=== PATIENT | male | born 1935 | race American Indian/Alaskan Native ===

== ENCOUNTER 2021-11-21 22:14 | Inpatient (IN) | payer OTHER ==
[2021-11-21] MEDS ORDERED: methylPREDNISolone Sod Succinate 125 MG/2 ML INJ IV ONE (23:20)
[2021-11-21] MEDS ORDERED: IPRATROPIUM/ALBUTEROL SULFATE 3 ML AMPUL.NEB IH ONE ×2 (23:27)
--- NOTE | 2021-11-21 23:35 | Emergency Department Report ---
HPI - General Chief Complaint: Dyspnea/Respdistress PUI?: Yes Time Seen by Provider: 11/21/21 23:02 - HPI HPI: 86yo morbidly obese M w/hx of DMII, CHF, chronic b/l LE lymphedema, brought in by ems for evaluation of sob. Pt reports several days of persistent intermittent dry/phlegm productive cough. He reports feeling "tightness" in his chest with coughing and sob, but denies chest pain. Of note patient is noted to have abdominal firmness and distention on physical exam. Patient states he has a history of a small bowel obstruction but denies any active abdominal pain or discomfort stating "my belly always looks like this." He denies any worsening abdominal distention over the past several days or weeks. No UTI symptoms. Last bowel movement was 1 day ago he states it was normal. No melena hematochezia or hematemesis. Pain currently 0 out of 10. ED Past Medical Hx - Past Medical History Previous Medical History?: Yes Hx Hypertension: Yes Hx Congestive Heart Failure: Yes Hx Diabetes: Yes Additional medical history: Gout. Thyroid Disease. Lymphedema - Surgical History Past Surgical History?: Yes Additional Surgical History: Abdominal. Small Bowel Obstruction - Social History Smoking Status: Never Smoker Substance Use Type: None ED Review of Systems ROS: Stated complaint: EMIL Other details as noted in HPI Comment: All other systems reviewed and negative Constitutional: no symptoms reported Eyes: as per HPI Respiratory: no symptoms reported, cough, orthopnea, shortness of breath, SOB with exertion, SOB at rest Cardiovascular: other ("chest tightness"). denies: chest pain, palpitations, dyspnea on exertion, orthopnea, edema, syncope, paroxysmal nocturnal dyspnea Gastrointestinal: other (abdominal distension ) Physical Exam - Physical Exam Vital Signs: Vital Signs 11/21/21 11/21/21 22:25 22:30 Temperature 98 F Pulse Rate 120 H 134 H Respiratory 20 39 H Rate Blood Pressure 146/102 O2 Sat by Pulse 97 96 Oximetry General: Gen: elderly male, dyspneic, on bipap machine, no drooling, no stridor, mild resp distress; able to speak in full sentences HEENT: Normocephalic atraumatic pupils equally round and reactive to light extraocular muscles intact sclera anicteric Neck: Full range of motion, no midline spinal tenderness palpation, no JVD, no carotid bruits, no nuchal rigidity CVS: S1-S2 regular rate and rhythm with no gallops rubs or murmurs, chest wall nontender Pulmonary: Clear to auscultation bilaterally, no wheezes rales or rhonchi Abdomen: firm, distended, ?ventral hernia; hypoactive bowel sounds; no hepatosplenomegaly, no pulsatile masses : Deferred Extremities: chronic lymphedema of b/l lower exteremities Integumentary: Skin normal, no petechia no purpura no abscess no lacerations no evidence of trauma no evidence of infection Neuro: Patient is awake alert and oriented to person place time situation, mentating well, cranial nerves II through XII intact, no focal neurodeficits, sensation grossly tact Psych: Calm cooperative, mood affect normal ED Course Vital Signs 11/21/21 11/21/21 22:25 22:30 Temperature 98 F Pulse Rate 120 H 134 H Respiratory 20 39 H Rate Blood Pressure 146/102 O2 Sat by Pulse 97 96 Oximetry - Reevaluation(s) Reevaluation #1: 11/22/21 01:28 pt appears more comfortable; denies any abdominal pain, back pain, or flank pain. will continue to monitor Reevaluation #2: 11/22/21 02:00 pt reassessed; RR at 26 breaths/min. Abdomen remains distended and firm nontender to palpation. ED Medical Decision Making - Lab Data Result diagrams: 11/21/21 23:20 11/21/21 23:20 - EKG Data -: EKG Interpreted by [facility] EKG shows normal: sinus rhythm Rate: tachycardia - EKG Data When compared to previous EKG there are: previous EKG unavailable Interpretation: LV[facility] - Radiology Data Radiology results: report reviewed - Medical Decision Making 86-year-old morbidly obese male with multiple medical comorbidities brought in by EMS for cough and shortness of breath. Per EMS the patient had received nitroglycerin and aspirin and was placed on a nonrebreather prior to arrival. Patient arrived here severely dyspneic tachypneic and hypertensive.Serum labs and diagnostic imaging results reviewed. However patient repeatedly denies any abdominal pain back pain or flank pain to suggest any acute intra-abdominal process at this time. Case reviewed with admitting hospitalist, . Patient admitted for CHF exacerbation (likely diastolic) and tachypnea. Critical Care Time: No Critical care attestation.: If time is entered above; I have spent that time in minutes in the direct care of this critically ill patient, excluding procedure time. ED Disposition Clinical Impression: Acute decompensated heart failure, Abdominal distension Disposition: ADMITTED INPATIENT Is pt being admited?: Yes Does the pt Need Aspirin: No Condition: Stable
[2021-11-21] MEDS ORDERED: FUROSEMIDE 40 MG/4 ML INJ IV ONE (23:40)
[2021-11-21 23:44] LABS: ABG Base Excess -3.4 mmol/L (-2.0-3.0); ABG HCO3 21.1 mmol/L (20.0-26.0); ABG Methemoglobin 0.6 % (0.0-1.5); ABG Oxygen Saturation 99.1 % (95.0-99.0); ABG PCO2 36.7 mm Hg; ABG PH 7.378 pH Units (7.350-7.450); ABG PO2 178.4 mm Hg (80.0-90.0)
[2021-11-21 23:51] LABS: Hematocrit 47.1 % (35.5-45.6); Hemoglobin 15.2 gm/dl (11.8-15.2); Mean Corpuscular HGB Conc 32 % (32-34); Mean Corpuscular Volume 88 fl (84-94); Platelet Count 189 K/mm3 (140-440); Red Blood Count 5.34 M/mm3 (3.65-5.03); Red Cell Distribution Width 14.1 % (13.2-15.2)
[2021-11-22 00:05] LABS: INR 1.04 (0.87-1.13); Partial Thromboplastin Time 31.8 Sec. (24.2-36.6)
[2021-11-22 00:27] LABS: Alanine Aminotransferase 24 units/L (7-56); Albumin 4.1 g/dL (3.9-5); BUN/Creatinine Ratio 10; Blood Urea Nitrogen 14 mg/dL (9-20); Calcium 10.9 mg/dL (8.4-10.2); Hemolysis Index 28
--- NOTE | 2021-11-22 00:27 | XRay Report ---
XR abdomen 1V ap INDICATION / CLINICAL INFORMATION: abdominal distension,. COMPARISON: None available. TECHNIQUE: One view supine AP abdomen. FINDINGS: TUBES / LINES: None. BOWEL GAS PATTERN: Moderate stool throughout the large bowel. Additionally, there is predominantly la rge bowel gaseous distention. No obvious free air. FREE AIR / EXTRALUMINAL GAS: None seen. ADDITIONAL FINDINGS: No significant additional findings. IMPRESSION: 1. Colonic ileus and/or constipation could be considered. No specific evidence of volvulus. Signer Name: Maco Marcelino II, MD Signed: 11/22/2021 12:22 AM Workstation Name: [id number]
--- NOTE | 2021-11-22 00:28 | XRay Report ---
CHEST 1 VIEW INDICATION / CLINICAL INFORMATION: sob, hx of chf. COMPARISON: None available. FINDINGS: SUPPORT DEVICES: None. HEART / MEDIASTINUM: Heart size is within normal limits. Mediastinal contour demonstrates no signific ant abnormality. LUNGS / PLEURA: Bibasilar lung opacities thought to reflect atelectasis more prevalent on the left. M id and upper lungs are clear. BONES: No significant osseous abnormality. ADDITIONAL FINDINGS: No significant additional findings. IMPRESSION: 1. No active cardiopulmonary disease. Signer Name: Maco Marcelino II, MD Signed: 11/22/2021 12:23 AM Workstation Name: [id number]
[2021-11-22 00:32] LABS: Bilirubin,Direct < 0.2 mg/dL (0-0.2)
--- NOTE | 2021-11-22 01:09 | Cat Scan Report ---
CT ABDOMEN AND PELVIS WITHOUT CONTRAST INDICATION / CLINICAL INFORMATION: abdominal distension, hypoactive bowel sounds; c/o. TECHNIQUE: Axial CT images were obtained through the abdomen and pelvis without IV contrast. All CT scans at this location are performed using CT dose reduction for ALARA by means of automated exposure control. COMPARISON: CT angiography of the chest same date. FINDINGS: LOWER CHEST: Please see comparison study for findings within the chest. LIVER: No focal lesion. No acute findings. GALLBLADDER / BILE DUCTS: No significant abnormality. Biliary ducts grossly unremarkable. SPLEEN: No significant abnormality. PANCREAS: No significant abnormality. ADRENALS: No significant abnormality. KIDNEYS/URETERS: 6 mm proximal right ureteral stone at the level of L3-4 interspace. [id number] hydronephrosis of the right kidney. Additional multiple moderately large renal stones are noted with in the right kidney. The right kidney additionally demonstrates a hyperdense cyst within the upper po le cortex. Left kidney demonstrates multiple small nephroliths. STOMACH / DUODENUM / SMALL BOWEL: The stomach, duodenum, and small bowel demonstrate no significant a bnormality. No specific abnormality of the mesentery demonstrated. COLON: Suture line noted within the mid sigmoid colon. Proximal to the suture line in the large bowel is moderately distended and filled with gas measuring up to 12-13 cm. Distal to the suture line in t he large bowel is decompressed. Moderate stool within the right hemicolon. APPENDIX: No significant abnormality. PERITONEUM: No free air or free fluid are present within the abdomen or pelvis. LYMPH NODES: No significant adenopathy. AORTA / ARTERIES: Moderate atherosclerotic calcification without acute abnormality. IVC / VEINS: No significant abnormality. URINARY BLADDER: Bladder diverticula. REPRODUCTIVE ORGANS: Prostate normal in size multiple calcifications. SKELETAL SYSTEM: No significant abnormality. ADDITIONAL ABDOMINAL/PELVIC FINDINGS: None. IMPRESSION: 1. 6 mm proximal right ureteral stone with associated hydronephrosis. 2. Multiple additional bilateral nephroliths. 3. The large bowel is moderately distended with gas to the point of the suture line in the mid sigmoi d colon. Partial obstruction at the level of suture line not excluded. 4. Other findings as detailed. Signer Name: Maco Marcelino II, MD Signed: 11/22/2021 1:05 AM Workstation Name: [id number]
--- NOTE | 2021-11-22 01:16 | Cat Scan Report ---
CTA CHEST WITH CONTRAST INDICATION / CLINICAL INFORMATION: cp, sob, hx of chf; eval for pulmonary embolism. TECHNIQUE: Axial CT images were obtained through the chest after injection of 100 cc Omnipaque 350 IV contrast. 3 plane MIP and/or 3D reconstructions were produced. All CT scans at this location are per formed using CT dose reduction for ALARA by means of automated exposure control. COMPARISON: CT of the abdomen and pelvis same date. FINDINGS: VASCULAR FINDINGS: PULMONARY ARTERY: Pulmonary artery is normal in size. No filling defects are present compatible with pulmonary artery embolus.. THORACIC AORTA: Moderate atherosclerotic calcification without acute abnormality. CORONARY ARTERY CALCIFICATION: Present -- Mild. NONVASCULAR FINDINGS: LOWER NECK: Soft tissues and musculature of the lower neck demonstrate no significant abnormality. Th e thyroid demonstrates no significant abnormality. HEART: No significant abnormality. MEDIASTINUM / MEERA: No significant abnormality. ESOPHAGUS: No significant abnormality. LYMPH NODES: No adenopathy within the axilla, mediastinum, or meera. LUNGS: Lungs are blurred by motion. Dependent atelectatic changes are noted. PLEURA: No pleural effusion. No pneumothorax. THORACIC SOFT TISSUES: No significant abnormality of the chest wall or upper thoracic musculature. BONES: No significant skeletal abnormalities. ADDITIONAL CHEST FINDINGS: None. UPPER ABDOMEN: Since comparison studies 4 Findings within the abdomen. IMPRESSION: 1. No CT evidence for pulmonary embolism. 2. Bilateral dependent regions of low attenuation most suggestive of atelectasis. Signer Name: Maco Marcelino II, MD Signed: 11/22/2021 1:11 AM Workstation Name: [id number]
[2021-11-22] MEDS ORDERED: DEXTROSE 50% IN WATER (25GM) 50 ML SYRINGE IV PRN (02:08)
[2021-11-22] MEDS ORDERED: MORPHINE 2 MG/1 ML INJ IV PRN (02:08)
[2021-11-22] MEDS ORDERED: MAGNESIUM HYDROXIDE (MOM) ORAL LIQD UDC PO PRN (02:08)
[2021-11-22] MEDS ORDERED: MORPHINE 4 MG/1 ML INJ IV PRN (02:08)
--- NOTE | 2021-11-22 02:22 | History and Physical Report ---
History of Present Illness Date of examination: 11/22/21 Date of admission: 11/22/2021 Chief complaint: Shortness of Breath History of present illness: 86-year-old -[place] male with known history of diabetes mellitus, CHF, bilateral lower extremity lymphedema presenting to the emergency room today complaining of shortness of breath and cough. He also indicates he has been having some tightness in his chest especially have coughing. He denies any chest pain. He denies any fever or chills, no nausea vomiting and no abdominal pain. Symptoms have been ongoing for the past few days. He denies any sick contacts and no recent travel. Upon arrival in the emergency room, patient was in respiratory distress. He was quite tachypneic upon arrival and was placed on nebulizing treatments and BiPAP. His abdomen also looked quite distended upon arrival and he states his abdomen has always been distended and and denies any pain. He states he has had small bowel obstruction in the past for which he has had surgery. Last bowel movement was about 24 hours ago. Work-up in the emergency room today, significant findings were that of creatinine of 1.4 and AST of 60 on the labs. Abdominal x-ray reveals colonic ileus and/or constipation. Chest x-ray shows no active cardiopulmonary disease. CT of the abdomen and pelvis shows multiple bilateral nephroliths. 6 mm proximal right ureteral stone with associated hydronephrosis. The large bowel is moderately distended with gas to the point of suture line in the mid sigmoid colon. Partial obstruction at the level of the suture line not excluded. Patient was given some Lasix in the emergency room with significant improvement. Past History Past Medical History: diabetes, heart failure, hypertension, hypothyroidism, other (Gout,Lymphedema) Past Surgical History: Other (Abdominal Surgery- Small Bowel Obstruction) Social history: no significant social history Family history: no significant family history Medications and Allergies Allergies Allergy/AdvReac Type Severity Reaction Status Date / Time No Known Allergies Allergy Unverified 11/21/21 23:08 Review of Systems Constitutional: no fever, no chills Ears, nose, mouth and throat: no nasal congestion, no sore throat Cardiovascular: no chest pain, no palpitations Respiratory: cough, shortness of breath Gastrointestinal: no abdominal pain, no nausea, no vomiting, no diarrhea Genitourinary Male: no dysuria, no hematuria, no flank pain, no nocturia Musculoskeletal: no neck pain, no low back pain Integumentary: no rash, no pruritis Neurological: no headaches, no confusion Psychiatric: no anxiety, no depression Endocrine: no polyphagia, no polydipsia, no polyuria, no nocturia Exam - Constitutional Vitals: Temp Pulse Resp BP Pulse Ox 98 F 134 H 39 H 146/102 96 11/21/21 22:25 11/21/21 22:30 11/21/21 22:30 11/21/21 22:25 11/21/21 22:30 General appearance: Present: mild distress, well-nourished, obese - EENT Eyes: Present: PERRL, EOM intact. Absent: scleral icterus ENT: hearing intact, clear oral mucosa, dentition normal - Neck Neck: Present: supple, normal ROM - Respiratory Respiratory effort: labored Respiratory: bilateral: diminished - Cardiovascular Rhythm: regular Heart Sounds: Present: S1 & S2. Absent: gallop, systolic murmur, diastolic murmur, rub, click - Extremities Extremities: no ischemia, pulses intact, pulses symmetrical, normal temperature, normal color, Full ROM Extremity abnormal: edema (Bilateral lymphedema) Peripheral Pulses: within normal limits - Abdominal General gastrointestinal: Present: soft, non-distended, distended, normal bowel sounds. Absent: mass - Integumentary Integumentary: Present: clear, warm, dry, normal turgor. Absent: rash - Musculoskeletal Musculoskeletal: strength equal bilaterally - Psychiatric Psychiatric: appropriate mood/affect, intact judgment & insight, memory intact, cooperative - Neurologic Neurologic: CNII-XII intact, no focal deficits, moves all extremities HEART Score - HEART Score Troponin: Troponin T < 0.010 ng/mL (0.00-0.029) 11/21/21 23:20 Results - Labs CBC & Chem 7: 11/21/21 23:20 11/21/21 23:20 Labs: Abnormal lab results 11/21/21 11/21/21 11/21/21 Range/Units 22:53 23:20 23:20 RBC 5.34 H (3.65-5.03) M/mm3 Hct 47.1 H (35.5-45.6) % ABG pO2 178.4 H (80.0-90.0) mm Hg ABG O2 Saturation 99.1 H (95.0-99.0) % ABG Base Excess -3.4 L (-2.0-3.0) mmol/L Sodium 133 L (137-145) mmol/L Creatinine 1.4 H (0.8-1.3) mg/dL Calcium 10.9 H (8.4-10.2) mg/dL AST 60 H (5-40) units/L Alkaline Phosphatase 184 H (35-129) units/L Assessment and Plan Assessment: 1. Acute respiratory failure 2. CHF exacerbation 3. Morbid obesity 4. Abdominal distention 5. Ureteral stone with hydronephrosis 6. Diabetes mellitus 7. Hypertensionblood pressure controlled 8.Elevated creatinine- baseline unknown Plan: 1. Patient admitted and placed on BiPAP. 2. Placed on diuretics. Will monitor input and output and also monitor daily weight. 3. We will place patient on nebulizing treatments as needed. 4. We will resume routine home medications once reconciled. 5. Consult placed to nephrology and urology for evaluation and recommendations. 6. Consult placed to cardiology for evaluation. DVT Prophylaxis: Sequential compression device Code Status: Full code
[2021-11-22 03:27] LABS: Anisocytosis 1+; Band Neutrophils # (Manual) 0.1 K/mm3; Basophils % (Manual) 0 % (0.0-1.8); Platelet Estimate Consistent w Auto; Total Cells Counted 100
[2021-11-22] MEDS ORDERED: FUROSEMIDE 40 MG/4 ML INJ IV SCH (06:00)
[2021-11-22] MEDS ORDERED: HEPARIN 5,000 UNIT/1 ML VIAL SUB-Q SCH (06:00)
[2021-11-22] MEDS ORDERED: ALBUTEROL 2.5 MG/3 ML NEBU IH PRN (07:02)
[2021-11-22] MEDS: INSULIN LISPRO 100 UNIT/ML SUB-Q SCH ×2 (07:59→21:19)
--- NOTE | 2021-11-22 08:30 | Consultation ---
History of Present Illness - Reason for Consult Consult date: 11/22/21 - History of Present Illness 86-year-old -[place] male with known history of diabetes mellitus, CHF, bilateral lower extremity lymphedema presenting to the emergency room today complaining of shortness of breath and cough. He also indicates he has been having some tightness in his chest especially have coughing. He denies any chest pain. He denies any fever or chills, no nausea vomiting and no abdominal pain. Symptoms have been ongoing for the past few days. He denies any sick contacts and no recent travel. . His abdomen also looked quite distended upon arrival and he states his abdomen has always been distended and and denies any pain. He states he has had small bowel obstruction in the past for which he has had surgery. Last bowel movement was about 24 hours ago. Work-up in the emergency room today, significant findings were that of creatinine of 1.4 Abdominal x-ray reveals colonic ileus and/or constipation. Chest x-ray shows no active cardiopulmonary disease. CT of the abdomen and pelvis shows multiple bilateral nephroliths. 6 mm proximal right ureteral stone with associated hydronephrosis. The large bowel is moderately distended with gas to the point of suture line in the mid sigmoid colon. Partial obstruction at the level of the suture line not excluded. Patient was given some Lasix in the emergency room with significant improvement. abd --- non tender legs wrapped in bandages a/p 6 mm proximal right ureteral stone with associated hydronephrosis. discussed cysto, stent to improve symptoms Myself or partner to do procedure (pt aware) npo Past History Past Medical History: diabetes, heart failure, hypertension, hypothyroidism, other (Gout,Lymphedema) Past Surgical History: Other (Abdominal Surgery- Small Bowel Obstruction) Social history: no significant social history Family history: no significant family history Medications and Allergies Allergies Allergy/AdvReac Type Severity Reaction Status Date / Time No Known Allergies Allergy Unverified 11/21/21 23:08 Active Meds: Active Medications Acetaminophen (Acetaminophen 325 Mg Tab) 650 mg PO Q6H PRN PRN Reason: Pain MILD(1-3)/Fever >100.5/CARREON Albuterol (Albuterol 2.5 Mg/3 Ml Nebu) 2.5 mg IH Q4HRT PRN PRN Reason: Shortness Of Breath Dextrose (Dextrose 50% In Water (25gm) 50 Ml Syringe) 0 ml IV Q30MIN PRN; [place] col PRN Reason: Hypoglycemia Dextrose (Dextrose 50% In Water (25gm) 50 Ml Syringe) 0 ml IV Q30MIN PRN; Protocol PRN Reason: Hypoglycemia Furosemide (Furosemide 40 Mg/4 Ml Inj) 40 mg IV BID@0600,1800 ERIKA Last Admin: 11/22/21 06:33 Dose: 40 mg Insulin Human Lispro (Insulin Lispro 100 Unit/Ml) 0 unit SUB-Q ACHS ERIKA; Protocol Last Admin: 11/22/21 07:59 Dose: Not Given Magnesium Hydroxide (Magnesium Hydroxide (Mom) Oral Liqd Udc) 30 ml PO Q4H PRN PRN Reason: Constipation Morphine Sulfate (Morphine 2 Mg/1 Ml Inj) 2 mg IV Q4H PRN PRN Reason: Pain, Moderate (4-6) Morphine Sulfate (Morphine 4 Mg/1 Ml Inj) 4 mg IV Q4H PRN PRN Reason: Pain , Severe (7-10) Sodium Chloride (Sodium Chloride 0.9% 10 Ml Flush Syringe) 10 ml IV BID [facility] Sodium Chloride (Sodium Chloride 0.9% 10 Ml Flush Syringe) 10 ml IV PRN PRN PRN Reason: LINE FLUSH Exam - Constitutional Vitals: Temp Pulse Resp BP Pulse Ox 98 F 76 24 127/76 93 11/21/21 22:25 11/22/21 07:36 11/22/21 07:36 11/22/21 07:36 11/22/21 07:36 Results - Labs CBC & Chem 7: 11/21/21 23:20 11/21/21 23:20 Labs: Abnormal lab results 11/21/21 11/21/21 11/21/21 Range/Units 22:53 23:20 23:20 RBC 5.34 H (3.65-5.03) M/mm3 Hct 47.1 H (35.5-45.6) % Seg Neuts % (Manual) 91.0 H (40.0-70.0) % Lymphocytes % (Manual) 5.0 L (13.4-35.0) % Seg Neutrophils # Man 8.5 H (1.8-7.7) K/mm3 Lymphocytes # (Manual) 0.5 L (1.2-5.4) K/mm3 ABG pO2 178.4 H (80.0-90.0) mm Hg ABG O2 Saturation 99.1 H (95.0-99.0) % ABG Base Excess -3.4 L (-2.0-3.0) mmol/L Sodium 133 L (137-145) mmol/L Creatinine 1.4 H (0.8-1.3) mg/dL Calcium 10.9 H (8.4-10.2) mg/dL AST 60 H (5-40) units/L Alkaline Phosphatase 184 H (35-129) units/L
--- NOTE | 2021-11-22 09:42 | Consultation ---
History of Present Illness - Reason for Consult Consult date: 11/22/21 acute renal failure - History of Present Illness Mr. Turcios is an 86-year-old with congestive heart failure, bilateral lower extremity lymphedema, type II DM who presented to the emergency room today complaining of shortness of breath and cough w/ pleuritic chest pain. He denies fever but reports chills. He denies any sick contacts. He did not receive COVID 19 vaccination. Upon arrival in the emergency room, patient was in respiratory distress requiring nebulizer and BiPAP. Chest x-ray shows no active cardiopulmonary disease. CT of the abdomen and pelvis notable for 6 mm proximal right ureteral stone with associated hydronephrosis. The large bowel is moderately distended with gas to the point of suture line in the mid sigmoid colon. Partial obstruction at the level of the suture line not excluded. Past History Past Medical History: diabetes, heart failure, hypertension, hypothyroidism, other (Gout,Lymphedema) Past Surgical History: Other (Abdominal Surgery- Small Bowel Obstruction) Social history: no significant social history Family history: no significant family history Medications and Allergies Allergies Allergy/AdvReac Type Severity Reaction Status Date / Time No Known Allergies Allergy Unverified 11/21/21 23:08 Home Medications Medication Instructions Recorded Confirmed Last Taken Type Furosemide [Lasix] 20 mg PO QDAY 11/22/21 11/22/21 Unknown History Gabapentin [Neurontin] 300 mg PO BID 11/22/21 11/22/21 Unknown History Levothyroxine [Synthroid] 150 mcg PO QAM 11/22/21 11/22/21 Unknown History allopurinoL [Zyloprim] 100 mg PO QDAY 11/22/21 11/22/21 Unknown History amLODIPine [Norvasc] 10 mg PO DAILY 11/22/21 11/22/21 Unknown History lisinopriL [Zestril TAB] 40 mg PO QDAY 11/22/21 11/22/21 Unknown History Active Meds: Active Medications Acetaminophen (Acetaminophen 325 Mg Tab) 650 mg PO Q6H PRN PRN Reason: Pain MILD(1-3)/Fever >100.5/CARREON Albuterol (Albuterol 2.5 Mg/3 Ml Nebu) 2.5 mg IH Q4HRT PRN PRN Reason: Shortness Of Breath Dextrose (Dextrose 50% In Water (25gm) 50 Ml Syringe) 0 ml IV Q30MIN PRN; Protocol PRN Reason: Hypoglycemia Dextrose (Dextrose 50% In Water (25gm) 50 Ml Syringe) 0 ml IV Q30MIN PRN; Protocol PRN Reason: Hypoglycemia Insulin Human Lispro (Insulin Lispro 100 Unit/Ml) 0 unit SUB-Q ACHS ERIKA; Protocol Last Admin: 11/22/21 07:59 Dose: Not Given Magnesium Hydroxide (Magnesium Hydroxide (Mom) Oral Liqd Udc) 30 ml PO Q4H PRN PRN Reason: Constipation Morphine Sulfate (Morphine 2 Mg/1 Ml Inj) 2 mg IV Q4H PRN PRN Reason: Pain, Moderate (4-6) Morphine Sulfate (Morphine 4 Mg/1 Ml Inj) 4 mg IV Q4H PRN PRN Reason: Pain , Severe (7-10) Sodium Chloride (Sodium Chloride 0.9% 10 Ml Flush Syringe) 10 ml IV BID ERIKA Sodium Chloride (Sodium Chloride 0.9% 10 Ml Flush Syringe) 10 ml IV PRN PRN PRN Reason: LINE FLUSH Review of Systems All systems: negative Exam - Vital Signs Vital signs: Vital Signs Temp Pulse Resp BP Pulse Ox 98 F 120 H 20 146/102 97 11/21/21 22:25 11/21/21 22:25 11/21/21 22:25 11/21/21 22:25 11/21/21 22:25 - General Appearance General appearance: well-developed, well-nourished EENT: ATNC Respiratory: Decreased Breath Sounds Heart: regular, S1S2 Gastrointestinal: Present: hypoactive bowel sounds Integumentary: warm and dry Neurologic: alert and oriented x3 Musculoskeletal: Present: other (bilateral LE bandaged) Results - Lab Results 11/23/21 04:38 11/23/21 04:38 Most recent lab results ABG pH 7.378 pH Units (7.350-7.450) 11/21/21 22:53 ABG pCO2 36.7 mm Hg 11/21/21 22:53 ABG pO2 178.4 mm Hg (80.0-90.0) H 11/21/21 22:53 ABG HCO3 21.1 mmol/L (20.0-26.0) 11/21/21 22:53 ABG O2 Saturation 99.1 % (95.0-99.0) H 11/21/21 22:53 Calcium 10.9 mg/dL (8.4-10.2) H 11/21/21 23:20 Assessment and Plan Impression: * Acute kidney injury vs underlying CKD --No previous labs available * Acute hypoxic respiratory failure secondary to pulmonary edema vs other * Right ureteral calculus with associated hydronephrosis * Obstructive uropathy secondary to ureteral calculus * Partial bowel obstruction * Congestive heart failure * Hypercalcemia Plan: * Diuresis prn - patient is s/p IV lasix * Recommend COVID 19 testing in light of symptoms and unvaccinated status - discussed with ICU PA * Urology recommendations noted * Cardiology consultation pending * Avoid potential nephrotoxins * Dose medications for renal function * AM labs
--- NOTE | 2021-11-22 11:03 | Consultation ---
History of Present Illness Consult date: 11/22/21 Requesting physician: THU ROMERO Consult reason: congestive heart failure History of present illness: Patient is 86-year-old male with a reported past medical history of diabetes, CHF, chronic bilateral lower extremity lymphedema, hypertension presents to the ED with a complaint of shortness of breath and cough time 2 to 3 days. In the ED patient was found to be in respiratory distress and started on BiPAP and nebulizer treatments. CT abdomen showed bilateral nephroliths and ureteral stone associated with hydronephrosis. Patient was also seen moderately distended large bowel with partial obstruction. Patient was found to have elevated creatinine. Chest x-ray showed no acute cardiopulmonary process patient denies any chest pain, nausea, vomiting, diaphoresis. Patient previously unknown to our practice. Cardiology is consulted for CHF. Past History Past Medical History: diabetes, heart failure, hypertension, hypothyroidism, other (Gout,Lymphedema) Past Surgical History: Other (Abdominal Surgery- Small Bowel Obstruction) Social history: no significant social history Family history: no significant family history Medications and Allergies Allergies Allergy/AdvReac Type Severity Reaction Status Date / Time No Known Allergies Allergy Unverified 11/21/21 23:08 Home Medications Medication Instructions Recorded Confirmed Last Taken Type Furosemide [Lasix] 20 mg PO QDAY 11/22/21 11/22/21 Unknown History Gabapentin [Neurontin] 300 mg PO BID 11/22/21 11/22/21 Unknown History Levothyroxine [Synthroid] 150 mcg PO QAM 11/22/21 11/22/21 Unknown History allopurinoL [Zyloprim] 100 mg PO QDAY 11/22/21 11/22/21 Unknown History amLODIPine [Norvasc] 10 mg PO DAILY 11/22/21 11/22/21 Unknown History lisinopriL [Zestril TAB] 40 mg PO QDAY 11/22/21 11/22/21 Unknown History Active Meds: Active Medications Acetaminophen (Acetaminophen 325 Mg Tab) 650 mg PO Q6H PRN PRN Reason: Pain MILD(1-3)/Fever >100.5/CARREON Albuterol (Albuterol 2.5 Mg/3 Ml Nebu) 2.5 mg IH Q4HRT PRN PRN Reason: Shortness Of Breath Dextrose (Dextrose 50% In Water (25gm) 50 Ml Syringe) 0 ml IV Q30MIN PRN; Protocol PRN Reason: Hypoglycemia Insulin Human Lispro (Insulin Lispro 100 Unit/Ml) 0 unit SUB-Q ACHS ERIKA; Protocol Last Admin: 11/22/21 07:59 Dose: Not Given Levothyroxine Sodium (Levothyroxine 150 Mcg Tab) 150 mcg PO QAM@0600 [facility] Magnesium Hydroxide (Magnesium Hydroxide (Mom) Oral Liqd Udc) 30 ml PO Q4H PRN PRN Reason: Constipation Morphine Sulfate (Morphine 2 Mg/1 Ml Inj) 2 mg IV Q4H PRN PRN Reason: Pain, Moderate (4-6) Morphine Sulfate (Morphine 4 Mg/1 Ml Inj) 4 mg IV Q4H PRN PRN Reason: Pain , Severe (7-10) Sodium Chloride (Sodium Chloride 0.9% 10 Ml Flush Syringe) 10 ml IV BID ERIKA Sodium Chloride (Sodium Chloride 0.9% 10 Ml Flush Syringe) 10 ml IV PRN PRN PRN Reason: LINE FLUSH Review of Systems Constitutional: no weight loss, no weight gain, no fever Ears, nose, mouth and throat: no nasal discharge, no sinus pressure, no sinus pain Cardiovascular: shortness of breath, dyspnea on exertion, no chest pain Respiratory: cough, shortness of breath, dyspnea on exertion Gastrointestinal: no abdominal pain, no nausea, no vomiting Musculoskeletal: no neck stiffness, no neck pain Integumentary: no rash, no pruritis, no redness Neurological: no head injury, no transient paralysis Psychiatric: no anxiety, no memory loss Endocrine: no cold intolerance, no heat intolerance Hematologic/Lymphatic: no easy bruising, no easy bleeding Physical Examination Vital Signs Temp Pulse Resp BP Pulse Ox 98 F 120 H 20 146/102 97 11/21/21 22:25 11/21/21 22:25 11/21/21 22:25 11/21/21 22:25 11/21/21 22:25 General appearance: no acute distress Neck: Positive: trachea midline Cardiac: Positive: Regular Rhythm, Tachycardia Lungs: Positive: Decreased Breath Sounds Neuro: Positive: Grossly Intact Abdomen: Positive: Distended Skin: Negative: Rash, Suspicious Lesions, Ulceration Extremities: Present: edema (chroninc lymphedema) Results 11/21/21 23:20 11/21/21 23:20 Cardiac Enzymes 11/21/21 Range/Units 23:20 AST 60 H (5-40) units/L Coagulation 11/21/21 Range/Units 23:20 PT 14.8 (12.2-14.9) Sec. INR 1.04 (0.87-1.13) APTT 31.8 (24.2-36.6) Sec. CBC 11/21/21 Range/Units 23:20 WBC 9.3 (4.5-11.0) K/mm3 RBC 5.34 H (3.65-5.03) M/mm3 Hgb 15.2 (11.8-15.2) gm/dl Hct 47.1 H (35.5-45.6) % Plt Count 189 (140-440) K/mm3 Comprehensive Metabolic Panel 11/21/21 Range/Units 23:20 Sodium 133 L (137-145) mmol/L Potassium 4.1 (3.6-5.0) mmol/L Chloride 98.9 (98-107) mmol/L Carbon Dioxide 22 (22-30) mmol/L BUN 14 (9-20) mg/dL Creatinine 1.4 H (0.8-1.3) mg/dL Glucose 95 (75-100) mg/dL Calcium 10.9 H (8.4-10.2) mg/dL Direct Bilirubin < 0.2 (0-0.2) mg/dL Indirect Bilirubin 0.4 mg/dL AST 60 H (5-40) units/L ALT 24 (7-56) units/L Alkaline Phosphatase 184 H (35-129) units/L Total Protein 7.7 (6.3-8.2) g/dL Albumin 4.1 (3.9-5) g/dL - Imaging and Cardiology Echo: pending, report reviewed EKG interpretations - Telemetry EKG Rhythm: Sinus Tachycardia - EKG Sinus rhythms and dysrhythmias: sinus tachycardia Ventricular dysrhythmias: ventricular premature com Assessment and Plan Patient is 86-year-old male with a reported past medical history of diabetes, CHF, chronic bilateral lower extremity lymphedema, hypertension presents to the ED with a complaint of shortness of breath and cough time 2 to 3 days Acute respiratory failure Hydronephrosis-nephrology following Kidney stone TAMMY Chronic lymphedema Hypertension Echo 03/07/2019-1. Left ventricular ejection fraction is 65%. Aortic valve is tricuspid, focally calcified and sclerotic. Mildly dilated left atrium. There is impaired relaxation with normal filling pressure consistent with grade 1 diastolic dysfunction. E/E' indicative of elevated LVEDP. Mild pulmonic valve insufficiency. Echo 11/22/2021-EF 50 to 55%. Mild concentric LVH. Right ventricle systolic function is normal. No aortic regurgitation is present. Aortic valve is calcified. No aortic valvular stenosis no pericardial effusion Plan: EKG shows sinus tach with PVCs no acute ischemic changes. Troponin negative x1. Patient denies any complaint of chest pain BNP negative, CXR shows no acute cardiopulmonary process. Patient is not clinically in heart failure Echo pending Will defer volume management to nephrology in due to patient's renal function No LIBERTY/ARB due to renal function At this time patient is not an acute heart failure or complaints of any ischemic symptoms no cardiac contraindications for intervention at this time. Patient presents with Dr. Hatfield who agrees with plan of care - Patient Problems (1) Hydronephrosis Current Visit: Yes Status: Acute (2) Abdominal distension Current Visit: No Status: Acute (3) TAMMY (acute kidney injury) Current Visit: Yes Status: Acute (4) Lymph edema Current Visit: Yes Status: Acute (5) HTN (hypertension) Current Visit: Yes Status: Acute (6) Acute respiratory failure Current Visit: Yes Status: Acute
--- NOTE | 2021-11-22 11:28 | Consultation ---
History of Present Illness Consult date: 11/22/21 Requesting physician: THU ROMERO Reason for consult: other (Acute Hypoxemic Respiratory Failure) History of present illness: [facility] CONSULT NOTE (Full dictation # [id number]) Please see dictated notes for full details Past History Past Medical History: diabetes, heart failure, hypertension, hypothyroidism, other (Gout,Lymphedema) Past Surgical History: Other (Abdominal Surgery- Small Bowel Obstruction) Social history: no significant social history Family history: no significant family history Medications and Allergies Allergies Allergy/AdvReac Type Severity Reaction Status Date / Time No Known Allergies Allergy Unverified 11/21/21 23:08 Home Medications Medication Instructions Recorded Confirmed Last Taken Type Furosemide [Lasix] 20 mg PO QDAY 11/22/21 11/22/21 Unknown History Gabapentin [Neurontin] 300 mg PO BID 11/22/21 11/22/21 Unknown History Levothyroxine [Synthroid] 150 mcg PO QAM 11/22/21 11/22/21 Unknown History allopurinoL [Zyloprim] 100 mg PO QDAY 11/22/21 11/22/21 Unknown History amLODIPine [Norvasc] 10 mg PO DAILY 11/22/21 11/22/21 Unknown History lisinopriL [Zestril TAB] 40 mg PO QDAY 11/22/21 11/22/21 Unknown History Active Meds: Active Medications Acetaminophen (Acetaminophen 325 Mg Tab) 650 mg PO Q6H PRN PRN Reason: Pain MILD(1-3)/Fever >100.5/CARREON Albuterol (Albuterol 2.5 Mg/3 Ml Nebu) 2.5 mg IH Q4HRT PRN PRN Reason: Shortness Of Breath Dextrose (Dextrose 50% In Water (25gm) 50 Ml Syringe) 0 ml IV Q30MIN PRN; Protocol PRN Reason: Hypoglycemia Insulin Human Lispro (Insulin Lispro 100 Unit/Ml) 0 unit SUB-Q ACHS ERIKA; Protocol Last Admin: 11/22/21 07:59 Dose: Not Given Levothyroxine Sodium (Levothyroxine 150 Mcg Tab) 150 mcg PO QAM@0600 [facility] Magnesium Hydroxide (Magnesium Hydroxide (Mom) Oral Liqd Udc) 30 ml PO Q4H PRN PRN Reason: Constipation Morphine Sulfate (Morphine 2 Mg/1 Ml Inj) 2 mg IV Q4H PRN PRN Reason: Pain, Moderate (4-6) Morphine Sulfate (Morphine 4 Mg/1 Ml Inj) 4 mg IV Q4H PRN PRN Reason: Pain , Severe (7-10) Sodium Chloride (Sodium Chloride 0.9% 10 Ml Flush Syringe) 10 ml IV BID ERIKA Sodium Chloride (Sodium Chloride 0.9% 10 Ml Flush Syringe) 10 ml IV PRN PRN PRN Reason: LINE FLUSH Physical Examination Vital signs: Vital Signs Temp Pulse Resp BP Pulse Ox 98 F 120 H 20 146/102 97 11/21/21 22:25 11/21/21 22:25 11/21/21 22:25 11/21/21 22:25 11/21/21 22:25 Results - Laboratory Findings CBC and BMP: 11/21/21 23:20 11/21/21 23:20 ABG ABG pH 7.378 pH Units (7.350-7.450) 11/21/21 22:53 ABG pCO2 36.7 mm Hg 11/21/21 22:53 ABG pO2 178.4 mm Hg (80.0-90.0) H 11/21/21 22:53 ABG O2 Saturation 99.1 % (95.0-99.0) H 11/21/21 22:53 PT/INR, D-dimer PT 14.8 Sec. (12.2-14.9) 11/21/21 23:20 INR 1.04 (0.87-1.13) 11/21/21 23:20 Abnormal lab findings: Abnormal Labs 11/21/21 11/21/21 11/21/21 22:53 23:20 23:20 RBC 5.34 H Hct 47.1 H Seg Neuts % (Manual) 91.0 H Lymphocytes % (Manual) 5.0 L Seg Neutrophils # Man 8.5 H Lymphocytes # (Manual) 0.5 L ABG pO2 178.4 H ABG O2 Saturation 99.1 H ABG Base Excess -3.4 L Sodium 133 L Creatinine 1.4 H Calcium 10.9 H AST 60 H Alkaline Phosphatase 184 H
[2021-11-22] MEDS: ACETAMINOPHEN 325 MG TAB PO PRN (11:36)
[2021-11-22 12:27] LABS: Bacteria,Urine 1+ /HPF (Negative); Mucus,Urine FEW /HPF
[2021-11-22 12:38] LABS: Color,Urine Yellow (Yellow)
--- NOTE | 2021-11-22 14:26 | Consultation ---
History of Present Illness Consult date: 11/22/21 Reason for consult: other (abnormal ct abdomen) Chief complaint: sob - History of present illness History of present illness: 86 yo M with hx of morbid obesity, CHF, sleep apnea who presented to ER with i ncreasing SOB. Patient admitted to ICU for management of respiratory symptoms. Patient in OR at time of visit and all hx obtained from chart and from patient's exwife over telephone. During w/u, CT A/P was obtained which revealed hydronephrosis 2/2 obstructing ureteral stone and large bowel dilatation to the level of a sigmoid anastamosis. Patient noted to have distended abdomen but states it was baseline for him. He had a BM 24 hours prior without c/o abdominal pain, n/v. Per patient's exwife he has not had any abdominal complaints recently. At [facility] with Dr. Frantz Herrera, in 2019, he underwent open sigmoid resection, colostomy creation for impacted stool. He does not have a history of cancer. He subsequently underwent reversal of ostomy. He has not had a recent cscope. He has never had any other bowel surgery. Past History Past Medical History: diabetes, heart failure, hypertension, hypothyroidism, other (Gout,Lymphedema, sleep apnea, colonic inertia) Past Surgical History: Other (Hartmanns procedure with subsequent ostomy reversal) Social history: no significant social history Family history: no significant family history Medications and Allergies Allergies Allergy/AdvReac Type Severity Reaction Status Date / Time No Known Allergies Allergy Unverified 11/21/21 23:08 Home Medications Medication Instructions Recorded Confirmed Last Taken Type Furosemide [Lasix] 20 mg PO QDAY 11/22/21 11/22/21 Unknown History Gabapentin [Neurontin] 300 mg PO BID 11/22/21 11/22/21 Unknown History Levothyroxine [Synthroid] 150 mcg PO QAM 11/22/21 11/22/21 Unknown History allopurinoL [Zyloprim] 100 mg PO QDAY 11/22/21 11/22/21 Unknown History amLODIPine [Norvasc] 10 mg PO DAILY 11/22/21 11/22/21 Unknown History lisinopriL [Zestril TAB] 40 mg PO QDAY 11/22/21 11/22/21 Unknown History Active Meds: Active Medications Acetaminophen (Acetaminophen 325 Mg Tab) 650 mg PO Q6H PRN PRN Reason: Pain MILD(1-3)/Fever >100.5/CARREON Last Admin: 11/22/21 11:36 Dose: 650 mg Albuterol (Albuterol 2.5 Mg/3 Ml Nebu) 2.5 mg IH Q4HRT PRN PRN Reason: Shortness Of Breath Dextrose (Dextrose 50% In Water (25gm) 50 Ml Syringe) 0 ml IV Q30MIN PRN; Protocol PRN Reason: Hypoglycemia Insulin Human Lispro (Insulin Lispro 100 Unit/Ml) 0 unit SUB-Q ACHS ERIKA; Protocol Last Admin: 11/22/21 07:59 Dose: Not Given Levothyroxine Sodium (Levothyroxine 150 Mcg Tab) 150 mcg PO QAM@0600 [facility] Magnesium Hydroxide (Magnesium Hydroxide (Mom) Oral Liqd Udc) 30 ml PO Q4H PRN PRN Reason: Constipation Morphine Sulfate (Morphine 2 Mg/1 Ml Inj) 2 mg IV Q4H PRN PRN Reason: Pain, Moderate (4-6) Morphine Sulfate (Morphine 4 Mg/1 Ml Inj) 4 mg IV Q4H PRN PRN Reason: Pain , Severe (7-10) Sodium Chloride (Sodium Chloride 0.9% 10 Ml Flush Syringe) 10 ml IV BID ERIKA Sodium Chloride (Sodium Chloride 0.9% 10 Ml Flush Syringe) 10 ml IV PRN PRN PRN Reason: LINE FLUSH Exam Vital Signs Temp Pulse Resp BP Pulse Ox 98 F 120 H 20 146/102 97 11/21/21 22:25 11/21/21 22:25 11/21/21 22:25 11/21/21 22:25 11/21/21 22:25 Narrative exam: Unable to complete. Patient in OR Results - Labs 11/21/21 23:20 11/21/21 23:20 Abnormal lab results 11/21/21 11/21/21 11/21/21 Range/Units 22:53 23:20 23:20 RBC 5.34 H (3.65-5.03) M/mm3 Hct 47.1 H (35.5-45.6) % Seg Neuts % (Manual) 91.0 H (40.0-70.0) % Lymphocytes % (Manual) 5.0 L (13.4-35.0) % Seg Neutrophils # Man 8.5 H (1.8-7.7) K/mm3 Lymphocytes # (Manual) 0.5 L (1.2-5.4) K/mm3 ABG pO2 178.4 H (80.0-90.0) mm Hg ABG O2 Saturation 99.1 H (95.0-99.0) % ABG Base Excess -3.4 L (-2.0-3.0) mmol/L Sodium 133 L (137-145) mmol/L Creatinine 1.4 H (0.8-1.3) mg/dL Calcium 10.9 H (8.4-10.2) mg/dL AST 60 H (5-40) units/L Alkaline Phosphatase 184 H (35-129) units/L Urine WBC (Auto) (0.0-6.0) /HPF 11/22/21 Range/Units 11:47 RBC (3.65-5.03) M/mm3 Hct (35.5-45.6) % Seg Neuts % (Manual) (40.0-70.0) % Lymphocytes % (Manual) (13.4-35.0) % Seg Neutrophils # Man (1.8-7.7) K/mm3 Lymphocytes # (Manual) (1.2-5.4) K/mm3 ABG pO2 (80.0-90.0) mm Hg ABG O2 Saturation (95.0-99.0) % ABG Base Excess (-2.0-3.0) mmol/L Sodium (137-145) mmol/L Creatinine (0.8-1.3) mg/dL Calcium (8.4-10.2) mg/dL AST (5-40) units/L Alkaline Phosphatase (35-129) units/L Urine WBC (Auto) 14.0 H (0.0-6.0) /HPF Diabetes panel 11/21/21 Range/Units 23:20 Sodium 133 L (137-145) mmol/L Potassium 4.1 (3.6-5.0) mmol/L Chloride 98.9 (98-107) mmol/L Carbon Dioxide 22 (22-30) mmol/L BUN 14 (9-20) mg/dL Creatinine 1.4 H (0.8-1.3) mg/dL Glucose 95 (75-100) mg/dL Calcium 10.9 H (8.4-10.2) mg/dL AST 60 H (5-40) units/L ALT 24 (7-56) units/L Alkaline Phosphatase 184 H (35-129) units/L Total Protein 7.7 (6.3-8.2) g/dL Albumin 4.1 (3.9-5) g/dL Calcium panel 11/21/21 Range/Units 23:20 Calcium 10.9 H (8.4-10.2) mg/dL Albumin 4.1 (3.9-5) g/dL Pituitary panel 11/21/21 Range/Units 23:20 Sodium 133 L (137-145) mmol/L Potassium 4.1 (3.6-5.0) mmol/L Chloride 98.9 (98-107) mmol/L Carbon Dioxide 22 (22-30) mmol/L BUN 14 (9-20) mg/dL Creatinine 1.4 H (0.8-1.3) mg/dL Glucose 95 (75-100) mg/dL Calcium 10.9 H (8.4-10.2) mg/dL Adrenal panel 11/21/21 Range/Units 23:20 Sodium 133 L (137-145) mmol/L Potassium 4.1 (3.6-5.0) mmol/L Chloride 98.9 (98-107) mmol/L Carbon Dioxide 22 (22-30) mmol/L BUN 14 (9-20) mg/dL Creatinine 1.4 H (0.8-1.3) mg/dL Glucose 95 (75-100) mg/dL Calcium 10.9 H (8.4-10.2) mg/dL Total Bilirubin 0.60 (0.1-1.2) mg/dL AST 60 H (5-40) units/L ALT 24 (7-56) units/L Alkaline Phosphatase 184 H (35-129) units/L Total Protein 7.7 (6.3-8.2) g/dL Albumin 4.1 (3.9-5) g/dL - Imaging CT scan - abdomen: report reviewed, image reviewed CT scan - pelvis: report reviewed, image reviewed Assessment and Plan 86 yo M with colonic distension, hx of sigmoid resection and possible stricture at staple line. Likely chronic. Plan: 1. NPO 2. gentle IVF 3. Discussed flex sig with GI to further assess anastamosis - await recs. Consult placed. 4. May require ostomy vs stent placement based on flex sig results 5. DVT ppx 6. May consider discussion with patient's primary surgeon at [place], Dr. Herrera Thank you, please call with questions.
[2021-11-22] MEDS ORDERED: MIDAZOLAM 2 MG/2 ML INJ ONE (14:32)
[2021-11-22] MEDS ORDERED: propofoL 200 MG/20 ML VIAL IV ONE (14:33)
[2021-11-22] MEDS ORDERED: SODIUM CHLORIDE 0.9% 1000 ML 1,000 ML ONE (14:37)
[2021-11-22] MEDS ORDERED: SODIUM CHLORIDE 0.9% 1000 ML 1,000 ML IV SCH (14:40)
--- NOTE | 2021-11-22 14:42 | Anesthesia Day of Surgery ---
Anesthesia Day of Surgery - Day of Surgery Patient Examined: Yes Patient H&P Reviewed: Yes Patient is NPO: Yes
--- NOTE | 2021-11-22 14:47 | Anesthesia Consultation ---
Anesthesia Consult and Med Hx Date of service: 11/22/21 - Airway Anesthetic Teeth Evaluation: Poor ROM Head & Neck: Adequate Mental/Hyoid Distance: Adequate Intubation Access Assessment: Possibly Difficult - Pulmonary Exam CTA: Yes - Cardiac Exam Cardiac Exam: RRR - Pre-Operative Health Status ASA Pre-Surgery Classification: ASA4 - Pulmonary Hx Respiratory Symptoms: Yes (resp. failure) - Cardiovascular System Hx Hypertension: Yes (CHF--EF 65%) - Endocrine Hx Renal Disease: Yes (TAMMY) Hx Insulin Dependent Diabetes: Yes Hx Hypothyroidism: Yes - Other Systems Hx Obesity: Yes (Large abdominal girth) - Additional Comments Anesthesia Medical History Comments: bilateral Lymphedema
--- NOTE | 2021-11-22 14:50 | Progress Note ---
Assessment and Plan Assessment and plan: This is a 86-year-old male with DM, CHF, HTN, hypothyroidism, SBO s/p abdominal surgery admitted with TAMMY, possible SBO, right ureteral calculi with hydronephrosis, obstructive uropathy Neuro: NAD -Reorientation as needed -Maintain sleep-wake cycle -As needed analgesia Cardiac: h/o CHF, HTN -Cardiology consulted, appreciate recommendations -Blood pressure monitoring per protocol -Hold home antihypertenisive medication at this time -Echocardiogram pending -Per cardio: -Echo 03/07/2019-1. Left ventricular ejection fraction is 65%. Aortic valve is tricuspid, focally calcified and sclerotic. Mildly dilated left atrium. There is impaired relaxation with normal filling pressure consistent with grade 1 diastolic dysfunction. E/E' indicative of elevated LVEDP. Mild pulmonic valve insufficiency. -Echo 11/22/2021-EF 50 to 55%. Mild concentric LVH. Right ventricle systolic function is normal. No aortic regurgitation is present. Aortic valve is calcified. No aortic valvular stenosis no pericardial effusion -No LIBERTY or ARB in setting of TAMMY Respiratory: Acute hypoxic respiratory failure -CCM consulted, appreciate recommendations -s/p bipap -Currently on venturi mask -Pulmonary hygiene -SPO2 monitor per protocol -CTA chest showed no evidence of pulmonary embolism, bilateral dependent regions of low-attenuation was suggestive of atelectasis GI: Possible SBO, h/o SBO with surgery -General surgery consulted, appreciate recommendations -Abdomen pelvis CT showed 6 mm proximal right ureteral stone with associated hydronephrosis, multiple additional bilateral nephroliths, large bowel is mo derate distended with gas to the point of the suture line in the mid sigmoid colon, partial obstruction of the level of the suture line not excluded -PPI -NPO : Acute kidney injury, right ureteral calculus with associated hydronephrosis, obstructive uropathy secondary to ureteral calculus -Nephrology consulted, appreciate recommendations -Monitor intake and output -Renally dose medications -Avoid nephrotoxic medications -Trend BMP ID: COVID 19 PUI -COVID 19 PUI (-) -f/u blood culture -UA, UC, BC -Monitor WBC and temperature curve Endo: h/o Hypothyroidism -Avoid hypoglycemia -SSI -Accu-Cheks q. 6hr Heme: NAD -Trend CBC -Transfuse hemoglobin less than 7 -SCDs to BLE while in bed The high probability of a clinically significant, sudden or life threatening deterioration of the [multi] system(s) required my full and direct attention, intervention and personal management. The aggregate critical care time was [60] minutes. This time is in addition to time spent performing reported procedures but includes the following: [x] Data Review and interpretation [x] Patient assessment and monitoring of vital signs [x] Documentation [x] Medication orders and management Disposition Plan: icu Total Time Spent with Patient (Minutes): 60 History Interval history: This is a 86 year old male with DM, CHF, BLE lymphedema, HTN, hypothyroidism, gout, abdnominal surgery with SBO who presents to the emergency department on 06/22 with complaints of shortness of breath, cough, chest tightness with coughing ongoing for the past few days. In the emergency department he stated he had SBO in the past with surgery however later distended upon admission but the patient stated his last bowel movement was about 24 hours prior to admission. Work-up in the emergency department showed acute kidney injury, abdominal x-ray revealed colonic ileus or constipation, CT abdomen/pelvis showed multiple bilateral nephrolithiasis, 6 mm proximal right ureteral stone with associated hydronephrosis, possible partial occlusion [mildly distended with gas at the point of suture line in the mid sigmoid colon. Patient was given Lasix in the ED and placed on BiPAP for respiratory distress. Patient was admitted to the hospitalist service with consults to urology, nephrology, cardiology. Hospital course to date 11/22: CCM consulted, appreciate recommendations. CT abdomen/pelvis showed possible SBO and surgery was consulted. COVID-19 PCR resulted as negative. S/p BiPAP therapy on Venturi mask. Wean as tolerated. Hospitalist Physical - Constitutional Vitals: Temp Pulse Resp BP Pulse Ox 103.2 F H 98 H 22 144/84 97 11/22/21 12:01 11/22/21 09:31 11/22/21 09:31 11/22/21 09:31 11/22/21 11:50 General appearance: Present: no acute distress - EENT Eyes: Present: PERRL, EOM intact ENT: dentition normal - Neck Neck: Present: normal ROM - Respiratory Respiratory effort: normal Respiratory: bilateral: diminished - Cardiovascular Rhythm: regular Heart Sounds: Present: S1 & S2. Absent: systolic murmur, diastolic murmur - Extremities Extremities: no ischemia, pulses intact, pulses symmetrical, normal temperature, normal color Peripheral Pulses: within normal limits - Abdominal General gastrointestinal: soft, non-tender, non-distended - Integumentary Integumentary: Present: warm, dry - Psychiatric Psychiatric: cooperative - Neurologic Neurologic: CNII-XII intact, no focal deficits, moves all extremities - Allied Health Allied health notes reviewed: nursing, RT HEART Score - HEART Score Troponin: Troponin T < 0.010 ng/mL (0.00-0.029) 11/21/21 23:20 Results - Labs CBC & Chem 7: 11/21/21 23:20 11/21/21 23:20 Labs: Laboratory Last Values WBC 9.3 K/mm3 (4.5-11.0) 11/21/21 23:20 RBC 5.34 M/mm3 (3.65-5.03) H 11/21/21 23:20 Hgb 15.2 gm/dl (11.8-15.2) 11/21/21 23:20 Hct 47.1 % (35.5-45.6) H 11/21/21 23:20 MCV 88 fl (84-94) 11/21/21 23:20 MCH 29 pg (28-32) 11/21/21 23:20 MCHC 32 % (32-34) 11/21/21 23:20 RDW 14.1 % (13.2-15.2) 11/21/21 23:20 Plt Count 189 K/mm3 (140-440) 11/21/21 23:20 Add Manual Diff Complete 11/21/21 23:20 Total Counted 100 11/21/21 23:20 Seg Neutrophils % Wheelchair Driver 11/21/21 23:20 Seg Neuts % (Manual) 91.0 % (40.0-70.0) H 11/21/21 23:20 Band Neutrophils % 1.0 % 11/21/21 23:20 Lymphocytes % (Manual) 5.0 % (13.4-35.0) L 11/21/21 23:20 Reactive Lymphs % (Man) 0 % 11/21/21 23:20 Monocytes % (Manual) 1.0 % (0.0-7.3) 11/21/21 23:20 Eosinophils % (Manual) 2.0 % (0.0-4.3) 11/21/21 23:20 Basophils % (Manual) 0 % (0.0-1.8) 11/21/21 23:20 Metamyelocytes % 0 % 11/21/21 23:20 Myelocytes % 0 % 11/21/21 23:20 Promyelocytes % 0 % 11/21/21 23:20 Blast Cells % 0 % 11/21/21 23:20 Nucleated RBC % Not Reportable 11/21/21 23:20 Seg Neutrophils # Man 8.5 K/mm3 (1.8-7.7) H 11/21/21 23:20 Band Neutrophils # 0.1 K/mm3 11/21/21 23:20 Lymphocytes # (Manual) 0.5 K/mm3 (1.2-5.4) L 11/21/21 23:20 Abs React Lymphs (Man) 0.0 K/mm3 11/21/21 23:20 Monocytes # (Manual) 0.1 K/mm3 (0.0-0.8) 11/21/21 23:20 Eosinophils # (Manual) 0.2 K/mm3 (0.0-0.4) 11/21/21 23:20 Basophils # (Manual) 0.0 K/mm3 (0.0-0.1) 11/21/21 23:20 Metamyelocytes # 0.0 K/mm3 11/21/21 23:20 Myelocytes # 0.0 K/mm3 11/21/21 23:20 Promyelocytes # 0.0 K/mm3 11/21/21 23:20 Blast Cells # 0.0 K/mm3 11/21/21 23:20 WBC Morphology Not Reportable 11/21/21 23:20 Hypersegmented Neuts Not Reportable 11/21/21 23:20 Hyposegmented Neuts Not Reportable 11/21/21 23:20 Hypogranular Neuts Not Reportable 11/21/21 23:20 Smudge Cells Not Reportable 11/21/21 23:20 Toxic Granulation Not Reportable 11/21/21 23:20 Toxic Vacuolation Not Reportable 11/21/21 23:20 Dohle Bodies Not Reportable 11/21/21 23:20 Pelger-Huet Anomaly Not Reportable 11/21/21 23:20 Antonio Rods Not Reportable 11/21/21 23:20 Platelet Estimate Consistent w auto 11/21/21 23:20 Clumped Platelets Not Reportable 11/21/21 23:20 Plt Clumps, EDTA Not Reportable 11/21/21 23:20 Large Platelets Not Reportable 11/21/21 23:20 Giant Platelets Not Reportable 11/21/21 23:20 Platelet Satelliting Not Reportable 11/21/21 23:20 Plt Morphology Comment Not Reportable 11/21/21 23:20 RBC Morphology Not Reportable 11/21/21 23:20 Dimorphic RBCs Not Reportable 11/21/21 23:20 Polychromasia Not Reportable 11/21/21 23:20 Hypochromasia Not Reportable 11/21/21 23:20 Poikilocytosis Not Reportable 11/21/21 23:20 Anisocytosis 1+ 11/21/21 23:20 Microcytosis Not Reportable 11/21/21 23:20 Macrocytosis Not Reportable 11/21/21 23:20 Spherocytes Not Reportable 11/21/21 23:20 Pappenheimer Bodies Not Reportable 11/21/21 23:20 Sickle Cells Not Reportable 11/21/21 23:20 Target Cells Not Reportable 11/21/21 23:20 Tear Drop Cells Not Reportable 11/21/21 23:20 Ovalocytes Not Reportable 11/21/21 23:20 Helmet Cells Not Reportable 11/21/21 23:20 Bill-Norman Bodies Not Reportable 11/21/21 23:20 [place] Rings Not Reportable 11/21/21 23:20 Winter Cells Not Reportable 11/21/21 23:20 Bite Cells Not Reportable 11/21/21 23:20 Crenated Cell Not Reportable 11/21/21 23:20 Elliptocytes Not Reportable 11/21/21 23:20 Acanthocytes (Spur) Not Reportable 11/21/21 23:20 Rouleaux Not Reportable 11/21/21 23:20 Hemoglobin C Crystals Not Reportable 11/21/21 23:20 Schistocytes Not Reportable 11/21/21 23:20 Malaria parasites Not Reportable 11/21/21 23:20 Eric Bodies Not Reportable 11/21/21 23:20 Hem Pathologist Commnt No 11/21/21 23:20 PT 14.8 Sec. (12.2-14.9) 11/21/21 23:20 INR 1.04 (0.87-1.13) 11/21/21 23:20 APTT 31.8 Sec. (24.2-36.6) 11/21/21 23:20 ABG pH 7.378 pH Units (7.350-7.450) 11/21/21 22:53 ABG pCO2 36.7 mm Hg 11/21/21 22:53 ABG pO2 178.4 mm Hg (80.0-90.0) H 11/21/21 22:53 ABG HCO3 21.1 mmol/L (20.0-26.0) 11/21/21 22:53 ABG O2 Saturation 99.1 % (95.0-99.0) H 11/21/21 22:53 ABG O2 Content 21.4 (0.0-44) 11/21/21 22:53 ABG Base Excess -3.4 mmol/L (-2.0-3.0) L 11/21/21 22:53 ABG Hemoglobin 15.4 gm/dl (14.0-18.0) 11/21/21 22:53 ABG Carboxyhemoglobin 1.4 % (0.0-5.0) 11/21/21 22:53 ABG Methemoglobin 0.6 % (0.0-1.5) 11/21/21 22:53 Oxyhemoglobin 97.2 % (95.0-99.0) 11/21/21 22:53 FiO2 70 % 11/21/21 22:53 Sodium 133 mmol/L (137-145) L 11/21/21 23:20 Potassium 4.1 mmol/L (3.6-5.0) 11/21/21 23:20 Chloride 98.9 mmol/L (98-107) 11/21/21 23:20 Carbon Dioxide 22 mmol/L (22-30) 11/21/21 23:20 Anion Gap 16 mmol/L 11/21/21 23:20 BUN 14 mg/dL (9-20) 11/21/21 23:20 Creatinine 1.4 mg/dL (0.8-1.3) H 11/21/21 23:20 Estimated GFR 48 ml/min 11/21/21 23:20 BUN/Creatinine Ratio 10 % 11/21/21 23:20 Glucose 95 mg/dL (75-100) 11/21/21 23:20 POC Glucose 91 mg/dL (70-105) 11/22/21 07:58 Calcium 10.9 mg/dL (8.4-10.2) H 11/21/21 23:20 Total Bilirubin 0.60 mg/dL (0.1-1.2) 11/21/21 23:20 Direct Bilirubin < 0.2 mg/dL (0-0.2) 11/21/21 23:20 Indirect Bilirubin 0.4 mg/dL 11/21/21 23:20 AST 60 units/L (5-40) H 11/21/21 23:20 ALT 24 units/L (7-56) 11/21/21 23:20 Alkaline Phosphatase 184 units/L (35-129) H 11/21/21 23:20 Troponin T < 0.010 ng/mL (0.00-0.029) 11/21/21 23:20 NT-Pro-B Natriuret Pep 103.7 pg/mL (0-900) 11/21/21 23:20 Total Protein 7.7 g/dL (6.3-8.2) 11/21/21 23:20 Albumin 4.1 g/dL (3.9-5) 11/21/21 23:20 Albumin/Globulin Ratio 1.1 % 11/21/21 23:20 Urine Color Yellow (Yellow) 11/22/21 11:47 Urine Turbidity Clear (Clear) 11/22/21 11:47 Specific [place] (Man) 1.010 (1.003-1.030) 11/22/21 11:47 Ur Protein (Man) 1+ mg/dL (Negative) 11/22/21 11:47 Ur Ketones (Man) Negative (Negative) 11/22/21 11:47 Urine Bilirubin (Man) Negative (Negative) 11/22/21 11:47 Urine WBC (Auto) 14.0 /HPF (0.0-6.0) H 11/22/21 11:47 Urine RBC (Auto) 5.0 /HPF (0.0-6.0) 11/22/21 11:47 U Epithel Cells (Auto) 1.0 /HPF (0-13.0) 11/22/21 11:47 Urine Bacteria (Auto) 1+ /HPF (Negative) 11/22/21 11:47 Urine RBC (Manual) Trace (Negative) 11/22/21 11:47 Urine Mucus Few /HPF 11/22/21 11:47 Coronavirus (PCR) Negative (Negative) 11/22/21 11:00 Active Medications - Current Medications Current Medications: Generic Name Dose Route Start Last Admin Trade Name Freq PRN Reason Stop Dose Admin Acetaminophen 650 mg 11/22/21 02:08 11/22/21 11:36 Acetaminophen 325 Mg Tab PO 650 mg Q6H PRN Administration Pain MILD(1-3)/Fever >100.5/CARREON Albuterol 2.5 mg 11/22/21 07:02 Albuterol 2.5 Mg/3 Ml Nebu IH Q4HRT PRN Shortness Of Breath Dextrose 0 ml 11/22/21 02:08 Dextrose 50% In Water (25gm) 50 Ml Syringe IV Q30MIN PRN Hypoglycemia Protocol Heparin Sodium (Porcine) 5,000 unit 11/22/21 22:00 Heparin 5,000 Unit/1 Ml Vial SUB-Q Q8HR [facility] Insulin Human Lispro 0 unit 11/22/21 07:30 11/22/21 07:59 Insulin Lispro 100 Unit/Ml SUB-Q Not Given ACHS [facility] Protocol Levothyroxine Sodium 150 mcg 11/23/21 06:00 Levothyroxine 150 Mcg Tab PO QAM@0600 [facility] Magnesium Hydroxide 30 ml 11/22/21 02:08 Magnesium Hydroxide (Mom) Oral Liqd Udc PO Q4H PRN Constipation Morphine Sulfate 2 mg 11/22/21 02:08 Morphine 2 Mg/1 Ml Inj IV Q4H PRN Pain, Moderate (4-6) Morphine Sulfate 4 mg 11/22/21 02:08 Morphine 4 Mg/1 Ml Inj IV Q4H PRN Pain , Severe (7-10) Sodium Chloride 10 ml 11/22/21 10:00 Sodium Chloride 0.9% 10 Ml Flush Syringe IV BID ERIKA Sodium Chloride 10 ml 11/22/21 02:08 Sodium Chloride 0.9% 10 Ml Flush Syringe IV PRN PRN LINE FLUSH Nutrition/Malnutrition Assess - Dietary Evaluation Nutrition/Malnutrition Findings: Nutrition Notes Start: 11/22/21 14:36 Freq: Status: Active Protocol: Document 11/22/21 14:36 ALBIN (Rec: 11/22/21 14:47 ALBIN [email or web address]) Nutrition Notes Need for Assessment generated from: MD Order,Education Initial or Follow up Brief Note Current Diagnosis Diabetes,Hypertension, Respiratory Failure Other Pertinent Diagnosis CHF, Bilateral-LE Lymphedema, Ureteral Stone w/ Hydronephrosos. Current Diet NPO (since 11/22 07:01). Height 5 ft 10 in Weight 136.078 kg [place] Body Weight (kg) 75.45 BMI 43.0 Weight change and time frame None provided at admission. Weight Status Morbidly Obese Subjective/Other Information RD consult for nutrition education assessment. Pt currently on NPO. Pt is on NIV/Bi-PaP+, O2 saturation @ 98%, according to Vital Signs notes. Pt still in critical condition , not a candidate for Nutrition Education at the time, will assess feasibility on F/U. Percent of energy/protein needs met: Pt currently on NPO. Nutrition Intervention Follow-Up By: 11/29/21 Additional Comments Nutrition education will be provided at F/U, if feasible. Continue monitoring food tolerance, %PO intake of meals , and BM.
[2021-11-22] MEDS ORDERED: ceFAZolin/Water 2 GM/20 ML 2 GM/20 ML SYRINGE IV ONE (15:02)
--- NOTE | 2021-11-22 15:03 | Event Note ---
<VIRGINIA BORDEN - Last Filed: 11/22/21 15:03> Date: 11/22/21 This is a 86 year old male with DM, CHF, BLE lymphedema, HTN, hypothyroidism, gout, abdnominal surgery with SBO who presents to the emergency department on 06/22 with complaints of shortness of breath, cough, chest tightness with coughing ongoing for the past few days. In the emergency department he stated he had SBO in the past with surgery however later distended upon admission but the patient stated his last bowel movement was about 24 hours prior to admission. Work-up in the emergency department showed acute kidney injury, abdominal x-ray revealed colonic ileus or constipation, CT abdomen/pelvis showed multiple bilateral nephrolithiasis, 6 mm proximal right ureteral stone with associated hydronephrosis, possible partial occlusion [mildly distended with gas at the point of suture line in the mid sigmoid colon. Patient was given Lasix in the ED and placed on BiPAP for respiratory distress. Patient was admitted to the hospitalist service with consults to urology, nephrology, cardiology. Hospital course to date 11/22: CCM consulted, appreciate recommendations. CT abdomen/pelvis showed possible SBO and surgery was consulted. COVID-19 PCR resulted as negative. S/p BiPAP therapy on Venturi mask. Wean as tolerated. Assessment and plan: This is a 86-year-old male with DM, CHF, HTN, hypothyroidism, SBO s/p abdominal surgery admitted with TAMMY, possible SBO, right ureteral calculi with hydronephro sis, obstructive uropathy Neuro: NAD -Reorientation as needed -Maintain sleep-wake cycle -As needed analgesia Cardiac: h/o CHF, HTN -Cardiology consulted, appreciate recommendations -Blood pressure monitoring per protocol -Hold home antihypertenisive medication at this time -Echocardiogram pending -Per cardio: -Echo 03/07/2019-1. Left ventricular ejection fraction is 65%. Aortic valve is tricuspid, focally calcified and sclerotic. Mildly dilated left atrium. There is impaired relaxation with normal filling pressure consistent with grade 1 di astolic dysfunction. E/E' indicative of elevated LVEDP. Mild pulmonic valve insufficiency. -Echo 11/22/2021-EF 50 to 55%. Mild concentric LVH. Right ventricle systolic function is normal. No aortic regurgitation is present. Aortic valve is calcified. No aortic valvular stenosis no pericardial effusion -No LIBERTY or ARB in setting of TAMMY Respiratory: Acute hypoxic respiratory failure -CCM consulted, appreciate recommendations -s/p bipap -Currently on venturi mask -Pulmonary hygiene -SPO2 monitor per protocol -CTA chest showed no evidence of pulmonary embolism, bilateral dependent regions of low-attenuation was suggestive of atelectasis GI: Possible SBO, h/o SBO with surgery -General surgery consulted, appreciate recommendations -Abdomen pelvis CT showed 6 mm proximal right ureteral stone with associated hydronephrosis, multiple additional bilateral nephroliths, large bowel is moderate distended with gas to the point of the suture line in the mid sigmoid colon, partial obstruction of the level of the suture line not excluded -PPI -NPO : Acute kidney injury, right ureteral calculus with associated hydronephrosis, obstructive uropathy secondary to ureteral calculus -Nephrology consulted, appreciate recommendations -Monitor intake and output -Renally dose medications -Avoid nephrotoxic medications -Trend BMP ID: COVID 19 PUI -COVID 19 PUI (-) -f/u blood culture -UA, UC, BC -Monitor WBC and temperature curve Endo: h/o Hypothyroidism -Avoid hypoglycemia -SSI -Accu-Cheks q. 6hr Heme: NAD -Trend CBC -Transfuse hemoglobin less than 7 -SCDs to BLE while in bed The high probability of a clinically significant, sudden or life threatening deterioration of the [multi] system(s) required my full and direct attention, intervention and personal management. The aggregate critical care time was [60] minutes. This time is in addition to time spent performing reported procedures but includes the following: [x] Data Review and interpretation [x] Patient assessment and monitoring of vital signs [x] Documentation [x] Medication orders and management Disposition Plan: icu Total Time Spent with Patient (Minutes): 60 <MARC NIETO - Last Filed: 11/22/21 19:13> I saw and evaluated the patient. I agree with the findings and the plan of care as documented in the Nurse Practitioner's~note, with the following corrections and additions.
[2021-11-22] MEDS ORDERED: ceFAZolin/STERILE WATER 2 GM/20 ML SYRINGE IV SCH (15:05)
[2021-11-22] MEDS ORDERED: SUGAMMADEX SODIUM 200 MG/2 ML VIAL IV ONE (15:38)
[2021-11-22] MEDS ORDERED: ONDANSETRON 4 MG/2 ML INJ ONE (16:04)
[2021-11-22] MEDS ORDERED: ROCURONIUM 50 MG/5 ML INJ IV ONE (16:04)
[2021-11-22] MEDS ORDERED: fentaNYL 100 MCG/2 ML INJ ONE (16:18)
[2021-11-22] MEDS ORDERED: WATER FOR IRRIG STERILE 2000 ML IR ONE (16:18)
[2021-11-22] MEDS ORDERED: IOHEXOL 300 MG/ML 100ML IV ONE (16:18)
--- NOTE | 2021-11-22 16:34 | Post Anesthesia Evaluation ---
- Post Anesthesia Evaluation Patient Participated: Yes Airway Patent: Yes Stable Respiratory Function: Yes Nausea/Vomiting: No Temp > 96.8F: Yes Pain Manageable: Yes Adequeate Hydration: Yes Anesthesia Complications: No
--- NOTE | 2021-11-22 16:36 | Progress Note ---
Subjective Date of service: 11/22/21 Principal diagnosis: sepsis Objective - Constitutional Vitals: Vital Signs - 12hr 11/22/21 11/22/21 11/22/21 04:45 05:01 05:15 Temperature Pulse Rate 88 84 84 Respiratory 25 H 24 25 H Rate Blood Pressure 114/70 114/70 115/71 O2 Sat by Pulse 94 96 95 Oximetry 11/22/21 11/22/21 11/22/21 05:30 05:45 06:01 Temperature Pulse Rate 83 82 78 Respiratory 25 H 23 23 Rate Blood Pressure 114/70 115/72 115/71 O2 Sat by Pulse 96 94 94 Oximetry 11/22/21 11/22/21 11/22/21 06:15 06:31 06:45 Temperature Pulse Rate 78 81 78 Respiratory 23 22 23 Rate Blood Pressure 108/68 108/68 120/72 O2 Sat by Pulse 94 94 91 Oximetry 11/22/21 11/22/21 11/22/21 07:01 07:15 07:31 Temperature Pulse Rate 75 77 80 Respiratory 23 22 25 H Rate Blood Pressure 115/72 127/76 127/76 O2 Sat by Pulse 92 93 93 Oximetry 11/22/21 11/22/21 11/22/21 07:36 07:45 08:01 Temperature Pulse Rate 76 85 91 H Respiratory 24 21 24 Rate Blood Pressure 127/76 135/86 135/86 O2 Sat by Pulse 93 92 97 Oximetry 11/22/21 11/22/21 11/22/21 08:15 08:31 08:45 Temperature Pulse Rate 90 89 85 Respiratory 26 H 19 31 H Rate Blood Pressure 133/95 133/95 141/98 O2 Sat by Pulse 99 98 94 Oximetry 11/22/21 11/22/21 11/22/21 09:01 09:15 09:31 Temperature Pulse Rate 90 92 H 98 H Respiratory 21 28 H 22 Rate Blood Pressure 141/98 144/84 144/84 O2 Sat by Pulse 92 92 97 Oximetry 11/22/21 11/22/21 11/22/21 10:00 11:50 12:01 Temperature 103.2 F H Pulse Rate 112 H Respiratory Rate Blood Pressure O2 Sat by Pulse 97 Oximetry 11/22/21 11/22/21 14:23 14:45 Temperature 97.7 F 97.7 F Pulse Rate 78 78 Respiratory 26 H 26 H Rate Blood Pressure 127/58 127/58 O2 Sat by Pulse 93 93 Oximetry - Labs CBC & Chem 7: 11/21/21 23:20 11/21/21 23:20 Labs: Abnormal lab results 11/21/21 11/21/21 11/21/21 Range/Units 22:53 23:20 23:20 RBC 5.34 H (3.65-5.03) M/mm3 Hct 47.1 H (35.5-45.6) % Seg Neuts % (Manual) 91.0 H (40.0-70.0) % Lymphocytes % (Manual) 5.0 L (13.4-35.0) % Seg Neutrophils # Man 8.5 H (1.8-7.7) K/mm3 Lymphocytes # (Manual) 0.5 L (1.2-5.4) K/mm3 ABG pO2 178.4 H (80.0-90.0) mm Hg ABG O2 Saturation 99.1 H (95.0-99.0) % ABG Base Excess -3.4 L (-2.0-3.0) mmol/L Sodium 133 L (137-145) mmol/L Creatinine 1.4 H (0.8-1.3) mg/dL Calcium 10.9 H (8.4-10.2) mg/dL AST 60 H (5-40) units/L Alkaline Phosphatase 184 H (35-129) units/L Urine WBC (Auto) (0.0-6.0) /HPF 11/22/21 Range/Units 11:47 RBC (3.65-5.03) M/mm3 Hct (35.5-45.6) % Seg Neuts % (Manual) (40.0-70.0) % Lymphocytes % (Manual) (13.4-35.0) % Seg Neutrophils # Man (1.8-7.7) K/mm3 Lymphocytes # (Manual) (1.2-5.4) K/mm3 ABG pO2 (80.0-90.0) mm Hg ABG O2 Saturation (95.0-99.0) % ABG Base Excess (-2.0-3.0) mmol/L Sodium (137-145) mmol/L Creatinine (0.8-1.3) mg/dL Calcium (8.4-10.2) mg/dL AST (5-40) units/L Alkaline Phosphatase (35-129) units/L Urine WBC (Auto) 14.0 H (0.0-6.0) /HPF Medications & Allergies - Medications Allergies/Adverse Reactions: Allergies No Known Allergies Allergy (Unverified 11/21/21 23:08) Home Medications: Home Medications Medication Instructions Recorded Confirmed Last Taken Type Furosemide [Lasix] 20 mg PO QDAY 11/22/21 11/22/21 Unknown History Gabapentin [Neurontin] 300 mg PO BID 11/22/21 11/22/21 Unknown History Levothyroxine [Synthroid] 150 mcg PO QAM 11/22/21 11/22/21 Unknown History allopurinoL [Zyloprim] 100 mg PO QDAY 11/22/21 11/22/21 Unknown History amLODIPine [Norvasc] 10 mg PO DAILY 11/22/21 11/22/21 Unknown History lisinopriL [Zestril TAB] 40 mg PO QDAY 11/22/21 11/22/21 Unknown History Active Medications: Generic Name Dose Route Start Last Admin Trade Name Freq PRN Reason Stop Dose Admin Acetaminophen 650 mg 11/22/21 02:08 11/22/21 11:36 Acetaminophen 325 Mg Tab PO 650 mg Q6H PRN Administration Pain MILD(1-3)/Fever >100.5/CARREON Albuterol 2.5 mg 11/22/21 07:02 Albuterol 2.5 Mg/3 Ml Nebu IH Q4HRT PRN Shortness Of Breath Cefazolin Sodium 2 gm 11/22/21 15:05 Cefazolin/Sterile Water 2 Gm/20 Ml Syringe IV PREOP ERIKA Dextrose 0 ml 11/22/21 02:08 Dextrose 50% In Water (25gm) 50 Ml Syringe IV Q30MIN PRN Hypoglycemia Protocol Heparin Sodium (Porcine) 5,000 unit 11/22/21 22:00 Heparin 5,000 Unit/1 Ml Vial SUB-Q Q8HR ERIKA Sodium Chloride 1,000 mls @ 42 mls/hr 11/22/21 14:40 11/22/21 15:00 Nacl 0.9% 1000 Ml IV 42 mls/hr DIRECT ERIKA Administration Insulin Human Lispro 0 unit 11/22/21 07:30 11/22/21 07:59 Insulin Lispro 100 Unit/Ml SUB-Q Not Given ACHS [facility] Protocol Levothyroxine Sodium 150 mcg 11/23/21 06:00 Levothyroxine 150 Mcg Tab PO QAM@0600 [facility] Magnesium Hydroxide 30 ml 11/22/21 02:08 Magnesium Hydroxide (Mom) Oral Liqd Udc PO Q4H PRN Constipation Morphine Sulfate 2 mg 11/22/21 02:08 Morphine 2 Mg/1 Ml Inj IV Q4H PRN Pain, Moderate (4-6) Morphine Sulfate 4 mg 11/22/21 02:08 Morphine 4 Mg/1 Ml Inj IV Q4H PRN Pain , Severe (7-10) Sodium Chloride 10 ml 11/22/21 10:00 Sodium Chloride 0.9% 10 Ml Flush Syringe IV BID [facility] Sodium Chloride 10 ml 11/22/21 02:08 Sodium Chloride 0.9% 10 Ml Flush Syringe IV PRN PRN LINE FLUSH HEART Score - HEART Score Troponin: Troponin T < 0.010 ng/mL (0.00-0.029) 11/21/21 23:20
--- NOTE | 2021-11-22 16:38 | Post Operative Note ---
Date of procedure: 11/22/21 Pre-op diagnosis: bladder lesion r ureteral stone sepsis Post-op diagnosis: same Findings: hydro Procedure: cysto dviu rpg stet excision bt Anesthesia: GETA Surgeon: JUDD TORO Estimated blood loss: minimal Pathology: list (bladder) Specimen disposition: to lab Condition: stable Disposition: PACU
[2021-11-22] MEDS ORDERED: FUROSEMIDE 40 MG/4 ML INJ ONE (16:42)
--- NOTE | 2021-11-22 17:02 | Fluoroscopy Report ---
INTRAOPERATIVE FLUOROSCOPY: ABDOMEN INDICATION / CLINICAL INFORMATION: HYDRONEPHROSIS. TECHNIQUE: Intraoperative spot images were obtained during the procedure. FINDINGS: Images show placement of ureteral stent See operative/procedure note by performing physician for full details. Fluoroscopy Time: 0.9 minutes. Fluoroscopy Images: 2. Signer Name: Sandeep Santa MD Signed: 11/22/2021 4:58 PM Workstation Name: [id number]
[2021-11-22] MEDS ORDERED: LIDOCAINE-MPF (0.5%) 5 MG/1 ML VIAL 50 ML INFILTRATI ONE (17:03)
--- NOTE | 2021-11-22 18:34 | Event Note ---
Date: 11/22/21 Patient in OR at time of visit. All history obtained from chat.
--- NOTE | 2021-11-22 20:06 | Gastroenterology Consultation ---
History of Present Illness - Reason for Consult Consult date: 11/22/21 dilated colon Requesting physician: REUBEN GOLDSMITH - History of Present Illness This is an 86-year-old male with history of obesity, CHF, sleep apnea admitted initially for respiratory distress. Patient was initially on BiPAP in the ED. Found to have hydronephrosis secondary to obstructing urethral stone. Patient underwent procedure for kidney stone today. Patient also noted to have large bowel dilation at the level of sigmoid anastomosis seen on the CT. GI consulted for evaluation for dilated colon. Review of the outside records as well as patient's history was done. 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 Patient subsequently had reversal of ostomy. This was done at [facility] well as [facility]. Patient states that he is not having any abdominal pain and he has had distended abdomen for long time. And this is his baseline. Denies any nausea or vomiting. No rectal bleeding. Is passing gas. Medication list reviewed. Past History Past Medical History: diabetes, heart failure, hypertension, hypothyroidism, other (Gout,Lymphedema, sleep apnea, colonic inertia) Past Surgical History: Other (Hartmanns procedure with subsequent ostomy reversal) Social history: no significant social history Family history: no significant family history Medications and Allergies Allergies Allergy/AdvReac Type Severity Reaction Status Date / Time No Known Allergies Allergy Unverified 11/21/21 23:08 Home Medications Medication Instructions Recorded Confirmed Last Taken Type Furosemide [Lasix] 20 mg PO QDAY 11/22/21 11/22/21 Unknown History Gabapentin [Neurontin] 300 mg PO BID 11/22/21 11/22/21 Unknown History Levothyroxine [Synthroid] 150 mcg PO QAM 11/22/21 11/22/21 Unknown History allopurinoL [Zyloprim] 100 mg PO QDAY 11/22/21 11/22/21 Unknown History amLODIPine [Norvasc] 10 mg PO DAILY 11/22/21 11/22/21 Unknown History lisinopriL [Zestril TAB] 40 mg PO QDAY 11/22/21 11/22/21 Unknown History Active Meds: Active Medications Acetaminophen (Acetaminophen 325 Mg Tab) 650 mg PO Q6H PRN PRN Reason: Pain MILD(1-3)/Fever >100.5/CARREON Last Admin: 11/22/21 11:36 Dose: 650 mg Albuterol (Albuterol 2.5 Mg/3 Ml Nebu) 2.5 mg IH Q4HRT PRN PRN Reason: Shortness Of Breath Cefazolin Sodium (Cefazolin/Sterile Water 2 Gm/20 Ml Syringe) 2 gm IV PREOP [facility] Dextrose (Dextrose 50% In Water (25gm) 50 Ml Syringe) 0 ml IV Q30MIN PRN; Protocol PRN Reason: Hypoglycemia Heparin Sodium (Porcine) (Heparin 5,000 Unit/1 Ml Vial) 5,000 unit SUB-Q Q8HR ERIKA Sodium Chloride (Nacl 0.9% 1000 Ml) 1,000 mls @ 42 mls/hr IV DIRECT ERIKA Last Admin: 11/22/21 15:00 Dose: 42 mls/hr Insulin Human Lispro (Insulin Lispro 100 Unit/Ml) 0 unit SUB-Q ACHS ERIKA; Protocol Last Admin: 11/22/21 07:59 Dose: Not Given Levothyroxine Sodium (Levothyroxine 150 Mcg Tab) 150 mcg PO QAM@0600 [facility] Magnesium Hydroxide (Magnesium Hydroxide (Mom) Oral Liqd Udc) 30 ml PO Q4H PRN PRN Reason: Constipation Morphine Sulfate (Morphine 2 Mg/1 Ml Inj) 2 mg IV Q4H PRN PRN Reason: Pain, Moderate (4-6) Morphine Sulfate (Morphine 4 Mg/1 Ml Inj) 4 mg IV Q4H PRN PRN Reason: Pain , Severe (7-10) Sodium Chloride (Sodium Chloride 0.9% 10 Ml Flush Syringe) 10 ml IV BID [facility] Sodium Chloride (Sodium Chloride 0.9% 10 Ml Flush Syringe) 10 ml IV PRN PRN PRN Reason: LINE FLUSH Review of Systems - Review of Systems All systems: negative Constitutional: no weight loss Eyes: no change in vision Ears, Nose, Throat: no decreased hearing Cardiovascular: no chest pain, no edema Respiratory: cough, shortness of breath Gastrointestinal: no abdominal pain, no nausea, no vomiting, no coffee ground emesis, no indigestion Neurological: weakness Endocrine: no cold intolerance Hematologic/Lymphatic: no easy bruising Allergic/Immunologic: no wheezing Exam - Constitutional Vital Signs: Temp Pulse Resp BP Pulse Ox 97.8 F 89 19 108/63 91 11/22/21 20:05 11/22/21 20:00 11/22/21 20:00 11/22/21 20:00 11/22/21 20:00 General appearance: no acute distress - EENT Eyes: EOM intact ENT: hearing intact - Neck Neck: supple - Respiratory Respiratory effort: other (on 40% venti mask) - Cardiovascular Rhythm: regular Heart Sounds: Present: S1 & S2 - Gastrointestinal General gastrointestinal: Present: soft, non-tender, distended - Integumentary Integumentary: Present: clear - Neurologic Neurological: alert and oriented x3 - Psychiatric Psychiatric: appropriate mood/affect - Labs CBC & Chem 7: 11/21/21 23:20 11/21/21 23:20 Lab Results: Laboratory Results - last 24 hr 11/21/21 11/21/21 11/21/21 22:53 23:20 23:20 WBC 9.3 RBC 5.34 H Hgb 15.2 Hct 47.1 H MCV 88 MCH 29 MCHC 32 RDW 14.1 Plt Count 189 Add Manual Diff Complete Total Counted 100 Seg Neutrophils % [employer] Seg Neuts % (Manual) 91.0 H Band Neutrophils % 1.0 Lymphocytes % (Manual) 5.0 L Reactive Lymphs % (Man) 0 Monocytes % (Manual) 1.0 Eosinophils % (Manual) 2.0 Basophils % (Manual) 0 Metamyelocytes % 0 Myelocytes % 0 Promyelocytes % 0 Blast Cells % 0 Nucleated RBC % Not Reportable Seg Neutrophils # Man 8.5 H Band Neutrophils # 0.1 Lymphocytes # (Manual) 0.5 L Abs React Lymphs (Man) 0.0 Monocytes # (Manual) 0.1 Eosinophils # (Manual) 0.2 Basophils # (Manual) 0.0 Metamyelocytes # 0.0 Myelocytes # 0.0 Promyelocytes # 0.0 Blast Cells # 0.0 WBC Morphology Not Reportable Hypersegmented Neuts Not Reportable Hyposegmented Neuts Not Reportable Hypogranular Neuts Not Reportable Smudge Cells Not Reportable Toxic Granulation Not Reportable Toxic Vacuolation Not Reportable Dohle Bodies Not Reportable Pelger-Huet Anomaly Not Reportable Antonio Rods Not Reportable Platelet Estimate Consistent w auto Clumped Platelets Not Reportable Plt Clumps, EDTA Not Reportable Large Platelets Not Reportable Giant Platelets Not Reportable Platelet Satelliting Not Reportable Plt Morphology Comment Not Reportable RBC Morphology Not Reportable Dimorphic RBCs Not Reportable Polychromasia Not Reportable Hypochromasia Not Reportable Poikilocytosis Not Reportable Anisocytosis 1+ Microcytosis Not Reportable Macrocytosis Not Reportable Spherocytes Not Reportable Pappenheimer Bodies Not Reportable Sickle Cells Not Reportable Target Cells Not Reportable Tear Drop Cells Not Reportable Ovalocytes Not Reportable Helmet Cells Not Reportable Bill-[place]af[place] Bodies Not Reportable [place] Rings Not Reportable Winter Cells Not Reportable Bite Cells Not Reportable Crenated Cell Not Reportable Elliptocytes Not Reportable Acanthocytes (Spur) Not Reportable Rouleaux Not Reportable Hemoglobin C Crystals Not Reportable Schistocytes Not Reportable Malaria parasites Not Reportable Eric Bodies Not Reportable Hem Pathologist Commnt No PT 14.8 INR 1.04 APTT 31.8 ABG pH 7.378 ABG pCO2 36.7 ABG pO2 178.4 H ABG HCO3 21.1 ABG O2 Saturation 99.1 H ABG O2 Content 21.4 ABG Base Excess -3.4 L ABG Hemoglobin 15.4 ABG Carboxyhemoglobin 1.4 ABG Methemoglobin 0.6 Oxyhemoglobin 97.2 FiO2 70 Sodium Potassium Chloride Carbon Dioxide Anion Gap BUN Creatinine Estimated GFR BUN/Creatinine Ratio Glucose POC Glucose Calcium Total Bilirubin Direct Bilirubin Indirect Bilirubin AST ALT Alkaline Phosphatase Troponin T NT-Pro-B Natriuret Pep Total Protein Albumin Albumin/Globulin Ratio Urine Color Urine Turbidity Specific [place] (Man) Ur Protein (Man) Ur Ketones (Man) Urine Bilirubin (Man) Urine WBC (Auto) Urine RBC (Auto) U Epithel Cells (Auto) Urine Bacteria (Auto) Urine RBC (Manual) Urine Mucus Coronavirus (PCR) 11/21/21 11/22/21 11/22/21 23:20 07:58 11:00 WBC RBC Hgb Hct MCV MCH MCHC RDW Plt Count Add Manual Diff Total Counted Seg Neutrophils % Seg Neuts % (Manual) Band Neutrophils % Lymphocytes % (Manual) Reactive Lymphs % (Man) Monocytes % (Manual) Eosinophils % (Manual) Basophils % (Manual) Metamyelocytes % Myelocytes % Promyelocytes % Blast Cells % Nucleated RBC % Seg Neutrophils # Man Band Neutrophils # Lymphocytes # (Manual) Abs React Lymphs (Man) Monocytes # (Manual) Eosinophils # (Manual) Basophils # (Manual) Metamyelocytes # Myelocytes # Promyelocytes # Blast Cells # WBC Morphology Hypersegmented Neuts Hyposegmented Neuts Hypogranular Neuts Smudge Cells Toxic Granulation Toxic Vacuolation Dohle Bodies Pelger-Huet Anomaly Antonio Rods Platelet Estimate Clumped Platelets Plt Clumps, EDTA Large Platelets Giant Platelets Platelet Satelliting Plt Morphology Comment RBC Morphology Dimorphic RBCs Polychromasia Hypochromasia Poikilocytosis Anisocytosis Microcytosis Macrocytosis Spherocytes Pappenheimer Bodies Sickle Cells Target Cells Tear Drop Cells Ovalocytes Helmet Cells Bill-Delafield Bodies [place] Rings Winter Cells Bite Cells Crenated Cell Elliptocytes Acanthocytes (Spur) Rouleaux Hemoglobin C Crystals Schistocytes Malaria parasites Eric Bodies Hem Pathologist Commnt PT INR APTT ABG pH ABG pCO2 ABG pO2 ABG HCO3 ABG O2 Saturation ABG O2 Content ABG Base Excess ABG Hemoglobin ABG Carboxyhemoglobin ABG Methemoglobin Oxyhemoglobin FiO2 Sodium 133 L Potassium 4.1 Chloride 98.9 Carbon Dioxide 22 Anion Gap 16 BUN 14 Creatinine 1.4 H Estimated GFR 48 BUN/Creatinine Ratio 10 Glucose 95 POC Glucose 91 Calcium 10.9 H Total Bilirubin 0.60 Direct Bilirubin < 0.2 Indirect Bilirubin 0.4 AST 60 H ALT 24 Alkaline Phosphatase 184 H Troponin T < 0.010 NT-Pro-B Natriuret Pep 103.7 Total Protein 7.7 Albumin 4.1 Albumin/Globulin Ratio 1.1 Urine Color Urine Turbidity Specific [place] (Man) Ur Protein (Man) Ur Ketones (Man) Urine Bilirubin (Man) Urine WBC (Auto) Urine RBC (Auto) U Epithel Cells (Auto) Urine Bacteria (Auto) Urine RBC (Manual) Urine Mucus Coronavirus (PCR) Negative 11/22/21 11/22/21 11/22/21 11:47 14:00 16:58 WBC RBC Hgb Hct MCV MCH MCHC RDW Plt Count Add Manual Diff Total Counted Seg Neutrophils % Seg Neuts % (Manual) Band Neutrophils % Lymphocytes % (Manual) Reactive Lymphs % (Man) Monocytes % (Manual) Eosinophils % (Manual) Basophils % (Manual) Metamyelocytes % Myelocytes % Promyelocytes % Blast Cells % Nucleated RBC % Seg Neutrophils # Man Band Neutrophils # Lymphocytes # (Manual) Abs React Lymphs (Man) Monocytes # (Manual) Eosinophils # (Manual) Basophils # (Manual) Metamyelocytes # Myelocytes # Promyelocytes # Blast Cells # WBC Morphology Hypersegmented Neuts Hyposegmented Neuts Hypogranular Neuts Smudge Cells Toxic Granulation Toxic Vacuolation Dohle Bodies Pelger-Huet Anomaly Antonio Rods Platelet Estimate Clumped Platelets Plt Clumps, EDTA Large Platelets Giant Platelets Platelet Satelliting Plt Morphology Comment RBC Morphology Dimorphic RBCs Polychromasia Hypochromasia Poikilocytosis Anisocytosis Microcytosis Macrocytosis Spherocytes Pappenheimer Bodies Sickle Cells Target Cells Tear Drop Cells Ovalocytes Helmet Cells Bill-Delafield Bodies [place] Rings Winter Cells Bite Cells Crenated Cell Elliptocytes Acanthocytes (Spur) Rouleaux Hemoglobin C Crystals Schistocytes Malaria parasites Eric Bodies Hem Pathologist Commnt PT INR APTT ABG pH ABG pCO2 ABG pO2 ABG HCO3 ABG O2 Saturation ABG O2 Content ABG Base Excess ABG Hemoglobin ABG Carboxyhemoglobin ABG Methemoglobin Oxyhemoglobin FiO2 Sodium Potassium Chloride Carbon Dioxide Anion Gap BUN Creatinine Estimated GFR BUN/Creatinine Ratio Glucose POC Glucose 104 90 Calcium Total Bilirubin Direct Bilirubin Indirect Bilirubin AST ALT Alkaline Phosphatase Troponin T NT-Pro-B Natriuret Pep Total Protein Albumin Albumin/Globulin Ratio Urine Color Yellow Urine Turbidity Clear Specific [place] (Man) 1.010 Ur Protein (Man) 1+ Ur Ketones (Man) Negative Urine Bilirubin (Man) Negative Urine WBC (Auto) 14.0 H Urine RBC (Auto) 5.0 U Epithel Cells (Auto) 1.0 Urine Bacteria (Auto) 1+ Urine RBC (Manual) Trace Urine Mucus Few Coronavirus (PCR) - Imaging CT Scan: report reviewed Assessment and Plan # Dilated colon - CT showing dilated colon down to sigmoid anastomosis line. 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 - suspect chronic dilation with possible stricture at the anastomosis vs [place] with chronic pseudoobstruction. - not having any acute symptoms. Rec - monitor electrolytes and replete as needed. - would hold off endoscopy including flex sig at this time given his respiratory status. - will follow and monitor clinically. - patient may ultimately need to follow up with his outpatient surgeon at [facility]. - Patient Problems (1) Abdominal distension Current Visit: No Status: Acute
--- NOTE | 2021-11-22 20:54 | Operative Report ---
DATE OF SURGERY: 11/22/2021 PREOPERATIVE DIAGNOSES: Right ureteral obstruction, sepsis, small-bowel obstruction, possible. POSTOPERATIVE DIAGNOSES: Severe urethral stricture disease, severe right ureteral obstruction, sepsis and a small bladder tumor. PROCEDURES: Cystoscopy, direct vision internal urethrotomy, right retrograde with manipulation of stone into the kidney and double-J stent and excision of small bladder lesion. SURGEON: Tushar Myrick MD ANESTHESIA: General. FINDINGS: This is a gentleman who presents with what appears to be urinary retention, sepsis, right ureteral obstruction. He has a condom catheter. He now presents for treatment. DESCRIPTION OF PROCEDURE: The patient was brought to the operating room and placed on the operating table. Following induction of anesthesia, placed in the lithotomy position, prepped and draped in usual sterile fashion. The abdomen was severely distended. Cystoscopy showed an approximately 1.5 cm urethral stricture. We had trouble initially getting the wire into the bladder. Once we got past the stricture, we got the wire and did a DVIU and opened up the urethra. Once we got into the bladder, we saw a 6 mm bladder tumor above the right orifice. Retrograde showed hydronephrosis with the dye from IV accumulating down to the stone as well. We needed an angled glide. It coiled up and pushed the stone up, looked like into the kidney and the urine was very foul smelling. No manipulation was done. We just collected the urine and placed a #6-Estonian double-J stent 26 cm. The small tumor was excised and cauterized above the stent, approximately 1 cm from the orifice. The patient tolerated the procedure well and brought to recovery in a guarded condition. He has severe distention. He was given Ancef preoperatively. His antibiotics should be continued. TID: [id number] RECEIPT: [id number] FAMILIA/JIM
[2021-11-22] MEDS: HEPARIN 5,000 UNIT/1 ML VIAL SUB-Q SCH (21:19)
[2021-11-23 00:40] LABS: Hematocrit 47.2 % (35.5-45.6); Hemoglobin 15.1 gm/dl (11.8-15.2); Mean Corpuscular HGB Conc 32 % (32-34); Mean Corpuscular Volume 90 fl (84-94); Platelet Count 104 K/mm3 (140-440); Red Blood Count 5.24 M/mm3 (3.65-5.03); Red Cell Distribution Width 15.2 % (13.2-15.2)
[2021-11-23] MEDS ORDERED: SODIUM CHLORIDE 0.9% 1000 ML 1,000 ML IV ONE ×2 (01:06→05:57)
--- NOTE | 2021-11-23 03:01 | Consultation ---
DATE OF CONSULTATION: 11/22/2021 PULMONARY CRITICAL CARE CONSULTATION NOTE CONSULTING PHYSICIAN: Dr. Duarte. REASON FOR CONSULTATION: Acute hypoxemic respiratory failure, on continuous BiPAP therapy, acute exacerbation of congestive heart failure. CHIEF COMPLAINT AND HISTORY OF PRESENT ILLNESS: The patient is a now 86-year-old morbidly obese male with past medical history significant amongst other things for a diagnosis of diabetes, congestive heart failure with chronic bilateral lower extremity lymphedema, who came into the Emergency Room complaining of shortness of breath and cough. He was complaining of some chest tightness, mostly with his coughing. He denied any real chest pain. He denied palpitations. He denied nausea, vomiting or overt aspiration. the symptoms had been going on for a few days since he has been compliant with his medications. He denied any sick contacts and no recent travel. Of note, he has not been vaccinated for COVID-19. In the Emergency Room, he was in respiratory distress, requiring continuous bilevel positive airway pressure ventilation therapy. He was given multiple nebulizer treatments. He also had abdominal distention, which he says was chronic. In the Emergency Room, he had an elevated serum creatinine of 1.4. His AST was elevated at 60. There was evidence of ileus and/or constipation. CT of the abdomen and pelvis showed multiple bilateral nephrolith and a 6 mm proximal right ureteral stone associated with hydronephrosis. There was a possibility of partial obstruction at the level of the suture line. He was given some Lasix in the Emergency Room. He improved significantly. He was transferred to the intensive care unit where I stopped by to see him. When I stopped by to see him, he was resting in bed. He was on 40% Ventimask, but was obviously ____ sleep-disordered breathing. His O2 sats went as low as 86%, recovering whenever I aroused him. He denied cough or expectoration, fevers or chills. With regards to tobacco use/abuse history, he denies current tobacco use. Remote history is unknown. This really is as much of the history of presentation as I have. PAST MEDICAL HISTORY: Diabetes, congestive heart failure, hypertension, hypothyroidism, history of gout, morbid obesity. PAST SURGICAL HISTORY: He has had abdominal surgery for small-bowel obstruction. MEDICATIONS: He was on at the time I stopped by to see him, according to the medication physician record included the following: Tylenol 650 mg p.o. q. 6 hours p.r.n. mild pain or fevers, albuterol 2.5 mg nebulized q. 4 hours p.r.n. shortness of breath, insulin via sliding scale, Levoxyl 150 mcg p.o. daily, magnesium hydroxide p.r.n., morphine sulfate 2 mg IV q. 4 hours p.r.n. moderate pain and 4 mg IV q. 4 hours p.r.n. severe pain. ALLERGIES: No known drug allergies. DIET: Morbidly obese. Denies acute weight loss or gain in the preceding few weeks to months. FAMILY AND SOCIAL HISTORY: He is . He denies current alcohol, tobacco or illicit drug use or abuse. FAMILY HISTORY: Otherwise, noncontributory. REVIEW OF SYSTEMS: Difficult to obtain secondary to the patient's medical and mental condition. Since he has been here, no gross hematochezia or melena, no gross hematuria, no hematemesis. He denies dysuria. No hemoptysis. He denies polydipsia or polyuria. Complete 13-system review of system was obtained. Pertinent positives and/or negatives as in body of history above, otherwise noncontributory. Of note, there have been no witnessed seizures and he denies seizures. PHYSICAL EXAMINATION: VITAL SIGNS: On presentation in the Emergency Room, he was afebrile with a temperature of 98 degrees Fahrenheit, pulse of 120, respiratory rate of 20, blood pressure 146/102, O2 sats were 97%, inspired oxygen concentration at that time was not recorded. He has had a T-max of 103.2 degrees Fahrenheit axillary quiñonez since he has been here. GENERAL: He is an elderly, morbidly obese male. Normocephalic, atraumatic. Resting in bed with mildly increased respiratory effort at rest. HEAD, EYES, EARS, NOSE AND THROAT: Anicteric. No conjunctival erythema. Oropharynx was moist. No gross jugular venous distention, no thyromegaly. He does have a large neck circumference. Grossly, there were no palpable lymph nodes in the supraclavicular or submandibular lymph node chains. LUNGS: Auscultation of both lung mehat significant for diminished bilateral breath sounds, posterior inspiratory crackles in the bases. No active wheezing. HEART: Sounds 1 and 2 are heard at the time of my evaluation. Irregular in rate and rhythm without overt rubs or murmurs. ABDOMEN: Soft, full, distended. Bowel sounds are positive, nontender, no palpable hepatosplenomegaly. EXTREMITIES: Without overt digital clubbing or cyanosis. He has 1-2+ bipedal pitting edema of the legs, both in compression stockings that he states his put on at home. Pedal pulses are 2+ bilaterally. NEUROLOGIC: Pupils are equal, round, about 3-4 mm, reactive to light. Extraocular muscle movements are intact. He moves all 4 extremities spontaneously. He is displaying excessive daytime somnolence. He does follow commands appropriately. SKIN: Normal turgor in the areas I examined without overt cellulitis or rash. 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 Please see the wound care nurses' notes for full description of his skin. PSYCHIATRIC: Mood and affect were flat. He seemed to have intact judgment and insight. LABORATORY DATA: From my review are as follows: Admission white cell count 9300, hemoglobin 15.2, hematocrit 47.1, platelet count 189. 1% band neutrophils on the manual differential. INR 1.04. Arterial blood gas showed a pH of 7.38, pCO2 of 37, pO2 of 178 that was on 70% FiO2. Serum sodium was 133, potassium 4.1, chloride 99, bicarbonate 22, BUN 14, creatinine 1.4, glucose was 95, AST 60. Troponin within normal limits. Liver function tests otherwise within normal limits. Urinalysis showed 1+ bacteria. It did not report leukocyte esterase or nitrites. Coronavirus PCR is negative. Radiographic studies have been reviewed. A KUB was done at presentation, does show dilated loops of bowel. A CT of the abdomen and pelvis confirms the dilatation. Partial obstruction at the level of the suture line could not be excluded in the mid sigmoid colon. A CT angio of the chest was done. No gross filling defects consistent with pulmonary emboli, bilateral dependent atelectasis and mild interstitial edema. A 2D echo shows ejection fraction of 50-55%, mild diastolic dysfunction. No tricuspid regurgitation. No RV systolic pressures report could be addressed. ASSESSMENT: 1. Acute hypoxemic respiratory failure. 2. Acute congestive heart failure exacerbation. 3. Abdominal distention, possible bowel obstruction. 4. Morbid obesity. 5. Ureteral stone with hydronephrosis. 6. History of diabetes. 7. History of hypertension. 8. Acute kidney injury. 9. Possible sleep-disordered breathing/obstructive sleep apnea. 10. Morbid obesity. PLAN: I will be getting a Surgery consult now. I think would definitely have to rule out bowel obstruction or partial bowel obstruction and manage it in this gentleman who has had surgery for same in the past according to the history. He likely has an element of obstructive sleep apnea. He is off the noninvasive ventilator at this time; however, we will watch him closely. He will continue on scheduled bilevel positive airway pressure ventilation therapy at bedtime with p.r.n. daytime use. Cardiology evaluation is in order. I will defer to them. In terms of diuresis, I note the hydroureter and there may be some obstructive uropathy, also at play. He has been seen by the Urologist and we await his recommendations. Cardiology consultation is also ongoing as his Nephrology consultation. I am going to put him on GI prophylaxis with Pepcid as well as DVT prophylaxis with heparin. Flu and pneumonia vaccination will be addressed per protocol. Weight loss will ultimately be counseled. Continued tobacco abstinence should be counseled. He will continue to be observed in the Intensive Care Unit in the short time. He is critically ill on life-sustaining interventions including the continuous positive airway pressure ventilation therapy and high flow oxygen, currently at 50%. At risk of from cardiopulmonary system decompensation as well as possible GI system decompensation. I should mention lactic acid level will also be ordered. The fevers are bothersome. I hope is not due to an intraabdominal pathology. Coronavirus is negative. Infectious Disease consultation will be requested. I am also going to be getting bilateral lower extremity Dopplers to evaluate for fever of unknown origin due to deep venous thrombosis and I will get that stat as we do not want compression stockings on those ____. Again, thank you very consult, Dr. Duarte. At this time, I spent about 35-40 minutes of critical care time without overlap and excluding any procedural time that may be necessary. TID: [id number] RECEIPT: [id number] IRENA/YANIQUE
[2021-11-23 04:12] LABS: C-Reactive Protein 20.4 mg/dL (0.00-1.30)
[2021-11-23] MEDS: HEPARIN 5,000 UNIT/1 ML VIAL SUB-Q SCH ×3 (05:02→21:19)
[2021-11-23 05:05] LABS: Mean Corpuscular HGB Conc 31 % (32-34); Mean Corpuscular Volume 91 fl (84-94)
[2021-11-23 05:07] LABS: Hematocrit 47.1 % (35.5-45.6); Hemoglobin 14.7 gm/dl (11.8-15.2); Platelet Count 97 K/mm3 (140-440)
[2021-11-23 05:12] LABS: Calcium 10.5 mg/dL (8.4-10.2)
[2021-11-23] MEDS ORDERED: LEVOTHYROXINE 150 MCG TAB PO SCH (06:00)
[2021-11-23 06:29] LABS: Total Cells Counted 100
[2021-11-23 06:30] LABS: Band Neutrophils # (Manual) 1.3 K/mm3; Basophils % (Manual) 0 % (0.0-1.8); Platelet Estimate Consistent w Auto
[2021-11-23] MEDS: INSULIN LISPRO 100 UNIT/ML SUB-Q SCH ×3 (08:28→19:00)
[2021-11-23] MEDS: CEFEPIME/NS 2 GM/100 ML 2 GM/100 ML BAG IV SCH ×2 (09:17→20:35)
[2021-11-23] MEDS: D5W/0.45% NACL 1,000 ML IV SCH ×2 (09:18→22:56)
--- NOTE | 2021-11-23 09:19 | Progress Note ---
Assessment and Plan Impression: * Acute kidney injury vs underlying CKD --No previous labs available * Acute hypoxic respiratory failure secondary to pulmonary edema vs other * Right ureteral calculus with associated hydronephrosis --s/p Cystoscopy, ureteroscopy w/ stent placement * Obstructive uropathy secondary to ureteral calculus * Partial bowel obstruction * Congestive heart failure * Hypercalcemia Plan: * BMP pending * Abx per primary team * Urology and Cardiology recommendations noted * Avoid potential nephrotoxins * Dose medications for renal function * AM labs Subjective Date of service: 11/23/21 Principal diagnosis: sepsis Interval history: Patient reports breathing has improved. Objective - Vital Signs Vital signs: Vital Signs - 12hr 11/22/21 11/22/21 11/22/21 22:00 23:00 23:39 Temperature 97.8 F Pulse Rate 77 77 Pulse Rate [ From Monitor] Respiratory 10 L 11 L Rate Blood Pressure 104/63 107/60 O2 Sat by Pulse 94 94 Oximetry 11/22/21 11/23/21 11/23/21 23:51 00:00 00:07 Temperature Pulse Rate 74 74 73 Pulse Rate [ 74 From Monitor] Respiratory 16 16 16 Rate Blood Pressure 107/60 106/60 106/60 O2 Sat by Pulse 97 94 92 Oximetry 11/23/21 11/23/21 11/23/21 00:36 01:00 02:00 Temperature Pulse Rate 70 75 74 Pulse Rate [ From Monitor] Respiratory 16 16 16 Rate Blood Pressure 106/60 99/63 104/58 O2 Sat by Pulse 95 94 94 Oximetry 11/23/21 11/23/21 11/23/21 03:00 04:00 04:30 Temperature Pulse Rate 65 67 68 Pulse Rate [ 68 From Monitor] Respiratory 16 16 58 H Rate Blood Pressure 123/64 120/64 120/64 O2 Sat by Pulse 96 96 Oximetry 11/23/21 11/23/21 11/23/21 04:39 05:00 06:00 Temperature 97.5 F L Pulse Rate 63 68 Pulse Rate [ From Monitor] Respiratory 17 17 Rate Blood Pressure 112/55 92/46 O2 Sat by Pulse 97 Oximetry 11/23/21 11/23/21 11/23/21 07:00 07:14 08:00 Temperature 98.0 F Pulse Rate 69 65 Pulse Rate [ From Monitor] Respiratory 20 16 Rate Blood Pressure 115/63 115/58 O2 Sat by Pulse 95 95 Oximetry - General Appearance General appearance: well-developed, well-nourished EENT: ATNC Respiratory: Present: Decreased Breath Sounds Cardiology: regular, S1S2 Gastrointestinal: hypoactive bowel sounds, distended Neurologic: alert and oriented x3 Psychiatric: cooperative - Lab 11/24/21 04:26 11/24/21 04:26 Most recent lab results ABG pH 7.378 pH Units (7.350-7.450) 11/21/21 22:53 ABG pCO2 36.7 mm Hg 11/21/21 22:53 ABG pO2 178.4 mm Hg (80.0-90.0) H 11/21/21 22:53 ABG HCO3 21.1 mmol/L (20.0-26.0) 11/21/21 22:53 ABG O2 Saturation 99.1 % (95.0-99.0) H 11/21/21 22:53 Calcium 10.5 mg/dL (8.4-10.2) H 11/23/21 04:38 Medications & Allergies - Medications Allergies/Adverse Reactions: Allergies No Known Allergies Allergy (Unverified 11/21/21 23:08) Home Medications: Home Medications Medication Instructions Recorded Confirmed Last Taken Type Furosemide [Lasix] 20 mg PO QDAY 11/22/21 11/22/21 Unknown History Gabapentin [Neurontin] 300 mg PO BID 11/22/21 11/22/21 Unknown History Levothyroxine [Synthroid] 150 mcg PO QAM 11/22/21 11/22/21 Unknown History allopurinoL [Zyloprim] 100 mg PO QDAY 11/22/21 11/22/21 Unknown History amLODIPine [Norvasc] 10 mg PO DAILY 11/22/21 11/22/21 Unknown History lisinopriL [Zestril TAB] 40 mg PO QDAY 11/22/21 11/22/21 Unknown History Active Medications: Generic Name Dose Route Start Last Admin Trade Name Freq PRN Reason Stop Dose Admin Acetaminophen 650 mg 11/22/21 02:08 11/22/21 11:36 Acetaminophen 325 Mg Tab PO 650 mg Q6H PRN Administration Pain MILD(1-3)/Fever >100.5/CARREON Albuterol 2.5 mg 11/22/21 07:02 Albuterol 2.5 Mg/3 Ml Nebu IH Q4HRT PRN Shortness Of Breath Cefazolin Sodium 2 gm 11/22/21 15:05 Cefazolin/Sterile Water 2 Gm/20 Ml Syringe IV PREOP ERIKA Dextrose 0 ml 11/22/21 02:08 Dextrose 50% In Water (25gm) 50 Ml Syringe IV Q30MIN PRN Hypoglycemia Protocol Heparin Sodium (Porcine) 5,000 unit 11/22/21 22:00 11/23/21 05:02 Heparin 5,000 Unit/1 Ml Vial SUB-Q 5,000 unit Q8HR ERIKA Administration Sodium Chloride 1,000 mls @ 42 mls/hr 11/22/21 14:40 11/22/21 15:00 Nacl 0.9% 1000 Ml IV 42 mls/hr DIRECT ERIKA Administration Dextrose/Sodium Chloride 1,000 mls @ 42 mls/hr 11/23/21 09:00 D5/0.45ns IV DIRECT ERIKA Cefepime HCl 2 gm in 100 mls @ 200 mls/hr 11/23/21 09:00 Cefepime/Ns 2 Gm/100 Ml IV Q12H [facility] Protocol Insulin Human Lispro 0 unit 11/22/21 07:30 11/23/21 08:28 Insulin Lispro 100 Unit/Ml SUB-Q Not Given ACHS [facility] Protocol Levothyroxine Sodium 75 mcg 11/24/21 06:00 Levothyroxine 100 Mcg Inj IV DAILY@0600 [facility] Magnesium Hydroxide 30 ml 11/22/21 02:08 Magnesium Hydroxide (Mom) Oral Liqd Udc PO Q4H PRN Constipation Morphine Sulfate 2 mg 11/22/21 02:08 Morphine 2 Mg/1 Ml Inj IV Q4H PRN Pain, Moderate (4-6) Morphine Sulfate 4 mg 11/22/21 02:08 Morphine 4 Mg/1 Ml Inj IV Q4H PRN Pain , Severe (7-10) Sodium Chloride 10 ml 11/22/21 10:00 11/23/21 09:13 Sodium Chloride 0.9% 10 Ml Flush Syringe IV 10 ml BID ERIKA Administration Sodium Chloride 10 ml 11/22/21 02:08 Sodium Chloride 0.9% 10 Ml Flush Syringe IV PRN PRN LINE FLUSH
--- NOTE | 2021-11-23 10:00 | Vascular Lab Report ---
DUPLEX DOPPLER LOWER EXTREMITY VEINS, BILATERAL INDICATION: r/o dvt. Leg swelling. TECHNIQUE: Duplex doppler imaging was performed through the veins of both lower extremities using venous angie zee and other maneuvers. COMPARISON: None available. FINDINGS: Right Common femoral vein: Negative. Right Superficial femoral vein: Negative. Right Popliteal vein: Negative. Right Calf veins: Negative. Left Common femoral vein: Negative. Left Superficial femoral vein: Negative. Left Popliteal vein: Negative. Left Calf veins: Negative. Additional findings: None. IMPRESSION: Negative for DVT. Signer Name: Miki Boogie MD Signed: 11/23/2021 9:56 AM Workstation Name: [email or web address]
--- NOTE | 2021-11-23 11:02 | Progress Note ---
Assessment and Plan Patient is 86-year-old male with a reported past medical history of diabetes, CHF, chronic bilateral lower extremity lymphedema, hypertension presents to the ED with a complaint of shortness of breath and cough time 2 to 3 days Acute respiratory failure Sepsis Hydronephrosis Right ureteral calculus with associated hydronephrosis --s/p Cystoscopy, ureteroscopy w/ stent placement TAMMY--nephrology following Chronic lymphedema Hypertension Echo 03/07/2019-1. Left ventricular ejection fraction is 65%. Aortic valve is tricuspid, focally calcified and sclerotic. Mildly dilated left atrium. There is impaired relaxation with normal filling pressure consistent with grade 1 diastolic dysfunction. E/E' indicative of elevated LVEDP. Mild pulmonic valve insufficiency. Echo 11/22/2021-EF 50 to 55%. Mild concentric LVH. Right ventricle systolic function is normal. No aortic regurgitation is present. Aortic valve is calcified. No aortic valvular stenosis no pericardial effusion Plan: BNP negative, CXR shows no acute cardiopulmonary process. Patient is not clinically in heart failure. suspect SOB due to sepssi Will defer volume management to nephrology in due to patient's renal function No LIBERTY/ARB due to renal function At this time patient is not an acute heart failure or complaints of any ischemic symptoms no cardiac contraindications for intervention at this time. Cardiac status appears otherwise stable at this time Patient presents with Dr. Hatfield who agrees with plan of care - Patient Problems (1) Hydronephrosis Current Visit: Yes Status: Acute (2) TAMMY (acute kidney injury) Current Visit: Yes Status: Acute (3) Lymph edema Current Visit: Yes Status: Acute (4) HTN (hypertension) Current Visit: Yes Status: Acute (5) Acute respiratory failure Current Visit: Yes Status: Acute Subjective Date of service: 11/23/21 Principal diagnosis: sepsis Interval history: Patient resting in bed no acute distress. Patient currently on Ventimask was previously on BiPAP per report Currently sinus 60s 70s on monitor Objective Vital Signs Temp Pulse Pulse Pulse Pulse Resp BP 11/23/21 09:00 71 12 116/61 11/23/21 08:30 11/23/21 08:00 65 73 16 115/58 11/23/21 07:14 98.0 F 11/23/21 07:00 69 20 115/63 11/23/21 06:00 68 17 92/46 11/23/21 05:00 63 17 112/55 11/23/21 04:39 97.5 F L 11/23/21 04:30 68 58 H 120/64 11/23/21 04:00 67 68 16 120/64 11/23/21 03:00 65 16 123/64 11/23/21 02:00 74 16 104/58 11/23/21 01:00 75 16 99/63 11/23/21 00:36 70 16 106/60 11/23/21 00:07 73 16 106/60 11/23/21 00:00 74 74 16 106/60 11/22/21 23:51 74 16 107/60 11/22/21 23:39 97.8 F 11/22/21 23:00 77 11 L 107/60 11/22/21 22:00 77 10 L 104/63 11/22/21 21:00 79 13 107/63 11/22/21 20:40 80 16 108/63 11/22/21 20:05 97.8 F 11/22/21 20:00 89 19 108/63 11/22/21 19:00 90 88 20 100/60 11/22/21 18:31 94 H 20 130/76 11/22/21 18:21 95 H 21 130/76 11/22/21 18:11 95 H 21 130/76 11/22/21 18:00 89 22 106/63 11/22/21 17:51 99 H 26 H 115/66 11/22/21 17:45 97 H 22 115/66 11/22/21 17:40 115/66 11/22/21 17:38 130/76 11/22/21 17:30 94 H 98 H 98 H 98 H 22 128/83 11/22/21 17:15 100 H 24 117/63 11/22/21 17:00 102 H 22 125/69 11/22/21 16:57 101 H 23 130/71 11/22/21 16:52 103 H 25 H 128/72 11/22/21 16:47 97.8 F 102 H 25 H 132/69 11/22/21 14:45 97.7 F 78 26 H 127/58 11/22/21 14:23 97.7 F 78 26 H 127/58 11/22/21 14:00 99 H 27 H 130/76 11/22/21 13:51 89 24 120/77 11/22/21 13:41 82 23 120/77 11/22/21 13:31 102 H 22 120/77 11/22/21 13:21 85 25 H 120/77 11/22/21 13:11 97 H 24 120/77 11/22/21 13:00 111 H 31 H 120/77 11/22/21 12:51 90 31 H 129/87 11/22/21 12:41 107 H 129/87 11/22/21 12:31 110 H 26 H 129/87 11/22/21 12:21 86 26 H 129/87 11/22/21 12:11 111 H 30 H 129/87 11/22/21 12:01 103.2 F H 11/22/21 12:00 98 H 33 H 129/87 11/22/21 11:51 113 H 32 H 11/22/21 11:50 11/22/21 11:41 109 H 32 H 11/22/21 11:38 118 H 32 H Pulse Ox 11/23/21 09:00 95 11/23/21 08:30 95 11/23/21 08:00 93 11/23/21 07:14 11/23/21 07:00 95 11/23/21 06:00 11/23/21 05:00 97 11/23/21 04:39 11/23/21 04:30 96 11/23/21 04:00 96 11/23/21 03:00 11/23/21 02:00 94 11/23/21 01:00 94 11/23/21 00:36 95 11/23/21 00:07 92 11/23/21 00:00 94 11/22/21 23:51 97 11/22/21 23:39 11/22/21 23:00 94 11/22/21 22:00 94 11/22/21 21:00 96 11/22/21 20:40 95 11/22/21 20:05 11/22/21 20:00 91 11/22/21 19:00 87 11/22/21 18:31 87 11/22/21 18:21 88 11/22/21 18:11 88 11/22/21 18:00 87 11/22/21 17:51 91 11/22/21 17:45 93 11/22/21 17:40 86 11/22/21 17:38 87 11/22/21 17:30 96 11/22/21 17:15 96 11/22/21 17:00 96 11/22/21 16:57 94 11/22/21 16:52 93 11/22/21 16:47 95 11/22/21 14:45 93 11/22/21 14:23 93 11/22/21 14:00 92 11/22/21 13:51 91 11/22/21 13:41 92 11/22/21 13:31 96 11/22/21 13:21 88 11/22/21 13:11 89 11/22/21 13:00 89 11/22/21 12:51 91 11/22/21 12:41 95 11/22/21 12:31 89 11/22/21 12:21 89 11/22/21 12:11 94 11/22/21 12:01 11/22/21 12:00 92 11/22/21 11:51 92 11/22/21 11:50 97 11/22/21 11:41 92 11/22/21 11:38 92 - Physical Examination General: No Apparent Distress HEENT: Positive: Normocephaly Neck: Positive: trachea midline Cardiac: Positive: Reg Rate and Rhythm Lungs: Positive: Decreased Breath Sounds Neuro: Positive: Grossly Intact Abdomen: Positive: Distended Skin: Negative: Rash, Suspicious Lesions, Ulceration Extremities: Present: edema (chroninc lymphedema) - Labs and Meds Cardiac Enzymes 11/22/21 Range/Units 23:45 Lactate Dehydrogenase 287 H (91-180) units/L CBC 11/22/21 11/23/21 Range/Units 23:45 04:38 WBC 31.0 H 31.6 H (4.5-11.0) K/mm3 RBC 5.24 H 5.20 H (3.65-5.03) M/mm3 Hgb 15.1 14.7 (11.8-15.2) gm/dl Hct 47.2 H 47.1 H (35.5-45.6) % Plt Count 104 L 97 L (140-440) K/mm3 Comprehensive Metabolic Panel 11/22/21 11/23/21 Range/Units 23:45 04:38 Sodium 136 L (137-145) mmol/L Potassium 4.7 (3.6-5.0) mmol/L Chloride 100.0 (98-107) mmol/L Carbon Dioxide 18 L (22-30) mmol/L BUN 31 H (9-20) mg/dL Creatinine 2.7 H D (0.8-1.3) mg/dL Glucose 83 65 L (75-100) mg/dL Calcium 10.5 H (8.4-10.2) mg/dL - Imaging and Cardiology Echo: report reviewed - Telemetry EKG Rhythm: Sinus Rhythm - EKG Sinus rhythms and dysrhythmias: sinus rhythm, sinus tachycardia Ventricular dysrhythmias: ventricular premature com
--- NOTE | 2021-11-23 12:13 | Progress Note ---
Assessment and Plan Assessment and plan: Assessment and plan: This is a 86-year-old male with DM, CHF, HTN, hypothyroidism, SBO s/p abdominal surgery admitted with TAMMY, possible SBO, right ureteral calculi with hydronephrosis, obstructive uropathy Neuro: NAD -Reorientation as needed -Maintain sleep-wake cycle -As needed analgesia Cardiac: h/o CHF, HTN -Cardiology consulted, appreciate recommendations -Blood pressure monitoring per protocol -Hold home antihypertenisive medication at this time -Echocardiogram shows LVEF 50 to 55%, mild concentric LVH -Per cardio: -Echo 03/07/2019-1. Left ventricular ejection fraction is 65%. Aortic valve is tricuspid, focally calcified and sclerotic. Mildly dilated left atrium. There is impaired relaxation with normal filling pressure consistent with grade 1 diastolic dysfunction. E/E' indicative of elevated LVEDP. Mild pulmonic valve insufficiency. -No LIBERTY or ARB in setting of TAMMY Respiratory: Acute hypoxic respiratory failure -CCM consulted, appreciate recommendations -s/p bipap -Currently on venturi mask -RT to wean to venturi mask -Pulmonary hygiene -SPO2 monitor per protocol -CTA chest showed no evidence of pulmonary embolism, bilateral dependent regions of low-attenuation was suggestive of atelectasis GI: Possible SBO, h/o SBO with surgery -General surgery consulted, appreciate recommendations -Abdomen pelvis CT showed large bowel is moderate distended with gas to the point of the suture line in the mid sigmoid colon, partial obstruction of the level of the suture line not excluded -PPI -NPO -started on D5 until cleared by GI : Acute kidney injury, right ureteral calculus with associated hydronephrosis, obstructive uropathy secondary to ureteral calculus -Nephrology and Urology consulted, appreciate recommendations -CT abd/pelvis showed 6 mm proximal right ureteral stone with associated hydronephrosis, multiple additional bilateral nephroliths -Monitor intake and output -Renally dose medications -Avoid nephrotoxic medications -Renal US pending -Urine lytes pending -s/p Cystoscopy, ureteroscopy w/ stent placement -Trend BMP ID: r/[id number] [email or web address] -COVID 19 PUI (-) -f/u blood culture -UA, UC, BC -Does not endorse costovertebral tenderness -Monitor WBC and temperature curve Endo: h/o Hypothyroidism -Avoid hypoglycemia -SSI -Accu-Cheks q. 6hr Heme: Elevated ddimer -Trend CBC -Transfuse hemoglobin less than 7 -SCDs to BLE while in bed -Bilateral lower extremity Doppler ultrasound negative for DVT -CTA chest with no PE The high probability of a clinically significant, sudden or life threatening deterioration of the [multi] system(s) required my full and direct attention, intervention and personal management. The aggregate critical care time was [60] minutes. This time is in addition to time spent performing reported procedures but includes the following: [x] Data Review and interpretation [x] Patient assessment and monitoring of vital signs [x] Documentation [x] Medication orders and management Disposition Plan: icu Total Time Spent with Patient (Minutes): 60 History Interval history: This is a 86 year old male with DM, CHF, BLE lymphedema, HTN, hypothyroidism, gout, abdnominal surgery with SBO who presents to the emergency department on 06/22 with complaints of shortness of breath, cough, chest tightness with coughing ongoing for the past few days. In the emergency department he stated he had SBO in the past with surgery however later distended upon admission but the patient stated his last bowel movement was about 24 hours prior to admission. Work-up in the emergency department showed acute kidney injury, abdominal x-ray revealed colonic ileus or constipation, CT abdomen/pelvis showed multiple bilateral nephrolithiasis, 6 mm proximal right ureteral stone with associated hydronephrosis, possible partial occlusion [mildly distended with gas at the point of suture line in the mid sigmoid colon. Patient was given Lasix in the ED and placed on BiPAP for respiratory distress. Patient was admitted to the hospitalist service with consults to urology, nephrology, cardiology. Hospital course to date 11/22: [facility] consulted, appreciate recommendations. CT abdomen/pelvis showed possible SBO and surgery was consulted. COVID-19 PCR resulted as negative. S/p BiPAP therapy on Venturi mask. Wean as tolerated. 11/23: Worsening renal function noted, started on antibiotics. Urine electrolytes pending, ordered renal US. On Dextrose fluid awaiting GI input on feeding patient. Hospitalist Physical - Constitutional Vitals: Temp Pulse Resp BP Pulse Ox 98.0 F 71 12 116/61 95 11/23/21 11:34 11/23/21 09:00 11/23/21 09:00 11/23/21 09:00 11/23/21 09:00 General appearance: Present: no acute distress - EENT Eyes: Present: PERRL, EOM intact ENT: hearing intact, dentition normal - Neck Neck: Present: normal ROM - Respiratory Respiratory effort: normal Respiratory: bilateral: CTA, diminished - Cardiovascular Rhythm: regular Heart Sounds: Present: S1 & S2. Absent: systolic murmur, diastolic murmur - Extremities Extremities: no ischemia, pulses intact, pulses symmetrical, No edema, normal temperature, normal color Peripheral Pulses: within normal limits - Abdominal General gastrointestinal: soft, non-tender, distended, hypoactive bowel sounds - Integumentary Integumentary: Present: warm, dry - Psychiatric Psychiatric: cooperative - Neurologic Neurologic: CNII-XII intact, no focal deficits, moves all extremities - Allied Health Allied health notes reviewed: nursing, RT, social work HEART Score - HEART Score Troponin: Troponin T < 0.010 ng/mL (0.00-0.029) 11/21/21 23:20 Results - Labs CBC & Chem 7: 11/23/21 04:38 11/23/21 11:22 Labs: Laboratory Last Values WBC 31.6 K/mm3 (4.5-11.0) H 11/23/21 04:38 RBC 5.20 M/mm3 (3.65-5.03) H 11/23/21 04:38 Hgb 14.7 gm/dl (11.8-15.2) 11/23/21 04:38 Hct 47.1 % (35.5-45.6) H 11/23/21 04:38 MCV 91 fl (84-94) 11/23/21 04:38 MCH 28 pg (28-32) 11/23/21 04:38 MCHC 31 % (32-34) L 11/23/21 04:38 RDW 15.0 % (13.2-15.2) 11/23/21 04:38 Plt Count 97 K/mm3 (140-440) L 11/23/21 04:38 Add Manual Diff Complete 11/23/21 04:38 Total Counted 100 11/23/21 04:38 Seg Neutrophils % Airline Reservation Agent 11/21/21 23:20 Seg Neuts % (Manual) 84.0 % (40.0-70.0) H 11/23/21 04:38 Band Neutrophils % 4.0 % 11/23/21 04:38 Lymphocytes % (Manual) 2.0 % (13.4-35.0) L 11/23/21 04:38 Reactive Lymphs % (Man) 0 % 11/23/21 04:38 Monocytes % (Manual) 5.0 % (0.0-7.3) 11/23/21 04:38 Eosinophils % (Manual) 2.0 % (0.0-4.3) 11/23/21 04:38 Basophils % (Manual) 0 % (0.0-1.8) 11/23/21 04:38 Metamyelocytes % 3.0 % 11/23/21 04:38 Myelocytes % 0 % 11/23/21 04:38 Promyelocytes % 0 % 11/23/21 04:38 Blast Cells % 0 % 11/23/21 04:38 Nucleated RBC % Not Reportable 11/23/21 04:38 Seg Neutrophils # Man 26.5 K/mm3 (1.8-7.7) H 11/23/21 04:38 Band Neutrophils # 1.3 K/mm3 11/23/21 04:38 Lymphocytes # (Manual) 0.6 K/mm3 (1.2-5.4) L 11/23/21 04:38 Abs React Lymphs (Man) 0.0 K/mm3 11/23/21 04:38 Monocytes # (Manual) 1.6 K/mm3 (0.0-0.8) H 11/23/21 04:38 Eosinophils # (Manual) 0.6 K/mm3 (0.0-0.4) H 11/23/21 04:38 Basophils # (Manual) 0.0 K/mm3 (0.0-0.1) 11/23/21 04:38 Metamyelocytes # 0.9 K/mm3 11/23/21 04:38 Myelocytes # 0.0 K/mm3 11/23/21 04:38 Promyelocytes # 0.0 K/mm3 11/23/21 04:38 Blast Cells # 0.0 K/mm3 11/23/21 04:38 WBC Morphology Not Reportable 11/23/21 04:38 Hypersegmented Neuts Not Reportable 11/23/21 04:38 Hyposegmented Neuts Not Reportable 11/23/21 04:38 Hypogranular Neuts Not Reportable 11/23/21 04:38 Smudge Cells Not Reportable 11/23/21 04:38 Toxic Granulation Not Reportable 11/23/21 04:38 Toxic Vacuolation Not Reportable 11/23/21 04:38 Dohle Bodies Not Reportable 11/23/21 04:38 Pelger-Huet Anomaly Not Reportable 11/23/21 04:38 Antonio Rods Not Reportable 11/23/21 04:38 Platelet Estimate Consistent w auto 11/23/21 04:38 Clumped Platelets Not Reportable 11/23/21 04:38 Plt Clumps, EDTA Not Reportable 11/23/21 04:38 Large Platelets Not Reportable 11/23/21 04:38 Giant Platelets Not Reportable 11/23/21 04:38 Platelet Satelliting Not Reportable 11/23/21 04:38 Plt Morphology Comment Not Reportable 11/23/21 04:38 RBC Morphology Not Reportable 11/23/21 04:38 Dimorphic RBCs Not Reportable 11/23/21 04:38 Polychromasia Not Reportable 11/23/21 04:38 Hypochromasia Not Reportable 11/23/21 04:38 Poikilocytosis Not Reportable 11/23/21 04:38 Anisocytosis Not Reportable 11/23/21 04:38 Microcytosis Not Reportable 11/23/21 04:38 Macrocytosis Not Reportable 11/23/21 04:38 Spherocytes Not Reportable 11/23/21 04:38 Pappenheimer Bodies Not Reportable 11/23/21 04:38 Sickle Cells Not Reportable 11/23/21 04:38 Target Cells Not Reportable 11/23/21 04:38 Tear Drop Cells Not Reportable 11/23/21 04:38 Ovalocytes Not Reportable 11/23/21 04:38 Helmet Cells Not Reportable 11/23/21 04:38 [place] Bodies Not Reportable 11/23/21 04:38 [place] Rings Not Reportable 11/23/21 04:38 [place] Cells Not Reportable 11/23/21 04:38 Bite Cells Not Reportable 11/23/21 04:38 Crenated Cell Not Reportable 11/23/21 04:38 Elliptocytes Not Reportable 11/23/21 04:38 Acanthocytes (Spur) Not Reportable 11/23/21 04:38 Rouleaux Not Reportable 11/23/21 04:38 Hemoglobin C Crystals Not Reportable 11/23/21 04:38 Schistocytes Not Reportable 11/23/21 04:38 Malaria parasites Not Reportable 11/23/21 04:38 Eric Bodies Not Reportable 11/23/21 04:38 Hem Pathologist Commnt No 11/23/21 04:38 PT 14.8 Sec. (12.2-14.9) 11/21/21 23:20 INR 1.04 (0.87-1.13) 11/21/21 23:20 APTT 31.8 Sec. (24.2-36.6) 11/21/21 23:20 D-Dimer > 46948 ng/mlDDU (0-234) H 11/22/21 23:45 ABG pH 7.378 pH Units (7.350-7.450) 11/21/21 22:53 ABG pCO2 36.7 mm Hg 11/21/21 22:53 ABG pO2 178.4 mm Hg (80.0-90.0) H 11/21/21 22:53 ABG HCO3 21.1 mmol/L (20.0-26.0) 11/21/21 22:53 ABG O2 Saturation 99.1 % (95.0-99.0) H 11/21/21 22:53 ABG O2 Content 21.4 (0.0-44) 11/21/21 22:53 ABG Base Excess -3.4 mmol/L (-2.0-3.0) L 11/21/21 22:53 ABG Hemoglobin 15.4 gm/dl (14.0-18.0) 11/21/21 22:53 ABG Carboxyhemoglobin 1.4 % (0.0-5.0) 11/21/21 22:53 ABG Methemoglobin 0.6 % (0.0-1.5) 11/21/21 22:53 Oxyhemoglobin 97.2 % (95.0-99.0) 11/21/21 22:53 FiO2 70 % 11/21/21 22:53 Sodium 138 mmol/L (137-145) 11/23/21 11:22 Potassium 4.6 mmol/L (3.6-5.0) 11/23/21 11:22 Chloride 100.7 mmol/L (98-107) 11/23/21 11:22 Carbon Dioxide 23 mmol/L (22-30) 11/23/21 11:22 Anion Gap 19 mmol/L 11/23/21 11:22 BUN 35 mg/dL (9-20) H 11/23/21 11:22 Creatinine 2.7 mg/dL (0.8-1.3) H 11/23/21 11:22 Estimated GFR 27 ml/min 11/23/21 11:22 BUN/Creatinine Ratio 13 % 11/23/21 11:22 Glucose 72 mg/dL (75-100) L 11/23/21 11:22 POC Glucose 94 mg/dL (70-105) 11/22/21 23:36 Lactic Acid 5.20 mmol/L (0.7-2.0) H* 11/23/21 11:22 Calcium 10.0 mg/dL (8.4-10.2) 11/23/21 11:22 Ferritin 389.2 ng/mL (30.0-300.0) H 11/22/21 23:45 Total Bilirubin 0.60 mg/dL (0.1-1.2) 11/21/21 23:20 Direct Bilirubin < 0.2 mg/dL (0-0.2) 11/21/21 23:20 Indirect Bilirubin 0.4 mg/dL 11/21/21 23:20 AST 60 units/L (5-40) H 11/21/21 23:20 ALT 24 units/L (7-56) 11/21/21 23:20 Alkaline Phosphatase 184 units/L (35-129) H 11/21/21 23:20 Lactate Dehydrogenase 287 units/L (91-180) H 11/22/21 23:45 Troponin T < 0.010 ng/mL (0.00-0.029) 11/21/21 23:20 C-Reactive Protein 20.40 mg/dL (0.00-1.30) H 11/22/21 23:45 NT-Pro-B Natriuret Pep 103.7 pg/mL (0-900) 11/21/21 23:20 Total Protein 7.7 g/dL (6.3-8.2) 11/21/21 23:20 Albumin 4.1 g/dL (3.9-5) 11/21/21 23:20 Albumin/Globulin Ratio 1.1 % 11/21/21 23:20 Urine Color Yellow (Yellow) 11/22/21 11:47 Urine Turbidity Clear (Clear) 11/22/21 11:47 Specific [place] (Man) 1.010 (1.003-1.030) 11/22/21 11:47 Ur Protein (Man) 1+ mg/dL (Negative) 11/22/21 11:47 Ur Ketones (Man) Negative (Negative) 11/22/21 11:47 Urine Bilirubin (Man) Negative (Negative) 11/22/21 11:47 Urine WBC (Auto) 14.0 /HPF (0.0-6.0) H 11/22/21 11:47 Urine RBC (Auto) 5.0 /HPF (0.0-6.0) 11/22/21 11:47 U Epithel Cells (Auto) 1.0 /HPF (0-13.0) 11/22/21 11:47 Urine Bacteria (Auto) 1+ /HPF (Negative) 11/22/21 11:47 Urine RBC (Manual) Trace (Negative) 11/22/21 11:47 Urine Mucus Few /HPF 11/22/21 11:47 Coronavirus (PCR) Negative (Negative) 11/22/21 11:00 Microbiology: Microbiology 11/22/21 23:45 Peripheral/Venous Blood Culture - Preliminary Culture in Progress 11/22/21 23:45 Peripheral/Venous Blood Culture - Preliminary Culture in Progress Mccloud/IV: Voiding Method Indwelling Catheter Active Medications - Current Medications Current Medications: Generic Name Dose Route Start Last Admin Trade Name Freq PRN Reason Stop Dose Admin Acetaminophen 650 mg 11/22/21 02:08 11/22/21 11:36 Acetaminophen 325 Mg Tab PO 650 mg Q6H PRN Administration Pain MILD(1-3)/Fever >100.5/CARREON Albuterol 2.5 mg 11/22/21 07:02 Albuterol 2.5 Mg/3 Ml Nebu IH Q4HRT PRN Shortness Of Breath Dextrose 0 ml 11/22/21 02:08 Dextrose 50% In Water (25gm) 50 Ml Syringe IV Q30MIN PRN Hypoglycemia Protocol Heparin Sodium (Porcine) 5,000 unit 11/22/21 22:00 11/23/21 05:02 Heparin 5,000 Unit/1 Ml Vial SUB-Q 5,000 unit Q8HR ERIKA Administration Dextrose/Sodium Chloride 1,000 mls @ 42 mls/hr 11/23/21 09:00 11/23/21 09:18 D5/0.45ns IV 42 mls/hr DIRECT ERIKA Administration Cefepime HCl 2 gm in 100 mls @ 200 mls/hr 11/23/21 09:00 11/23/21 09:17 Cefepime/Ns 2 Gm/100 Ml IV 200 mls/hr Q12H ERIKA Administration Protocol Insulin Human Lispro 0 unit 11/23/21 12:00 Insulin Lispro 100 Unit/Ml SUB-Q Q6HR [facility] Protocol Levothyroxine Sodium 75 mcg 11/24/21 06:00 Levothyroxine 100 Mcg Inj IV DAILY@0600 ERIKA Magnesium Hydroxide 30 ml 11/22/21 02:08 Magnesium Hydroxide (Mom) Oral Liqd Udc PO Q4H PRN Constipation Morphine Sulfate 2 mg 11/22/21 02:08 Morphine 2 Mg/1 Ml Inj IV Q4H PRN Pain, Moderate (4-6) Morphine Sulfate 4 mg 11/22/21 02:08 Morphine 4 Mg/1 Ml Inj IV Q4H PRN Pain , Severe (7-10) Sodium Chloride 10 ml 11/22/21 10:00 11/23/21 09:13 Sodium Chloride 0.9% 10 Ml Flush Syringe IV 10 ml BID ERIKA Administration Sodium Chloride 10 ml 11/22/21 02:08 Sodium Chloride 0.9% 10 Ml Flush Syringe IV PRN PRN LINE FLUSH Nutrition/Malnutrition Assess - Dietary Evaluation Nutrition/Malnutrition Findings: Nutrition Notes Start: 11/22/21 14:36 Freq: Status: Active Protocol: Document 11/22/21 14:36 ALBIN (Rec: 11/22/21 14:47 ALBIN [email or web address]) Nutrition Notes Need for Assessment generated from: MD Order,Education Initial or Follow up Brief Note Current Diagnosis Diabetes,Hypertension, Respiratory Failure Other Pertinent Diagnosis CHF, Bilateral-LE Lymphedema, Ureteral Stone w/ Hydronephrosos. Current Diet NPO (since 11/22 07:01). Height 5 ft 10 in Weight 136.078 kg [place] Body Weight (kg) 75.45 BMI 43.0 Weight change and time frame None provided at admission. Weight Status Morbidly Obese Subjective/Other Information RD consult for nutrition education assessment. Pt currently on NPO. Pt is on NIV/Bi-PaP+, O2 saturation @ 98%, according to Vital Signs notes. Pt still in critical condition , not a candidate for Nutrition Education at the time, will assess feasibility on F/U. Percent of energy/protein needs met: Pt currently on NPO. Nutrition Intervention Follow-Up By: 11/29/21 Additional Comments Nutrition education will be provided at F/U, if feasible. Continue monitoring food tolerance, %PO intake of meals , and BM.
[2021-11-23] MEDS ORDERED: PHENOL 1.4% 177 ML BOTTLE MM PRN (12:34)
--- NOTE | 2021-11-23 12:40 | Progress Note ---
Assessment and Plan Acute hypoxemic respiratory failure Acute congestive heart failure exacerbation Abdominal distention, possible bowel obstruction Morbid obesity Ureteral stone with hydronephrosis DM II HTN Acute kidney injury Possible sleep-disordered breathing/obstructive sleep apnea. - conservative management of colonic dilatation as asymptomatic - use BIPAP scheduled tonight then prn thereafter - continue to wean supplemental oxygen for target O2 sat's > 90% acutely - aspiration precautions - prn bronchodilators with pulmonary hygiene per RT - avoid nephrotoxins, renally dose all medications - avoid benzodiazepine's, reduce the possibility of delirium - AB's per ID rec's - prn analgesia per pain score - Maintenance of sleep-wake cycle, avoid delirium - G.I. & VTE prophylaxis - PT/OT/ROM exercises - mobility protocols for pressure ulcer prophylaxis - Monitor hemodynamics closely - continue other care per attending / other consultants - discharge planning ongoing concurrently COVID SPECIFIC INTERVENTIONS - COVID-19 test negative .... Re-evaluate in am & prn CONDITION: CRITICAL PROGNOSIS: GUARDED CODE STATUS: FULL CODE The high probability of a clinically significant, sudden or life-threatening deterioration of the [respiratory, cardiovascular & neurologic] system(s) required my full and direct attention, intervention and personal management. The aggregate critical care time was [31] minutes without overlap. Time includes spent on; [x] Data Review and interpretation [x] Patient assessment and monitoring of vital signs [x] Documentation [x] Medication orders and management Subjective Date of service: 11/23/21 Principal diagnosis: AHRF; AE-CHF; Abd. distention; Obesity; Hydronephrosis; TAMMY; DM II; ? MANISH Interval history: Patient is seen today for: Acute hypoxemic respiratory failure; AE-CHF; Abdominal distention; Morbid obesity; Ureteral stone with hydronephrosis; TAMMY; DM II; Possible MANISH Seen and examined at bedside; 24hour events reviewed; nursing and respiratory c are staff consulted; no adverse overnight events reported to me; resting in bed; seen by GI and will treat colonic dilatation conservatively; s/p kidney stone extraction / stent procedure; no N/V/F/C; slept well but with some BIPAP intolerance Objective Vital Signs - 12hr 11/23/21 11/23/21 11/23/21 01:00 02:00 03:00 Temperature Pulse Rate 75 74 65 Pulse Rate [ From Monitor] Respiratory 16 16 16 Rate Blood Pressure 99/63 104/58 123/64 O2 Sat by Pulse 94 94 Oximetry 11/23/21 11/23/21 11/23/21 04:00 04:30 04:39 Temperature 97.5 F L Pulse Rate 67 68 Pulse Rate [ 68 From Monitor] Respiratory 16 58 H Rate Blood Pressure 120/64 120/64 O2 Sat by Pulse 96 96 Oximetry 11/23/21 11/23/21 11/23/21 05:00 06:00 07:00 Temperature Pulse Rate 63 68 69 Pulse Rate [ From Monitor] Respiratory 17 17 20 Rate Blood Pressure 112/55 92/46 115/63 O2 Sat by Pulse 97 95 Oximetry 11/23/21 11/23/21 11/23/21 07:14 08:00 08:30 Temperature 98.0 F Pulse Rate 65 Pulse Rate [ 73 From Monitor] Respiratory 16 Rate Blood Pressure 115/58 O2 Sat by Pulse 93 95 Oximetry 11/23/21 11/23/21 11/23/21 09:00 10:00 11:00 Temperature Pulse Rate 71 70 79 Pulse Rate [ From Monitor] Respiratory 12 15 21 Rate Blood Pressure 116/61 111/53 119/58 O2 Sat by Pulse 95 95 98 Oximetry 11/23/21 11/23/21 11:34 12:00 Temperature 98.0 F Pulse Rate 69 Pulse Rate [ From Monitor] Respiratory 16 Rate Blood Pressure 119/58 O2 Sat by Pulse 97 Oximetry Eyes: non-icteric ENT: oropharynx moist Neck: supple, no lymphadenopathy, no JVD, other (large circumference) Effort: mildly labored Ascultation: Bilateral: diminished breath sounds Percussion: Bilateral: not dull Cardiovascular: regular rate and rhythm, other (occasional extrasystole's) Gastrointestinal: normoactive bowel sounds, soft, non-tender, other (distended) Integumentary: rash (stasis dermatitis type to legs) Extremities: no cyanosis, pulses normal, no ischemia or petechiae, edema Neurologic: non-focal exam (grossly), pupils equal and round, unable to assess Psychiatric: other (unable to assess re: AMS) CBC and BMP: 11/24/21 04:26 11/24/21 04:26 ABG, PT/INR, D-dimer: ABG ABG pH 7.378 pH Units (7.350-7.450) 11/21/21 22:53 ABG pCO2 36.7 mm Hg 11/21/21 22:53 ABG pO2 178.4 mm Hg (80.0-90.0) H 11/21/21 22:53 ABG O2 Saturation 99.1 % (95.0-99.0) H 11/21/21 22:53 PT/INR, D-dimer PT 14.8 Sec. (12.2-14.9) 11/21/21 23:20 INR 1.04 (0.87-1.13) 11/21/21 23:20 D-Dimer > 35708 ng/mlDDU (0-234) H 11/22/21 23:45 Abnormal lab findings: Abnormal Labs 11/21/21 11/21/21 11/21/21 22:53 23:20 23:20 WBC RBC 5.34 H Hct 47.1 H MCHC Plt Count Seg Neuts % (Manual) 91.0 H Lymphocytes % (Manual) 5.0 L Seg Neutrophils # Man 8.5 H Lymphocytes # (Manual) 0.5 L Monocytes # (Manual) Eosinophils # (Manual) D-Dimer ABG pO2 178.4 H ABG O2 Saturation 99.1 H ABG Base Excess -3.4 L Sodium 133 L Carbon Dioxide BUN Creatinine 1.4 H Glucose Lactic Acid Calcium 10.9 H Ferritin AST 60 H Alkaline Phosphatase 184 H Lactate Dehydrogenase C-Reactive Protein Urine WBC (Auto) 11/22/21 11/22/21 11/22/21 11:47 23:45 23:45 WBC RBC Hct MCHC Plt Count Seg Neuts % (Manual) Lymphocytes % (Manual) Seg Neutrophils # Man Lymphocytes # (Manual) Monocytes # (Manual) Eosinophils # (Manual) D-Dimer > 16605 H ABG pO2 ABG O2 Saturation ABG Base Excess Sodium Carbon Dioxide BUN Creatinine Glucose Lactic Acid Calcium Ferritin AST Alkaline Phosphatase Lactate Dehydrogenase 287 H C-Reactive Protein 20.40 H Urine WBC (Auto) 14.0 H 11/22/21 11/22/21 11/22/21 23:45 23:45 23:45 WBC 31.0 H RBC 5.24 H Hct 47.2 H MCHC Plt Count 104 L Seg Neuts % (Manual) Lymphocytes % (Manual) Seg Neutrophils # Man Lymphocytes # (Manual) Monocytes # (Manual) Eosinophils # (Manual) D-Dimer ABG pO2 ABG O2 Saturation ABG Base Excess Sodium Carbon Dioxide BUN Creatinine Glucose Lactic Acid 4.50 H* Calcium Ferritin 389.2 H AST Alkaline Phosphatase Lactate Dehydrogenase C-Reactive Protein Urine WBC (Auto) 11/23/21 11/23/21 11/23/21 04:38 04:38 04:38 WBC 31.6 H RBC 5.20 H Hct 47.1 H MCHC 31 L Plt Count 97 L Seg Neuts % (Manual) 84.0 H Lymphocytes % (Manual) 2.0 L Seg Neutrophils # Man 26.5 H Lymphocytes # (Manual) 0.6 L Monocytes # (Manual) 1.6 H Eosinophils # (Manual) 0.6 H D-Dimer ABG pO2 ABG O2 Saturation ABG Base Excess Sodium 136 L Carbon Dioxide 18 L BUN 31 H Creatinine 2.7 H D Glucose 65 L Lactic Acid 4.50 H* Calcium 10.5 H Ferritin AST Alkaline Phosphatase Lactate Dehydrogenase C-Reactive Protein Urine WBC (Auto) 11/23/21 11/23/21 11:22 11:22 WBC RBC Hct MCHC Plt Count Seg Neuts % (Manual) Lymphocytes % (Manual) Seg Neutrophils # Man Lymphocytes # (Manual) Monocytes # (Manual) Eosinophils # (Manual) D-Dimer ABG pO2 ABG O2 Saturation ABG Base Excess Sodium Carbon Dioxide BUN 35 H Creatinine 2.7 H Glucose 72 L Lactic Acid 5.20 H* Calcium Ferritin AST Alkaline Phosphatase Lactate Dehydrogenase C-Reactive Protein Urine WBC (Auto) Allied health notes reviewed: nursing
--- NOTE | 2021-11-23 13:59 | Electrocardiograph Report ---
[facility] Test Date: 2021-11-21 Test Time: 22:38:24 Pat Name: KANDY WARREN Department: Room: A255 Gender: M [employer] Tender: SUSAN : 1935 Requested By: ISAÍAS MENDEZ Order Number: [id number] Reading MD: John Mason Measurements Intervals [place] Rate: 126 P: 204 SC: 102 QRS: -70 QRSD: 98 T: 81 QT: 321 QTc: 475 Interpretive Statements Very poor quality ECG Probable sinus tachycardia, with occasional PVCs Left anterior fascicular block Possible old anterior myocardial infarction No previous ECG available for comparison Electronically Signed On 11-23-2021 13:58:25 EDT by John Mason
--- NOTE | 2021-11-23 14:25 | Progress Note ---
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 Likely chronic. Pt stable. Clinically not showing signs of acute obstruction. Radiographic findings are chronic based on history. Plan: 1. CLD -> adv to soft diet as christina 2. IVF per nephro 3. D/w Gi - will hold off on flex sig at this time 4. stool softener BID 5. Recommend follow up with outpatient surgeon at [place] once discharged. If any acute changes in abdominal exam, will reevaluate. Pt understands plan. Thank you, please call with questions. Subjective Date of service: 11/23/21 Narrative: Pt seen and examined. No acute complaints. No abd pain. No n/v. NO fever today. Patient states his abdomen has been distended since his colostomy reversal surgery. He has not had a cscope since then. He has been having daily BMs which are thin and loose since last surgery. He has not been having any abdominal pain, n/v. Objective Vital Signs - 12hr 11/23/21 11/23/21 11/23/21 03:00 04:00 04:30 Temperature Pulse Rate 65 67 68 Pulse Rate [ 68 From Monitor] Respiratory 16 16 58 H Rate Respiratory Rate [Chest] Blood Pressure 123/64 120/64 120/64 O2 Sat by Pulse 96 96 Oximetry 11/23/21 11/23/21 11/23/21 04:39 05:00 06:00 Temperature 97.5 F L Pulse Rate 63 68 Pulse Rate [ From Monitor] Respiratory 17 17 Rate Respiratory Rate [Chest] Blood Pressure 112/55 92/46 O2 Sat by Pulse 97 Oximetry 11/23/21 11/23/21 11/23/21 07:00 07:14 08:00 Temperature 98.0 F Pulse Rate 69 65 Pulse Rate [ 73 From Monitor] Respiratory 20 16 Rate Respiratory Rate [Chest] Blood Pressure 115/63 115/58 O2 Sat by Pulse 95 93 Oximetry 11/23/21 11/23/21 11/23/21 08:30 09:00 10:00 Temperature Pulse Rate 71 70 Pulse Rate [ From Monitor] Respiratory 12 15 Rate Respiratory 17 Rate [Chest] Blood Pressure 116/61 111/53 O2 Sat by Pulse 95 95 95 Oximetry 11/23/21 11/23/21 11/23/21 11:00 11:34 12:00 Temperature 98.0 F Pulse Rate 79 69 Pulse Rate [ 80 From Monitor] Respiratory 21 16 Rate Respiratory Rate [Chest] Blood Pressure 119/58 119/58 O2 Sat by Pulse 98 97 Oximetry 11/23/21 13:00 Temperature Pulse Rate 75 Pulse Rate [ From Monitor] Respiratory 19 Rate Respiratory Rate [Chest] Blood Pressure 116/55 O2 Sat by Pulse Oximetry - General physical appearance Narrative Exam: Gen.: Awake, alert, oriented x3. No apparent distress ENT: Trachea midline. No lymphadenopathy. No scleral icterus or conjunctival pallor CV: S1, S2 present Respiratory: No audible wheezes. No dyspnea Abdomen: Soft, distended, nontender. Well healed surgical scars. No rebound, rigidity, guarding Extremities: No clubbing, cyanosis, edema - Labs 11/23/21 04:38 11/23/21 11:22 Diabetes panel 11/22/21 11/23/21 11/23/21 Range/Units 23:45 04:38 11:22 Sodium 136 L 138 (137-145) mmol/L Potassium 4.7 4.6 (3.6-5.0) mmol/L Chloride 100.0 100.7 (98-107) mmol/L Carbon Dioxide 18 L 23 (22-30) mmol/L BUN 31 H 35 H (9-20) mg/dL Creatinine 2.7 H D 2.7 H (0.8-1.3) mg/dL Glucose 83 65 L 72 L (75-100) mg/dL Calcium 10.5 H 10.0 (8.4-10.2) mg/dL Calcium panel 11/23/21 11/23/21 Range/Units 04:38 11:22 Calcium 10.5 H 10.0 (8.4-10.2) mg/dL Pituitary panel 11/22/21 11/23/21 11/23/21 Range/Units 23:45 04:38 11:22 Sodium 136 L 138 (137-145) mmol/L Potassium 4.7 4.6 (3.6-5.0) mmol/L Chloride 100.0 100.7 (98-107) mmol/L Carbon Dioxide 18 L 23 (22-30) mmol/L BUN 31 H 35 H (9-20) mg/dL Creatinine 2.7 H D 2.7 H (0.8-1.3) mg/dL Glucose 83 65 L 72 L (75-100) mg/dL Calcium 10.5 H 10.0 (8.4-10.2) mg/dL Adrenal panel 11/22/21 11/23/21 11/23/21 Range/Units 23:45 04:38 11:22 Sodium 136 L 138 (137-145) mmol/L Potassium 4.7 4.6 (3.6-5.0) mmol/L Chloride 100.0 100.7 (98-107) mmol/L Carbon Dioxide 18 L 23 (22-30) mmol/L BUN 31 H 35 H (9-20) mg/dL Creatinine 2.7 H D 2.7 H (0.8-1.3) mg/dL Glucose 83 65 L 72 L (75-100) mg/dL Calcium 10.5 H 10.0 (8.4-10.2) mg/dL
--- NOTE | 2021-11-23 17:15 | Ultrasound Report ---
ULTRASOUND RENAL INDICATION / CLINICAL INFORMATION: keisha. COMPARISON: CT abdomen pelvis 11/21/2021. FINDINGS: RIGHT KIDNEY: Length = 13.9 cm. - Echogenicity: Normal. - Parenchymal Thickness: Normal. - Hydronephrosis: None. - Cyst / Mass: Upper pole cyst measuring 1.9 cm. - Stones: Multiple nonobstructing stones, the largest measuring 1.3 cm within the upper pole. LEFT KIDNEY: Length = 12.4 cm. - Echogenicity: Normal. - Parenchymal Thickness: Normal. - Hydronephrosis: None. - Cyst / Mass: None. - Stones: Multiple small nonobstructing stones. URINARY BLADDER: Collapsed with Mccloud catheter in place. FREE FLUID: None. ADDITIONAL FINDINGS: None. IMPRESSION: 1. No acute abnormality. 2. Bilateral nonobstructing nephrolithiasis. Previously visualized right hydronephrosis has resolved. Scribed by: Natasha Prescott RDMS, RVT, [place] Scribed: 11/23/2021 2:17 PM I have reviewed the images, agree with this report, and edited this report as needed. Signer Name: Cesar Villafuerte MD Signed: 11/23/2021 5:11 PM Workstation Name: [id number]
--- NOTE | 2021-11-23 17:56 | Gastroenterology Progress Note ---
Assessment and Plan # Dilated colon - CT showing dilated colon down to sigmoid anastomosis line. 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 - suspect chronic dilation with possible stricture at the anastomosis vs [place] with chronic pseudoobstruction. - not having any acute symptoms. - no clinical change. - remains on venti mask. Rec - monitor electrolytes and replete as needed. - would hold off endoscopy including flex sig at this time given his respiratory status and no acute symptoms. - will follow and monitor clinically. - patient may ultimately need to follow up with his outpatient surgeon at [place]. - discussed with surgery, Dr. Vanegas. Subjective Date of service: 11/23/21 Principal diagnosis: AHRF; AE-CHF; Abd. distention; Obesity; Hydronephrosis; TAMMY; DM II; ? MANISH Interval history: Patient denies any abdominal pain, nausea or vomiting. Reports passing flatus but no bowel movement overnight. Objective - Constitutional Vitals: Temp Pulse Resp BP Pulse Ox 98.6 F 75 19 116/55 96 11/23/21 16:50 11/23/21 13:00 11/23/21 13:00 11/23/21 13:00 11/23/21 15:25 General appearance: no acute distress - EENT Eyes: EOM intact ENT: hearing intact - Neck Neck: supple - Respiratory Respiratory effort: normal - Gastrointestinal General gastrointestinal: Present: soft, non-distended, distended - Integumentary Integumentary: Present: clear, warm - Neurologic Neurological: alert and oriented x3 - Labs CBC & Chem 7: 11/23/21 04:38 11/23/21 11:22 Labs: Laboratory Results - last 24 hr 11/22/21 11/22/21 11/22/21 21:17 23:36 23:45 WBC RBC Hgb Hct MCV MCH MCHC RDW Plt Count Add Manual Diff Total Counted Seg Neuts % (Manual) Band Neutrophils % Lymphocytes % (Manual) Reactive Lymphs % (Man) Monocytes % (Manual) Eosinophils % (Manual) Basophils % (Manual) Metamyelocytes % Myelocytes % Promyelocytes % Blast Cells % Nucleated RBC % Seg Neutrophils # Man Band Neutrophils # Lymphocytes # (Manual) Abs React Lymphs (Man) Monocytes # (Manual) Eosinophils # (Manual) Basophils # (Manual) Metamyelocytes # Myelocytes # Promyelocytes # Blast Cells # WBC Morphology Hypersegmented Neuts Hyposegmented Neuts Hypogranular Neuts Smudge Cells Toxic Granulation Toxic Vacuolation Dohle Bodies Pelger-Huet Anomaly Antonio Rods Platelet Estimate Clumped Platelets Plt Clumps, EDTA Large Platelets Giant Platelets Platelet Satelliting Plt Morphology Comment RBC Morphology Dimorphic RBCs Polychromasia Hypochromasia Poikilocytosis Anisocytosis Microcytosis Macrocytosis Spherocytes Pappenheimer Bodies Sickle Cells Target Cells Tear Drop Cells Ovalocytes Helmet Cells [place] Bodies [place] Rings [place] Cells Bite Cells Crenated Cell Elliptocytes Acanthocytes (Spur) Rouleaux Hemoglobin C Crystals Schistocytes Malaria parasites Eric Bodies Hem Pathologist Commnt D-Dimer Sodium Potassium Chloride Carbon Dioxide Anion Gap BUN Creatinine Estimated GFR BUN/Creatinine Ratio Glucose POC Glucose 104 94 Lactic Acid Calcium Ferritin Lactate Dehydrogenase C-Reactive Protein Procalcitonin 97.57 Urine Creatinine Urine Sodium Urine Urea Nitrogen 11/22/21 11/22/21 11/22/21 23:45 23:45 23:45 WBC RBC Hgb Hct MCV MCH MCHC RDW Plt Count Add Manual Diff Total Counted Seg Neuts % (Manual) Band Neutrophils % Lymphocytes % (Manual) Reactive Lymphs % (Man) Monocytes % (Manual) Eosinophils % (Manual) Basophils % (Manual) Metamyelocytes % Myelocytes % Promyelocytes % Blast Cells % Nucleated RBC % Seg Neutrophils # Man Band Neutrophils # Lymphocytes # (Manual) Abs React Lymphs (Man) Monocytes # (Manual) Eosinophils # (Manual) Basophils # (Manual) Metamyelocytes # Myelocytes # Promyelocytes # Blast Cells # WBC Morphology Hypersegmented Neuts Hyposegmented Neuts Hypogranular Neuts Smudge Cells Toxic Granulation Toxic Vacuolation Dohle Bodies Pelger-Huet Anomaly Antonio Rods Platelet Estimate Clumped Platelets Plt Clumps, EDTA Large Platelets Giant Platelets Platelet Satelliting Plt Morphology Comment RBC Morphology Dimorphic RBCs Polychromasia Hypochromasia Poikilocytosis Anisocytosis Microcytosis Macrocytosis Spherocytes Pappenheimer Bodies Sickle Cells Target Cells Tear Drop Cells Ovalocytes Helmet Cells [place] Bodies [place] Rings [place] Cells Bite Cells Crenated Cell Elliptocytes Acanthocytes (Spur) Rouleaux Hemoglobin C Crystals Schistocytes Malaria parasites Eric Bodies Hem Pathologist Commnt D-Dimer > 14786 H Sodium Potassium Chloride Carbon Dioxide Anion Gap BUN Creatinine Estimated GFR BUN/Creatinine Ratio Glucose 83 POC Glucose Lactic Acid Calcium Ferritin 389.2 H Lactate Dehydrogenase 287 H C-Reactive Protein 20.40 H Procalcitonin Urine Creatinine Urine Sodium Urine Urea Nitrogen 11/22/21 11/22/21 11/23/21 23:45 23:45 04:38 WBC 31.0 H 31.6 H RBC 5.24 H 5.20 H Hgb 15.1 14.7 Hct 47.2 H 47.1 H MCV 90 91 MCH 29 28 MCHC 32 31 L RDW 15.2 15.0 Plt Count 104 L 97 L Add Manual Diff Complete Total Counted 100 Seg Neuts % (Manual) 84.0 H Band Neutrophils % 4.0 Lymphocytes % (Manual) 2.0 L Reactive Lymphs % (Man) 0 Monocytes % (Manual) 5.0 Eosinophils % (Manual) 2.0 Basophils % (Manual) 0 Metamyelocytes % 3.0 Myelocytes % 0 Promyelocytes % 0 Blast Cells % 0 Nucleated RBC % Not Reportable Seg Neutrophils # Man 26.5 H Band Neutrophils # 1.3 Lymphocytes # (Manual) 0.6 L Abs React Lymphs (Man) 0.0 Monocytes # (Manual) 1.6 H Eosinophils # (Manual) 0.6 H Basophils # (Manual) 0.0 Metamyelocytes # 0.9 Myelocytes # 0.0 Promyelocytes # 0.0 Blast Cells # 0.0 WBC Morphology Not Reportable Hypersegmented Neuts Not Reportable Hyposegmented Neuts Not Reportable Hypogranular Neuts Not Reportable Smudge Cells Not Reportable Toxic Granulation Not Reportable Toxic Vacuolation Not Reportable Dohle Bodies Not Reportable Pelger-Huet Anomaly Not Reportable Antonio Rods Not Reportable Platelet Estimate Consistent w auto Clumped Platelets Not Reportable Plt Clumps, EDTA Not Reportable Large Platelets Not Reportable Giant Platelets Not Reportable Platelet Satelliting Not Reportable Plt Morphology Comment Not Reportable RBC Morphology Not Reportable Dimorphic RBCs Not Reportable Polychromasia Not Reportable Hypochromasia Not Reportable Poikilocytosis Not Reportable Anisocytosis Not Reportable Microcytosis Not Reportable Macrocytosis Not Reportable Spherocytes Not Reportable Pappenheimer Bodies Not Reportable Sickle Cells Not Reportable Target Cells Not Reportable Tear Drop Cells Not Reportable Ovalocytes Not Reportable Helmet Cells Not Reportable [place] Bodies Not Reportable [place] Rings Not Reportable [place] Cells Not Reportable Bite Cells Not Reportable Crenated Cell Not Reportable Elliptocytes Not Reportable Acanthocytes (Spur) Not Reportable Rouleaux Not Reportable Hemoglobin C Crystals Not Reportable Schistocytes Not Reportable Malaria parasites Not Reportable Eric Bodies Not Reportable Hem Pathologist Commnt No D-Dimer Sodium Potassium Chloride Carbon Dioxide Anion Gap BUN Creatinine Estimated GFR BUN/Creatinine Ratio Glucose POC Glucose Lactic Acid 4.50 H* Calcium Ferritin Lactate Dehydrogenase C-Reactive Protein Procalcitonin Urine Creatinine Urine Sodium Urine Urea Nitrogen 11/23/21 11/23/21 11/23/21 04:38 04:38 11:22 WBC RBC Hgb Hct MCV MCH MCHC RDW Plt Count Add Manual Diff Total Counted Seg Neuts % (Manual) Band Neutrophils % Lymphocytes % (Manual) Reactive Lymphs % (Man) Monocytes % (Manual) Eosinophils % (Manual) Basophils % (Manual) Metamyelocytes % Myelocytes % Promyelocytes % Blast Cells % Nucleated RBC % Seg Neutrophils # Man Band Neutrophils # Lymphocytes # (Manual) Abs React Lymphs (Man) Monocytes # (Manual) Eosinophils # (Manual) Basophils # (Manual) Metamyelocytes # Myelocytes # Promyelocytes # Blast Cells # WBC Morphology Hypersegmented Neuts Hyposegmented Neuts Hypogranular Neuts Smudge Cells Toxic Granulation Toxic Vacuolation Dohle Bodies Pelger-Huet Anomaly Antonio Rods Platelet Estimate Clumped Platelets Plt Clumps, EDTA Large Platelets Giant Platelets Platelet Satelliting Plt Morphology Comment RBC Morphology Dimorphic RBCs Polychromasia Hypochromasia Poikilocytosis Anisocytosis Microcytosis Macrocytosis Spherocytes Pappenheimer Bodies Sickle Cells Target Cells Tear Drop Cells Ovalocytes Helmet Cells [place] Bodies [place] Rings [place] Cells Bite Cells Crenated Cell Elliptocytes Acanthocytes (Spur) Rouleaux Hemoglobin C Crystals Schistocytes Malaria parasites Eric Bodies Hem Pathologist Commnt D-Dimer Sodium 136 L Potassium 4.7 Chloride 100.0 Carbon Dioxide 18 L Anion Gap 23 BUN 31 H Creatinine 2.7 H D Estimated GFR 27 BUN/Creatinine Ratio 11 Glucose 65 L POC Glucose Lactic Acid 4.50 H* 5.20 H* Calcium 10.5 H Ferritin Lactate Dehydrogenase C-Reactive Protein Procalcitonin Urine Creatinine Urine Sodium Urine Urea Nitrogen 11/23/21 11/23/21 11:22 12:05 WBC RBC Hgb Hct MCV MCH MCHC RDW Plt Count Add Manual Diff Total Counted Seg Neuts % (Manual) Band Neutrophils % Lymphocytes % (Manual) Reactive Lymphs % (Man) Monocytes % (Manual) Eosinophils % (Manual) Basophils % (Manual) Metamyelocytes % Myelocytes % Promyelocytes % Blast Cells % Nucleated RBC % Seg Neutrophils # Man Band Neutrophils # Lymphocytes # (Manual) Abs React Lymphs (Man) Monocytes # (Manual) Eosinophils # (Manual) Basophils # (Manual) Metamyelocytes # Myelocytes # Promyelocytes # Blast Cells # WBC Morphology Hypersegmented Neuts Hyposegmented Neuts Hypogranular Neuts Smudge Cells Toxic Granulation Toxic Vacuolation Dohle Bodies Pelger-Huet Anomaly Antonio Rods Platelet Estimate Clumped Platelets Plt Clumps, EDTA Large Platelets Giant Platelets Platelet Satelliting Plt Morphology Comment RBC Morphology Dimorphic RBCs Polychromasia Hypochromasia Poikilocytosis Anisocytosis Microcytosis Macrocytosis Spherocytes Pappenheimer Bodies Sickle Cells Target Cells Tear Drop Cells Ovalocytes Helmet Cells Bill[place] Bodies [place] Rings [place] Cells Bite Cells Crenated Cell Elliptocytes Acanthocytes (Spur) Rouleaux Hemoglobin C Crystals Schistocytes Malaria parasites Eric Bodies Hem Pathologist Commnt D-Dimer Sodium 138 Potassium 4.6 Chloride 100.7 Carbon Dioxide 23 Anion Gap 19 BUN 35 H Creatinine 2.7 H Estimated GFR 27 BUN/Creatinine Ratio 13 Glucose 72 L POC Glucose Lactic Acid Calcium 10.0 Ferritin Lactate Dehydrogenase C-Reactive Protein Procalcitonin Urine Creatinine 223.0 H Urine Sodium 27 Urine Urea Nitrogen 368
--- NOTE | 2021-11-23 18:16 | Progress Note ---
Subjective Principal diagnosis: AHRF; AE-CHF; Abd. distention; Obesity; Hydronephrosis; TAMMY; DM II; ? MANISH Interval history: 86-year-old -Turkish male with known history of diabetes mellitus, CHF, bilateral lower extremity lymphedema presenting to the emergency room today complaining of shortness of breath and cough. He also indicates he has been having some tightness in his chest especially have coughing. He denies any chest pain. He denies any fever or chills, no nausea vomiting and no abdominal pain. Symptoms have been ongoing for the past few days. He denies any sick contacts and no recent travel. . His abdomen also looked quite distended upon arrival and he states his abdomen has always been distended and and denies any pain. He states he has had small bowel obstruction in the past for which he has had surgery. Last bowel movement was about 24 hours ago. Work-up in the emergency room today, significant findings were that of creatinine of 1.4 Abdominal x-ray reveals colonic ileus and/or constipation. Chest x-ray shows no active cardiopulmonary disease. CT of the abdomen and pelvis shows multiple bilateral nephroliths. 6 mm proximal right ureteral stone with associated hydronephrosis. The large bowel is moderately distended with gas to the point of suture line in the mid sigmoid colon. Partial obstruction at the level of the suture line not excluded. abd --- non tender legs wrapped in bandages kamara draining marley urine a/p 6 mm proximal right ureteral stone with associated hydronephrosis. ---- s/p cysto, DVIU, stent---Dr. Hung 11-22-21 discussed cysto, stent to improve symptoms home with kamara when stable --- will need stone treated at later date Objective - Constitutional Vitals: Vital Signs - 12hr 11/23/21 11/23/21 11/23/21 07:00 07:14 08:00 Temperature 98.0 F Pulse Rate 69 65 Pulse Rate [ 73 From Monitor] Respiratory 20 16 Rate Respiratory Rate [Chest] Blood Pressure 115/63 115/58 O2 Sat by Pulse 95 93 Oximetry 11/23/21 11/23/21 11/23/21 08:30 09:00 10:00 Temperature Pulse Rate 71 70 Pulse Rate [ From Monitor] Respiratory 12 15 Rate Respiratory 17 Rate [Chest] Blood Pressure 116/61 111/53 O2 Sat by Pulse 95 95 95 Oximetry 11/23/21 11/23/21 11/23/21 11:00 11:34 12:00 Temperature 98.0 F Pulse Rate 79 69 Pulse Rate [ 80 From Monitor] Respiratory 21 16 Rate Respiratory Rate [Chest] Blood Pressure 119/58 119/58 O2 Sat by Pulse 98 97 Oximetry 11/23/21 11/23/21 11/23/21 13:00 14:00 15:00 Temperature Pulse Rate 75 73 79 Pulse Rate [ From Monitor] Respiratory 19 18 19 Rate Respiratory Rate [Chest] Blood Pressure 116/55 116/57 124/59 O2 Sat by Pulse 99 96 Oximetry 11/23/21 11/23/21 11/23/21 15:25 16:00 16:50 Temperature 98.6 F Pulse Rate 83 Pulse Rate [ From Monitor] Respiratory 19 Rate Respiratory Rate [Chest] Blood Pressure 117/60 O2 Sat by Pulse 96 99 Oximetry 11/23/21 17:00 Temperature Pulse Rate 76 Pulse Rate [ From Monitor] Respiratory 15 Rate Respiratory Rate [Chest] Blood Pressure 122/70 O2 Sat by Pulse 97 Oximetry - Labs CBC & Chem 7: 11/23/21 04:38 11/23/21 11:22 Labs: Abnormal lab results 11/22/21 11/22/21 11/22/21 Range/Units 23:45 23:45 23:45 WBC (4.5-11.0) K/mm3 RBC (3.65-5.03) M/mm3 Hct (35.5-45.6) % MCHC (32-34) % Plt Count (140-440) K/mm3 Seg Neuts % (Manual) (40.0-70.0) % Lymphocytes % (Manual) (13.4-35.0) % Seg Neutrophils # Man (1.8-7.7) K/mm3 Lymphocytes # (Manual) (1.2-5.4) K/mm3 Monocytes # (Manual) (0.0-0.8) K/mm3 Eosinophils # (Manual) (0.0-0.4) K/mm3 D-Dimer > 38026 H (0-234) ng/mlDDU Sodium (137-145) mmol/L Carbon Dioxide (22-30) mmol/L BUN (9-20) mg/dL Creatinine (0.8-1.3) mg/dL Glucose (75-100) mg/dL Lactic Acid (0.7-2.0) mmol/L Calcium (8.4-10.2) mg/dL Ferritin 389.2 H (30.0-300.0) ng/mL Lactate Dehydrogenase 287 H (91-180) units/L C-Reactive Protein 20.40 H (0.00-1.30) mg/dL Urine Creatinine (0.1-20.0) mg/dL 11/22/21 11/22/21 11/23/21 Range/Units 23:45 23:45 04:38 WBC 31.0 H 31.6 H (4.5-11.0) K/mm3 RBC 5.24 H 5.20 H (3.65-5.03) M/mm3 Hct 47.2 H 47.1 H (35.5-45.6) % MCHC 31 L (32-34) % Plt Count 104 L 97 L (140-440) K/mm3 Seg Neuts % (Manual) 84.0 H (40.0-70.0) % Lymphocytes % (Manual) 2.0 L (13.4-35.0) % Seg Neutrophils # Man 26.5 H (1.8-7.7) K/mm3 Lymphocytes # (Manual) 0.6 L (1.2-5.4) K/mm3 Monocytes # (Manual) 1.6 H (0.0-0.8) K/mm3 Eosinophils # (Manual) 0.6 H (0.0-0.4) K/mm3 D-Dimer (0-234) ng/mlDDU Sodium (137-145) mmol/L Carbon Dioxide (22-30) mmol/L BUN (9-20) mg/dL Creatinine (0.8-1.3) mg/dL Glucose (75-100) mg/dL Lactic Acid 4.50 H* (0.7-2.0) mmol/L Calcium (8.4-10.2) mg/dL Ferritin (30.0-300.0) ng/mL Lactate Dehydrogenase (91-180) units/L C-Reactive Protein (0.00-1.30) mg/dL Urine Creatinine (0.1-20.0) mg/dL 11/23/21 11/23/21 11/23/21 Range/Units 04:38 04:38 11:22 WBC (4.5-11.0) K/mm3 RBC (3.65-5.03) M/mm3 Hct (35.5-45.6) % MCHC (32-34) % Plt Count (140-440) K/mm3 Seg Neuts % (Manual) (40.0-70.0) % Lymphocytes % (Manual) (13.4-35.0) % Seg Neutrophils # Man (1.8-7.7) K/mm3 Lymphocytes # (Manual) (1.2-5.4) K/mm3 Monocytes # (Manual) (0.0-0.8) K/mm3 Eosinophils # (Manual) (0.0-0.4) K/mm3 D-Dimer (0-234) ng/mlDDU Sodium 136 L (137-145) mmol/L Carbon Dioxide 18 L (22-30) mmol/L BUN 31 H (9-20) mg/dL Creatinine 2.7 H D (0.8-1.3) mg/dL Glucose 65 L (75-100) mg/dL Lactic Acid 4.50 H* 5.20 H* (0.7-2.0) mmol/L Calcium 10.5 H (8.4-10.2) mg/dL Ferritin (30.0-300.0) ng/mL Lactate Dehydrogenase (91-180) units/L C-Reactive Protein (0.00-1.30) mg/dL Urine Creatinine (0.1-20.0) mg/dL 11/23/21 11/23/21 Range/Units 11:22 12:05 WBC (4.5-11.0) K/mm3 RBC (3.65-5.03) M/mm3 Hct (35.5-45.6) % MCHC (32-34) % Plt Count (140-440) K/mm3 Seg Neuts % (Manual) (40.0-70.0) % Lymphocytes % (Manual) (13.4-35.0) % Seg Neutrophils # Man (1.8-7.7) K/mm3 Lymphocytes # (Manual) (1.2-5.4) K/mm3 Monocytes # (Manual) (0.0-0.8) K/mm3 Eosinophils # (Manual) (0.0-0.4) K/mm3 D-Dimer (0-234) ng/mlDDU Sodium (137-145) mmol/L Carbon Dioxide (22-30) mmol/L BUN 35 H (9-20) mg/dL Creatinine 2.7 H (0.8-1.3) mg/dL Glucose 72 L (75-100) mg/dL Lactic Acid (0.7-2.0) mmol/L Calcium (8.4-10.2) mg/dL Ferritin (30.0-300.0) ng/mL Lactate Dehydrogenase (91-180) units/L C-Reactive Protein (0.00-1.30) mg/dL Urine Creatinine 223.0 H (0.1-20.0) mg/dL Medications & Allergies - Medications Allergies/Adverse Reactions: Allergies No Known Allergies Allergy (Unverified 11/21/21 23:08) Home Medications: Home Medications Medication Instructions Recorded Confirmed Last Taken Type Furosemide [Lasix] 20 mg PO QDAY 11/22/21 11/22/21 Unknown History Gabapentin [Neurontin] 300 mg PO BID 11/22/21 11/22/21 Unknown History Levothyroxine [Synthroid] 150 mcg PO QAM 11/22/21 11/22/21 Unknown History allopurinoL [Zyloprim] 100 mg PO QDAY 11/22/21 11/22/21 Unknown History amLODIPine [Norvasc] 10 mg PO DAILY 11/22/21 11/22/21 Unknown History lisinopriL [Zestril TAB] 40 mg PO QDAY 11/22/21 11/22/21 Unknown History Active Medications: Generic Name Dose Route Start Last Admin Trade Name Freq PRN Reason Stop Dose Admin Acetaminophen 650 mg 11/22/21 02:08 11/22/21 11:36 Acetaminophen 325 Mg Tab PO 650 mg Q6H PRN Administration Pain MILD(1-3)/Fever >100.5/CARREON Albuterol 2.5 mg 11/22/21 07:02 Albuterol 2.5 Mg/3 Ml Nebu IH Q4HRT PRN Shortness Of Breath Dextrose 0 ml 11/22/21 02:08 Dextrose 50% In Water (25gm) 50 Ml Syringe IV Q30MIN PRN Hypoglycemia Protocol Docusate Sodium 100 mg 11/23/21 22:00 Docusate Sodium 100 Mg/10 Ml Oral Liqd PO BID [facility] Heparin Sodium (Porcine) 5,000 unit 11/22/21 22:00 11/23/21 14:06 Heparin 5,000 Unit/1 Ml Vial SUB-Q 5,000 unit Q8HR ERIKA Administration Dextrose/Sodium Chloride 1,000 mls @ 100 mls/hr 11/23/21 09:00 11/23/21 14:21 D5/0.45ns IV 11/25/21 18:59 100 mls/hr DIRECT ERIKA Infusion Cefepime HCl 2 gm in 100 mls @ 200 mls/hr 11/23/21 09:00 11/23/21 09:17 Cefepime/Ns 2 Gm/100 Ml IV 200 mls/hr Q12H [facility] Administration Protocol Insulin Human Lispro 0 unit 11/23/21 12:00 11/23/21 12:00 Insulin Lispro 100 Unit/Ml SUB-Q Not Given Q6HR [facility] Protocol Levothyroxine Sodium 75 mcg 11/24/21 06:00 Levothyroxine 100 Mcg Inj IV DAILY@0600 [facility] Magnesium Hydroxide 30 ml 11/22/21 02:08 Magnesium Hydroxide (Mom) Oral Liqd Udc PO Q4H PRN Constipation Morphine Sulfate 2 mg 11/22/21 02:08 Morphine 2 Mg/1 Ml Inj IV Q4H PRN Pain, Moderate (4-6) Morphine Sulfate 4 mg 11/22/21 02:08 Morphine 4 Mg/1 Ml Inj IV Q4H PRN Pain , Severe (7-10) Phenol 1 spray 11/23/21 12:34 11/23/21 14:05 Phenol 1.4% 177 Ml Bottle MM 1 spray PRN PRN Administration Sore Throat Sodium Chloride 10 ml 11/22/21 10:00 11/23/21 09:13 Sodium Chloride 0.9% 10 Ml Flush Syringe IV 10 ml BID ERIKA Administration Sodium Chloride 10 ml 11/22/21 02:08 Sodium Chloride 0.9% 10 Ml Flush Syringe IV PRN PRN LINE FLUSH HEART Score - HEART Score Troponin: Troponin T < 0.010 ng/mL (0.00-0.029) 11/21/21 23:20
[2021-11-23] MEDS: DOCUSATE SODIUM 100 MG/10 ML ORAL LIQD PO SCH (21:19)
[2021-11-24 04:48] LABS: Hematocrit 40.1 % (35.5-45.6); Hemoglobin 12.4 gm/dl (11.8-15.2); Mean Corpuscular HGB Conc 31 % (32-34); Mean Corpuscular Volume 91 fl (84-94); Red Blood Count 4.42 M/mm3 (3.65-5.03); Red Cell Distribution Width 15.2 % (13.2-15.2)
[2021-11-24 04:49] LABS: Platelet Count 95 K/mm3 (140-440)
[2021-11-24 05:03] LABS: Calcium 9.3 mg/dL (8.4-10.2)
[2021-11-24] MEDS: INSULIN LISPRO 100 UNIT/ML SUB-Q SCH ×4 (05:17→18:21)
[2021-11-24] MEDS: HEPARIN 5,000 UNIT/1 ML VIAL SUB-Q SCH ×3 (05:24→21:11)
[2021-11-24] MEDS ORDERED: LEVOTHYROXINE 100 MCG INJ IV SCH (06:00)
[2021-11-24] MEDS: CEFEPIME/NS 2 GM/100 ML 2 GM/100 ML BAG IV SCH ×2 (09:23→20:12)
[2021-11-24] MEDS: DOCUSATE SODIUM 100 MG/10 ML ORAL LIQD PO SCH ×2 (09:23→21:11)
[2021-11-24] MEDS: ACETAMINOPHEN 325 MG TAB PO PRN (09:47)
--- NOTE | 2021-11-24 09:51 | Progress Note ---
Assessment and Plan Impression: * Nonoliguric acute kidney injury on ?underlying CKD --No previous labs available * Acute hypoxic respiratory failure secondary to pulmonary edema vs other * Right ureteral calculus with associated hydronephrosis --s/p Cystoscopy, ureteroscopy w/ stent placement * Obstructive uropathy secondary to ureteral calculus * Partial bowel obstruction * Congestive heart failure * Hypercalcemia Plan: * Note SCr 2.6mg/dL - now improved to 1.9mg/dL * Restrict dietary K intake * Abx per primary team * Urology and Cardiology recommendations noted * Mccloud management per urology * Avoid potential nephrotoxins * Dose medications for renal function * AM labs Subjective Date of service: 11/24/21 Principal diagnosis: sepsis Interval history: Patient denies SOB Objective - Vital Signs Vital signs: Vital Signs - 12hr 11/23/21 11/23/21 11/23/21 22:00 23:00 23:30 Temperature Pulse Rate 76 73 73 Pulse Rate [ From Monitor] Respiratory 20 19 18 Rate Respiratory 17 Rate [Chest] Blood Pressure 132/64 129/65 129/65 O2 Sat by Pulse 100 97 99 Oximetry 11/23/21 11/24/21 11/24/21 23:45 00:00 00:45 Temperature 97.8 F Pulse Rate 72 70 Pulse Rate [ 73 From Monitor] Respiratory 19 16 Rate Respiratory Rate [Chest] Blood Pressure 121/65 O2 Sat by Pulse 95 95 Oximetry 11/24/21 11/24/21 11/24/21 01:00 02:00 03:00 Temperature Pulse Rate 83 74 75 Pulse Rate [ From Monitor] Respiratory 14 20 22 Rate Respiratory Rate [Chest] Blood Pressure 128/74 114/59 111/69 O2 Sat by Pulse 98 95 98 Oximetry 11/24/21 11/24/21 11/24/21 04:00 05:00 05:09 Temperature Pulse Rate 73 67 72 Pulse Rate [ 75 From Monitor] Respiratory 22 18 19 Rate Respiratory Rate [Chest] Blood Pressure 117/57 122/59 122/59 O2 Sat by Pulse 95 94 94 Oximetry 11/24/21 11/24/21 11/24/21 06:00 07:00 08:00 Temperature Pulse Rate 71 72 69 Pulse Rate [ 70 From Monitor] Respiratory 18 15 14 Rate Respiratory Rate [Chest] Blood Pressure 123/59 119/61 121/64 O2 Sat by Pulse 93 93 93 Oximetry 11/24/21 11/24/21 11/24/21 09:00 09:15 09:47 Temperature Pulse Rate 71 Pulse Rate [ From Monitor] Respiratory 15 21 Rate Respiratory Rate [Chest] Blood Pressure 115/61 O2 Sat by Pulse 91 94 Oximetry - General Appearance General appearance: well-developed, well-nourished EENT: ATNC Respiratory: Present: Decreased Breath Sounds Cardiology: regular, S1S2 Gastrointestinal: hypoactive bowel sounds, distended Integumentary: warm and dry Neurologic: alert and oriented x3 - Lab 11/24/21 04:26 11/24/21 04:26 Most recent lab results ABG pH 7.378 pH Units (7.350-7.450) 11/21/21 22:53 ABG pCO2 36.7 mm Hg 11/21/21 22:53 ABG pO2 178.4 mm Hg (80.0-90.0) H 11/21/21 22:53 ABG HCO3 21.1 mmol/L (20.0-26.0) 11/21/21 22:53 ABG O2 Saturation 99.1 % (95.0-99.0) H 11/21/21 22:53 Calcium 9.3 mg/dL (8.4-10.2) 11/24/21 04:26 Urine Creatinine 223.0 mg/dL (0.1-20.0) H 11/23/21 12:05 Urine Sodium 27 mmol/L 11/23/21 12:05 Medications & Allergies - Medications Allergies/Adverse Reactions: Allergies No Known Allergies Allergy (Unverified 11/21/21 23:08) Home Medications: Home Medications Medication Instructions Recorded Confirmed Last Taken Type Furosemide [Lasix] 20 mg PO QDAY 11/22/21 11/22/21 Unknown History Gabapentin [Neurontin] 300 mg PO BID 11/22/21 11/22/21 Unknown History Levothyroxine [Synthroid] 150 mcg PO QAM 11/22/21 11/22/21 Unknown History allopurinoL [Zyloprim] 100 mg PO QDAY 11/22/21 11/22/21 Unknown History amLODIPine [Norvasc] 10 mg PO DAILY 11/22/21 11/22/21 Unknown History lisinopriL [Zestril TAB] 40 mg PO QDAY 11/22/21 11/22/21 Unknown History Active Medications: Generic Name Dose Route Start Last Admin Trade Name Freq PRN Reason Stop Dose Admin Acetaminophen 650 mg 11/22/21 02:08 11/24/21 09:47 Acetaminophen 325 Mg Tab PO 650 mg Q6H PRN Administration Pain MILD(1-3)/Fever >100.5/CARREON Albuterol 2.5 mg 11/22/21 07:02 Albuterol 2.5 Mg/3 Ml Nebu IH Q4HRT PRN Shortness Of Breath Dextrose 0 ml 11/22/21 02:08 11/24/21 00:05 Dextrose 50% In Water (25gm) 50 Ml Syringe IV 15 ml Q30MIN PRN Administration Hypoglycemia Protocol Docusate Sodium 100 mg 11/23/21 22:00 11/24/21 09:23 Docusate Sodium 100 Mg/10 Ml Oral Liqd PO 100 mg BID ERIKA Administration Heparin Sodium (Porcine) 5,000 unit 11/22/21 22:00 11/24/21 05:24 Heparin 5,000 Unit/1 Ml Vial SUB-Q 5,000 unit Q8HR ERIKA Administration Dextrose/Sodium Chloride 1,000 mls @ 100 mls/hr 11/23/21 09:00 11/23/21 22:56 D5/0.45ns IV 11/25/21 18:59 100 mls/hr DIRECT ERIKA Administration Cefepime HCl 2 gm in 100 mls @ 200 mls/hr 11/23/21 09:00 11/24/21 09:23 Cefepime/Ns 2 Gm/100 Ml IV 200 mls/hr Q12H ERIKA Administration Protocol Insulin Human Lispro 0 unit 11/23/21 12:00 11/24/21 05:17 Insulin Lispro 100 Unit/Ml SUB-Q Not Given Q6HR ERIKA Protocol Levothyroxine Sodium 150 mcg 11/25/21 06:00 Levothyroxine 150 Mcg Tab PO QAM@0600 ERIKA Magnesium Hydroxide 30 ml 11/22/21 02:08 Magnesium Hydroxide (Mom) Oral Liqd Udc PO Q4H PRN Constipation Morphine Sulfate 2 mg 11/22/21 02:08 Morphine 2 Mg/1 Ml Inj IV Q4H PRN Pain, Moderate (4-6) Morphine Sulfate 4 mg 11/22/21 02:08 Morphine 4 Mg/1 Ml Inj IV Q4H PRN Pain , Severe (7-10) Phenol 1 spray 11/23/21 12:34 11/23/21 14:05 Phenol 1.4% 177 Ml Bottle MM 1 spray PRN PRN Administration Sore Throat Sodium Chloride 10 ml 11/22/21 10:00 11/24/21 09:24 Sodium Chloride 0.9% 10 Ml Flush Syringe IV 10 ml BID ERIKA Administration Sodium Chloride 10 ml 11/22/21 02:08 Sodium Chloride 0.9% 10 Ml Flush Syringe IV PRN PRN LINE FLUSH
--- NOTE | 2021-11-24 10:04 | Gastroenterology Progress Note ---
Assessment and Plan # Dilated colon - CT showing dilated colon down to sigmoid anastomosis line. 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 - suspect chronic dilation with possible stricture at the anastomosis vs [place] with chronic pseudoobstruction. - Not passing flatus. concerning for ileus in the setting of sepsis. Rec - monitor electrolytes and replete as needed. - started on colace. - recommend low dose of miralax in the pm if not having any BM or flatus. - would hold off endoscopy including flex sig at this time given his respiratory status and no acute symptoms. - will follow and monitor clinically. - patient may ultimately need to follow up with his outpatient surgeon at [facility]. - discussed with surgery, Dr. Vanegas. Subjective Date of service: 11/24/21 Principal diagnosis: sepsis Interval history: Patient tolerated clear liquids last night and has been on soft diet this morning. Denies any nausea vomiting. States that he has not passed any flatus since admission. But he normally has a bowel movement daily. Objective - Constitutional Vitals: Temp Pulse Resp BP Pulse Ox 97.8 F 71 21 115/61 94 11/23/21 23:45 11/24/21 09:00 11/24/21 09:47 11/24/21 09:00 11/24/21 09:15 General appearance: no acute distress - EENT ENT: hearing decreased - Neck Neck: supple - Respiratory Respiratory effort: normal - Cardiovascular Rhythm: regular Heart Sounds: Present: S1 & S2 - Gastrointestinal General gastrointestinal: Present: soft, non-tender, distended - Integumentary Integumentary: Present: clear, warm - Neurologic Neurological: alert and oriented x3 - Psychiatric Psychiatric: appropriate mood/affect - Labs CBC & Chem 7: 11/24/21 04:26 11/24/21 04:26 Labs: Laboratory Results - last 24 hr 11/22/21 11/23/21 11/23/21 23:45 05:51 11:09 WBC RBC Hgb Hct MCV MCH MCHC RDW Plt Count Sodium Potassium Chloride Carbon Dioxide Anion Gap BUN Creatinine Estimated GFR BUN/Creatinine Ratio Glucose POC Glucose 83 71 Lactic Acid Calcium Procalcitonin 97.57 Urine Creatinine Urine Sodium Urine Urea Nitrogen 11/23/21 11/23/21 11/23/21 11:22 11:22 12:05 WBC RBC Hgb Hct MCV MCH MCHC RDW Plt Count Sodium 138 Potassium 4.6 Chloride 100.7 Carbon Dioxide 23 Anion Gap 19 BUN 35 H Creatinine 2.7 H Estimated GFR 27 BUN/Creatinine Ratio 13 Glucose 72 L POC Glucose Lactic Acid 5.20 H* Calcium 10.0 Procalcitonin Urine Creatinine 223.0 H Urine Sodium 27 Urine Urea Nitrogen 368 11/23/21 11/23/21 11/23/21 16:24 18:33 23:09 WBC RBC Hgb Hct MCV MCH MCHC RDW Plt Count Sodium Potassium Chloride Carbon Dioxide Anion Gap BUN Creatinine Estimated GFR BUN/Creatinine Ratio Glucose POC Glucose 58 L 95 73 Lactic Acid Calcium Procalcitonin Urine Creatinine Urine Sodium Urine Urea Nitrogen 11/23/21 11/24/21 11/24/21 23:27 00:03 00:22 WBC RBC Hgb Hct MCV MCH MCHC RDW Plt Count Sodium Potassium Chloride Carbon Dioxide Anion Gap BUN Creatinine Estimated GFR BUN/Creatinine Ratio Glucose POC Glucose 76 65 L 123 H Lactic Acid Calcium Procalcitonin Urine Creatinine Urine Sodium Urine Urea Nitrogen 11/24/21 11/24/21 11/24/21 04:26 04:26 05:17 WBC 17.6 H RBC 4.42 Hgb 12.4 Hct 40.1 D MCV 91 MCH 28 MCHC 31 L RDW 15.2 Plt Count 95 L Sodium 137 Potassium 5.2 H Chloride 101.9 Carbon Dioxide 22 Anion Gap 18 BUN 38 H Creatinine 1.9 H Estimated GFR 41 BUN/Creatinine Ratio 20 Glucose 108 H POC Glucose 105 Lactic Acid Calcium 9.3 Procalcitonin Urine Creatinine Urine Sodium Urine Urea Nitrogen
--- NOTE | 2021-11-24 10:57 | Operative Report ---
Operative Report Operative Report: Date: 11/24/2021 Endoscopist: Hola Celis MD (Jenny) EGD REPORT PREOPERATIVE DIAGNOSIS: melena, GI bleed POSTOPERATIVE DIAGNOSIS: gastritis, hiatal hernia, esophageal ring, gastric ulcer, duodenal ulcer ESTIMATED BLOOD LOSS: minimal DESCRIPTION OF PROCEDURE: A high-resolution EGD scope was passed through the oropharynx, esophagus, stomach, and second portion of duodenum. The scope was carefully withdrawn. Retroflexion was performed in the stomach. At the end of the procedure, the scope was cleaned using normal technique. Vital signs monitored continuously throughout. SEDATION: Provided by Anesthesiology Services. COMPLICATIONS: None. FINDINGS: 1. A 2 cm hiatal hernia noted 2. A nonobstructing distal esophageal ring noted 3. Diffuse atrophic erythematous mucosa in the gastric body and wall friable. Biopsies obtained from antrum and body. 4. A 6-8 mm clean-based nonbleeding ulcer with somewhat polypoid edge found in the antrum. No high risk stigmata found. Biopsies obtained from the edge. 5. A large 1 to 2 cm deep cratered ulcer at the distal duodenal bulb close to duodenal sweep found. No signs of active bleeding. Due to surrounding edema, unable to traverse beyond this region. RECOMMENDATIONS: 1. Clear liquid diet 2. Monitor H&H and transfuse as needed. 3. Continue with PPI IV drip. 4. In case of recurrent overt bleeding, recommend CTA and consulting IR for embolization. Hola Celis MD (Jenny) [facility]
--- NOTE | 2021-11-24 12:29 | Progress Note ---
Assessment and Plan Patient is 86-year-old male with a reported past medical history of diabetes, CHF, chronic bilateral lower extremity lymphedema, hypertension presents to the ED with a complaint of shortness of breath and cough time 2 to 3 days Acute respiratory failure Sepsis Hydronephrosis Right ureteral calculus with associated hydronephrosis --s/p Cystoscopy, ureteroscopy w/ stent placement TAMMY--nephrology following Chronic lymphedema Hypertension Echo 03/07/2019-1. Left ventricular ejection fraction is 65%. Aortic valve is tricuspid, focally calcified and sclerotic. Mildly dilated left atrium. There is impaired relaxation with normal filling pressure consistent with grade 1 diastolic dysfunction. E/E' indicative of elevated LVEDP. Mild pulmonic valve insufficiency. Echo 11/22/2021-EF 50 to 55%. Mild concentric LVH. Right ventricle systolic function is normal. No aortic regurgitation is present. Aortic valve is calcified. No aortic valvular stenosis no pericardial effusion Plan: BNP negative, CXR shows no acute cardiopulmonary process. Patient is not clinically in heart failure. suspect SOB due to sepssi Will defer volume management to nephrology in due to patient's renal function No LIBERTY/ARB due to renal function At this time patient is not an acute heart failure or complaints of any ischemic symptoms no cardiac contraindications for intervention at this time. Cardiac status appears otherwise stable at this time. We will see as needed Patient presents with Dr. Hatfield who agrees with plan of care - Patient Problems (1) Hydronephrosis Current Visit: Yes Status: Acute (2) TAMMY (acute kidney injury) Current Visit: Yes Status: Acute (3) Lymph edema Current Visit: Yes Status: Acute (4) HTN (hypertension) Current Visit: Yes Status: Acute (5) Acute respiratory failure Current Visit: Yes Status: Acute Subjective Date of service: 11/24/21 Principal diagnosis: sepsis Interval history: Patient resting in bed no acute distress. Patient currently on nasal cannula Currently sinus 70s to 80s on monitor Objective Vital Signs Temp Pulse Pulse Resp Resp BP Pulse Ox 11/24/21 10:47 20 11/24/21 09:47 21 11/24/21 09:15 94 11/24/21 09:00 71 15 115/61 91 11/24/21 08:00 69 70 14 121/64 93 11/24/21 07:00 72 15 119/61 93 11/24/21 06:00 71 18 123/59 93 11/24/21 05:09 72 19 122/59 94 11/24/21 05:00 67 18 122/59 94 11/24/21 04:00 73 75 22 117/57 95 11/24/21 03:00 75 22 111/69 98 11/24/21 02:00 74 20 114/59 95 11/24/21 01:00 83 14 128/74 98 11/24/21 00:45 70 16 95 11/24/21 00:00 72 73 19 121/65 95 11/23/21 23:45 97.8 F 11/23/21 23:30 73 18 129/65 99 11/23/21 23:00 73 19 129/65 97 11/23/21 22:00 76 20 17 132/64 100 11/23/21 21:10 94 11/23/21 21:00 83 21 132/64 96 11/23/21 20:10 99.2 F 11/23/21 20:00 78 17 130/62 92 11/23/21 19:46 75 15 97 11/23/21 19:00 78 17 128/65 97 11/23/21 18:00 78 20 129/60 90 11/23/21 17:00 76 15 122/70 97 11/23/21 16:50 98.6 F 11/23/21 16:00 83 78 19 117/60 99 11/23/21 15:25 96 11/23/21 15:00 79 19 124/59 96 11/23/21 14:00 73 18 116/57 99 11/23/21 13:00 75 19 116/55 - Physical Examination General: No Apparent Distress HEENT: Positive: Normocephaly Neck: Positive: trachea midline Cardiac: Positive: Reg Rate and Rhythm Lungs: Positive: Decreased Breath Sounds Neuro: Positive: Grossly Intact Abdomen: Positive: Distended Skin: Negative: Rash, Suspicious Lesions, Ulceration Extremities: Present: edema (chroninc lymphedema) - Labs and Meds CBC 11/24/21 Range/Units 04:26 WBC 17.6 H (4.5-11.0) K/mm3 RBC 4.42 (3.65-5.03) M/mm3 Hgb 12.4 (11.8-15.2) gm/dl Hct 40.1 D (35.5-45.6) % Plt Count 95 L (140-440) K/mm3 Comprehensive Metabolic Panel 11/24/21 Range/Units 04:26 Sodium 137 (137-145) mmol/L Potassium 5.2 H (3.6-5.0) mmol/L Chloride 101.9 (98-107) mmol/L Carbon Dioxide 22 (22-30) mmol/L BUN 38 H (9-20) mg/dL Creatinine 1.9 H (0.8-1.3) mg/dL Glucose 108 H (75-100) mg/dL Calcium 9.3 (8.4-10.2) mg/dL - Imaging and Cardiology Echo: report reviewed - Telemetry EKG Rhythm: Sinus Rhythm - EKG Sinus rhythms and dysrhythmias: sinus rhythm, sinus tachycardia Ventricular dysrhythmias: ventricular premature com - Allied health notes Allied health notes reviewed: nursing
[2021-11-24] MEDS: D5W/0.45% NACL 1,000 ML IV SCH (12:48)
--- NOTE | 2021-11-24 13:40 | Progress Note ---
Assessment and Plan Acute hypoxemic respiratory failure Acute congestive heart failure exacerbation Abdominal distention, possible bowel obstruction Morbid obesity Ureteral stone with hydronephrosis DM II HTN Acute kidney injury Possible sleep-disordered breathing/obstructive sleep apnea. - changed to prn BIPAP - continue to wean supplemental oxygen for target O2 sat's > 90% acutely - azotemia is improving - will add qhs miralax - aspiration precautions - prn bronchodilators with pulmonary hygiene per RT - avoid nephrotoxins, renally dose all medications - avoid benzodiazepine's, reduce the possibility of delirium - AB's per ID rec's - prn analgesia per pain score - Maintenance of sleep-wake cycle, avoid delirium - G.I. & VTE prophylaxis - PT/OT/ROM exercises - mobility protocols for pressure ulcer prophylaxis - Monitor hemodynamics closely - continue other care per attending / other consultants - discharge planning ongoing concurrently COVID SPECIFIC INTERVENTIONS - COVID-19 test negative .... Re-evaluate in am & prn ..... ok to transfer to medical floor Subjective Date of service: 11/24/21 Principal diagnosis: AHRF; AE-CHF; Abd. distention; Obesity; Hydronephrosis; TAMMY; DM II; ? MANISH Interval history: Patient is seen today for: Acute hypoxemic respiratory failure; AE-CHF; Abdominal distention; Morbid obesity; Ureteral stone with hydronephrosis; TAMMY; DM II; Possible MANISH Seen and examined at bedside; 24hour events reviewed; nursing and respiratory care staff consulted; no adverse overnight events reported to me; resting in bed; no abdopminal pain and denies N/V/F/C; slept well but with some BIPAP intolerance Objective Vital Signs - 12hr 11/24/21 11/24/21 11/24/21 02:00 03:00 04:00 Pulse Rate 74 75 73 Pulse Rate [ 75 From Monitor] Respiratory 20 22 22 Rate Respiratory Rate [Chest] Blood Pressure 114/59 111/69 117/57 O2 Sat by Pulse 95 98 95 Oximetry 11/24/21 11/24/21 11/24/21 05:00 05:09 06:00 Pulse Rate 67 72 71 Pulse Rate [ From Monitor] Respiratory 18 19 18 Rate Respiratory Rate [Chest] Blood Pressure 122/59 122/59 123/59 O2 Sat by Pulse 94 94 93 Oximetry 11/24/21 11/24/21 11/24/21 07:00 08:00 09:00 Pulse Rate 72 69 71 Pulse Rate [ 70 From Monitor] Respiratory 15 14 15 Rate Respiratory Rate [Chest] Blood Pressure 119/61 121/64 115/61 O2 Sat by Pulse 93 93 91 Oximetry 11/24/21 11/24/21 11/24/21 09:15 09:47 10:00 Pulse Rate 75 Pulse Rate [ From Monitor] Respiratory 21 22 Rate Respiratory 14 Rate [Chest] Blood Pressure 130/60 O2 Sat by Pulse 94 91 Oximetry 11/24/21 11/24/21 11/24/21 10:47 11:00 12:00 Pulse Rate 75 74 Pulse Rate [ 78 From Monitor] Respiratory 20 20 24 Rate Respiratory Rate [Chest] Blood Pressure 135/67 136/62 O2 Sat by Pulse 94 90 Oximetry 11/24/21 13:00 Pulse Rate 73 Pulse Rate [ From Monitor] Respiratory 20 Rate Respiratory Rate [Chest] Blood Pressure 136/67 O2 Sat by Pulse 94 Oximetry Constitutional: no acute distress Eyes: non-icteric ENT: oropharynx moist Neck: supple, no lymphadenopathy, no JVD, other (large circumference) Effort: normal Ascultation: Bilateral: diminished breath sounds Percussion: Bilateral: not dull Cardiovascular: regular rate and rhythm, other (occasional extrasystole's) Gastrointestinal: normoactive bowel sounds, soft, non-tender, other (distended but soft) Integumentary: rash (stasis dermatitis type to legs) Extremities: no cyanosis, pulses normal, no ischemia or petechiae, edema Neurologic: non-focal exam (grossly), pupils equal and round, unable to assess Psychiatric: other (unable to assess re: AMS) CBC and BMP: 11/24/21 04:26 11/24/21 04:26 ABG, PT/INR, D-dimer: ABG ABG pH 7.378 pH Units (7.350-7.450) 11/21/21 22:53 ABG pCO2 36.7 mm Hg 11/21/21 22:53 ABG pO2 178.4 mm Hg (80.0-90.0) H 11/21/21 22:53 ABG O2 Saturation 99.1 % (95.0-99.0) H 11/21/21 22:53 PT/INR, D-dimer PT 14.8 Sec. (12.2-14.9) 11/21/21 23:20 INR 1.04 (0.87-1.13) 11/21/21 23:20 D-Dimer > 37082 ng/mlDDU (0-234) H 11/22/21 23:45 Abnormal lab findings: Abnormal Labs 11/21/21 11/21/21 11/21/21 22:53 23:20 23:20 WBC RBC 5.34 H Hct 47.1 H MCHC Plt Count Seg Neuts % (Manual) 91.0 H Lymphocytes % (Manual) 5.0 L Seg Neutrophils # Man 8.5 H Lymphocytes # (Manual) 0.5 L Monocytes # (Manual) Eosinophils # (Manual) D-Dimer ABG pO2 178.4 H ABG O2 Saturation 99.1 H ABG Base Excess -3.4 L Sodium 133 L Potassium Carbon Dioxide BUN Creatinine 1.4 H Glucose POC Glucose Lactic Acid Calcium 10.9 H Ferritin AST 60 H Alkaline Phosphatase 184 H Lactate Dehydrogenase C-Reactive Protein Urine WBC (Auto) Urine Creatinine 11/22/21 11/22/21 11/22/21 11:47 23:45 23:45 WBC RBC Hct MCHC Plt Count Seg Neuts % (Manual) Lymphocytes % (Manual) Seg Neutrophils # Man Lymphocytes # (Manual) Monocytes # (Manual) Eosinophils # (Manual) D-Dimer > 41813 H ABG pO2 ABG O2 Saturation ABG Base Excess Sodium Potassium Carbon Dioxide BUN Creatinine Glucose POC Glucose Lactic Acid Calcium Ferritin AST Alkaline Phosphatase Lactate Dehydrogenase 287 H C-Reactive Protein 20.40 H Urine WBC (Auto) 14.0 H Urine Creatinine 11/22/21 11/22/21 11/22/21 23:45 23:45 23:45 WBC 31.0 H RBC 5.24 H Hct 47.2 H MCHC Plt Count 104 L Seg Neuts % (Manual) Lymphocytes % (Manual) Seg Neutrophils # Man Lymphocytes # (Manual) Monocytes # (Manual) Eosinophils # (Manual) D-Dimer ABG pO2 ABG O2 Saturation ABG Base Excess Sodium Potassium Carbon Dioxide BUN Creatinine Glucose POC Glucose Lactic Acid 4.50 H* Calcium Ferritin 389.2 H AST Alkaline Phosphatase Lactate Dehydrogenase C-Reactive Protein Urine WBC (Auto) Urine Creatinine 11/23/21 11/23/21 11/23/21 04:38 04:38 04:38 WBC 31.6 H RBC 5.20 H Hct 47.1 H MCHC 31 L Plt Count 97 L Seg Neuts % (Manual) 84.0 H Lymphocytes % (Manual) 2.0 L Seg Neutrophils # Man 26.5 H Lymphocytes # (Manual) 0.6 L Monocytes # (Manual) 1.6 H Eosinophils # (Manual) 0.6 H D-Dimer ABG pO2 ABG O2 Saturation ABG Base Excess Sodium 136 L Potassium Carbon Dioxide 18 L BUN 31 H Creatinine 2.7 H D Glucose 65 L POC Glucose Lactic Acid 4.50 H* Calcium 10.5 H Ferritin AST Alkaline Phosphatase Lactate Dehydrogenase C-Reactive Protein Urine WBC (Auto) Urine Creatinine 11/23/21 11/23/21 11/23/21 11:22 11:22 12:05 WBC RBC Hct MCHC Plt Count Seg Neuts % (Manual) Lymphocytes % (Manual) Seg Neutrophils # Man Lymphocytes # (Manual) Monocytes # (Manual) Eosinophils # (Manual) D-Dimer ABG pO2 ABG O2 Saturation ABG Base Excess Sodium Potassium Carbon Dioxide BUN 35 H Creatinine 2.7 H Glucose 72 L POC Glucose Lactic Acid 5.20 H* Calcium Ferritin AST Alkaline Phosphatase Lactate Dehydrogenase C-Reactive Protein Urine WBC (Auto) Urine Creatinine 223.0 H 11/23/21 11/24/21 11/24/21 16:24 00:03 00:22 WBC RBC Hct MCHC Plt Count Seg Neuts % (Manual) Lymphocytes % (Manual) Seg Neutrophils # Man Lymphocytes # (Manual) Monocytes # (Manual) Eosinophils # (Manual) D-Dimer ABG pO2 ABG O2 Saturation ABG Base Excess Sodium Potassium Carbon Dioxide BUN Creatinine Glucose POC Glucose 58 L 65 L 123 H Lactic Acid Calcium Ferritin AST Alkaline Phosphatase Lactate Dehydrogenase C-Reactive Protein Urine WBC (Auto) Urine Creatinine 11/24/21 11/24/21 04:26 04:26 WBC 17.6 H RBC Hct MCHC 31 L Plt Count 95 L Seg Neuts % (Manual) Lymphocytes % (Manual) Seg Neutrophils # Man Lymphocytes # (Manual) Monocytes # (Manual) Eosinophils # (Manual) D-Dimer ABG pO2 ABG O2 Saturation ABG Base Excess Sodium Potassium 5.2 H Carbon Dioxide BUN 38 H Creatinine 1.9 H Glucose 108 H POC Glucose Lactic Acid Calcium Ferritin AST Alkaline Phosphatase Lactate Dehydrogenase C-Reactive Protein Urine WBC (Auto) Urine Creatinine Allied health notes reviewed: nursing
--- NOTE | 2021-11-24 13:50 | Progress Note ---
Assessment and Plan saranya + jeana most sx from acute sepsis from obs stone f/u tx stone when stable keep kamara severe stricture Subjective Date of service: 11/24/21 Principal diagnosis: AHRF; AE-CHF; Abd. distention; Obesity; Hydronephrosis; TAMMY; DM II; ? MANISH Objective - Constitutional Vitals: Vital Signs - 12hr 11/24/21 11/24/21 11/24/21 02:00 03:00 04:00 Pulse Rate 74 75 73 Pulse Rate [ 75 From Monitor] Respiratory 20 22 22 Rate Respiratory Rate [Chest] Blood Pressure 114/59 111/69 117/57 O2 Sat by Pulse 95 98 95 Oximetry 11/24/21 11/24/21 11/24/21 05:00 05:09 06:00 Pulse Rate 67 72 71 Pulse Rate [ From Monitor] Respiratory 18 19 18 Rate Respiratory Rate [Chest] Blood Pressure 122/59 122/59 123/59 O2 Sat by Pulse 94 94 93 Oximetry 11/24/21 11/24/21 11/24/21 07:00 08:00 09:00 Pulse Rate 72 69 71 Pulse Rate [ 70 From Monitor] Respiratory 15 14 15 Rate Respiratory Rate [Chest] Blood Pressure 119/61 121/64 115/61 O2 Sat by Pulse 93 93 91 Oximetry 11/24/21 11/24/21 11/24/21 09:15 09:47 10:00 Pulse Rate 75 Pulse Rate [ From Monitor] Respiratory 21 22 Rate Respiratory 14 Rate [Chest] Blood Pressure 130/60 O2 Sat by Pulse 94 91 Oximetry 11/24/21 11/24/21 11/24/21 10:47 11:00 12:00 Pulse Rate 75 74 Pulse Rate [ 78 From Monitor] Respiratory 20 20 24 Rate Respiratory Rate [Chest] Blood Pressure 135/67 136/62 O2 Sat by Pulse 94 90 Oximetry 11/24/21 13:00 Pulse Rate 73 Pulse Rate [ From Monitor] Respiratory 20 Rate Respiratory Rate [Chest] Blood Pressure 136/67 O2 Sat by Pulse 94 Oximetry - Labs CBC & Chem 7: 11/24/21 04:26 11/24/21 04:26 Labs: Abnormal lab results 11/23/21 11/24/21 11/24/21 Range/Units 16:24 00:03 00:22 WBC (4.5-11.0) K/mm3 MCHC (32-34) % Plt Count (140-440) K/mm3 Potassium (3.6-5.0) mmol/L BUN (9-20) mg/dL Creatinine (0.8-1.3) mg/dL Glucose (75-100) mg/dL POC Glucose 58 L 65 L 123 H (70-105) mg/dL 11/24/21 11/24/21 11/24/21 Range/Units 04:26 04:26 11:44 WBC 17.6 H (4.5-11.0) K/mm3 MCHC 31 L (32-34) % Plt Count 95 L (140-440) K/mm3 Potassium 5.2 H (3.6-5.0) mmol/L BUN 38 H (9-20) mg/dL Creatinine 1.9 H (0.8-1.3) mg/dL Glucose 108 H (75-100) mg/dL POC Glucose 122 H (70-105) mg/dL Medications & Allergies - Medications Allergies/Adverse Reactions: Allergies No Known Allergies Allergy (Unverified 11/21/21 23:08) Home Medications: Home Medications Medication Instructions Recorded Confirmed Last Taken Type Furosemide [Lasix] 20 mg PO QDAY 11/22/21 11/22/21 Unknown History Gabapentin [Neurontin] 300 mg PO BID 11/22/21 11/22/21 Unknown History Levothyroxine [Synthroid] 150 mcg PO QAM 11/22/21 11/22/21 Unknown History allopurinoL [Zyloprim] 100 mg PO QDAY 11/22/21 11/22/21 Unknown History amLODIPine [Norvasc] 10 mg PO DAILY 11/22/21 11/22/21 Unknown History lisinopriL [Zestril TAB] 40 mg PO QDAY 11/22/21 11/22/21 Unknown History Active Medications: Generic Name Dose Route Start Last Admin Trade Name Freq PRN Reason Stop Dose Admin Acetaminophen 650 mg 11/22/21 02:08 11/24/21 09:47 Acetaminophen 325 Mg Tab PO 650 mg Q6H PRN Administration Pain MILD(1-3)/Fever >100.5/CARREON Albuterol 2.5 mg 11/22/21 07:02 Albuterol 2.5 Mg/3 Ml Nebu IH Q4HRT PRN Shortness Of Breath Dextrose 0 ml 11/22/21 02:08 11/24/21 00:05 Dextrose 50% In Water (25gm) 50 Ml Syringe IV 15 ml Q30MIN PRN Administration Hypoglycemia Protocol Docusate Sodium 100 mg 11/23/21 22:00 11/24/21 09:23 Docusate Sodium 100 Mg/10 Ml Oral Liqd PO 100 mg BID ERIKA Administration Heparin Sodium (Porcine) 5,000 unit 11/22/21 22:00 11/24/21 05:24 Heparin 5,000 Unit/1 Ml Vial SUB-Q 5,000 unit Q8HR ERIKA Administration Dextrose/Sodium Chloride 1,000 mls @ 100 mls/hr 11/23/21 09:00 11/24/21 12:48 D5/0.45ns IV 11/25/21 18:59 100 mls/hr DIRECT ERIKA Administration Cefepime HCl 2 gm in 100 mls @ 200 mls/hr 11/23/21 09:00 11/24/21 09:23 Cefepime/Ns 2 Gm/100 Ml IV 200 mls/hr Q12H ERIKA Administration Protocol Insulin Human Lispro 0 unit 11/23/21 12:00 11/24/21 11:49 Insulin Lispro 100 Unit/Ml SUB-Q Not Given Q6HR ERIKA Protocol Levothyroxine Sodium 150 mcg 11/25/21 06:00 Levothyroxine 150 Mcg Tab PO QAM@0600 ERIKA Magnesium Hydroxide 30 ml 11/22/21 02:08 Magnesium Hydroxide (Mom) Oral Liqd Udc PO Q4H PRN Constipation Morphine Sulfate 2 mg 11/22/21 02:08 Morphine 2 Mg/1 Ml Inj IV Q4H PRN Pain, Moderate (4-6) Morphine Sulfate 4 mg 11/22/21 02:08 Morphine 4 Mg/1 Ml Inj IV Q4H PRN Pain , Severe (7-10) Phenol 1 spray 11/23/21 12:34 11/23/21 14:05 Phenol 1.4% 177 Ml Bottle MM 1 spray PRN PRN Administration Sore Throat Sodium Chloride 10 ml 11/22/21 10:00 11/24/21 09:24 Sodium Chloride 0.9% 10 Ml Flush Syringe IV 10 ml BID ERIKA Administration Sodium Chloride 10 ml 11/22/21 02:08 Sodium Chloride 0.9% 10 Ml Flush Syringe IV PRN PRN LINE FLUSH HEART Score - HEART Score Troponin: Troponin T < 0.010 ng/mL (0.00-0.029) 11/21/21 23:20
--- NOTE | 2021-11-24 16:54 | Progress Note ---
<SUHAVIRGINIA IrizarrySophie - Last Filed: 11/24/21 19:19> Assessment and Plan Assessment and plan: Assessment and plan: This is a 86-year-old male with DM, CHF, HTN, hypothyroidism, SBO s/p abdominal surgery admitted with TAMMY, possible SBO, right ureteral calculi with hydronephrosis, obstructive uropathy Neuro: NAD -Reorientation as needed -Maintain sleep-wake cycle -As needed analgesia Cardiac: h/o CHF, HTN -Cardiology consulted, appreciate recommendations -Blood pressure monitoring per protocol -Hold home antihypertenisive medication at this time -Echocardiogram shows LVEF 50 to 55%, mild concentric LVH -Per cardio: -Echo 03/07/2019-1. Left ventricular ejection fraction is 65%. Aortic valve is tricuspid, focally calcified and sclerotic. Mildly dilated left atrium. There is impaired relaxation with normal filling pressure consistent with grade 1 diastolic dysfunction. E/E' indicative of elevated LVEDP. Mild pulmonic valve insufficiency. -No LIBERTY or ARB in setting of TAMMY Respiratory: Acute hypoxic respiratory failure -CCM consulted, appreciate recommendations -s/p bipap -Currently on NC -Pulmonary hygiene -SPO2 monitor per protocol -CTA chest showed no evidence of pulmonary embolism, bilateral dependent regions of low-attenuation was suggestive of atelectasis GI: Possible SBO, h/o SBO with surgery -General surgery consulted, appreciate recommendations -Abdomen pelvis CT showed large bowel is moderate distended with gas to the point of the suture line in the mid sigmoid colon, partial obstruction of the level of the suture line not excluded -PPI -GI soft diet : Acute kidney injury likely on CKD, right ureteral calculus with associated hydronephrosis, obstructive uropathy secondary to ureteral calculus -Nephrology and Urology consulted, appreciate recommendations -CT abd/pelvis showed 6 mm proximal right ureteral stone with associated hydronephrosis, multiple additional bilateral nephroliths -Monitor intake and output -Renally dose medications -Avoid nephrotoxic medications -Renal US pending -Urine lytes pending -s/p Cystoscopy, ureteroscopy w/ stent placement -Trend BMP ID: Sepsis, GNR bacteremia, Pyelonephrosis -Infectious disease consulted, appreciate recommendations -COVID 19 PUI (-) -f/u blood culture -UA, UC, BC->2/2 BC with GNR -Antibiotic therapy with cefepime -Does not endorse costovertebral tenderness -Monitor WBC and temperature curve Endo: h/o Hypothyroidism -Avoid hypoglycemia -SSI -Accu-Cheks ACHS Heme: Elevated ddimer -Trend CBC -Transfuse hemoglobin less than 7 -SCDs to BLE while in bed -Bilateral lower extremity Doppler ultrasound negative for DVT -CTA chest with no PE The high probability of a clinically significant, sudden or life threatening deterioration of the [multi] system(s) required my full and direct attention, intervention and personal management. The aggregate critical care time was [60] minutes. This time is in addition to time spent performing reported procedures but includes the following: [x] Data Review and interpretation [x] Patient assessment and monitoring of vital signs [x] Documentation [x] Medication orders and management Disposition Plan: transfer to tele Total Time Spent with Patient (Minutes): 60 History Interval history: This is a 86 year old male with DM, CHF, BLE lymphedema, HTN, hypothyroidism, gout, abdnominal surgery with SBO who presents to the emergency department on 06/22 with complaints of shortness of breath, cough, chest tightness with coughing ongoing for the past few days. In the emergency department he stated he had SBO in the past with surgery however later distended upon admission but the patient stated his last bowel movement was about 24 hours prior to admission. Work-up in the emergency department showed acute kidney injury, abdominal x-ray revealed colonic ileus or constipation, CT abdomen/pelvis showed multiple bilateral nephrolithiasis, 6 mm proximal right ureteral stone with a ssociated hydronephrosis, possible partial occlusion [mildly distended with gas at the point of suture line in the mid sigmoid colon. Patient was given Lasix in the ED and placed on BiPAP for respiratory distress. Patient was admitted to the hospitalist service with consults to urology, nephrology, cardiology. Hospital course to date 11/22: CCM consulted, appreciate recommendations. CT abdomen/pelvis showed possible SBO and surgery was consulted. COVID-19 PCR resulted as negative. S/p BiPAP therapy on Venturi mask. Wean as tolerated. 11/23: Worsening renal function noted, started on antibiotics. Urine electrolytes pending, ordered renal US. On Dextrose fluid awaiting GI input on feeding patient. 11/24: Renal function improving, restarted home gabapentin and allopurinol as patient states that he has gout pains to feet. Patient will be transferred to telemetry. Hospitalist Physical - Constitutional Vitals: Temp Pulse Resp BP Pulse Ox 97.8 F 83 26 H 139/71 91 11/23/21 23:45 11/24/21 15:00 11/24/21 15:00 11/24/21 15:00 11/24/21 15:00 General appearance: Present: no acute distress - EENT Eyes: Present: PERRL, EOM intact ENT: hearing intact, clear oral mucosa, dentition normal - Neck Neck: Present: normal ROM - Respiratory Respiratory effort: normal Respiratory: bilateral: diminished - Cardiovascular Rhythm: regular Heart Sounds: Present: S1 & S2. Absent: systolic murmur, diastolic murmur - Extremities Extremities: no ischemia, pulses intact, pulses symmetrical, normal temperature, normal color Extremity abnormal: edema Peripheral Pulses: within normal limits - Abdominal General gastrointestinal: soft, non-tender, non-distended, normal bowel sounds - Integumentary Integumentary: Present: warm, dry - Psychiatric Psychiatric: appropriate mood/affect, cooperative - Neurologic Neurologic: CNII-XII intact, no focal deficits, moves all extremities - Allied Health Allied health notes reviewed: nursing, RT, social work HEART Score - HEART Score Troponin: Troponin T < 0.010 ng/mL (0.00-0.029) 11/21/21 23:20 Results - Labs CBC & Chem 7: 11/24/21 04:26 11/24/21 04:26 Labs: Laboratory Last Values WBC 17.6 K/mm3 (4.5-11.0) H 11/24/21 04:26 RBC 4.42 M/mm3 (3.65-5.03) 11/24/21 04:26 Hgb 12.4 gm/dl (11.8-15.2) 11/24/21 04:26 Hct 40.1 % (35.5-45.6) D 11/24/21 04:26 MCV 91 fl (84-94) 11/24/21 04:26 MCH 28 pg (28-32) 11/24/21 04:26 MCHC 31 % (32-34) L 11/24/21 04:26 RDW 15.2 % (13.2-15.2) 11/24/21 04:26 Plt Count 95 K/mm3 (140-440) L 11/24/21 04:26 Add Manual Diff Complete 11/23/21 04:38 Total Counted 100 11/23/21 04:38 Seg Neutrophils % Dye House Wheel Operator 11/21/21 23:20 Seg Neuts % (Manual) 84.0 % (40.0-70.0) H 11/23/21 04:38 Band Neutrophils % 4.0 % 11/23/21 04:38 Lymphocytes % (Manual) 2.0 % (13.4-35.0) L 11/23/21 04:38 Reactive Lymphs % (Man) 0 % 11/23/21 04:38 Monocytes % (Manual) 5.0 % (0.0-7.3) 11/23/21 04:38 Eosinophils % (Manual) 2.0 % (0.0-4.3) 11/23/21 04:38 Basophils % (Manual) 0 % (0.0-1.8) 11/23/21 04:38 Metamyelocytes % 3.0 % 11/23/21 04:38 Myelocytes % 0 % 11/23/21 04:38 Promyelocytes % 0 % 11/23/21 04:38 Blast Cells % 0 % 11/23/21 04:38 Nucleated RBC % Not Reportable 11/23/21 04:38 Seg Neutrophils # Man 26.5 K/mm3 (1.8-7.7) H 11/23/21 04:38 Band Neutrophils # 1.3 K/mm3 11/23/21 04:38 Lymphocytes # (Manual) 0.6 K/mm3 (1.2-5.4) L 11/23/21 04:38 Abs React Lymphs (Man) 0.0 K/mm3 11/23/21 04:38 Monocytes # (Manual) 1.6 K/mm3 (0.0-0.8) H 11/23/21 04:38 Eosinophils # (Manual) 0.6 K/mm3 (0.0-0.4) H 11/23/21 04:38 Basophils # (Manual) 0.0 K/mm3 (0.0-0.1) 11/23/21 04:38 Metamyelocytes # 0.9 K/mm3 11/23/21 04:38 Myelocytes # 0.0 K/mm3 11/23/21 04:38 Promyelocytes # 0.0 K/mm3 11/23/21 04:38 Blast Cells # 0.0 K/mm3 11/23/21 04:38 WBC Morphology Not Reportable 11/23/21 04:38 Hypersegmented Neuts Not Reportable 11/23/21 04:38 Hyposegmented Neuts Not Reportable 11/23/21 04:38 Hypogranular Neuts Not Reportable 11/23/21 04:38 Smudge Cells Not Reportable 11/23/21 04:38 Toxic Granulation Not Reportable 11/23/21 04:38 Toxic Vacuolation Not Reportable 11/23/21 04:38 Dohle Bodies Not Reportable 11/23/21 04:38 Pelger-Huet Anomaly Not Reportable 11/23/21 04:38 Antonio Rods Not Reportable 11/23/21 04:38 Platelet Estimate Consistent w auto 11/23/21 04:38 Clumped Platelets Not Reportable 11/23/21 04:38 Plt Clumps, EDTA Not Reportable 11/23/21 04:38 Large Platelets Not Reportable 11/23/21 04:38 Giant Platelets Not Reportable 11/23/21 04:38 Platelet Satelliting Not Reportable 11/23/21 04:38 Plt Morphology Comment Not Reportable 11/23/21 04:38 RBC Morphology Not Reportable 11/23/21 04:38 Dimorphic RBCs Not Reportable 11/23/21 04:38 Polychromasia Not Reportable 11/23/21 04:38 Hypochromasia Not Reportable 11/23/21 04:38 Poikilocytosis Not Reportable 11/23/21 04:38 Anisocytosis Not Reportable 11/23/21 04:38 Microcytosis Not Reportable 11/23/21 04:38 Macrocytosis Not Reportable 11/23/21 04:38 Spherocytes Not Reportable 11/23/21 04:38 Pappenheimer Bodies Not Reportable 11/23/21 04:38 Sickle Cells Not Reportable 11/23/21 04:38 Target Cells Not Reportable 11/23/21 04:38 Tear Drop Cells Not Reportable 11/23/21 04:38 Ovalocytes Not Reportable 11/23/21 04:38 Helmet Cells Not Reportable 11/23/21 04:38 [place] Bodies Not Reportable 11/23/21 04:38 [place] Rings Not Reportable 11/23/21 04:38 [place] Cells Not Reportable 11/23/21 04:38 Bite Cells Not Reportable 11/23/21 04:38 Crenated Cell Not Reportable 11/23/21 04:38 Elliptocytes Not Reportable 11/23/21 04:38 Acanthocytes (Spur) Not Reportable 11/23/21 04:38 Rouleaux Not Reportable 11/23/21 04:38 Hemoglobin C Crystals Not Reportable 11/23/21 04:38 Schistocytes Not Reportable 11/23/21 04:38 Malaria parasites Not Reportable 11/23/21 04:38 Eric Bodies Not Reportable 11/23/21 04:38 Hem Pathologist Commnt No 11/23/21 04:38 PT 14.8 Sec. (12.2-14.9) 11/21/21 23:20 INR 1.04 (0.87-1.13) 11/21/21 23:20 APTT 31.8 Sec. (24.2-36.6) 11/21/21 23:20 D-Dimer > 98101 ng/mlDDU (0-234) H 11/22/21 23:45 ABG pH 7.378 pH Units (7.350-7.450) 11/21/21 22:53 ABG pCO2 36.7 mm Hg 11/21/21 22:53 ABG pO2 178.4 mm Hg (80.0-90.0) H 11/21/21 22:53 ABG HCO3 21.1 mmol/L (20.0-26.0) 11/21/21 22:53 ABG O2 Saturation 99.1 % (95.0-99.0) H 11/21/21 22:53 ABG O2 Content 21.4 (0.0-44) 11/21/21 22:53 ABG Base Excess -3.4 mmol/L (-2.0-3.0) L 11/21/21 22:53 ABG Hemoglobin 15.4 gm/dl (14.0-18.0) 11/21/21 22:53 ABG Carboxyhemoglobin 1.4 % (0.0-5.0) 11/21/21 22:53 ABG Methemoglobin 0.6 % (0.0-1.5) 11/21/21 22:53 Oxyhemoglobin 97.2 % (95.0-99.0) 11/21/21 22:53 FiO2 70 % 11/21/21 22:53 Sodium 137 mmol/L (137-145) 11/24/21 04:26 Potassium 5.2 mmol/L (3.6-5.0) H 11/24/21 04:26 Chloride 101.9 mmol/L (98-107) 11/24/21 04:26 Carbon Dioxide 22 mmol/L (22-30) 11/24/21 04:26 Anion Gap 18 mmol/L 11/24/21 04:26 BUN 38 mg/dL (9-20) H 11/24/21 04:26 Creatinine 1.9 mg/dL (0.8-1.3) H 11/24/21 04:26 Estimated GFR 41 ml/min 11/24/21 04:26 BUN/Creatinine Ratio 20 % 11/24/21 04:26 Glucose 108 mg/dL (75-100) H 11/24/21 04:26 POC Glucose 120 mg/dL (70-105) H 11/24/21 16:32 Lactic Acid 5.20 mmol/L (0.7-2.0) H* 11/23/21 11:22 Calcium 9.3 mg/dL (8.4-10.2) 11/24/21 04:26 Ferritin 389.2 ng/mL (30.0-300.0) H 11/22/21 23:45 Total Bilirubin 0.60 mg/dL (0.1-1.2) 11/21/21 23:20 Direct Bilirubin < 0.2 mg/dL (0-0.2) 11/21/21 23:20 Indirect Bilirubin 0.4 mg/dL 11/21/21 23:20 AST 60 units/L (5-40) H 11/21/21 23:20 ALT 24 units/L (7-56) 11/21/21 23:20 Alkaline Phosphatase 184 units/L (35-129) H 11/21/21 23:20 Lactate Dehydrogenase 287 units/L (91-180) H 11/22/21 23:45 Troponin T < 0.010 ng/mL (0.00-0.029) 11/21/21 23:20 C-Reactive Protein 20.40 mg/dL (0.00-1.30) H 11/22/21 23:45 NT-Pro-B Natriuret Pep 103.7 pg/mL (0-900) 11/21/21 23:20 Total Protein 7.7 g/dL (6.3-8.2) 11/21/21 23:20 Albumin 4.1 g/dL (3.9-5) 11/21/21 23:20 Albumin/Globulin Ratio 1.1 % 11/21/21 23:20 Procalcitonin 97.57 ng/mL (<0.15) 11/22/21 23:45 Urine Color Yellow (Yellow) 11/22/21 11:47 Urine Turbidity Clear (Clear) 11/22/21 11:47 Specific [place] (Man) 1.010 (1.003-1.030) 11/22/21 11:47 Ur Protein (Man) 1+ mg/dL (Negative) 11/22/21 11:47 Ur Ketones (Man) Negative (Negative) 11/22/21 11:47 Urine Bilirubin (Man) Negative (Negative) 11/22/21 11:47 Urine WBC (Auto) 14.0 /HPF (0.0-6.0) H 11/22/21 11:47 Urine RBC (Auto) 5.0 /HPF (0.0-6.0) 11/22/21 11:47 U Epithel Cells (Auto) 1.0 /HPF (0-13.0) 11/22/21 11:47 Urine Bacteria (Auto) 1+ /HPF (Negative) 11/22/21 11:47 Urine RBC (Manual) Trace (Negative) 11/22/21 11:47 Urine Mucus Few /HPF 11/22/21 11:47 Urine Creatinine 223.0 mg/dL (0.1-20.0) H 11/23/21 12:05 Urine Sodium 27 mmol/L 11/23/21 12:05 Urine Urea Nitrogen 368 11/23/21 12:05 Coronavirus (PCR) Negative (Negative) 11/22/21 11:00 Microbiology: Microbiology 11/22/21 11:47 Urine,Clean Catch Urine Culture - Preliminary 11/22/21 23:45 Peripheral/Venous Blood Culture - Preliminary 11/22/21 23:45 Peripheral/Venous Blood Culture - Preliminary Mccloud/IV: Voiding Method Indwelling Catheter Active Medications - Current Medications Current Medications: Generic Name Dose Route Start Last Admin Trade Name Freq PRN Reason Stop Dose Admin Acetaminophen 650 mg 11/22/21 02:08 11/24/21 09:47 Acetaminophen 325 Mg Tab PO 650 mg Q6H PRN Administration Pain MILD(1-3)/Fever >100.5/CARREON Albuterol 2.5 mg 11/22/21 07:02 Albuterol 2.5 Mg/3 Ml Nebu IH Q4HRT PRN Shortness Of Breath Allopurinol 100 mg 11/25/21 10:00 Allopurinol 100 Mg Tab PO QDAY ERIKA Dextrose 0 ml 11/22/21 02:08 11/24/21 00:05 Dextrose 50% In Water (25gm) 50 Ml Syringe IV 15 ml Q30MIN PRN Administration Hypoglycemia Protocol Docusate Sodium 100 mg 11/23/21 22:00 11/24/21 09:23 Docusate Sodium 100 Mg/10 Ml Oral Liqd PO 100 mg BID ERIKA Administration Gabapentin 300 mg 11/24/21 22:00 Gabapentin 300 Mg Cap PO BID ERIKA Heparin Sodium (Porcine) 5,000 unit 11/22/21 22:00 11/24/21 15:04 Heparin 5,000 Unit/1 Ml Vial SUB-Q 5,000 unit Q8HR ERIKA Administration Dextrose/Sodium Chloride 1,000 mls @ 100 mls/hr 11/23/21 09:00 11/24/21 12:48 D5/0.45ns IV 11/25/21 18:59 100 mls/hr DIRECT ERIKA Administration Cefepime HCl 2 gm in 100 mls @ 200 mls/hr 11/23/21 09:00 11/24/21 09:23 Cefepime/Ns 2 Gm/100 Ml IV 200 mls/hr Q12H ERIKA Administration Protocol Insulin Human Lispro 0 unit 11/23/21 12:00 11/24/21 11:49 Insulin Lispro 100 Unit/Ml SUB-Q Not Given Q6HR ERIKA Protocol Levothyroxine Sodium 150 mcg 11/25/21 06:00 Levothyroxine 150 Mcg Tab PO QAM@0600 ERIKA Magnesium Hydroxide 30 ml 11/22/21 02:08 Magnesium Hydroxide (Mom) Oral Liqd Udc PO Q4H PRN Constipation Morphine Sulfate 2 mg 11/22/21 02:08 Morphine 2 Mg/1 Ml Inj IV Q4H PRN Pain, Moderate (4-6) Morphine Sulfate 4 mg 11/22/21 02:08 Morphine 4 Mg/1 Ml Inj IV Q4H PRN Pain , Severe (7-10) Phenol 1 spray 11/23/21 12:34 11/23/21 14:05 Phenol 1.4% 177 Ml Bottle MM 1 spray PRN PRN Administration Sore Throat Sodium Chloride 10 ml 11/22/21 10:00 11/24/21 09:24 Sodium Chloride 0.9% 10 Ml Flush Syringe IV 10 ml BID ERIKA Administration Sodium Chloride 10 ml 11/22/21 02:08 Sodium Chloride 0.9% 10 Ml Flush Syringe IV PRN PRN LINE FLUSH Nutrition/Malnutrition Assess - Dietary Evaluation Nutrition/Malnutrition Findings: Nutrition Notes Start: 11/22/21 14:36 Freq: Status: Active Protocol: Document 11/22/21 14:36 ALBIN (Rec: 11/22/21 14:47 ALBIN [id number]) Nutrition Notes Need for Assessment generated from: MD Order,Education Initial or Follow up Brief Note Current Diagnosis Diabetes,Hypertension, Respiratory Failure Other Pertinent Diagnosis CHF, Bilateral-LE Lymphedema, Ureteral Stone w/ Hydronephrosos. Current Diet NPO (since 11/22 07:01). Height 5 ft 10 in Weight 136.078 kg [place] Body Weight (kg) 75.45 BMI 43.0 Weight change and time frame None provided at admission. Weight Status Morbidly Obese Subjective/Other Information RD consult for nutrition education assessment. Pt currently on NPO. Pt is on NIV/Bi-PaP+, O2 saturation @ 98%, according to Vital Signs notes. Pt still in critical condition , not a candidate for Nutrition Education at the time, will assess feasibility on F/U. Percent of energy/protein needs met: Pt currently on NPO. Nutrition Intervention Follow-Up By: 11/29/21 Additional Comments Nutrition education will be provided at F/U, if feasible. Continue monitoring food tolerance, %PO intake of meals , and BM. <TEE CHAPA - Last Filed: 11/26/21 14:31> History Interval history: I saw and evaluated the patient. Discussed with the nurse practitioner and agree with their findings and plan as documented in this note. Hospitalist Physical - Constitutional Vitals: Temp Pulse Resp BP Pulse Ox 97.7 F 78 18 170/84 95 11/26/21 03:58 11/26/21 10:00 11/26/21 03:58 11/26/21 03:58 11/26/21 10:00 HEART Score - HEART Score Troponin: Troponin T < 0.010 ng/mL (0.00-0.029) 11/21/21 23:20 Results - Labs CBC & Chem 7: 11/26/21 10:27 11/26/21 07:51 Labs: Laboratory Last Values WBC 8.0 K/mm3 (4.5-11.0) 11/26/21 10:27 RBC 4.39 M/mm3 (3.65-5.03) 11/26/21 10:27 Hgb 12.7 gm/dl (11.8-15.2) 11/26/21 10:27 Hct 37.9 % (35.5-45.6) 11/26/21 10:27 MCV 86 fl (84-94) 11/26/21 10:27 MCH 29 pg (28-32) 11/26/21 10:27 MCHC 34 % (32-34) 11/26/21 10:27 RDW 14.3 % (13.2-15.2) 11/26/21 10:27 Plt Count 134 K/mm3 (140-440) L 11/26/21 10:27 Add Manual Diff Complete 11/23/21 04:38 Total Counted 100 11/23/21 04:38 Seg Neutrophils % Dye House Wheel Operator 11/21/21 23:20 Seg Neuts % (Manual) 84.0 % (40.0-70.0) H 11/23/21 04:38 Band Neutrophils % 4.0 % 11/23/21 04:38 Lymphocytes % (Manual) 2.0 % (13.4-35.0) L 11/23/21 04:38 Reactive Lymphs % (Man) 0 % 11/23/21 04:38 Monocytes % (Manual) 5.0 % (0.0-7.3) 11/23/21 04:38 Eosinophils % (Manual) 2.0 % (0.0-4.3) 11/23/21 04:38 Basophils % (Manual) 0 % (0.0-1.8) 11/23/21 04:38 Metamyelocytes % 3.0 % 11/23/21 04:38 Myelocytes % 0 % 11/23/21 04:38 Promyelocytes % 0 % 11/23/21 04:38 Blast Cells % 0 % 11/23/21 04:38 Nucleated RBC % Not Reportable 11/23/21 04:38 Seg Neutrophils # Man 26.5 K/mm3 (1.8-7.7) H 11/23/21 04:38 Band Neutrophils # 1.3 K/mm3 11/23/21 04:38 Lymphocytes # (Manual) 0.6 K/mm3 (1.2-5.4) L 11/23/21 04:38 Abs React Lymphs (Man) 0.0 K/mm3 11/23/21 04:38 Monocytes # (Manual) 1.6 K/mm3 (0.0-0.8) H 11/23/21 04:38 Eosinophils # (Manual) 0.6 K/mm3 (0.0-0.4) H 11/23/21 04:38 Basophils # (Manual) 0.0 K/mm3 (0.0-0.1) 11/23/21 04:38 Metamyelocytes # 0.9 K/mm3 11/23/21 04:38 Myelocytes # 0.0 K/mm3 11/23/21 04:38 Promyelocytes # 0.0 K/mm3 11/23/21 04:38 Blast Cells # 0.0 K/mm3 11/23/21 04:38 WBC Morphology Not Reportable 11/23/21 04:38 Hypersegmented Neuts Not Reportable 11/23/21 04:38 Hyposegmented Neuts Not Reportable 11/23/21 04:38 Hypogranular Neuts Not Reportable 11/23/21 04:38 Smudge Cells Not Reportable 11/23/21 04:38 Toxic Granulation Not Reportable 11/23/21 04:38 Toxic Vacuolation Not Reportable 11/23/21 04:38 Dohle Bodies Not Reportable 11/23/21 04:38 Pelger-Huet Anomaly Not Reportable 11/23/21 04:38 Antonio Rods Not Reportable 11/23/21 04:38 Platelet Estimate Consistent w auto 11/23/21 04:38 Clumped Platelets Not Reportable 11/23/21 04:38 Plt Clumps, EDTA Not Reportable 11/23/21 04:38 Large Platelets Not Reportable 11/23/21 04:38 Giant Platelets Not Reportable 11/23/21 04:38 Platelet Satelliting Not Reportable 11/23/21 04:38 Plt Morphology Comment Not Reportable 11/23/21 04:38 RBC Morphology Not Reportable 11/23/21 04:38 Dimorphic RBCs Not Reportable 11/23/21 04:38 Polychromasia Not Reportable 11/23/21 04:38 Hypochromasia Not Reportable 11/23/21 04:38 Poikilocytosis Not Reportable 11/23/21 04:38 Anisocytosis Not Reportable 11/23/21 04:38 Microcytosis Not Reportable 11/23/21 04:38 Macrocytosis Not Reportable 11/23/21 04:38 Spherocytes Not Reportable 11/23/21 04:38 Pappenheimer Bodies Not Reportable 11/23/21 04:38 Sickle Cells Not Reportable 11/23/21 04:38 Target Cells Not Reportable 11/23/21 04:38 Tear Drop Cells Not Reportable 11/23/21 04:38 Ovalocytes Not Reportable 11/23/21 04:38 Helmet Cells Not Reportable 11/23/21 04:38 [place] Bodies Not Reportable 11/23/21 04:38 [place] Rings Not Reportable 11/23/21 04:38 [place] Cells Not Reportable 11/23/21 04:38 Bite Cells Not Reportable 11/23/21 04:38 Crenated Cell Not Reportable 11/23/21 04:38 Elliptocytes Not Reportable 11/23/21 04:38 Acanthocytes (Spur) Not Reportable 11/23/21 04:38 Rouleaux Not Reportable 11/23/21 04:38 Hemoglobin C Crystals Not Reportable 11/23/21 04:38 Schistocytes Not Reportable 11/23/21 04:38 Malaria parasites Not Reportable 11/23/21 04:38 Eric Bodies Not Reportable 11/23/21 04:38 Hem Pathologist Commnt No 11/23/21 04:38 PT 14.8 Sec. (12.2-14.9) 11/21/21 23:20 INR 1.04 (0.87-1.13) 11/21/21 23:20 APTT 31.8 Sec. (24.2-36.6) 11/21/21 23:20 D-Dimer > 59110 ng/mlDDU (0-234) H 11/22/21 23:45 ABG pH 7.378 pH Units (7.350-7.450) 11/21/21 22:53 ABG pCO2 36.7 mm Hg 11/21/21 22:53 ABG pO2 178.4 mm Hg (80.0-90.0) H 11/21/21 22:53 ABG HCO3 21.1 mmol/L (20.0-26.0) 11/21/21 22:53 ABG O2 Saturation 99.1 % (95.0-99.0) H 11/21/21 22:53 ABG O2 Content 21.4 (0.0-44) 11/21/21 22:53 ABG Base Excess -3.4 mmol/L (-2.0-3.0) L 11/21/21 22:53 ABG Hemoglobin 15.4 gm/dl (14.0-18.0) 11/21/21 22:53 ABG Carboxyhemoglobin 1.4 % (0.0-5.0) 11/21/21 22:53 ABG Methemoglobin 0.6 % (0.0-1.5) 11/21/21 22:53 Oxyhemoglobin 97.2 % (95.0-99.0) 11/21/21 22:53 FiO2 70 % 11/21/21 22:53 Sodium 138 mmol/L (137-145) 11/26/21 07:51 Potassium 3.6 mmol/L (3.6-5.0) D 11/26/21 07:51 Chloride 103.9 mmol/L (98-107) 11/26/21 07:51 Carbon Dioxide 25 mmol/L (22-30) 11/26/21 07:51 Anion Gap 13 mmol/L 11/26/21 07:51 BUN 18 mg/dL (9-20) 11/26/21 07:51 Creatinine 0.8 mg/dL (0.8-1.3) D 11/26/21 07:51 Estimated GFR > 60 ml/min 11/26/21 07:51 BUN/Creatinine Ratio 23 % 11/26/21 07:51 Glucose 79 mg/dL (75-100) 11/26/21 07:51 POC Glucose 96 mg/dL (70-105) 11/26/21 05:07 Lactic Acid 5.20 mmol/L (0.7-2.0) H* 11/23/21 11:22 Calcium 9.8 mg/dL (8.4-10.2) 11/26/21 07:51 Ferritin 389.2 ng/mL (30.0-300.0) H 11/22/21 23:45 Total Bilirubin 0.60 mg/dL (0.1-1.2) 11/21/21 23:20 Direct Bilirubin < 0.2 mg/dL (0-0.2) 11/21/21 23:20 Indirect Bilirubin 0.4 mg/dL 11/21/21 23:20 AST 60 units/L (5-40) H 11/21/21 23:20 ALT 24 units/L (7-56) 11/21/21 23:20 Alkaline Phosphatase 184 units/L (35-129) H 11/21/21 23:20 Lactate Dehydrogenase 287 units/L (91-180) H 11/22/21 23:45 Troponin T < 0.010 ng/mL (0.00-0.029) 11/21/21 23:20 C-Reactive Protein 20.40 mg/dL (0.00-1.30) H 11/22/21 23:45 NT-Pro-B Natriuret Pep 103.7 pg/mL (0-900) 11/21/21 23:20 Total Protein 7.7 g/dL (6.3-8.2) 11/21/21 23:20 Albumin 4.1 g/dL (3.9-5) 11/21/21 23:20 Albumin/Globulin Ratio 1.1 % 11/21/21 23:20 Procalcitonin 97.57 ng/mL (<0.15) 11/22/21 23:45 Urine Color Yellow (Yellow) 11/22/21 11:47 Urine Turbidity Clear (Clear) 11/22/21 11:47 Specific Carroll (Man) 1.010 (1.003-1.030) 11/22/21 11:47 Ur Protein (Man) 1+ mg/dL (Negative) 11/22/21 11:47 Ur Ketones (Man) Negative (Negative) 11/22/21 11:47 Urine Bilirubin (Man) Negative (Negative) 11/22/21 11:47 Urine WBC (Auto) 14.0 /HPF (0.0-6.0) H 11/22/21 11:47 Urine RBC (Auto) 5.0 /HPF (0.0-6.0) 11/22/21 11:47 U Epithel Cells (Auto) 1.0 /HPF (0-13.0) 11/22/21 11:47 Urine Bacteria (Auto) 1+ /HPF (Negative) 11/22/21 11:47 Urine RBC (Manual) Trace (Negative) 11/22/21 11:47 Urine Mucus Few /HPF 11/22/21 11:47 Urine Creatinine 223.0 mg/dL (0.1-20.0) H 11/23/21 12:05 Urine Sodium 27 mmol/L 11/23/21 12:05 Urine Urea Nitrogen 368 11/23/21 12:05 Coronavirus (PCR) Negative (Negative) 11/22/21 11:00 Microbiology: Microbiology 11/22/21 17:20 Urine,Kidney - Right Kidney Urine Culture - Final Citrobacter Koseri 11/22/21 15:20 Urine,Kidney - Right Kidney Urine Culture - Final Citrobacter Koseri 11/22/21 23:45 Peripheral/Venous Blood Culture - Preliminary Citrobacter Amalonaticus 11/22/21 11:47 Urine,Clean Catch Urine Culture - Final 11/22/21 23:45 Peripheral/Venous Blood Culture - Preliminary Citrobacter Amalonaticus Mccloud/IV: Voiding Method Indwelling Catheter Active Medications - Current Medications Current Medications: Generic Name Dose Route Start Last Admin Trade Name Freq PRN Reason Stop Dose Admin Acetaminophen 650 mg 11/22/21 02:08 11/24/21 09:47 Acetaminophen 325 Mg Tab PO 650 mg Q6H PRN Administration Pain MILD(1-3)/Fever >100.5/CARREON Albuterol 2.5 mg 11/22/21 07:02 Albuterol 2.5 Mg/3 Ml Nebu IH Q4HRT PRN Shortness Of Breath Allopurinol 100 mg 11/25/21 10:00 11/26/21 09:22 Allopurinol 100 Mg Tab PO 100 mg QDAY ERIKA Administration Amlodipine Besylate 10 mg 11/25/21 12:00 11/26/21 09:22 Amlodipine 10 Mg Tab PO 10 mg DAILY ERIKA Administration Dextrose 0 ml 11/22/21 02:08 11/24/21 00:05 Dextrose 50% In Water (25gm) 50 Ml Syringe IV 15 ml Q30MIN PRN Administration Hypoglycemia Protocol Docusate Sodium 100 mg 11/23/21 22:00 11/26/21 09:22 Docusate Sodium 100 Mg/10 Ml Oral Liqd PO 100 mg BID ERIKA Administration Gabapentin 300 mg 11/24/21 22:00 11/26/21 09:22 Gabapentin 300 Mg Cap PO 300 mg BID ERIKA Administration Heparin Sodium (Porcine) 5,000 unit 11/22/21 22:00 11/26/21 05:17 Heparin 5,000 Unit/1 Ml Vial SUB-Q 5,000 unit Q8HR ERIKA Administration Insulin Human Lispro 0 unit 11/23/21 12:00 11/26/21 05:15 Insulin Lispro 100 Unit/Ml SUB-Q Not Given Q6HR [facility] Protocol Levofloxacin 750 mg 11/27/21 10:00 Levofloxacin 750 Mg Tab PO 12/02/21 10:01 Q24H [facility] Protocol Levofloxacin 250 mg 11/26/21 11:30 11/26/21 12:08 Levofloxacin 250 Mg Tab PO 11/26/21 15:30 250 mg ONCE@1130 ERIKA Administration Levothyroxine Sodium 150 mcg 11/25/21 06:00 11/26/21 05:16 Levothyroxine 150 Mcg Tab PO 150 mcg QAM@0600 ERIKA Administration Magnesium Hydroxide 30 ml 11/22/21 02:08 Magnesium Hydroxide (Mom) Oral Liqd Udc PO Q4H PRN Constipation Morphine Sulfate 2 mg 11/22/21 02:08 Morphine 2 Mg/1 Ml Inj IV Q4H PRN Pain, Moderate (4-6) Morphine Sulfate 4 mg 11/22/21 02:08 Morphine 4 Mg/1 Ml Inj IV Q4H PRN Pain , Severe (7-10) Phenol 1 spray 11/23/21 12:34 11/23/21 14:05 Phenol 1.4% 177 Ml Bottle MM 1 spray PRN PRN Administration Sore Throat Polyethylene Glycol 17 gm 11/25/21 22:00 11/26/21 09:22 Polyethylene Glycol 3350 17 Gm Powder PO 17 gm BID ERIKA Administration Sodium Chloride 10 ml 11/22/21 10:00 11/26/21 09:23 Sodium Chloride 0.9% 10 Ml Flush Syringe IV 10 ml BID ERIKA Administration Sodium Chloride 10 ml 11/22/21 02:08 Sodium Chloride 0.9% 10 Ml Flush Syringe IV PRN PRN LINE FLUSH Nutrition/Malnutrition Assess - Dietary Evaluation Nutrition/Malnutrition Findings: Nutrition Notes Start: 11/22/21 14:36 Freq: Status: Active Protocol: Document 11/22/21 14:36 ALBIN (Rec: 11/22/21 14:47 ALBIN [email or web address]) Nutrition Notes Need for Assessment generated from: MD Order,Education Initial or Follow up Brief Note Current Diagnosis Diabetes,Hypertension, Respiratory Failure Other Pertinent Diagnosis CHF, Bilateral-LE Lymphedema, Ureteral Stone w/ Hydronephrosos. Current Diet NPO (since 11/22 07:01). Height 5 ft 10 in Weight 136.078 kg [place] Body Weight (kg) 75.45 BMI 43.0 Weight change and time frame None provided at admission. Weight Status Morbidly Obese Subjective/Other Information RD consult for nutrition education assessment. Pt currently on NPO. Pt is on NIV/Bi-PaP+, O2 saturation @ 98%, according to Vital Signs notes. Pt still in critical condition , not a candidate for Nutrition Education at the time, will assess feasibility on F/U. Percent of energy/protein needs met: Pt currently on NPO. Nutrition Intervention Follow-Up By: 11/29/21 Additional Comments Nutrition education will be provided at F/U, if feasible. Continue monitoring food tolerance, %PO intake of meals , and BM.
--- NOTE | 2021-11-24 19:15 | Consultation ---
History of Present Illness - Reason for Consult Consult date: 11/24/21 - History of Present Illness 86-year-old man past medical history diabetes, CHF, chronic bilateral lower extremity lymphedema presented to hospital complaining of shortness of breath and cough. He also complains of chest tightness. Symptoms began 4 days prior to admission and are worse since onset. He was found to have abdominal distention on admission. Febrile to 103.2 on admission, improved. White count 31 on admission, now 17.6. COVID-negative. Patient with TAMMY with a GFR 41. Procalcitonin very elevated at 97. Urine and blood cultures to gram-negative rods awaiting finalization. Currently on cefepime. Imaging personally reviewed: Chest CTA: No evidence of pulmonary 11. Atelectasis. CT abdomen pelvis: Right ureteral stone with hydronephrosis. Multiple additional bilateral nephroliths large bowel moderately distended Review of Systems: Bold if positive, otherwise negative General: fevers, chills, rigors HEENT: visual disturbance, diplopia, eye pain Respiratory: cough, sputum, hemoptysis, shortness of breath Cardiovascular: chest pain, syncope Gastrointestinal: nausea, vomiting, diarrhea, abdominal pain Genitourinary: dysuria, hematuria, flank pain Musculoskeletal: neck pain, back pain, joint pain, edema Neurologic: headaches, seizures Hematologic: easy bruising or bleeding Endocrine: night sweats, acute weight loss Skin: rash, jaundice, redness Psychiatric: suicidal, homicidal ideation Past History Past Medical History: diabetes, heart failure, hypertension, hypothyroidism, other (Gout,Lymphedema) Past Surgical History: Other (Abdominal Surgery- Small Bowel Obstruction) Social history: no significant social history Family history: no significant family history Medications and Allergies Allergies Allergy/AdvReac Type Severity Reaction Status Date / Time No Known Allergies Allergy Unverified 11/21/21 23:08 Home Medications Medication Instructions Recorded Confirmed Last Taken Type Furosemide [Lasix] 20 mg PO QDAY 11/22/21 11/22/21 Unknown History Gabapentin [Neurontin] 300 mg PO BID 11/22/21 11/22/21 Unknown History Levothyroxine [Synthroid] 150 mcg PO QAM 11/22/21 11/22/21 Unknown History allopurinoL [Zyloprim] 100 mg PO QDAY 11/22/21 11/22/21 Unknown History amLODIPine [Norvasc] 10 mg PO DAILY 11/22/21 11/22/21 Unknown History lisinopriL [Zestril TAB] 40 mg PO QDAY 11/22/21 11/22/21 Unknown History Active Meds: Active Medications Acetaminophen (Acetaminophen 325 Mg Tab) 650 mg PO Q6H PRN PRN Reason: Pain MILD(1-3)/Fever >100.5/CARREON Last Admin: 11/24/21 09:47 Dose: 650 mg Albuterol (Albuterol 2.5 Mg/3 Ml Nebu) 2.5 mg IH Q4HRT PRN PRN Reason: Shortness Of Breath Allopurinol (Allopurinol 100 Mg Tab) 100 mg PO QDAY [facility] Dextrose (Dextrose 50% In Water (25gm) 50 Ml Syringe) 0 ml IV Q30MIN PRN; Protocol PRN Reason: Hypoglycemia Last Admin: 11/24/21 00:05 Dose: 15 ml Docusate Sodium (Docusate Sodium 100 Mg/10 Ml Oral Liqd) 100 mg PO BID ERIKA Last Admin: 11/24/21 09:23 Dose: 100 mg Gabapentin (Gabapentin 300 Mg Cap) 300 mg PO BID [facility] Heparin Sodium (Porcine) (Heparin 5,000 Unit/1 Ml Vial) 5,000 unit SUB-Q Q8HR ERIKA Last Admin: 11/24/21 15:04 Dose: 5,000 unit Dextrose/Sodium Chloride (D5/0.45ns) 1,000 mls @ 100 mls/hr IV DIRECT ERIKA Stop: 11/25/21 18:59 Last Admin: 11/24/21 12:48 Dose: 100 mls/hr Cefepime HCl (Cefepime/Ns 2 Gm/100 Ml) 2 gm in 100 mls @ 200 mls/hr IV Q12H ERIKA; Protocol Last Admin: 11/24/21 09:23 Dose: 200 mls/hr Insulin Human Lispro (Insulin Lispro 100 Unit/Ml) 0 unit SUB-Q Q6HR [facility]; Protocol Last Admin: 11/24/21 18:21 Dose: Not Given Levothyroxine Sodium (Levothyroxine 150 Mcg Tab) 150 mcg PO QAM@0600 [facility] Magnesium Hydroxide (Magnesium Hydroxide (Mom) Oral Liqd Udc) 30 ml PO Q4H PRN PRN Reason: Constipation Morphine Sulfate (Morphine 2 Mg/1 Ml Inj) 2 mg IV Q4H PRN PRN Reason: Pain, Moderate (4-6) Morphine Sulfate (Morphine 4 Mg/1 Ml Inj) 4 mg IV Q4H PRN PRN Reason: Pain , Severe (7-10) Phenol (Phenol 1.4% 177 Ml Bottle) 1 spray MM PRN PRN PRN Reason: Sore Throat Last Admin: 11/23/21 14:05 Dose: 1 spray Sodium Chloride (Sodium Chloride 0.9% 10 Ml Flush Syringe) 10 ml IV BID ERIKA Last Admin: 11/24/21 09:24 Dose: 10 ml Sodium Chloride (Sodium Chloride 0.9% 10 Ml Flush Syringe) 10 ml IV PRN PRN PRN Reason: LINE FLUSH Physical Examination - Physical Exam Narrative exam: Physical Exam: Constitutional: Alert, cooperative. No acute distress Head, Ears, Nose: Normocephalic, atraumatic. External ears, nose normal Eyes: Conjunctivae/corneas clear. No icterus. No ptosis. Neck: Supple, no meningeal signs Oral: dentition fair, no thrush Cardiovascular: S1, S2 normal. Respiratory: Good air entry, clear to auscultation bilaterally GI: Soft, non-tender; bowel sounds normal. No peritoneal signs. Musculoskeletal: No pedal edema, no cyanosis. Skin: No rash or abscess Hem/Lymphatic: No palpable cervical or supraclavicular nodes. No lymphangitis Psych: Mood ok. Affect normal Neurological: Awake, alert, oriented. No gross abnormality - Constitutional Vitals: Vital Signs Temp Pulse Resp BP Pulse Ox 97.8 F 72 21 144/67 90 11/23/21 23:45 11/24/21 18:00 11/24/21 18:00 11/24/21 18:00 11/24/21 18:00 Temperature -Last 24 Hours Temperature 97.8 F Temperature 99.2 F Results - Labs CBC & Chem 7: 11/24/21 04:26 11/24/21 04:26 Labs: Abnormal lab results 11/24/21 11/24/21 11/24/21 Range/Units 00:03 00:22 04:26 WBC 17.6 H (4.5-11.0) K/mm3 MCHC 31 L (32-34) % Plt Count 95 L (140-440) K/mm3 Potassium (3.6-5.0) mmol/L BUN (9-20) mg/dL Creatinine (0.8-1.3) mg/dL Glucose (75-100) mg/dL POC Glucose 65 L 123 H (70-105) mg/dL 11/24/21 11/24/21 11/24/21 Range/Units 04:26 11:44 16:32 WBC (4.5-11.0) K/mm3 MCHC (32-34) % Plt Count (140-440) K/mm3 Potassium 5.2 H (3.6-5.0) mmol/L BUN 38 H (9-20) mg/dL Creatinine 1.9 H (0.8-1.3) mg/dL Glucose 108 H (75-100) mg/dL POC Glucose 122 H 120 H (70-105) mg/dL Assessment and Plan Cultures: Blood culture gram-negative magaly Urine culture gram-negative magaly A/P: 86-year-old man past medical history diabetes, CHF, chronic bilateral lower extremity lymphedema #Sepsis: Present with fevers, leukocytosis. Secondary to bacteremia and pyelonephritis #Gram-negative magaly bacteremia: Awaiting finalization. Secondary to pyelonephritis #Pyelonephritis: With obstructing stone. Stent in place. #TAMMY: Renally dose medications Recs: -Continue cefepime renally dosed -If cultures sensitive, ideally discharge with 10 days of Levaquin -Follow-up cultures Thank you for the consult, we will continue to follow. MD Laureen [facility] O: [phone] F: [phone]
[2021-11-24] MEDS: GABAPENTIN 300 MG CAP PO SCH (21:12)
[2021-11-25] MEDS: INSULIN LISPRO 100 UNIT/ML SUB-Q SCH ×3 (00:25→13:45)
[2021-11-25] MEDS: HEPARIN 5,000 UNIT/1 ML VIAL SUB-Q SCH ×3 (05:52→21:53)
[2021-11-25] MEDS: LEVOTHYROXINE 150 MCG TAB PO SCH (05:53)
--- NOTE | 2021-11-25 09:52 | Progress Note ---
Assessment and Plan Impression: * Nonoliguric acute kidney injury on ?underlying CKD --No previous labs available * Urosepsis * GNR bacteremia * GNR UTI * Acute hypoxic respiratory failure secondary to pulmonary edema vs other * Right ureteral calculus with associated hydronephrosis --s/p Cystoscopy, ureteroscopy w/ stent placement * Obstructive uropathy secondary to ureteral calculus * Partial bowel obstruction * Congestive heart failure * Hypercalcemia Plan: * AM labs are pending * Abx per primary team * Restrict dietary K intake * Urology and Cardiology recommendations noted * Mccloud management per urology * Avoid potential nephrotoxins * Dose medications for renal function * AM labs Subjective Date of service: 11/25/21 Principal diagnosis: sepsis Interval history: Patient has no complaints Objective - Vital Signs Vital signs: Vital Signs - 12hr 11/24/21 11/24/21 11/25/21 22:34 23:29 00:39 Temperature 98.4 F Pulse Rate 69 66 Respiratory 18 20 Rate Blood Pressure 148/81 O2 Sat by Pulse 97 100 95 Oximetry 11/25/21 11/25/21 11/25/21 03:28 04:14 07:26 Temperature 98.0 F 98.2 F Pulse Rate 58 L 60 68 Respiratory 18 18 17 Rate Blood Pressure 140/80 156/74 O2 Sat by Pulse 98 98 95 Oximetry - General Appearance General appearance: well-developed, well-nourished EENT: ATNC Respiratory: Present: Decreased Breath Sounds Cardiology: regular, S1S2 Gastrointestinal: hypoactive bowel sounds, distended - Lab 11/26/21 10:27 11/26/21 07:51 Most recent lab results ABG pH 7.378 pH Units (7.350-7.450) 11/21/21 22:53 ABG pCO2 36.7 mm Hg 11/21/21 22:53 ABG pO2 178.4 mm Hg (80.0-90.0) H 11/21/21 22:53 ABG HCO3 21.1 mmol/L (20.0-26.0) 11/21/21 22:53 ABG O2 Saturation 99.1 % (95.0-99.0) H 11/21/21 22:53 Calcium 9.3 mg/dL (8.4-10.2) 11/24/21 04:26 Urine Creatinine 223.0 mg/dL (0.1-20.0) H 11/23/21 12:05 Urine Sodium 27 mmol/L 11/23/21 12:05 Medications & Allergies - Medications Allergies/Adverse Reactions: Allergies No Known Allergies Allergy (Unverified 11/21/21 23:08) Home Medications: Home Medications Medication Instructions Recorded Confirmed Last Taken Type Furosemide [Lasix] 20 mg PO QDAY 11/22/21 11/22/21 Unknown History Gabapentin [Neurontin] 300 mg PO BID 11/22/21 11/22/21 Unknown History Levothyroxine [Synthroid] 150 mcg PO QAM 11/22/21 11/22/21 Unknown History allopurinoL [Zyloprim] 100 mg PO QDAY 11/22/21 11/22/21 Unknown History amLODIPine [Norvasc] 10 mg PO DAILY 11/22/21 11/22/21 Unknown History lisinopriL [Zestril TAB] 40 mg PO QDAY 11/22/21 11/22/21 Unknown History Active Medications: Generic Name Dose Route Start Last Admin Trade Name Freq PRN Reason Stop Dose Admin Acetaminophen 650 mg 11/22/21 02:08 11/24/21 09:47 Acetaminophen 325 Mg Tab PO 650 mg Q6H PRN Administration Pain MILD(1-3)/Fever >100.5/CARREON Albuterol 2.5 mg 11/22/21 07:02 Albuterol 2.5 Mg/3 Ml Nebu IH Q4HRT PRN Shortness Of Breath Allopurinol 100 mg 11/25/21 10:00 Allopurinol 100 Mg Tab PO QDAY ERIKA Dextrose 0 ml 11/22/21 02:08 11/24/21 00:05 Dextrose 50% In Water (25gm) 50 Ml Syringe IV 15 ml Q30MIN PRN Administration Hypoglycemia Protocol Docusate Sodium 100 mg 11/23/21 22:00 11/24/21 21:11 Docusate Sodium 100 Mg/10 Ml Oral Liqd PO 100 mg BID ERIKA Administration Gabapentin 300 mg 11/24/21 22:00 11/24/21 21:12 Gabapentin 300 Mg Cap PO 300 mg BID ERIKA Administration Heparin Sodium (Porcine) 5,000 unit 11/22/21 22:00 11/25/21 05:52 Heparin 5,000 Unit/1 Ml Vial SUB-Q 5,000 unit Q8HR ERIKA Administration Cefepime HCl 2 gm in 100 mls @ 200 mls/hr 11/23/21 09:00 11/24/21 20:12 Cefepime/Ns 2 Gm/100 Ml IV 200 mls/hr Q12H ERIKA Administration Protocol Insulin Human Lispro 0 unit 11/23/21 12:00 11/25/21 05:53 Insulin Lispro 100 Unit/Ml SUB-Q Not Given Q6HR [facility] Protocol Levothyroxine Sodium 150 mcg 11/25/21 06:00 11/25/21 05:53 Levothyroxine 150 Mcg Tab PO 150 mcg QAM@0600 ERIKA Administration Magnesium Hydroxide 30 ml 11/22/21 02:08 Magnesium Hydroxide (Mom) Oral Liqd Udc PO Q4H PRN Constipation Morphine Sulfate 2 mg 11/22/21 02:08 Morphine 2 Mg/1 Ml Inj IV Q4H PRN Pain, Moderate (4-6) Morphine Sulfate 4 mg 11/22/21 02:08 Morphine 4 Mg/1 Ml Inj IV Q4H PRN Pain , Severe (7-10) Phenol 1 spray 11/23/21 12:34 11/23/21 14:05 Phenol 1.4% 177 Ml Bottle MM 1 spray PRN PRN Administration Sore Throat Sodium Chloride 10 ml 11/22/21 10:00 11/24/21 09:24 Sodium Chloride 0.9% 10 Ml Flush Syringe IV 10 ml BID ERIKA Administration Sodium Chloride 10 ml 11/22/21 02:08 Sodium Chloride 0.9% 10 Ml Flush Syringe IV PRN PRN LINE FLUSH
[2021-11-25] MEDS: DOCUSATE SODIUM 100 MG/10 ML ORAL LIQD PO SCH ×2 (10:44→21:49)
[2021-11-25] MEDS: CEFEPIME/NS 2 GM/100 ML 2 GM/100 ML BAG IV SCH ×2 (10:44→21:49)
[2021-11-25] MEDS: allopurinoL 100 MG TAB PO SCH (10:44)
[2021-11-25] MEDS: GABAPENTIN 300 MG CAP PO SCH ×2 (10:44→21:49)
--- NOTE | 2021-11-25 11:34 | Progress Note ---
Assessment and Plan Assessment and plan: History Interval history: This is a 86 year old male with DM, CHF, BLE lymphedema, HTN, hypothyroidism, gout, abdnominal surgery with SBO who presents to the emergency department on 06/22 with complaints of shortness of breath, cough, chest tightness with coughing ongoing for the past few days. In the emergency department he stated he had SBO in the past with surgery however later distended upon admission but the patient stated his last bowel movement was about 24 hours prior to admission. Work-up in the emergency department showed acute kidney injury, abdominal x-ray revealed colonic ileus or constipation, CT abdomen/pelvis showed multiple bilateral nephrolithiasis, 6 mm proximal right ureteral stone with associated hydronephrosis, possible partial occlusion [mildly distended with gas at the point of suture line in the mid sigmoid colon. Patient was given Lasix in the ED and placed on BiPAP for respiratory distress. Patient was admitted to the hospitalist service with consults to urology, nephrology, cardiology. Hospital course to date 11/22: CCM consulted, appreciate recommendations. CT abdomen/pelvis showed possible SBO and surgery was consulted. COVID-19 PCR resulted as negative. S/p BiPAP therapy on Venturi mask. Wean as tolerated. 11/23: Worsening renal function noted, started on antibiotics. Urine electrolytes pending, ordered renal US. On Dextrose fluid awaiting GI input on feeding patient. 11/24: Renal function improving, restarted home gabapentin and allopurinol as patient states that he has gout pains to feet. Patient will be transferred to telemetry. 11/25: Afebrile overnight, BP slightly elevated 156/74. Restart home amlodipine, continue to hold lisnopril and lasix due to renal function. GNR in urine and blood culture. Awaiting final speciation and sensitivites. continue cefepime IV. Awaiting AM lab completion. PT assessment pending (note patient admits walking at home with rolling walker at baseline). Will follow nephrology recommendations. Assessment and plan: This is a 86-year-old male with DM, CHF, HTN, hypothyroidism, SBO s/p abdominal surgery admitted with TAMMY, possible SBO, right ureteral calculi with hydronephrosis, obstructive uropathy Neuro: NAD -Reorientation as needed -Maintain sleep-wake cycle -As needed analgesia Cardiac: h/o CHF, HTN -Cardiology consulted, appreciate recommendations -Blood pressure monitoring per protocol -Hold home antihypertenisive medication at this time -Echocardiogram shows LVEF 50 to 55%, mild concentric LVH -Per cardio: -Echo 03/07/2019-1. Left ventricular ejection fraction is 65%. Aortic valve is tricuspid, focally calcified and sclerotic. Mildly dilated left atrium. There is impaired relaxation with normal filling pressure consistent with grade 1 diastolic dysfunction. E/E' indicative of elevated LVEDP. Mild pulmonic valve insufficiency. -No LIBERTY or ARB in setting of TAMMY Respiratory: Acute hypoxic respiratory failure -CCM consulted, appreciate recommendations -s/p bipap -Currently on NC -Pulmonary hygiene -SPO2 monitor per protocol -CTA chest showed no evidence of pulmonary embolism, bilateral dependent regions of low-attenuation was suggestive of atelectasis GI: Possible SBO, h/o SBO with surgery -General surgery consulted, appreciate recommendations -Abdomen pelvis CT showed large bowel is moderate distended with gas to the point of the suture line in the mid sigmoid colon, partial obstruction of the level of the suture line not excluded -PPI -GI soft diet : Acute kidney injury likely on CKD, right ureteral calculus with associated hydronephrosis, obstructive uropathy secondary to ureteral calculus -Nephrology and Urology consulted, appreciate recommendations -CT abd/pelvis showed 6 mm proximal right ureteral stone with associated hydronephrosis, multiple additional bilateral nephroliths -Monitor intake and output -Renally dose medications -Avoid nephrotoxic medications -Renal US pending -Urine lytes pending -s/p Cystoscopy, ureteroscopy w/ stent placement -Trend BMP ID: Sepsis POA, GNR bacteremia, Urinary Tract Infection, Pyelonephrosis -Infectious disease consulted, appreciate recommendations -COVID 19 PUI (-) -f/u blood culture -UA, UC, BC->2/2 BC with GNR -Antibiotic therapy with cefepime IV -Does not endorse costovertebral tenderness -Monitor WBC and temperature curve Endo: h/o Hypothyroidism -Avoid hypoglycemia -SSI -Accu-Cheks ACHS Heme: Elevated ddimer -Trend CBC -Transfuse hemoglobin less than 7 -SCDs to BLE while in bed -Bilateral lower extremity Doppler ultrasound negative for DVT -CTA chest with no PE #Advance care planning Disease education conducted, care plan discussed, diagnoses discussed, prognosis discussed, patient is full code, patient acknowledges understanding and agree with care plan, +30 minutes. History Interval history: No acute complaints. Hospitalist Physical - Physical exam Narrative exam: General appearance: Present: no acute distress - EENT Eyes: Present: PERRL, EOM intact ENT: hearing intact, clear oral mucosa, dentition normal - Neck Neck: Present: normal ROM - Respiratory Respiratory effort: normal Respiratory: bilateral: diminished - Cardiovascular Rhythm: regular Heart Sounds: Present: S1 & S2. Absent: systolic murmur, diastolic murmur - Extremities Extremities: no ischemia, pulses intact, pulses symmetrical, normal temperature, normal color Extremity abnormal: edema Peripheral Pulses: within normal limits - Abdominal General gastrointestinal: soft, non-tender, non-distended, normal bowel sounds - Integumentary Integumentary: Present: warm, dry - Psychiatric Psychiatric: appropriate mood/affect, cooperative - Neurologic Neurologic: CNII-XII intact, no focal deficits, moves all extremities - Allied Health Allied health notes reviewed: nursing, RT, social work - Constitutional Vitals: Temp Pulse Resp BP Pulse Ox 98.2 F 68 17 156/74 95 11/25/21 07:26 11/25/21 07:26 11/25/21 07:26 11/25/21 07:26 11/25/21 07:26 General appearance: Present: no acute distress HEART Score - HEART Score Troponin: Troponin T < 0.010 ng/mL (0.00-0.029) 11/21/21 23:20 Results - Labs CBC & Chem 7: 11/24/21 04:26 11/24/21 04:26 Labs: Laboratory Last Values WBC 17.6 K/mm3 (4.5-11.0) H 11/24/21 04:26 RBC 4.42 M/mm3 (3.65-5.03) 11/24/21 04:26 Hgb 12.4 gm/dl (11.8-15.2) 11/24/21 04:26 Hct 40.1 % (35.5-45.6) D 11/24/21 04:26 MCV 91 fl (84-94) 11/24/21 04:26 MCH 28 pg (28-32) 11/24/21 04:26 MCHC 31 % (32-34) L 11/24/21 04:26 RDW 15.2 % (13.2-15.2) 11/24/21 04:26 Plt Count 95 K/mm3 (140-440) L 11/24/21 04:26 Add Manual Diff Complete 11/23/21 04:38 Total Counted 100 11/23/21 04:38 Seg Neutrophils % [place] 11/21/21 23:20 Seg Neuts % (Manual) 84.0 % (40.0-70.0) H 11/23/21 04:38 Band Neutrophils % 4.0 % 11/23/21 04:38 Lymphocytes % (Manual) 2.0 % (13.4-35.0) L 11/23/21 04:38 Reactive Lymphs % (Man) 0 % 11/23/21 04:38 Monocytes % (Manual) 5.0 % (0.0-7.3) 11/23/21 04:38 Eosinophils % (Manual) 2.0 % (0.0-4.3) 11/23/21 04:38 Basophils % (Manual) 0 % (0.0-1.8) 11/23/21 04:38 Metamyelocytes % 3.0 % 11/23/21 04:38 Myelocytes % 0 % 11/23/21 04:38 Promyelocytes % 0 % 11/23/21 04:38 Blast Cells % 0 % 11/23/21 04:38 Nucleated RBC % Not Reportable 11/23/21 04:38 Seg Neutrophils # Man 26.5 K/mm3 (1.8-7.7) H 11/23/21 04:38 Band Neutrophils # 1.3 K/mm3 11/23/21 04:38 Lymphocytes # (Manual) 0.6 K/mm3 (1.2-5.4) L 11/23/21 04:38 Abs React Lymphs (Man) 0.0 K/mm3 11/23/21 04:38 Monocytes # (Manual) 1.6 K/mm3 (0.0-0.8) H 11/23/21 04:38 Eosinophils # (Manual) 0.6 K/mm3 (0.0-0.4) H 11/23/21 04:38 Basophils # (Manual) 0.0 K/mm3 (0.0-0.1) 11/23/21 04:38 Metamyelocytes # 0.9 K/mm3 11/23/21 04:38 Myelocytes # 0.0 K/mm3 11/23/21 04:38 Promyelocytes # 0.0 K/mm3 11/23/21 04:38 Blast Cells # 0.0 K/mm3 11/23/21 04:38 WBC Morphology Not Reportable 11/23/21 04:38 Hypersegmented Neuts Not Reportable 11/23/21 04:38 Hyposegmented Neuts Not Reportable 11/23/21 04:38 Hypogranular Neuts Not Reportable 11/23/21 04:38 Smudge Cells Not Reportable 11/23/21 04:38 Toxic Granulation Not Reportable 11/23/21 04:38 Toxic Vacuolation Not Reportable 11/23/21 04:38 Dohle Bodies Not Reportable 11/23/21 04:38 Pelger-Huet Anomaly Not Reportable 11/23/21 04:38 Antonio Rods Not Reportable 11/23/21 04:38 Platelet Estimate Consistent w auto 11/23/21 04:38 Clumped Platelets Not Reportable 11/23/21 04:38 Plt Clumps, EDTA Not Reportable 11/23/21 04:38 Large Platelets Not Reportable 11/23/21 04:38 Giant Platelets Not Reportable 11/23/21 04:38 Platelet Satelliting Not Reportable 11/23/21 04:38 Plt Morphology Comment Not Reportable 11/23/21 04:38 RBC Morphology Not Reportable 11/23/21 04:38 Dimorphic RBCs Not Reportable 11/23/21 04:38 Polychromasia Not Reportable 11/23/21 04:38 Hypochromasia Not Reportable 11/23/21 04:38 Poikilocytosis Not Reportable 11/23/21 04:38 Anisocytosis Not Reportable 11/23/21 04:38 Microcytosis Not Reportable 11/23/21 04:38 Macrocytosis Not Reportable 11/23/21 04:38 Spherocytes Not Reportable 11/23/21 04:38 Pappenheimer Bodies Not Reportable 11/23/21 04:38 Sickle Cells Not Reportable 11/23/21 04:38 Target Cells Not Reportable 11/23/21 04:38 Tear Drop Cells Not Reportable 11/23/21 04:38 Ovalocytes Not Reportable 11/23/21 04:38 Helmet Cells Not Reportable 11/23/21 04:38 [place] Bodies Not Reportable 11/23/21 04:38 [place] Rings Not Reportable 11/23/21 04:38 Winter Cells Not Reportable 11/23/21 04:38 Bite Cells Not Reportable 11/23/21 04:38 Crenated Cell Not Reportable 11/23/21 04:38 Elliptocytes Not Reportable 11/23/21 04:38 Acanthocytes (Spur) Not Reportable 11/23/21 04:38 Rouleaux Not Reportable 11/23/21 04:38 Hemoglobin C Crystals Not Reportable 11/23/21 04:38 Schistocytes Not Reportable 11/23/21 04:38 Malaria parasites Not Reportable 11/23/21 04:38 Eric Bodies Not Reportable 11/23/21 04:38 Hem Pathologist Commnt No 11/23/21 04:38 PT 14.8 Sec. (12.2-14.9) 11/21/21 23:20 INR 1.04 (0.87-1.13) 11/21/21 23:20 APTT 31.8 Sec. (24.2-36.6) 11/21/21 23:20 D-Dimer > 82018 ng/mlDDU (0-234) H 11/22/21 23:45 ABG pH 7.378 pH Units (7.350-7.450) 11/21/21 22:53 ABG pCO2 36.7 mm Hg 11/21/21 22:53 ABG pO2 178.4 mm Hg (80.0-90.0) H 11/21/21 22:53 ABG HCO3 21.1 mmol/L (20.0-26.0) 11/21/21 22:53 ABG O2 Saturation 99.1 % (95.0-99.0) H 11/21/21 22:53 ABG O2 Content 21.4 (0.0-44) 11/21/21 22:53 ABG Base Excess -3.4 mmol/L (-2.0-3.0) L 11/21/21 22:53 ABG Hemoglobin 15.4 gm/dl (14.0-18.0) 11/21/21 22:53 ABG Carboxyhemoglobin 1.4 % (0.0-5.0) 11/21/21 22:53 ABG Methemoglobin 0.6 % (0.0-1.5) 11/21/21 22:53 Oxyhemoglobin 97.2 % (95.0-99.0) 11/21/21 22:53 FiO2 70 % 11/21/21 22:53 Sodium 137 mmol/L (137-145) 11/24/21 04:26 Potassium 5.2 mmol/L (3.6-5.0) H 11/24/21 04:26 Chloride 101.9 mmol/L (98-107) 11/24/21 04:26 Carbon Dioxide 22 mmol/L (22-30) 11/24/21 04:26 Anion Gap 18 mmol/L 11/24/21 04:26 BUN 38 mg/dL (9-20) H 11/24/21 04:26 Creatinine 1.9 mg/dL (0.8-1.3) H 11/24/21 04:26 Estimated GFR 41 ml/min 11/24/21 04:26 BUN/Creatinine Ratio 20 % 11/24/21 04:26 Glucose 108 mg/dL (75-100) H 11/24/21 04:26 POC Glucose 109 mg/dL (70-105) H 11/25/21 04:49 Lactic Acid 5.20 mmol/L (0.7-2.0) H* 11/23/21 11:22 Calcium 9.3 mg/dL (8.4-10.2) 11/24/21 04:26 Ferritin 389.2 ng/mL (30.0-300.0) H 11/22/21 23:45 Total Bilirubin 0.60 mg/dL (0.1-1.2) 11/21/21 23:20 Direct Bilirubin < 0.2 mg/dL (0-0.2) 11/21/21 23:20 Indirect Bilirubin 0.4 mg/dL 11/21/21 23:20 AST 60 units/L (5-40) H 11/21/21 23:20 ALT 24 units/L (7-56) 11/21/21 23:20 Alkaline Phosphatase 184 units/L (35-129) H 11/21/21 23:20 Lactate Dehydrogenase 287 units/L (91-180) H 11/22/21 23:45 Troponin T < 0.010 ng/mL (0.00-0.029) 11/21/21 23:20 C-Reactive Protein 20.40 mg/dL (0.00-1.30) H 11/22/21 23:45 NT-Pro-B Natriuret Pep 103.7 pg/mL (0-900) 11/21/21 23:20 Total Protein 7.7 g/dL (6.3-8.2) 11/21/21 23:20 Albumin 4.1 g/dL (3.9-5) 11/21/21 23:20 Albumin/Globulin Ratio 1.1 % 11/21/21 23:20 Procalcitonin 97.57 ng/mL (<0.15) 11/22/21 23:45 Urine Color Yellow (Yellow) 11/22/21 11:47 Urine Turbidity Clear (Clear) 11/22/21 11:47 Specific [place] (Man) 1.010 (1.003-1.030) 11/22/21 11:47 Ur Protein (Man) 1+ mg/dL (Negative) 11/22/21 11:47 Ur Ketones (Man) Negative (Negative) 11/22/21 11:47 Urine Bilirubin (Man) Negative (Negative) 11/22/21 11:47 Urine WBC (Auto) 14.0 /HPF (0.0-6.0) H 11/22/21 11:47 Urine RBC (Auto) 5.0 /HPF (0.0-6.0) 11/22/21 11:47 U Epithel Cells (Auto) 1.0 /HPF (0-13.0) 11/22/21 11:47 Urine Bacteria (Auto) 1+ /HPF (Negative) 11/22/21 11:47 Urine RBC (Manual) Trace (Negative) 11/22/21 11:47 Urine Mucus Few /HPF 11/22/21 11:47 Urine Creatinine 223.0 mg/dL (0.1-20.0) H 11/23/21 12:05 Urine Sodium 27 mmol/L 11/23/21 12:05 Urine Urea Nitrogen 368 11/23/21 12:05 Coronavirus (PCR) Negative (Negative) 11/22/21 11:00 Microbiology: Microbiology 11/22/21 23:45 Peripheral/Venous Blood Culture - Preliminary Gram Negative Jefry 11/22/21 23:45 Peripheral/Venous Blood Culture - Preliminary Gram Negative Jefry 11/22/21 17:20 Urine,Kidney - Right Kidney Urine Culture - Preliminary 11/22/21 15:20 Urine,Kidney - Right Kidney Urine Culture - Preliminary Gram Negative Jefry 11/22/21 11:47 Urine,Clean Catch Urine Culture - Preliminary [place]/IV: Voiding Method Indwelling Catheter Active Medications - Current Medications Current Medications: Generic Name Dose Route Start Last Admin Trade Name Freq PRN Reason Stop Dose Admin Acetaminophen 650 mg 11/22/21 02:08 11/24/21 09:47 Acetaminophen 325 Mg Tab PO 650 mg Q6H PRN Administration Pain MILD(1-3)/Fever >100.5/CARREON Albuterol 2.5 mg 11/22/21 07:02 Albuterol 2.5 Mg/3 Ml Nebu IH Q4HRT PRN Shortness Of Breath Allopurinol 100 mg 11/25/21 10:00 11/25/21 10:44 Allopurinol 100 Mg Tab PO 100 mg QDAY ERIKA Administration Dextrose 0 ml 11/22/21 02:08 11/24/21 00:05 Dextrose 50% In Water (25gm) 50 Ml Syringe IV 15 ml Q30MIN PRN Administration Hypoglycemia Protocol Docusate Sodium 100 mg 11/23/21 22:00 11/25/21 10:44 Docusate Sodium 100 Mg/10 Ml Oral Liqd PO 100 mg BID ERIKA Administration Gabapentin 300 mg 11/24/21 22:00 11/25/21 10:44 Gabapentin 300 Mg Cap PO 300 mg BID ERIKA Administration Heparin Sodium (Porcine) 5,000 unit 11/22/21 22:00 11/25/21 05:52 Heparin 5,000 Unit/1 Ml Vial SUB-Q 5,000 unit Q8HR ERIKA Administration Cefepime HCl 2 gm in 100 mls @ 200 mls/hr 11/23/21 09:00 11/25/21 10:44 Cefepime/Ns 2 Gm/100 Ml IV 200 mls/hr Q12H ERIKA Administration Protocol Insulin Human Lispro 0 unit 11/23/21 12:00 11/25/21 05:53 Insulin Lispro 100 Unit/Ml SUB-Q Not Given Q6HR ERIKA Protocol Levothyroxine Sodium 150 mcg 11/25/21 06:00 11/25/21 05:53 Levothyroxine 150 Mcg Tab PO 150 mcg QAM@0600 ERIKA Administration Magnesium Hydroxide 30 ml 11/22/21 02:08 Magnesium Hydroxide (Mom) Oral Liqd Udc PO Q4H PRN Constipation Morphine Sulfate 2 mg 11/22/21 02:08 Morphine 2 Mg/1 Ml Inj IV Q4H PRN Pain, Moderate (4-6) Morphine Sulfate 4 mg 11/22/21 02:08 Morphine 4 Mg/1 Ml Inj IV Q4H PRN Pain , Severe (7-10) Phenol 1 spray 11/23/21 12:34 11/23/21 14:05 Phenol 1.4% 177 Ml Bottle MM 1 spray PRN PRN Administration Sore Throat Sodium Chloride 10 ml 11/22/21 10:00 11/25/21 10:45 Sodium Chloride 0.9% 10 Ml Flush Syringe IV 10 ml BID ERIKA Administration Sodium Chloride 10 ml 11/22/21 02:08 Sodium Chloride 0.9% 10 Ml Flush Syringe IV PRN PRN LINE FLUSH Nutrition/Malnutrition Assess - Dietary Evaluation Nutrition/Malnutrition Findings: Nutrition Notes Start: 11/22/21 14:36 Freq: Status: Active Protocol: Document 11/22/21 14:36 ALBIN (Rec: 11/22/21 14:47 ALBIN [id number]) Nutrition Notes Need for Assessment generated from: MD Order,Education Initial or Follow up Brief Note Current Diagnosis Diabetes,Hypertension, Respiratory Failure Other Pertinent Diagnosis CHF, Bilateral-LE Lymphedema, Ureteral Stone w/ Hydronephrosos. Current Diet NPO (since 11/22 07:01). Height 5 ft 10 in Weight 136.078 kg [place] Body Weight (kg) 75.45 BMI 43.0 Weight change and time frame None provided at admission. Weight Status Morbidly Obese Subjective/Other Information RD consult for nutrition education assessment. Pt currently on NPO. Pt is on NIV/Bi-PaP+, O2 saturation @ 98%, according to Vital Signs notes. Pt still in critical condition , not a candidate for Nutrition Education at the time, will assess feasibility on F/U. Percent of energy/protein needs met: Pt currently on NPO. Nutrition Intervention Follow-Up By: 11/29/21 Additional Comments Nutrition education will be provided at F/U, if feasible. Continue monitoring food tolerance, %PO intake of meals , and BM.
--- NOTE | 2021-11-25 13:20 | Progress Note ---
Assessment and Plan 86-year-old -[place] male with known history of diabetes mellitus, CHF, bilateral lower extremity lymphedema, Hypothyroidism, Gout presenting to the emergency room complaining of shortness of breath and cough. He also indicated he has been having some tightness in his chest especially have coughing. He denies any chest pain. He denies any fever or chills, no nausea vomiting and no abdominal pain. Symptoms have been ongoing for the past few days. He denies any sick contacts and no recent travel. Upon arrival in the emergency room, patient was in respiratory distress. He was quite tachypneic upon arrival and was placed on nebulizing treatments and BiPAP. His abdomen also looked quite distended upon arrival and he states his abdomen has always been distended and and denies any pain. He states he has had small bowel obstruction in the past for which he has had surgery. Last bowel movement was about 24 hours ago. Work-up in the emergency room ,significant findings were that of creatinine of 1.4 and AST of 60 on the labs. Abdominal x-ray reveals colonic ileus and/or constipation. Chest x-ray shows no active cardiopulmonary disease. CT of the abdomen and pelvis shows multiple bilateral nephroliths. 6 mm pro ximal right ureteral stone with associated hydronephrosis. The large bowel is moderately distended with gas to the point of suture line in the mid sigmoid colon. Partial obstruction at the level of the suture line not excluded. Patient was given some Lasix in the emergency room with significant improvement. Patient says smoked little when he was young otherwise has no history of smoking, alcohol or drug abuse. 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 Not . Has no children. No known drug allergies. Patient awake, weak and is on 2 litres O2. O2 saturation 93%. Has mild shortness of breath at rest. BIPAP stand by in the room. ABG on FIO2 70%. ABG pH 7.378 pH Units (7.350-7.450) 11/21/21 22:53 ABG pCO2 36.7 mm Hg 11/21/21 22:53 ABG pO2 178.4 mm Hg (80.0-90.0) H 11/21/21 22:53 ABG O2 Saturation 99.1 % (95.0-99.0) H 11/21/21 22:53 Recommend to decrease FIO2 to to 30 to 35% and monitor saturation Patient afebrile. Has leukocytosis. Blood pressure 171/85, Pulse 64 , respirations 17. Chest xray 11/21/21 reported No active cardiopulmonary disease. CTA of chest 11/22/[address] evidence for pulmonary embolism. Bilateral dependent regions of low attenuation most suggestive of atelectasis. Venous doppler study of lower extremities 11/22/21 reported Negative for DVT. Patient is on Cefepime, S/C Heparin and albuterol inhalor. Recommend GI Prophylaxis. I spent critical care time of 50 minutes, Obtaining history, review the chart, Examining the patient, review Chest xray, CTA of chest, venous doppler studies of legs, talking to the nursing staff, respiratory therapy and work up plan of treatment in this critically ill patient. - Patient Problems (1) Acute respiratory failure Current Visit: Yes Status: Acute Plan to address problem: O2 2 litres via nasal canula BIPAP stand by in the room. Albuterol inhalor q 6 hours. Continue S/C Heparin. Recommend GI prophylaxis. (2) TAMMY (acute kidney injury) Current Visit: Yes Status: Acute Plan to address problem: Management as per nephrology. (3) Colon distention Current Visit: Yes Status: Acute Plan to address problem: Management as per primary care. (4) HTN (hypertension) Current Visit: Yes Status: Acute Plan to address problem: Management as per primary care. (5) Hydronephrosis Current Visit: Yes Status: Acute Plan to address problem: KIDNEYS/URETERS: 6 mm proximal right ureteral stone at the level of L3-4 interspace. [id number] hydronephrosis of the right kidney. Additional multiple moderately large renal stones are noted within the right kidney. The right kidney additionally demonstrates a hyperdense cyst within the upper pole cortex. Left kidney demonstrates multiple small nephroliths Recommend to consult urology. (6) Lymph edema Current Visit: Yes Status: Acute Plan to address problem: DVT Prophylaxis. Patient is on S/C Heparin. Subjective Date of service: 11/25/21 Principal diagnosis: sepsis Interval history: 86-year-old -[place] male with known history of diabetes mellitus, CHF, bilateral lower extremity lymphedema, Hypothyroidism, Gout presenting to the emergency room complaining of shortness of breath and cough. He also indicated he has been having some tightness in his chest especially have coughing. He den ies any chest pain. He denies any fever or chills, no nausea vomiting and no abdominal pain. Symptoms have been ongoing for the past few days. He denies any sick contacts and no recent travel. Upon arrival in the emergency room, patient was in respiratory distress. He was quite tachypneic upon arrival and was placed on nebulizing treatments and BiPAP. His abdomen also looked quite distended upon arrival and he states his abdomen has always been distended and and denies any pain. He states he has had small bowel obstruction in the past for which he has had surgery. Last bowel movement was about 24 hours ago. Work-up in the emergency room ,significant findings were that of creatinine of 1.4 and AST of 60 on the labs. Abdominal x-ray reveals colonic ileus and/or constipation. Chest x-ray shows no active cardiopulmonary disease. CT of the abdomen and pelvis shows multiple bilateral nephroliths. 6 mm proximal right ureteral stone with associated hydronephrosis. The large bowel is moderately distended with gas to the point of suture line in the mid sigmoid colon. Partial obstruction at the level of the suture line not excluded. Patient was given some Lasix in the emergency room with significant improvement. Patient says smoked little when he was young otherwise has no history of smoking, alcohol or drug abuse. 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 Not . Has no children. No known drug allergies. Patient awake, weak and is on 2 litres O2. O2 saturation 93%. Has mild shortness of breath at rest. BIPAP stand by in the room. ABG on FIO2 70%. ABG pH 7.378 pH Units (7.350-7.450) 11/21/21 22:53 ABG pCO2 36.7 mm Hg 11/21/21 22:53 ABG pO2 178.4 mm Hg (80.0-90.0) H 11/21/21 22:53 ABG O2 Saturation 99.1 % (95.0-99.0) H 11/21/21 22:53 Recommend to decrease FIO2 to to 30 to 35% and monitor saturation Patient afebrile. Has leukocytosis. Blood pressure 171/85, Pulse 64 , respirations 17. Chest xray 11/21/21 reported No active cardiopulmonary disease. CTA of chest 11/22/[address] evidence for pulmonary embolism. Bilateral dependent regions of low attenuation most suggestive of atelectasis. Venous doppler study of lower extremities 11/22/21 reported Negative for DVT. Patient is on Cefepime, S/C Heparin and albuterol inhalor. Recommend GI Prophylaxis. Objective Vital Signs - 12hr 11/25/21 11/25/21 11/25/21 03:28 04:14 07:26 Temperature 98.0 F 98.2 F Pulse Rate 58 L 60 68 Respiratory 18 18 17 Rate Blood Pressure 140/80 156/74 O2 Sat by Pulse 98 98 95 Oximetry 11/25/21 11:35 Temperature Pulse Rate Respiratory Rate Blood Pressure O2 Sat by Pulse 96 Oximetry Constitutional: alert, appears uncomfortable, other (Weak) Eyes: non-icteric ENT: oropharynx moist Neck: supple, no lymphadenopathy, no JVD, other (large circumference) Effort: normal Ascultation: Bilateral: diminished breath sounds Percussion: Bilateral: not dull Cardiovascular: regular rate and rhythm, other (occasional extrasystole's) Gastrointestinal: normoactive bowel sounds, soft, non-tender, other (distended but soft) Integumentary: rash (stasis dermatitis type to legs), other (Changes from lymphedema and Stasis dermatitis.) Extremities: no cyanosis, pulses normal, no ischemia or petechiae, edema Neurologic: non-focal exam (grossly), pupils equal and round, unable to assess Psychiatric: depressed CBC and BMP: 11/24/21 04:26 11/24/21 04:26 ABG, PT/INR, D-dimer: ABG ABG pH 7.378 pH Units (7.350-7.450) 11/21/21 22:53 ABG pCO2 36.7 mm Hg 11/21/21 22:53 ABG pO2 178.4 mm Hg (80.0-90.0) H 11/21/21 22:53 ABG O2 Saturation 99.1 % (95.0-99.0) H 11/21/21 22:53 PT/INR, D-dimer PT 14.8 Sec. (12.2-14.9) 11/21/21 23:20 INR 1.04 (0.87-1.13) 11/21/21 23:20 D-Dimer > 61863 ng/mlDDU (0-234) H 11/22/21 23:45 Abnormal lab findings: Abnormal Labs 11/21/21 11/21/21 11/21/21 22:53 23:20 23:20 WBC RBC 5.34 H Hct 47.1 H MCHC Plt Count Seg Neuts % (Manual) 91.0 H Lymphocytes % (Manual) 5.0 L Seg Neutrophils # Man 8.5 H Lymphocytes # (Manual) 0.5 L Monocytes # (Manual) Eosinophils # (Manual) D-Dimer ABG pO2 178.4 H ABG O2 Saturation 99.1 H ABG Base Excess -3.4 L Sodium 133 L Potassium Carbon Dioxide BUN Creatinine 1.4 H Glucose POC Glucose Lactic Acid Calcium 10.9 H Ferritin AST 60 H Alkaline Phosphatase 184 H Lactate Dehydrogenase C-Reactive Protein Urine WBC (Auto) Urine Creatinine 11/22/21 11/22/21 11/22/21 11:47 23:45 23:45 WBC RBC Hct MCHC Plt Count Seg Neuts % (Manual) Lymphocytes % (Manual) Seg Neutrophils # Man Lymphocytes # (Manual) Monocytes # (Manual) Eosinophils # (Manual) D-Dimer > 14529 H ABG pO2 ABG O2 Saturation ABG Base Excess Sodium Potassium Carbon Dioxide BUN Creatinine Glucose POC Glucose Lactic Acid Calcium Ferritin AST Alkaline Phosphatase Lactate Dehydrogenase 287 H C-Reactive Protein 20.40 H Urine WBC (Auto) 14.0 H Urine Creatinine 11/22/21 11/22/21 11/22/21 23:45 23:45 23:45 WBC 31.0 H RBC 5.24 H Hct 47.2 H MCHC Plt Count 104 L Seg Neuts % (Manual) Lymphocytes % (Manual) Seg Neutrophils # Man Lymphocytes # (Manual) Monocytes # (Manual) Eosinophils # (Manual) D-Dimer ABG pO2 ABG O2 Saturation ABG Base Excess Sodium Potassium Carbon Dioxide BUN Creatinine Glucose POC Glucose Lactic Acid 4.50 H* Calcium Ferritin 389.2 H AST Alkaline Phosphatase Lactate Dehydrogenase C-Reactive Protein Urine WBC (Auto) Urine Creatinine 11/23/21 11/23/21 11/23/21 04:38 04:38 04:38 WBC 31.6 H RBC 5.20 H Hct 47.1 H MCHC 31 L Plt Count 97 L Seg Neuts % (Manual) 84.0 H Lymphocytes % (Manual) 2.0 L Seg Neutrophils # Man 26.5 H Lymphocytes # (Manual) 0.6 L Monocytes # (Manual) 1.6 H Eosinophils # (Manual) 0.6 H D-Dimer ABG pO2 ABG O2 Saturation ABG Base Excess Sodium 136 L Potassium Carbon Dioxide 18 L BUN 31 H Creatinine 2.7 H D Glucose 65 L POC Glucose Lactic Acid 4.50 H* Calcium 10.5 H Ferritin AST Alkaline Phosphatase Lactate Dehydrogenase C-Reactive Protein Urine WBC (Auto) Urine Creatinine 11/23/21 11/23/21 11/23/21 11:22 11:22 12:05 WBC RBC Hct MCHC Plt Count Seg Neuts % (Manual) Lymphocytes % (Manual) Seg Neutrophils # Man Lymphocytes # (Manual) Monocytes # (Manual) Eosinophils # (Manual) D-Dimer ABG pO2 ABG O2 Saturation ABG Base Excess Sodium Potassium Carbon Dioxide BUN 35 H Creatinine 2.7 H Glucose 72 L POC Glucose Lactic Acid 5.20 H* Calcium Ferritin AST Alkaline Phosphatase Lactate Dehydrogenase C-Reactive Protein Urine WBC (Auto) Urine Creatinine 223.0 H 11/23/21 11/24/21 11/24/21 16:24 00:03 00:22 WBC RBC Hct MCHC Plt Count Seg Neuts % (Manual) Lymphocytes % (Manual) Seg Neutrophils # Man Lymphocytes # (Manual) Monocytes # (Manual) Eosinophils # (Manual) D-Dimer ABG pO2 ABG O2 Saturation ABG Base Excess Sodium Potassium Carbon Dioxide BUN Creatinine Glucose POC Glucose 58 L 65 L 123 H Lactic Acid Calcium Ferritin AST Alkaline Phosphatase Lactate Dehydrogenase C-Reactive Protein Urine WBC (Auto) Urine Creatinine 11/24/21 11/24/21 11/24/21 04:26 04:26 11:44 WBC 17.6 H RBC Hct MCHC 31 L Plt Count 95 L Seg Neuts % (Manual) Lymphocytes % (Manual) Seg Neutrophils # Man Lymphocytes # (Manual) Monocytes # (Manual) Eosinophils # (Manual) D-Dimer ABG pO2 ABG O2 Saturation ABG Base Excess Sodium Potassium 5.2 H Carbon Dioxide BUN 38 H Creatinine 1.9 H Glucose 108 H POC Glucose 122 H Lactic Acid Calcium Ferritin AST Alkaline Phosphatase Lactate Dehydrogenase C-Reactive Protein Urine WBC (Auto) Urine Creatinine 11/24/21 11/24/21 11/25/21 16:32 23:30 04:49 WBC RBC Hct MCHC Plt Count Seg Neuts % (Manual) Lymphocytes % (Manual) Seg Neutrophils # Man Lymphocytes # (Manual) Monocytes # (Manual) Eosinophils # (Manual) D-Dimer ABG pO2 ABG O2 Saturation ABG Base Excess Sodium Potassium Carbon Dioxide BUN Creatinine Glucose POC Glucose 120 H 132 H 109 H Lactic Acid Calcium Ferritin AST Alkaline Phosphatase Lactate Dehydrogenase C-Reactive Protein Urine WBC (Auto) Urine Creatinine Chest x-ray: report reviewed, image reviewed CT scan - chest: report reviewed, image reviewed Prior PFT's, U/S of legs: report reviewed, image reviewed Additional Studies: CHEST 1 VIEW 11/21/21 INDICATION / CLINICAL INFORMATION: sob, hx of chf. COMPARISON: None available. FINDINGS: SUPPORT DEVICES: None. HEART / MEDIASTINUM: Heart size is within normal limits. Mediastinal contour demonstrates no significant abnormality. LUNGS / PLEURA: Bibasilar lung opacities thought to reflect atelectasis more prevalent on the left. Mid and upper lungs are clear. BONES: No significant osseous abnormality. ADDITIONAL FINDINGS: No significant additional findings. IMPRESSION: 1. No active cardiopulmonary disease. CTA CHEST WITH CONTRAST 11/22/21 INDICATION / CLINICAL INFORMATION: cp, sob, hx of chf; eval for pulmonary embolism. TECHNIQUE: Axial CT images were obtained through the chest after injection of 100 cc Omnipaque 350 IV contrast. 3 plane MIP and/or 3D reconstructions were produced. All CT scans at this location are performed using CT dose reduction for ALARA by means of automated exposure control. COMPARISON: CT of the abdomen and pelvis same date. FINDINGS: VASCULAR FINDINGS: PULMONARY ARTERY: Pulmonary artery is normal in size. No filling defects are present compatible with pulmonary artery embolus.. THORACIC AORTA: Moderate atherosclerotic calcification without acute abnormality. CORONARY ARTERY CALCIFICATION: Present -- Mild. NONVASCULAR FINDINGS: LOWER NECK: Soft tissues and musculature of the lower neck demonstrate no significant abnormality. The thyroid demonstrates no significant abnormality. HEART: No significant abnormality. MEDIASTINUM / MEERA: No significant abnormality. ESOPHAGUS: No significant abnormality. LYMPH NODES: No adenopathy within the axilla, mediastinum, or meera. LUNGS: Lungs are blurred by motion. Dependent atelectatic changes are noted. PLEURA: No pleural effusion. No pneumothorax. THORACIC SOFT TISSUES: No significant abnormality of the chest wall or upper thoracic musculature. BONES: No significant skeletal abnormalities. ADDITIONAL CHEST FINDINGS: None. UPPER ABDOMEN: Since comparison studies 4 Findings within the abdomen. IMPRESSION: 1. No CT evidence for pulmonary embolism. 2. Bilateral dependent regions of low attenuation most suggestive of atelectasis. DUPLEX DOPPLER LOWER EXTREMITY VEINS, BILATERAL 11/22/21 INDICATION: r/o dvt. Leg swelling. TECHNIQUE: Duplex doppler imaging was performed through the veins of both lower extremities using venous compression and other maneuvers. COMPARISON: None available. FINDINGS: Right Common femoral vein: Negative. Right Superficial femoral vein: Negative. Right Popliteal vein: Negative. Right Calf veins: Negative. Left Common femoral vein: Negative. Left Superficial femoral vein: Negative. Left Popliteal vein: Negative. Left Calf veins: Negative. Additional findings: None. IMPRESSION: Negative for DVT. Allied health notes reviewed: nursing
[2021-11-25] MEDS: amLODIPine 10 MG TAB PO SCH (13:54)
--- NOTE | 2021-11-25 18:09 | Gastroenterology Progress Note ---
Assessment and Plan # Dilated colon - CT showing dilated colon down to sigmoid anastomosis line. 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 - suspect chronic dilation with possible stricture at the anastomosis vs [place] with chronic pseudoobstruction. - Not passing flatus. concerning for ileus in the setting of sepsis. Rec - monitor electrolytes and replete as needed. - avoid narcotics. - cont with bowel regimen with miralax daily and colace. - will discuss with surgery regarding trial of enema/supp. - will follow and monitor clinically. - patient may ultimately need to follow up with his outpatient surgeon at [facility]. - discussed with surgery, Dr. Vanegas. Subjective Date of service: 11/25/21 Principal diagnosis: sepsis Interval history: Patient denies any abdominal pain. Not passing any flatus. No bowel movement. Objective - Constitutional Vitals: Temp Pulse Resp BP Pulse Ox 98.1 F 81 18 156/85 93 11/25/21 16:14 11/25/21 16:14 11/25/21 16:14 11/25/21 16:40 11/25/21 16:14 General appearance: no acute distress - EENT Eyes: EOM intact ENT: hearing intact - Respiratory Respiratory effort: normal - Cardiovascular Rhythm: regular Heart Sounds: Present: S1 & S2 - Gastrointestinal General gastrointestinal: Present: soft, non-tender, distended - Integumentary Integumentary: Present: clear, warm - Neurologic Neurological: alert and oriented x3 - Psychiatric Psychiatric: appropriate mood/affect - Labs CBC & Chem 7: 11/24/21 04:26 11/24/21 04:26 Labs: Laboratory Results - last 24 hr 11/24/21 11/25/21 11/25/21 23:30 04:49 11:41 POC Glucose 132 H 109 H 85 11/25/21 16:15 POC Glucose 121 H
--- NOTE | 2021-11-25 18:11 | Progress Note ---
Assessment and Plan Cultures: Blood culture Citrobacter Urine culture Citrobacter A/P: 86-year-old man past medical history diabetes, CHF, chronic bilateral lower extremity lymphedema #Sepsis: Present with fevers, leukocytosis. Secondary to bacteremia and pyelonephritis #Gram-negative magaly bacteremia: Awaiting finalization. Secondary to pyelonephritis #Pyelonephritis: With obstructing stone. Stent in place. #TAMMY: Renally dose medications Recs: -Continue cefepime renally dosed -ok to discharge with 10 days of Cipro 500mg q12h -Follow-up cultures Thank you for the consult, we will sign off. Please call with questions Heladio Streeter MD [facility] ([facility]) O: [phone] F: [phone] Subjective Date of service: 11/25/21 Principal diagnosis: sepsis Interval history: Afebrile, no acute change. Blood and urine cultures with Citrobacter. Objective - Exam Narrative Exam: Physical Exam: Constitutional: Alert, cooperative. No acute distress Head, Ears, Nose: Normocephalic, atraumatic. External ears, nose normal Eyes: Conjunctivae/corneas clear. No icterus. No ptosis. Neck: Supple, no meningeal signs Oral: dentition fair, no thrush Cardiovascular: S1, S2 normal. Respiratory: Good air entry, clear to auscultation bilaterally GI: Soft, non-tender; bowel sounds normal. No peritoneal signs. Musculoskeletal: No pedal edema, no cyanosis. Skin: No rash or abscess Hem/Lymphatic: No palpable cervical or supraclavicular nodes. No lymphangitis Psych: Mood ok. Affect normal Neurological: Awake, alert, oriented. No gross abnormality - Constitutional Vitals: Vital Signs Temp Pulse Resp BP Pulse Ox 98.1 F 81 18 156/85 93 11/25/21 16:14 11/25/21 16:14 11/25/21 16:14 11/25/21 16:40 11/25/21 16:14 Temperature -Last 24 Hours Temperature 98.1 F Temperature 98.3 F Temperature 98.2 F Temperature 98.0 F Temperature 98.4 F Temperature 98.1 F - Labs CBC & Chem 7: 11/24/21 04:26 11/24/21 04:26 Labs: Abnormal lab results 11/24/21 11/25/2111/25/22 Range/Units 23:30 04:49 16:15 POC Glucose 132 H 109 H 121 H (70-105) mg/dL
[2021-11-25] MEDS: POLYETHYLENE GLYCOL 3350 17 GM POWDER PO SCH (21:49)
[2021-11-26] MEDS: INSULIN LISPRO 100 UNIT/ML SUB-Q SCH ×4 (00:25→23:24)
[2021-11-26] MEDS: LEVOTHYROXINE 150 MCG TAB PO SCH (05:16)
[2021-11-26] MEDS: HEPARIN 5,000 UNIT/1 ML VIAL SUB-Q SCH ×3 (05:17→21:34)
--- NOTE | 2021-11-26 08:34 | Progress Note ---
Assessment and Plan Assessment and plan: History Interval history: This is a 86 year old male with DM, CHF, BLE lymphedema, HTN, hypothyroidism, gout, abdnominal surgery with SBO who presents to the emergency department on 06/22 with complaints of shortness of breath, cough, chest tightness with coughing ongoing for the past few days. In the emergency department he stated he had SBO in the past with surgery however later distended upon admission but the patient stated his last bowel movement was about 24 hours prior to admission. Work-up in the emergency department showed acute kidney injury, abdominal x-ray revealed colonic ileus or constipation, CT abdomen/pelvis showed multiple bilateral nephrolithiasis, 6 mm proximal right ureteral stone with associated hydronephrosis, possible partial occlusion [mildly distended with gas at the point of suture line in the mid sigmoid colon. Patient was given Lasix in the ED and placed on BiPAP for respiratory distress. Patient was admitted to the hospitalist service with consults to urology, nephrology, cardiology. Hospital course to date 11/22: CCM consulted, appreciate recommendations. CT abdomen/pelvis showed possible SBO and surgery was consulted. COVID-19 PCR resulted as negative. S/p BiPAP therapy on Venturi mask. Wean as tolerated. 11/23: Worsening renal function noted, started on antibiotics. Urine electrolytes pending, ordered renal US. On Dextrose fluid awaiting GI input on feeding patient. 11/24: Renal function improving, restarted home gabapentin and allopurinol as patient states that he has gout pains to feet. Patient will be transferred to telemetry. 11/25: Afebrile overnight, BP slightly elevated 156/74. Restart home amlodipine, continue to hold lisnopril and lasix due to renal function. GNR in urine and blood culture. Awaiting final speciation and sensitivites. continue cefepime IV. Awaiting AM lab completion. PT assessment pending (note patient admits walking at home with rolling walker at baseline). Will follow nephrology recommendations. 11/26: BCx: Citrobacter amalonacticus Ucx: Citrobacter Koseri. Sensitive to Levaquin. Will d/c cefepime and start levaquin. OT recommends JOHN after assess ment. Will discuss with CM. Assessment and plan: This is a 86-year-old male with DM, CHF, HTN, hypothyroidism, SBO s/p abdominal surgery admitted with TAMMY, possible SBO, right ureteral calculi with hydronephrosis, obstructive uropathy Neuro: NAD -Reorientation as needed -Maintain sleep-wake cycle -As needed analgesia Cardiac: h/o CHF, HTN -Cardiology consulted, appreciate recommendations -Blood pressure monitoring per protocol -Hold home antihypertenisive medication at this time -Echocardiogram shows LVEF 50 to 55%, mild concentric LVH -Per cardio: -Echo 03/07/2019-1. Left ventricular ejection fraction is 65%. Aortic valve is tricuspid, focally calcified and sclerotic. Mildly dilated left atrium. There is impaired relaxation with normal filling pressure consistent with grade 1 diastolic dysfunction. E/E' indicative of elevated LVEDP. Mild pulmonic valve insufficiency. -No LIBERTY or ARB in setting of TAMMY Respiratory: Acute hypoxic respiratory failure -[facility] consulted, appreciate recommendations -s/p bipap -Currently on NC -Pulmonary hygiene -SPO2 monitor per protocol -CTA chest showed no evidence of pulmonary embolism, bilateral dependent regions of low-attenuation was suggestive of atelectasis GI: Possible SBO, h/o SBO with surgery -General surgery consulted, appreciate recommendations -Abdomen pelvis CT showed large bowel is moderate distended with gas to the point of the suture line in the mid sigmoid colon, partial obstruction of the level of the suture line not excluded -PPI -GI soft diet : Acute kidney injury likely on CKD, right ureteral calculus with associated hydronephrosis, obstructive uropathy secondary to ureteral calculus -Nephrology and Urology consulted, appreciate recommendations -CT abd/pelvis showed 6 mm proximal right ureteral stone with associated hydronephrosis, multiple additional bilateral nephroliths -Monitor intake and output -Renally dose medications -Avoid nephrotoxic medications -Renal US pending -Urine lytes pending -s/p Cystoscopy, ureteroscopy w/ stent placement -Trend BMP ID: Sepsis POA, GNR bacteremia, Urinary Tract Infection, Pyelonephrosis -Infectious disease consulted, appreciate recommendations -COVID 19 PUI (-) -f/u blood culture -UA, UC, BC->2/2 BC with GNR -Antibiotic therapy with cefepime IV -Does not endorse costovertebral tenderness -Monitor WBC and temperature curve Endo: h/o Hypothyroidism -Avoid hypoglycemia -SSI -Accu-Cheks ACHS Heme: Elevated ddimer -Trend CBC -Transfuse hemoglobin less than 7 -SCDs to BLE while in bed -Bilateral lower extremity Doppler ultrasound negative for DVT -CTA chest with no PE #Advance care planning Disease education conducted, care plan discussed, diagnoses discussed, prognosis discussed, patient is full code, patient acknowledges understanding and agree with care plan, +30 minutes. History Interval history: No acute complaints this AM. Patient not eating solid food because he has been experiencing dysphagia for last few months. only drinks soup broths, liquids. Patient also quite weak when attempting ambulation. d/w RN this AM about ST and PT eval. Hospitalist Physical - Physical exam Narrative exam: General appearance: Present: no acute distress - EENT Eyes: Present: PERRL, EOM intact ENT: hearing intact, clear oral mucosa, dentition normal - Neck Neck: Present: normal ROM - Respiratory Respiratory effort: normal Respiratory: bilateral: diminished - Cardiovascular Rhythm: regular Heart Sounds: Present: S1 & S2. Absent: systolic murmur, diastolic murmur - Extremities Extremities: no ischemia, pulses intact, pulses symmetrical, normal temperature, normal color Extremity abnormal: edema Peripheral Pulses: within normal limits - Abdominal General gastrointestinal: soft, non-tender, non-distended, normal bowel sounds - Integumentary Integumentary: Present: warm, dry - Psychiatric Psychiatric: appropriate mood/affect, cooperative - Neurologic Neurologic: CNII-XII intact, no focal deficits, moves all extremities - Allied Health Allied health notes reviewed: nursing, RT, social work - Constitutional Vitals: Temp Pulse Resp BP Pulse Ox 97.7 F 80 18 170/84 94 11/26/21 03:58 11/26/21 04:38 11/26/21 03:58 11/26/21 03:58 11/26/21 03:58 General appearance: Present: no acute distress HEART Score - HEART Score Troponin: Troponin T < 0.010 ng/mL (0.00-0.029) 11/21/21 23:20 Results - Labs CBC & Chem 7: 11/26/21 10:27 11/26/21 07:51 Labs: Laboratory Last Values WBC 17.6 K/mm3 (4.5-11.0) H 11/24/21 04:26 RBC 4.42 M/mm3 (3.65-5.03) 11/24/21 04:26 Hgb 12.4 gm/dl (11.8-15.2) 11/24/21 04:26 Hct 40.1 % (35.5-45.6) D 11/24/21 04:26 MCV 91 fl (84-94) 11/24/21 04:26 MCH 28 pg (28-32) 11/24/21 04:26 MCHC 31 % (32-34) L 11/24/21 04:26 RDW 15.2 % (13.2-15.2) 11/24/21 04:26 Plt Count 95 K/mm3 (140-440) L 11/24/21 04:26 Add Manual Diff Complete 11/23/21 04:38 Total Counted 100 11/23/21 04:38 Seg Neutrophils % Carding Machine Operator 11/21/21 23:20 Seg Neuts % (Manual) 84.0 % (40.0-70.0) H 11/23/21 04:38 Band Neutrophils % 4.0 % 11/23/21 04:38 Lymphocytes % (Manual) 2.0 % (13.4-35.0) L 11/23/21 04:38 Reactive Lymphs % (Man) 0 % 11/23/21 04:38 Monocytes % (Manual) 5.0 % (0.0-7.3) 11/23/21 04:38 Eosinophils % (Manual) 2.0 % (0.0-4.3) 11/23/21 04:38 Basophils % (Manual) 0 % (0.0-1.8) 11/23/21 04:38 Metamyelocytes % 3.0 % 11/23/21 04:38 Myelocytes % 0 % 11/23/21 04:38 Promyelocytes % 0 % 11/23/21 04:38 Blast Cells % 0 % 11/23/21 04:38 Nucleated RBC % Not Reportable 11/23/21 04:38 Seg Neutrophils # Man 26.5 K/mm3 (1.8-7.7) H 11/23/21 04:38 Band Neutrophils # 1.3 K/mm3 11/23/21 04:38 Lymphocytes # (Manual) 0.6 K/mm3 (1.2-5.4) L 11/23/21 04:38 Abs React Lymphs (Man) 0.0 K/mm3 11/23/21 04:38 Monocytes # (Manual) 1.6 K/mm3 (0.0-0.8) H 11/23/21 04:38 Eosinophils # (Manual) 0.6 K/mm3 (0.0-0.4) H 11/23/21 04:38 Basophils # (Manual) 0.0 K/mm3 (0.0-0.1) 11/23/21 04:38 Metamyelocytes # 0.9 K/mm3 11/23/21 04:38 Myelocytes # 0.0 K/mm3 11/23/21 04:38 Promyelocytes # 0.0 K/mm3 11/23/21 04:38 Blast Cells # 0.0 K/mm3 11/23/21 04:38 WBC Morphology Not Reportable 11/23/21 04:38 Hypersegmented Neuts Not Reportable 11/23/21 04:38 Hyposegmented Neuts Not Reportable 11/23/21 04:38 Hypogranular Neuts Not Reportable 11/23/21 04:38 Smudge Cells Not Reportable 11/23/21 04:38 Toxic Granulation Not Reportable 11/23/21 04:38 Toxic Vacuolation Not Reportable 11/23/21 04:38 Dohle Bodies Not Reportable 11/23/21 04:38 Pelger-Huet Anomaly Not Reportable 11/23/21 04:38 Antonio Rods Not Reportable 11/23/21 04:38 Platelet Estimate Consistent w auto 11/23/21 04:38 Clumped Platelets Not Reportable 11/23/21 04:38 Plt Clumps, EDTA Not Reportable 11/23/21 04:38 Large Platelets Not Reportable 11/23/21 04:38 Giant Platelets Not Reportable 11/23/21 04:38 Platelet Satelliting Not Reportable 11/23/21 04:38 Plt Morphology Comment Not Reportable 11/23/21 04:38 RBC Morphology Not Reportable 11/23/21 04:38 Dimorphic RBCs Not Reportable 11/23/21 04:38 Polychromasia Not Reportable 11/23/21 04:38 Hypochromasia Not Reportable 11/23/21 04:38 Poikilocytosis Not Reportable 11/23/21 04:38 Anisocytosis Not Reportable 11/23/21 04:38 Microcytosis Not Reportable 11/23/21 04:38 Macrocytosis Not Reportable 11/23/21 04:38 Spherocytes Not Reportable 11/23/21 04:38 Pappenheimer Bodies Not Reportable 11/23/21 04:38 Sickle Cells Not Reportable 11/23/21 04:38 Target Cells Not Reportable 11/23/21 04:38 Tear Drop Cells Not Reportable 11/23/21 04:38 Ovalocytes Not Reportable 11/23/21 04:38 Helmet Cells Not Reportable 11/23/21 04:38 [place] Bodies Not Reportable 11/23/21 04:38 [place] Rings Not Reportable 11/23/21 04:38 [place] Cells Not Reportable 11/23/21 04:38 Bite Cells Not Reportable 11/23/21 04:38 Crenated Cell Not Reportable 11/23/21 04:38 Elliptocytes Not Reportable 11/23/21 04:38 Acanthocytes (Spur) Not Reportable 11/23/21 04:38 Rouleaux Not Reportable 11/23/21 04:38 Hemoglobin C Crystals Not Reportable 11/23/21 04:38 Schistocytes Not Reportable 11/23/21 04:38 Malaria parasites Not Reportable 11/23/21 04:38 Eric Bodies Not Reportable 11/23/21 04:38 Hem Pathologist Commnt No 11/23/21 04:38 PT 14.8 Sec. (12.2-14.9) 11/21/21 23:20 INR 1.04 (0.87-1.13) 11/21/21 23:20 APTT 31.8 Sec. (24.2-36.6) 11/21/21 23:20 D-Dimer > 25247 ng/mlDDU (0-234) H 11/22/21 23:45 ABG pH 7.378 pH Units (7.350-7.450) 11/21/21 22:53 ABG pCO2 36.7 mm Hg 11/21/21 22:53 ABG pO2 178.4 mm Hg (80.0-90.0) H 11/21/21 22:53 ABG HCO3 21.1 mmol/L (20.0-26.0) 11/21/21 22:53 ABG O2 Saturation 99.1 % (95.0-99.0) H 11/21/21 22:53 ABG O2 Content 21.4 (0.0-44) 11/21/21 22:53 ABG Base Excess -3.4 mmol/L (-2.0-3.0) L 11/21/21 22:53 ABG Hemoglobin 15.4 gm/dl (14.0-18.0) 11/21/21 22:53 ABG Carboxyhemoglobin 1.4 % (0.0-5.0) 11/21/21 22:53 ABG Methemoglobin 0.6 % (0.0-1.5) 11/21/21 22:53 Oxyhemoglobin 97.2 % (95.0-99.0) 11/21/21 22:53 FiO2 70 % 11/21/21 22:53 Sodium 137 mmol/L (137-145) 11/24/21 04:26 Potassium 5.2 mmol/L (3.6-5.0) H 11/24/21 04:26 Chloride 101.9 mmol/L (98-107) 11/24/21 04:26 Carbon Dioxide 22 mmol/L (22-30) 11/24/21 04:26 Anion Gap 18 mmol/L 11/24/21 04:26 BUN 38 mg/dL (9-20) H 11/24/21 04:26 Creatinine 1.9 mg/dL (0.8-1.3) H 11/24/21 04:26 Estimated GFR 41 ml/min 11/24/21 04:26 BUN/Creatinine Ratio 20 % 11/24/21 04:26 Glucose 108 mg/dL (75-100) H 11/24/21 04:26 POC Glucose 107 mg/dL (70-105) H 11/25/21 22:56 Lactic Acid 5.20 mmol/L (0.7-2.0) H* 11/23/21 11:22 Calcium 9.3 mg/dL (8.4-10.2) 11/24/21 04:26 Ferritin 389.2 ng/mL (30.0-300.0) H 11/22/21 23:45 Total Bilirubin 0.60 mg/dL (0.1-1.2) 11/21/21 23:20 Direct Bilirubin < 0.2 mg/dL (0-0.2) 11/21/21 23:20 Indirect Bilirubin 0.4 mg/dL 11/21/21 23:20 AST 60 units/L (5-40) H 11/21/21 23:20 ALT 24 units/L (7-56) 11/21/21 23:20 Alkaline Phosphatase 184 units/L (35-129) H 11/21/21 23:20 Lactate Dehydrogenase 287 units/L (91-180) H 11/22/21 23:45 Troponin T < 0.010 ng/mL (0.00-0.029) 11/21/21 23:20 C-Reactive Protein 20.40 mg/dL (0.00-1.30) H 11/22/21 23:45 NT-Pro-B Natriuret Pep 103.7 pg/mL (0-900) 11/21/21 23:20 Total Protein 7.7 g/dL (6.3-8.2) 11/21/21 23:20 Albumin 4.1 g/dL (3.9-5) 11/21/21 23:20 Albumin/Globulin Ratio 1.1 % 11/21/21 23:20 Procalcitonin 97.57 ng/mL (<0.15) 11/22/21 23:45 Urine Color Yellow (Yellow) 11/22/21 11:47 Urine Turbidity Clear (Clear) 11/22/21 11:47 Specific [place] (Man) 1.010 (1.003-1.030) 11/22/21 11:47 Ur Protein (Man) 1+ mg/dL (Negative) 11/22/21 11:47 Ur Ketones (Man) Negative (Negative) 11/22/21 11:47 Urine Bilirubin (Man) Negative (Negative) 11/22/21 11:47 Urine WBC (Auto) 14.0 /HPF (0.0-6.0) H 11/22/21 11:47 Urine RBC (Auto) 5.0 /HPF (0.0-6.0) 11/22/21 11:47 U Epithel Cells (Auto) 1.0 /HPF (0-13.0) 11/22/21 11:47 Urine Bacteria (Auto) 1+ /HPF (Negative) 11/22/21 11:47 Urine RBC (Manual) Trace (Negative) 11/22/21 11:47 Urine Mucus Few /HPF 11/22/21 11:47 Urine Creatinine 223.0 mg/dL (0.1-20.0) H 11/23/21 12:05 Urine Sodium 27 mmol/L 11/23/21 12:05 Urine Urea Nitrogen 368 11/23/21 12:05 Coronavirus (PCR) Negative (Negative) 11/22/21 11:00 Microbiology: Microbiology 11/22/21 17:20 Urine,Kidney - Right Kidney Urine Culture - Final Citrobacter Koseri 11/22/21 15:20 Urine,Kidney - Right Kidney Urine Culture - Final Citrobacter Koseri 11/22/21 23:45 Peripheral/Venous Blood Culture - Preliminary Citrobacter Amalonaticus 11/22/21 11:47 Urine,Clean Catch Urine Culture - Final 11/22/21 23:45 Peripheral/Venous Blood Culture - Preliminary Citrobacter Amalonaticus Mccloud/IV: Voiding Method Indwelling Catheter Active Medications - Current Medications Current Medications: Generic Name Dose Route Start Last Admin Trade Name Freq PRN Reason Stop Dose Admin Acetaminophen 650 mg 11/22/21 02:08 11/24/21 09:47 Acetaminophen 325 Mg Tab PO 650 mg Q6H PRN Administration Pain MILD(1-3)/Fever >100.5/CARREON Albuterol 2.5 mg 11/22/21 07:02 Albuterol 2.5 Mg/3 Ml Nebu IH Q4HRT PRN Shortness Of Breath Allopurinol 100 mg 11/25/21 10:00 11/25/21 10:44 Allopurinol 100 Mg Tab PO 100 mg QDAY ERIKA Administration Amlodipine Besylate 10 mg 11/25/21 12:00 11/25/21 13:54 Amlodipine 10 Mg Tab PO 10 mg DAILY ERIKA Administration Dextrose 0 ml 11/22/21 02:08 11/24/21 00:05 Dextrose 50% In Water (25gm) 50 Ml Syringe IV 15 ml Q30MIN PRN Administration Hypoglycemia Protocol Docusate Sodium 100 mg 11/23/21 22:00 11/25/21 21:49 Docusate Sodium 100 Mg/10 Ml Oral Liqd PO 100 mg BID ERIKA Administration Gabapentin 300 mg 11/24/21 22:00 11/25/21 21:49 Gabapentin 300 Mg Cap PO 300 mg BID ERIKA Administration Heparin Sodium (Porcine) 5,000 unit 11/22/21 22:00 11/26/21 05:17 Heparin 5,000 Unit/1 Ml Vial SUB-Q 5,000 unit Q8HR ERIKA Administration Insulin Human Lispro 0 unit 11/23/21 12:00 11/26/21 05:15 Insulin Lispro 100 Unit/Ml SUB-Q Not Given Q6HR [facility] Protocol Levofloxacin 500 mg 11/26/21 10:00 Levofloxacin 500 Mg Tab PO 12/02/21 10:01 Q24HR [facility] Protocol Levothyroxine Sodium 150 mcg 11/25/21 06:00 11/26/21 05:16 Levothyroxine 150 Mcg Tab PO 150 mcg QAM@0600 ERIKA Administration Magnesium Hydroxide 30 ml 11/22/21 02:08 Magnesium Hydroxide (Mom) Oral Liqd Udc PO Q4H PRN Constipation Morphine Sulfate 2 mg 11/22/21 02:08 Morphine 2 Mg/1 Ml Inj IV Q4H PRN Pain, Moderate (4-6) Morphine Sulfate 4 mg 11/22/21 02:08 Morphine 4 Mg/1 Ml Inj IV Q4H PRN Pain , Severe (7-10) Phenol 1 spray 11/23/21 12:34 11/23/21 14:05 Phenol 1.4% 177 Ml Bottle MM 1 spray PRN PRN Administration Sore Throat Polyethylene Glycol 17 gm 11/25/21 22:00 11/25/21 21:49 Polyethylene Glycol 3350 17 Gm Powder PO 17 gm BID ERIKA Administration Sodium Chloride 10 ml 11/22/21 10:00 11/25/21 10:45 Sodium Chloride 0.9% 10 Ml Flush Syringe IV 10 ml BID ERIKA Administration Sodium Chloride 10 ml 11/22/21 02:08 Sodium Chloride 0.9% 10 Ml Flush Syringe IV PRN PRN LINE FLUSH Nutrition/Malnutrition Assess - Dietary Evaluation Nutrition/Malnutrition Findings: Nutrition Notes Start: 11/22/21 14:36 Freq: Status: Active Protocol: Document 11/22/21 14:36 ALBIN (Rec: 11/22/21 14:47 ALBIN [id number]) Nutrition Notes Need for Assessment generated from: MD Order,Education Initial or Follow up Brief Note Current Diagnosis Diabetes,Hypertension, Respiratory Failure Other Pertinent Diagnosis CHF, Bilateral-LE Lymphedema, Ureteral Stone w/ Hydronephrosos. Current Diet NPO (since 11/22 07:01). Height 5 ft 10 in Weight 136.078 kg [place] Body Weight (kg) 75.45 BMI 43.0 Weight change and time frame None provided at admission. Weight Status Morbidly Obese Subjective/Other Information RD consult for nutrition education assessment. Pt currently on NPO. Pt is on NIV/Bi-PaP+, O2 saturation @ 98%, according to V[facility] Signs notes. Pt still in critical condition , not a candidate for Nutrition Education at the time, will assess feasibility on F/U. Percent of energy/protein needs met: Pt currently on NPO. Nutrition Intervention Follow-Up By: 11/29/21 Additional Comments Nutrition education will be provided at F/U, if feasible. Continue monitoring food tolerance, %PO intake of meals , and BM.
[2021-11-26 08:41] LABS: BUN/Creatinine Ratio 23; Blood Urea Nitrogen 18 mg/dL (9-20); Calcium 9.8 mg/dL (8.4-10.2); Hemolysis Index 14
[2021-11-26] MEDS: GABAPENTIN 300 MG CAP PO SCH ×2 (09:22→21:34)
[2021-11-26] MEDS: amLODIPine 10 MG TAB PO SCH (09:22)
[2021-11-26] MEDS: allopurinoL 100 MG TAB PO SCH (09:22)
[2021-11-26] MEDS: POLYETHYLENE GLYCOL 3350 17 GM POWDER PO SCH ×2 (09:22→21:35)
[2021-11-26] MEDS: DOCUSATE SODIUM 100 MG/10 ML ORAL LIQD PO SCH ×2 (09:22→21:34)
[2021-11-26] MEDS ORDERED: levoFLOXacin 500 MG TAB PO SCH ×2 (10:00)
[2021-11-26 11:24] LABS: Hematocrit 37.9 % (35.5-45.6); Hemoglobin 12.7 gm/dl (11.8-15.2); Mean Corpuscular HGB Conc 34 % (32-34); Mean Corpuscular Volume 86 fl (84-94); Platelet Count 134 K/mm3 (140-440); Red Blood Count 4.39 M/mm3 (3.65-5.03); Red Cell Distribution Width 14.3 % (13.2-15.2)
[2021-11-26] MEDS ORDERED: levoFLOXacin 250 MG TAB PO SCH (11:30)
--- NOTE | 2021-11-26 12:41 | Progress Note ---
Assessment and Plan 86-year-old -[place] male with known history of diabetes mellitus, CHF, bilateral lower extremity lymphedema, Hypothyroidism, Gout presenting to the emergency room complaining of shortness of breath and cough. He also indicated he has been having some tightness in his chest especially have coughing. He denies any chest pain. He denies any fever or chills, no nausea vomiting and no abdominal pain. Symptoms have been ongoing for the past few days. He denies any sick contacts and no recent travel. Upon arrival in the emergency room, patient was in respiratory distress. He was quite tachypneic upon arrival and was placed on nebulizing treatments and BiPAP. His abdomen also looked quite distended upon arrival and he states his abdomen has always been distended and and denies any pain. He states he has had small bowel obstruction in the past for which he has had surgery. Last bowel movement was about 24 hours ago. Work-up in the emergency room ,significant findings were that of creatinine of 1.4 and AST of 60 on the labs. Abdominal x-ray reveals colonic ileus and/or constipation. Chest x-ray shows no active cardiopulmonary disease. CT of the abdomen and pelvis shows multiple bilateral nephroliths. 6 mm pro ximal right ureteral stone with associated hydronephrosis. The large bowel is moderately distended with gas to the point of suture line in the mid sigmoid colon. Partial obstruction at the level of the suture line not excluded. Patient was given some Lasix in the emergency room with significant improvement. Patient says smoked little when he was young otherwise has no history of smoking, alcohol or drug abuse. 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 Not . Has no children. No known drug allergies. Patient awake, weak and is on 2 litres O2. O2 saturation 95%. says breathing better to day.. BIPAP stand by in the room. ABG on FIO2 70%. ABG pH 7.378 pH Units (7.350-7.450) 11/21/21 22:53 ABG pCO2 36.7 mm Hg 11/21/21 22:53 ABG pO2 178.4 mm Hg (80.0-90.0) H 11/21/21 22:53 ABG O2 Saturation 99.1 % (95.0-99.0) H 11/21/21 22:53 Patient placed on 2 litres o2. O2 saturation running 95%. Patient afebrile. Has no leukocytosis. Blood pressure 170/84, Pulse 78 , respirations 18. Chest xray 11/21/21 reported No active cardiopulmonary disease. CTA of chest 11/22/[address] evidence for pulmonary embolism. Bilateral dependent regions of low attenuation most suggestive of atelectasis. Venous doppler study of lower extremities 11/22/21 reported Negative for DVT. Patient is on Levaquin S/C Heparin and albuterol inhalor. Recommend GI Prophylaxis. I spent critical care time of 35 minutes, Obtaining history, review the chart, Examining the patient, review Chest xray, CTA of chest, venous doppler studies of legs, talking to the nursing staff, respiratory therapy and work up plan of treatment in this critically ill patient. - Patient Problems (1) Acute respiratory failure Current Visit: Yes Status: Acute Plan to address problem: O2 2 litres via nasal canula BIPAP stand by in the room. Albuterol inhalor q 6 hours. Continue S/C Heparin. Recommend GI prophylaxis. (2) TAMMY (acute kidney injury) Current Visit: Yes Status: Acute Plan to address problem: Management as per nephrology. (3) Colon distention Current Visit: Yes Status: Acute Plan to address problem: Management as per primary care. (4) HTN (hypertension) Current Visit: Yes Status: Acute Plan to address problem: Management as per primary care. (5) Hydronephrosis Current Visit: Yes Status: Acute Plan to address problem: KIDNEYS/URETERS: 6 mm proximal right ureteral stone at the level of L3-4 interspace. [id number] hydronephrosis of the right kidney. Additional multiple moderately large renal stones are noted within the right kidney. The right kidney additionally demonstrates a hyperdense cyst within the upper pole cortex. Left kidney demonstrates multiple small nephroliths Recommend to consult urology. (6) Lymph edema Current Visit: Yes Status: Acute Plan to address problem: DVT Prophylaxis. Patient is on S/C Heparin. Subjective Date of service: 11/26/21 Principal diagnosis: sepsis Interval history: 86-year-old -[place] male with known history of diabetes mellitus, CHF, bilateral lower extremity lymphedema, Hypothyroidism, Gout presenting to the emergency room complaining of shortness of breath and cough. He also indicated he has been having some tightness in his chest especially have coughing. He denies any chest pain. He denies any fever or chills, no nausea vomiting and no abdominal pain. Symptoms have been ongoing for the past few days. He denies any sick contacts and no recent travel. Upon arrival in the emergency room, patient was in respiratory distress. He was quite tachypneic upon arrival and was placed on nebulizing treatments and BiPAP. His abdomen also looked quite distended upon arrival and he states his abdomen has always been distended and and denies any pain. He states he has had small bowel obstruction in the past for which he has had surgery. Last bowel movement was about 24 hours ago. Work-up in the emergency room ,significant findings were that of creatinine of 1.4 and AST of 60 on the labs. Abdominal x-ray reveals colonic ileus and/or constipation. Chest x-ray shows no active cardiopulmonary disease. CT of the abdomen and pelvis shows multiple bilateral nephroliths. 6 mm proximal right ureteral stone with associated hydronephrosis. The large bowel is moderately distended with gas to the point of suture line in the mid sigmoid colon. Partial obstruction at the level of the suture line not excluded. Patient was given some Lasix in the emergency room with significant improvement. Patient says smoked little when he was young otherwise has no history of smoking, alcohol or drug abuse. 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 Not . Has no children. No known drug allergies. Patient awake, weak and is on 2 litres O2. O2 saturation 95%. says breathing better to day.. BIPAP stand by in the room. ABG on FIO2 70%. ABG pH 7.378 pH Units (7.350-7.450) 11/21/21 22:53 ABG pCO2 36.7 mm Hg 11/21/21 22:53 ABG pO2 178.4 mm Hg (80.0-90.0) H 11/21/21 22:53 ABG O2 Saturation 99.1 % (95.0-99.0) H 11/21/21 22:53 Patient placed on 2 litres o2. O2 saturation running 95%. Patient afebrile. Has no leukocytosis. Blood pressure 170/84, Pulse 78 , respirations 18. Chest xray 11/21/21 reported No active cardiopulmonary disease. CTA of chest 11/22/[address] evidence for pulmonary embolism. Bilateral dependent regions of low attenuation most suggestive of atelectasis. Venous doppler study of lower extremities 11/22/21 reported Negative for DVT. Patient is on Levaquin, S/C Heparin and albuterol inhalor. Recommend GI Prophylaxis. Objective Vital Signs - 12hr 11/26/21 11/26/21 11/26/21 03:58 04:38 09:22 Temperature 97.7 F Pulse Rate 77 80 Pulse Rate [ From Monitor] Respiratory 18 Rate Blood Pressure 170/84 O2 Sat by Pulse 94 98 Oximetry 11/26/21 10:00 Temperature Pulse Rate Pulse Rate [ 78 From Monitor] Respiratory Rate Blood Pressure O2 Sat by Pulse 95 Oximetry Constitutional: alert, appears uncomfortable, other (Weak) Eyes: non-icteric ENT: oropharynx moist Neck: supple, no lymphadenopathy, no JVD, other (large circumference) Effort: normal Ascultation: Bilateral: diminished breath sounds Percussion: Bilateral: not dull Cardiovascular: regular rate and rhythm, other (occasional extrasystole's) Gastrointestinal: normoactive bowel sounds, soft, non-tender, other (distended but soft) Integumentary: rash (stasis dermatitis type to legs), other (Changes from lymphedema and Stasis dermatitis.) Extremities: no cyanosis, pulses normal, no ischemia or petechiae, edema Neurologic: non-focal exam (grossly), pupils equal and round, unable to assess Psychiatric: depressed CBC and BMP: 11/26/21 10:27 11/26/21 07:51 ABG, PT/INR, D-dimer: ABG ABG pH 7.378 pH Units (7.350-7.450) 11/21/21 22:53 ABG pCO2 36.7 mm Hg 11/21/21 22:53 ABG pO2 178.4 mm Hg (80.0-90.0) H 11/21/21 22:53 ABG O2 Saturation 99.1 % (95.0-99.0) H 11/21/21 22:53 PT/INR, D-dimer PT 14.8 Sec. (12.2-14.9) 11/21/21 23:20 INR 1.04 (0.87-1.13) 11/21/21 23:20 D-Dimer > 33929 ng/mlDDU (0-234) H 11/22/21 23:45 Abnormal lab findings: Abnormal Labs 11/21/21 11/21/21 11/21/21 22:53 23:20 23:20 WBC RBC 5.34 H Hct 47.1 H MCHC Plt Count Seg Neuts % (Manual) 91.0 H Lymphocytes % (Manual) 5.0 L Seg Neutrophils # Man 8.5 H Lymphocytes # (Manual) 0.5 L Monocytes # (Manual) Eosinophils # (Manual) D-Dimer ABG pO2 178.4 H ABG O2 Saturation 99.1 H ABG Base Excess -3.4 L Sodium 133 L Potassium Carbon Dioxide BUN Creatinine 1.4 H Glucose POC Glucose Lactic Acid Calcium 10.9 H Ferritin AST 60 H Alkaline Phosphatase 184 H Lactate Dehydrogenase C-Reactive Protein Urine WBC (Auto) Urine Creatinine 11/22/21 11/22/21 11/22/21 11:47 23:45 23:45 WBC RBC Hct MCHC Plt Count Seg Neuts % (Manual) Lymphocytes % (Manual) Seg Neutrophils # Man Lymphocytes # (Manual) Monocytes # (Manual) Eosinophils # (Manual) D-Dimer > 69461 H ABG pO2 ABG O2 Saturation ABG Base Excess Sodium Potassium Carbon Dioxide BUN Creatinine Glucose POC Glucose Lactic Acid Calcium Ferritin AST Alkaline Phosphatase Lactate Dehydrogenase 287 H C-Reactive Protein 20.40 H Urine WBC (Auto) 14.0 H Urine Creatinine 11/22/21 11/22/21 11/22/21 23:45 23:45 23:45 WBC 31.0 H RBC 5.24 H Hct 47.2 H MCHC Plt Count 104 L Seg Neuts % (Manual) Lymphocytes % (Manual) Seg Neutrophils # Man Lymphocytes # (Manual) Monocytes # (Manual) Eosinophils # (Manual) D-Dimer ABG pO2 ABG O2 Saturation ABG Base Excess Sodium Potassium Carbon Dioxide BUN Creatinine Glucose POC Glucose Lactic Acid 4.50 H* Calcium Ferritin 389.2 H AST Alkaline Phosphatase Lactate Dehydrogenase C-Reactive Protein Urine WBC (Auto) Urine Creatinine 11/23/21 11/23/21 11/23/21 04:38 04:38 04:38 WBC 31.6 H RBC 5.20 H Hct 47.1 H MCHC 31 L Plt Count 97 L Seg Neuts % (Manual) 84.0 H Lymphocytes % (Manual) 2.0 L Seg Neutrophils # Man 26.5 H Lymphocytes # (Manual) 0.6 L Monocytes # (Manual) 1.6 H Eosinophils # (Manual) 0.6 H D-Dimer ABG pO2 ABG O2 Saturation ABG Base Excess Sodium 136 L Potassium Carbon Dioxide 18 L BUN 31 H Creatinine 2.7 H D Glucose 65 L POC Glucose Lactic Acid 4.50 H* Calcium 10.5 H Ferritin AST Alkaline Phosphatase Lactate Dehydrogenase C-Reactive Protein Urine WBC (Auto) Urine Creatinine 11/23/21 11/23/21 11/23/21 11:22 11:22 12:05 WBC RBC Hct MCHC Plt Count Seg Neuts % (Manual) Lymphocytes % (Manual) Seg Neutrophils # Man Lymphocytes # (Manual) Monocytes # (Manual) Eosinophils # (Manual) D-Dimer ABG pO2 ABG O2 Saturation ABG Base Excess Sodium Potassium Carbon Dioxide BUN 35 H Creatinine 2.7 H Glucose 72 L POC Glucose Lactic Acid 5.20 H* Calcium Ferritin AST Alkaline Phosphatase Lactate Dehydrogenase C-Reactive Protein Urine WBC (Auto) Urine Creatinine 223.0 H 11/23/21 11/24/21 11/24/21 16:24 00:03 00:22 WBC RBC Hct MCHC Plt Count Seg Neuts % (Manual) Lymphocytes % (Manual) Seg Neutrophils # Man Lymphocytes # (Manual) Monocytes # (Manual) Eosinophils # (Manual) D-Dimer ABG pO2 ABG O2 Saturation ABG Base Excess Sodium Potassium Carbon Dioxide BUN Creatinine Glucose POC Glucose 58 L 65 L 123 H Lactic Acid Calcium Ferritin AST Alkaline Phosphatase Lactate Dehydrogenase C-Reactive Protein Urine WBC (Auto) Urine Creatinine 11/24/21 11/24/21 11/24/21 04:26 04:26 11:44 WBC 17.6 H RBC Hct MCHC 31 L Plt Count 95 L Seg Neuts % (Manual) Lymphocytes % (Manual) Seg Neutrophils # Man Lymphocytes # (Manual) Monocytes # (Manual) Eosinophils # (Manual) D-Dimer ABG pO2 ABG O2 Saturation ABG Base Excess Sodium Potassium 5.2 H Carbon Dioxide BUN 38 H Creatinine 1.9 H Glucose 108 H POC Glucose 122 H Lactic Acid Calcium Ferritin AST Alkaline Phosphatase Lactate Dehydrogenase C-Reactive Protein Urine WBC (Auto) Urine Creatinine 11/24/21 11/24/21 11/25/21 16:32 23:30 04:49 WBC RBC Hct MCHC Plt Count Seg Neuts % (Manual) Lymphocytes % (Manual) Seg Neutrophils # Man Lymphocytes # (Manual) Monocytes # (Manual) Eosinophils # (Manual) D-Dimer ABG pO2 ABG O2 Saturation ABG Base Excess Sodium Potassium Carbon Dioxide BUN Creatinine Glucose POC Glucose 120 H 132 H 109 H Lactic Acid Calcium Ferritin AST Alkaline Phosphatase Lactate Dehydrogenase C-Reactive Protein Urine WBC (Auto) Urine Creatinine 11/25/21 11/25/21 11/26/21 16:15 22:56 10:27 WBC RBC Hct MCHC Plt Count 134 L Seg Neuts % (Manual) Lymphocytes % (Manual) Seg Neutrophils # Man Lymphocytes # (Manual) Monocytes # (Manual) Eosinophils # (Manual) D-Dimer ABG pO2 ABG O2 Saturation ABG Base Excess Sodium Potassium Carbon Dioxide BUN Creatinine Glucose POC Glucose 121 H 107 H Lactic Acid Calcium Ferritin AST Alkaline Phosphatase Lactate Dehydrogenase C-Reactive Protein Urine WBC (Auto) Urine Creatinine Allied health notes reviewed: nursing
--- NOTE | 2021-11-26 16:43 | Gastroenterology Progress Note ---
Assessment and Plan # Dilated colon - CT showing dilated colon down to sigmoid anastomosis line. 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 - suspect chronic dilation with possible stricture at the anastomosis vs [place] with chronic pseudoobstruction. -Having bowel movements this morning. Rec - monitor electrolytes and replete as needed. - avoid narcotics. - cont with bowel regimen with miralax daily and colace. - patient may ultimately need to follow up with his outpatient surgeon at [facility]. - no plans for endoscopy given having BMs and likely chronic symptoms. - will sign off. discussed with IMS. Subjective Date of service: 11/26/21 Principal diagnosis: sepsis Interval history: Patient had large amount of loose stools this morning. Feels his abdomen is less distended. No nausea or vomiting and tolerating diet. Objective - Constitutional Vitals: Temp Pulse Resp BP Pulse Ox 98.4 F 80 17 179/86 87 11/26/21 15:51 11/26/21 15:51 11/26/21 15:51 11/26/21 15:51 11/26/21 15:51 General appearance: no acute distress - EENT ENT: hearing intact - Respiratory Respiratory effort: normal - Cardiovascular Rhythm: regular Heart Sounds: Present: S1 & S2 - Gastrointestinal General gastrointestinal: Present: soft, non-tender, distended, normal bowel sounds - Neurologic Neurological: alert and oriented x3 - Psychiatric Psychiatric: appropriate mood/affect - Labs CBC & Chem 7: 11/26/21 10:27 11/26/21 07:51 Labs: Laboratory Results - last 24 hr 11/25/21 11/25/21 11/26/21 16:15 22:56 05:07 WBC RBC Hgb Hct MCV MCH MCHC RDW Plt Count Sodium Potassium Chloride Carbon Dioxide Anion Gap BUN Creatinine Estimated GFR BUN/Creatinine Ratio Glucose POC Glucose 121 H 107 H 96 Calcium 11/26/21 11/26/21 11/26/21 07:51 10:27 11:43 WBC 8.0 RBC 4.39 Hgb 12.7 Hct 37.9 MCV 86 MCH 29 MCHC 34 RDW 14.3 Plt Count 134 L Sodium 138 Potassium 3.6 D Chloride 103.9 Carbon Dioxide 25 Anion Gap 13 BUN 18 Creatinine 0.8 D Estimated GFR > 60 BUN/Creatinine Ratio 23 Glucose 79 POC Glucose 128 H Calcium 9.8
[2021-11-26] MEDS: ACETAMINOPHEN 325 MG TAB PO PRN (17:33)
--- NOTE | 2021-11-26 18:34 | Progress Note ---
Assessment and Plan Cultures: Blood culture Citrobacter Urine culture Citrobacter A/P: 86-year-old man past medical history diabetes, CHF, chronic bilateral lower extremity lymphedema #Sepsis: Present with fevers, leukocytosis. Secondary to bacteremia and pyelonephritis #Gram-negative magaly bacteremia: Awaiting finalization. Secondary to pyelonephritis #Pyelonephritis: With obstructing stone. Stent in place. #TAMMY: Renally dose medications Recs: -Continue cefepime renally dosed -ok to discharge with 10 days of Cipro 500mg q12h -Follow-up cultures Thank you for the consult, we will sign off. Please call with questions Heladio Streeter MD [facility] ([facility]) O: [phone] F: [phone] Subjective Date of service: 11/26/21 Principal diagnosis: sepsis Interval history: Afebrile, normal white count. No new issues. Objective - Exam Narrative Exam: Physical Exam: Constitutional: Alert, cooperative. No acute distress Head, Ears, Nose: Normocephalic, atraumatic. External ears, nose normal Eyes: Conjunctivae/corneas clear. No icterus. No ptosis. Neck: Supple, no meningeal signs Oral: dentition fair, no thrush Cardiovascular: S1, S2 normal. Respiratory: Good air entry, clear to auscultation bilaterally GI: Soft, non-tender; bowel sounds normal. No peritoneal signs. Musculoskeletal: No pedal edema, no cyanosis. Skin: No rash or abscess Hem/Lymphatic: No palpable cervical or supraclavicular nodes. No lymphangitis Psych: Mood ok. Affect normal Neurological: Awake, alert, oriented. No gross abnormality - Constitutional Vitals: Vital Signs Temp Pulse Resp BP Pulse Ox 98.4 F 80 17 179/86 87 11/26/21 15:51 11/26/21 15:51 11/26/21 15:51 11/26/21 15:51 11/26/21 15:51 Temperature -Last 24 Hours Temperature 98.4 F Temperature 97.7 F Temperature 98.4 F Temperature 98.8 F - Labs CBC & Chem 7: 11/26/21 10:27 11/26/21 07:51 Labs: Abnormal lab results 11/25/21 11/26/21 11/26/21 Range/Units 22:56 10:27 11:43 Plt Count 134 L (140-440) K/mm3 POC Glucose 107 H 128 H (70-105) mg/dL
[2021-11-27] MEDS: LEVOTHYROXINE 150 MCG TAB PO SCH (05:16)
[2021-11-27] MEDS: HEPARIN 5,000 UNIT/1 ML VIAL SUB-Q SCH ×3 (05:16→22:20)
[2021-11-27] MEDS: INSULIN LISPRO 100 UNIT/ML SUB-Q SCH ×3 (05:17→17:41)
--- NOTE | 2021-11-27 05:31 | Progress Note ---
Assessment and Plan Impression: * Nonoliguric acute kidney injury on ?underlying CKD --No previous labs available * Urosepsis * Citrobacter bacteremia * Citrobacter UTI * Acute hypoxic respiratory failure secondary to pulmonary edema vs other * Right ureteral calculus with associated hydronephrosis --s/p Cystoscopy, ureteroscopy w/ stent placement * Obstructive uropathy secondary to ureteral calculus * Partial bowel obstruction * Congestive heart failure * Hypercalcemia * Lymphedema Plan: * Renal function improved - SCr 0.8mg/dL * Abx per primary team * Restrict dietary K intake * Urology and Cardiology recommendations noted * Mccloud management per urology * Avoid potential nephrotoxins * Dose medications for renal function * AM labs * Will follow perpiherally Subjective Date of service: 11/26/21 Principal diagnosis: sepsis Interval history: Patient has no complaints. Feeling better. Reports stool. Objective - Vital Signs Vital signs: Vital Signs - 12hr 11/26/21 11/26/21 11/26/21 19:46 20:00 20:28 Temperature 97.9 F Pulse Rate 88 85 Respiratory 20 Rate Blood Pressure 164/77 Blood Pressure [Left] O2 Sat by Pulse 88 90 Oximetry 11/26/21 11/27/21 11/27/21 22:21 01:52 01:59 Temperature Pulse Rate 74 69 Respiratory 19 26 H Rate Blood Pressure Blood Pressure [Left] O2 Sat by Pulse 97 98 98 Oximetry 11/27/21 03:28 Temperature 98 F Pulse Rate 64 Respiratory 20 Rate Blood Pressure Blood Pressure 164/83 [Left] O2 Sat by Pulse 99 Oximetry - General Appearance General appearance: well-developed, well-nourished EENT: ATNC Respiratory: Present: Decreased Breath Sounds Cardiology: regular, S1S2 Gastrointestinal: hypoactive bowel sounds, distended Neurologic: alert and oriented x3 Psychiatric: cooperative - Lab 11/26/21 10:27 11/26/21 07:51 Most recent lab results ABG pH 7.378 pH Units (7.350-7.450) 11/21/21 22:53 ABG pCO2 36.7 mm Hg 11/21/21 22:53 ABG pO2 178.4 mm Hg (80.0-90.0) H 11/21/21 22:53 ABG HCO3 21.1 mmol/L (20.0-26.0) 11/21/21 22:53 ABG O2 Saturation 99.1 % (95.0-99.0) H 11/21/21 22:53 Calcium 9.8 mg/dL (8.4-10.2) 11/26/21 07:51 Urine Creatinine 223.0 mg/dL (0.1-20.0) H 11/23/21 12:05 Urine Sodium 27 mmol/L 11/23/21 12:05 Medications & Allergies - Medications Allergies/Adverse Reactions: Allergies No Known Allergies Allergy (Unverified 11/21/21 23:08) Home Medications: Home Medications Medication Instructions Recorded Confirmed Last Taken Type Furosemide [Lasix] 20 mg PO QDAY 11/22/21 11/22/21 Unknown History Gabapentin [Neurontin] 300 mg PO BID 11/22/21 11/22/21 Unknown History Levothyroxine [Synthroid] 150 mcg PO QAM 11/22/21 11/22/21 Unknown History allopurinoL [Zyloprim] 100 mg PO QDAY 11/22/21 11/22/21 Unknown History amLODIPine [Norvasc] 10 mg PO DAILY 11/22/21 11/22/21 Unknown History lisinopriL [Zestril TAB] 40 mg PO QDAY 11/22/21 11/22/21 Unknown History Active Medications: Generic Name Dose Route Start Last Admin Trade Name Feiq PRN Reason Stop Dose Admin Acetaminophen 650 mg 11/22/21 02:08 11/26/21 17:33 Acetaminophen 325 Mg Tab PO 650 mg Q6H PRN Administration Pain MILD(1-3)/Fever >100.5/CARREON Albuterol 2.5 mg 11/22/21 07:02 Albuterol 2.5 Mg/3 Ml Nebu IH Q4HRT PRN Shortness Of Breath Allopurinol 100 mg 11/25/21 10:00 11/26/21 09:22 Allopurinol 100 Mg Tab PO 100 mg QDAY ERIKA Administration Amlodipine Besylate 10 mg 11/25/21 12:00 11/26/21 09:22 Amlodipine 10 Mg Tab PO 10 mg DAILY ERIKA Administration Dextrose 0 ml 11/22/21 02:08 11/24/21 00:05 Dextrose 50% In Water (25gm) 50 Ml Syringe IV 15 ml Q30MIN PRN Administration Hypoglycemia Protocol Docusate Sodium 100 mg 11/23/21 22:00 11/26/21 21:34 Docusate Sodium 100 Mg/10 Ml Oral Liqd PO Not Given BID ERIKA Gabapentin 300 mg 11/24/21 22:00 11/26/21 21:34 Gabapentin 300 Mg Cap PO 300 mg BID ERIKA Administration Heparin Sodium (Porcine) 5,000 unit 11/22/21 22:00 11/27/21 05:16 Heparin 5,000 Unit/1 Ml Vial SUB-Q 5,000 unit Q8HR ERIKA Administration Insulin Human Lispro 0 unit 11/23/21 12:00 11/27/21 05:17 Insulin Lispro 100 Unit/Ml SUB-Q Not Given Q6HR [facility] Protocol Levofloxacin 750 mg 11/27/21 10:00 Levofloxacin 750 Mg Tab PO 12/02/21 10:01 Q24H [facility] Protocol Levothyroxine Sodium 150 mcg 11/25/21 06:00 11/27/21 05:16 Levothyroxine 150 Mcg Tab PO 150 mcg QAM@0600 [facility] Administration Magnesium Hydroxide 30 ml 11/22/21 02:08 Magnesium Hydroxide (Mom) Oral Liqd Udc PO Q4H PRN Constipation Morphine Sulfate 2 mg 11/22/21 02:08 Morphine 2 Mg/1 Ml Inj IV Q4H PRN Pain, Moderate (4-6) Morphine Sulfate 4 mg 11/22/21 02:08 Morphine 4 Mg/1 Ml Inj IV Q4H PRN Pain , Severe (7-10) Phenol 1 spray 11/23/21 12:34 11/23/21 14:05 Phenol 1.4% 177 Ml Bottle MM 1 spray PRN PRN Administration Sore Throat Polyethylene Glycol 17 gm 11/25/21 22:00 11/26/21 21:35 Polyethylene Glycol 3350 17 Gm Powder PO Not Given BID ERIAK Sodium Chloride 10 ml 11/22/21 10:00 11/26/21 21:35 Sodium Chloride 0.9% 10 Ml Flush Syringe IV 10 ml BID ERIKA Administration Sodium Chloride 10 ml 11/22/21 02:08 Sodium Chloride 0.9% 10 Ml Flush Syringe IV PRN PRN LINE FLUSH
[2021-11-27 06:04] LABS: BUN/Creatinine Ratio 18; Blood Urea Nitrogen 16 mg/dL (9-20); Hemolysis Index 7
--- NOTE | 2021-11-27 08:21 | Progress Note ---
Assessment and Plan 86-year-old -Japanese male with known history of diabetes mellitus, CHF, bilateral lower extremity lymphedema, Hypothyroidism, Gout presenting to the emergency room complaining of shortness of breath and cough. He also indicated he has been having some tightness in his chest especially have coughing. He denies any chest pain. He denies any fever or chills, no nausea vomiting and no abdominal pain. Symptoms have been ongoing for the past few days. He denies any sick contacts and no recent travel. Upon arrival in the emergency room, patient was in respiratory distress. He was quite tachypneic upon arrival and was placed on nebulizing treatments and BiPAP. His abdomen also looked quite distended upon arrival and he states his abdomen has always been distended and and denies any pain. He states he has had small bowel obstruction in the past for which he has had surgery. Last bowel movement was about 24 hours ago. Work-up in the emergency room ,significant findings were that of creatinine of 1.4 and AST of 60 on the labs. Abdominal x-ray reveals colonic ileus and/or constipation. Chest x-ray shows no active cardiopulmonary disease. CT of the abdomen and pelvis shows multiple bilateral nephroliths. 6 mm pro ximal right ureteral stone with associated hydronephrosis. The large bowel is moderately distended with gas to the point of suture line in the mid sigmoid colon. Partial obstruction at the level of the suture line not excluded. Patient was given some Lasix in the emergency room with significant improvement. Patient says smoked little when he was young otherwise has no history of smoking, alcohol or drug abuse. 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 Not . Has no children. No known drug allergies. Patient awake, Says breathing better to day. Denies chest pain or cough. Patient is on 2 litres O2. O2 saturation running 93%. BIPAP stand by in the room. ABG on FIO2 70%. ABG pH 7.378 pH Units (7.350-7.450) 11/21/21 22:53 ABG pCO2 36.7 mm Hg 11/21/21 22:53 ABG pO2 178.4 mm Hg (80.0-90.0) H 11/21/21 22:53 ABG O2 Saturation 99.1 % (95.0-99.0) H 11/21/21 22:53 Patient placed on 2 litres O2. O2 saturation running 93%. Patient afebrile. Has no leukocytosis. Blood pressure 158/81, Pulse 68 , respirations 18. Chest xray 11/21/21 reported No active cardiopulmonary disease. CTA of chest 11/22/[address] evidence for pulmonary embolism. Bilateral dependent regions of low attenuation most suggestive of atelectasis. Venous doppler study of lower extremities 11/22/21 reported Negative for DVT. Patient is on Levaquin , S/C Heparin and albuterol inhalor. Recommend GI Prophylaxis. - Patient Problems (1) Acute respiratory failure Current Visit: Yes Status: Acute Plan to address problem: O2 2 litres via nasal canula BIPAP stand by in the room. Albuterol inhalor q 6 hours. Continue S/C Heparin. Recommend GI prophylaxis. (2) TAMMY (acute kidney injury) Current Visit: Yes Status: Acute Plan to address problem: Management as per nephrology. (3) Colon distention Current Visit: Yes Status: Acute Plan to address problem: Management as per primary care. (4) HTN (hypertension) Current Visit: Yes Status: Acute Plan to address problem: Management as per primary care. (5) Hydronephrosis Current Visit: Yes Status: Acute Plan to address problem: KIDNEYS/URETERS: 6 mm proximal right ureteral stone at the level of L3-4 interspace. [id number] hydronephrosis of the right kidney. Additional multiple moderately large renal stones are noted within the right kidney. The right kidney additionally demonstrates a hyperdense cyst within the upper pole cortex. Left kidney demonstrates multiple small nephroliths Urology consulted. (6) Lymph edema Current Visit: Yes Status: Acute Plan to address problem: DVT Prophylaxis. Patient is on S/C Heparin. Subjective Date of service: 11/27/21 Principal diagnosis: sepsis Interval history: 86-year-old -Japanese male with known history of diabetes mellitus, CHF, bilateral lower extremity lymphedema, Hypothyroidism, Gout presenting to the emergency room complaining of shortness of breath and cough. He also indicated he has been having some tightness in his chest especially have coughing. He denies any chest pain. He denies any fever or chills, no nausea vomiting and no abdominal pain. Symptoms have been ongoing for the past few days. He denies any sick contacts and no recent travel. Upon arrival in the emergency room, patient was in respiratory distress. He was quite tachypneic upon arrival and was placed on nebulizing treatments and BiPAP. His abdomen also looked quite distended upon arrival and he states his abdomen has always been distended and and denies any pain. He states he has had small bowel obstruction in the past for which he has had surgery. Last bowel movement was about 24 hours ago. Work-up in the emergency room ,significant findings were that of creatinine of 1.4 and AST of 60 on the labs. Abdominal x-ray reveals colonic ileus and/or constipation. Chest x-ray shows no active cardiopulmonary disease. CT of the abdomen and pelvis shows multiple bilateral nephroliths. 6 mm proximal right ureteral stone with associated hydronephrosis. The large bowel is moderately distended with gas to the point of suture line in the mid sigmoid colon. Partial obstruction at the level of the suture line not excluded. Patient was given some Lasix in the emergency room with significant improvement. Patient says smoked little when he was young otherwise has no history of smoking, alcohol or drug abuse. 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 Not . Has no children. No known drug allergies. Patient awake, Says breathing better to day. Denies chest pain or cough. Patient is on 2 litres O2. O2 saturation running 93%. BIPAP stand by in the room. ABG on FIO2 70%. ABG pH 7.378 pH Units (7.350-7.450) 11/21/21 22:53 ABG pCO2 36.7 mm Hg 11/21/21 22:53 ABG pO2 178.4 mm Hg (80.0-90.0) H 11/21/21 22:53 ABG O2 Saturation 99.1 % (95.0-99.0) H 11/21/21 22:53 Patient placed on 2 litres o2. O2 saturation running 93%. Patient afebrile. Has no leukocytosis. Blood pressure 158/81, Pulse 68 , respirations 18. Chest xray 11/21/21 reported No active cardiopulmonary disease. CTA of chest 11/22/[address] evidence for pulmonary embolism. Bilateral dependent regions of low attenuation most suggestive of atelectasis. Venous doppler study of lower extremities 11/22/21 reported Negative for DVT. Patient is on Levaquin, S/C Heparin and albuterol inhalor. Recommend GI Prophylaxis. Objective Vital Signs - 12hr 11/26/21 11/26/21 11/27/21 20:28 22:21 01:52 Temperature Pulse Rate 74 69 Respiratory 19 26 H Rate Blood Pressure [Left] O2 Sat by Pulse 90 97 98 Oximetry 11/27/21 11/27/21 01:59 03:28 Temperature 98 F Pulse Rate 64 Respiratory 20 Rate Blood Pressure 164/83 [Left] O2 Sat by Pulse 98 99 Oximetry Constitutional: no acute distress, alert Eyes: non-icteric ENT: oropharynx moist Neck: supple, no lymphadenopathy, no JVD, other (large circumference) Effort: normal Ascultation: Bilateral: diminished breath sounds Percussion: Bilateral: not dull Cardiovascular: regular rate and rhythm, other (occasional extrasystole's) Gastrointestinal: normoactive bowel sounds, soft, non-tender, other (distended but soft) Integumentary: rash (stasis dermatitis type to legs), other (Changes from lymphedema and Stasis dermatitis.) Extremities: no cyanosis, pulses normal, no ischemia or petechiae, edema Neurologic: non-focal exam (grossly), pupils equal and round, unable to assess Psychiatric: mood appropriate, affect normal CBC and BMP: 11/26/21 10:27 11/27/21 05:35 ABG, PT/INR, D-dimer: ABG ABG pH 7.378 pH Units (7.350-7.450) 11/21/21 22:53 ABG pCO2 36.7 mm Hg 11/21/21 22:53 ABG pO2 178.4 mm Hg (80.0-90.0) H 11/21/21 22:53 ABG O2 Saturation 99.1 % (95.0-99.0) H 11/21/21 22:53 PT/INR, D-dimer PT 14.8 Sec. (12.2-14.9) 11/21/21 23:20 INR 1.04 (0.87-1.13) 11/21/21 23:20 D-Dimer > 68766 ng/mlDDU (0-234) H 11/22/21 23:45 Abnormal lab findings: Abnormal Labs 11/21/21 11/21/21 11/21/21 22:53 23:20 23:20 WBC RBC 5.34 H Hct 47.1 H MCHC Plt Count Seg Neuts % (Manual) 91.0 H Lymphocytes % (Manual) 5.0 L Seg Neutrophils # Man 8.5 H Lymphocytes # (Manual) 0.5 L Monocytes # (Manual) Eosinophils # (Manual) D-Dimer ABG pO2 178.4 H ABG O2 Saturation 99.1 H ABG Base Excess -3.4 L Sodium 133 L Potassium Carbon Dioxide BUN Creatinine 1.4 H Glucose POC Glucose Lactic Acid Calcium 10.9 H Ferritin AST 60 H Alkaline Phosphatase 184 H Lactate Dehydrogenase C-Reactive Protein Urine WBC (Auto) Urine Creatinine 11/22/21 11/22/21 11/22/21 11:47 23:45 23:45 WBC RBC Hct MCHC Plt Count Seg Neuts % (Manual) Lymphocytes % (Manual) Seg Neutrophils # Man Lymphocytes # (Manual) Monocytes # (Manual) Eosinophils # (Manual) D-Dimer > 05644 H ABG pO2 ABG O2 Saturation ABG Base Excess Sodium Potassium Carbon Dioxide BUN Creatinine Glucose POC Glucose Lactic Acid Calcium Ferritin AST Alkaline Phosphatase Lactate Dehydrogenase 287 H C-Reactive Protein 20.40 H Urine WBC (Auto) 14.0 H Urine Creatinine 11/22/21 11/22/21 11/22/21 23:45 23:45 23:45 WBC 31.0 H RBC 5.24 H Hct 47.2 H MCHC Plt Count 104 L Seg Neuts % (Manual) Lymphocytes % (Manual) Seg Neutrophils # Man Lymphocytes # (Manual) Monocytes # (Manual) Eosinophils # (Manual) D-Dimer ABG pO2 ABG O2 Saturation ABG Base Excess Sodium Potassium Carbon Dioxide BUN Creatinine Glucose POC Glucose Lactic Acid 4.50 H* Calcium Ferritin 389.2 H AST Alkaline Phosphatase Lactate Dehydrogenase C-Reactive Protein Urine WBC (Auto) Urine Creatinine 11/23/21 11/23/21 11/23/21 04:38 04:38 04:38 WBC 31.6 H RBC 5.20 H Hct 47.1 H MCHC 31 L Plt Count 97 L Seg Neuts % (Manual) 84.0 H Lymphocytes % (Manual) 2.0 L Seg Neutrophils # Man 26.5 H Lymphocytes # (Manual) 0.6 L Monocytes # (Manual) 1.6 H Eosinophils # (Manual) 0.6 H D-Dimer ABG pO2 ABG O2 Saturation ABG Base Excess Sodium 136 L Potassium Carbon Dioxide 18 L BUN 31 H Creatinine 2.7 H D Glucose 65 L POC Glucose Lactic Acid 4.50 H* Calcium 10.5 H Ferritin AST Alkaline Phosphatase Lactate Dehydrogenase C-Reactive Protein Urine WBC (Auto) Urine Creatinine 11/23/21 11/23/21 11/23/21 11:22 11:22 12:05 WBC RBC Hct MCHC Plt Count Seg Neuts % (Manual) Lymphocytes % (Manual) Seg Neutrophils # Man Lymphocytes # (Manual) Monocytes # (Manual) Eosinophils # (Manual) D-Dimer ABG pO2 ABG O2 Saturation ABG Base Excess Sodium Potassium Carbon Dioxide BUN 35 H Creatinine 2.7 H Glucose 72 L POC Glucose Lactic Acid 5.20 H* Calcium Ferritin AST Alkaline Phosphatase Lactate Dehydrogenase C-Reactive Protein Urine WBC (Auto) Urine Creatinine 223.0 H 11/23/21 11/24/21 11/24/21 16:24 00:03 00:22 WBC RBC Hct MCHC Plt Count Seg Neuts % (Manual) Lymphocytes % (Manual) Seg Neutrophils # Man Lymphocytes # (Manual) Monocytes # (Manual) Eosinophils # (Manual) D-Dimer ABG pO2 ABG O2 Saturation ABG Base Excess Sodium Potassium Carbon Dioxide BUN Creatinine Glucose POC Glucose 58 L 65 L 123 H Lactic Acid Calcium Ferritin AST Alkaline Phosphatase Lactate Dehydrogenase C-Reactive Protein Urine WBC (Auto) Urine Creatinine 11/24/21 11/24/21 11/24/21 04:26 04:26 11:44 WBC 17.6 H RBC Hct MCHC 31 L Plt Count 95 L Seg Neuts % (Manual) Lymphocytes % (Manual) Seg Neutrophils # Man Lymphocytes # (Manual) Monocytes # (Manual) Eosinophils # (Manual) D-Dimer ABG pO2 ABG O2 Saturation ABG Base Excess Sodium Potassium 5.2 H Carbon Dioxide BUN 38 H Creatinine 1.9 H Glucose 108 H POC Glucose 122 H Lactic Acid Calcium Ferritin AST Alkaline Phosphatase Lactate Dehydrogenase C-Reactive Protein Urine WBC (Auto) Urine Creatinine 11/24/21 11/24/21 11/25/21 16:32 23:30 04:49 WBC RBC Hct MCHC Plt Count Seg Neuts % (Manual) Lymphocytes % (Manual) Seg Neutrophils # Man Lymphocytes # (Manual) Monocytes # (Manual) Eosinophils # (Manual) D-Dimer ABG pO2 ABG O2 Saturation ABG Base Excess Sodium Potassium Carbon Dioxide BUN Creatinine Glucose POC Glucose 120 H 132 H 109 H Lactic Acid Calcium Ferritin AST Alkaline Phosphatase Lactate Dehydrogenase C-Reactive Protein Urine WBC (Auto) Urine Creatinine 11/25/21 11/25/21 11/26/21 16:15 22:56 10:27 WBC RBC Hct MCHC Plt Count 134 L Seg Neuts % (Manual) Lymphocytes % (Manual) Seg Neutrophils # Man Lymphocytes # (Manual) Monocytes # (Manual) Eosinophils # (Manual) D-Dimer ABG pO2 ABG O2 Saturation ABG Base Excess Sodium Potassium Carbon Dioxide BUN Creatinine Glucose POC Glucose 121 H 107 H Lactic Acid Calcium Ferritin AST Alkaline Phosphatase Lactate Dehydrogenase C-Reactive Protein Urine WBC (Auto) Urine Creatinine 11/26/21 11/26/21 11/27/21 11:43 23:15 05:35 WBC RBC Hct MCHC Plt Count Seg Neuts % (Manual) Lymphocytes % (Manual) Seg Neutrophils # Man Lymphocytes # (Manual) Monocytes # (Manual) Eosinophils # (Manual) D-Dimer ABG pO2 ABG O2 Saturation ABG Base Excess Sodium Potassium 3.5 L Carbon Dioxide BUN Creatinine Glucose 103 H POC Glucose 128 H 145 H Lactic Acid Calcium Ferritin AST Alkaline Phosphatase Lactate Dehydrogenase C-Reactive Protein Urine WBC (Auto) Urine Creatinine Allied health notes reviewed: nursing
[2021-11-27] MEDS ORDERED: levoFLOXacin 250 MG TAB PO SCH (10:00)
--- NOTE | 2021-11-27 10:34 | Discharge Summary ---
Providers - Providers Date of Admission: 11/22/21 02:09 Date of discharge: 11/27/21 Attending physician: TEE CHAPA MD 11/22/21 02:09 Consult to Dietitian/Nutrition [CONS] Routine Physician Instructions: Reason For Exam: Reason for Consult: Diet education Consult to Dietitian/Nutrition [CONS] Routine Physician Instructions: Reason For Exam: Reason for Consult: Diet education Consult to Physician [CONS] Routine Comment: Consulting Provider: VIANEY MCKOY Physician Instructions: Reason For Exam: chf exac 11/22/21 06:49 Consult to Physician [CONS] Routine Comment: Consulting Provider: IRA SMITH Physician Instructions: Reason For Exam: TAMMY 11/22/21 07:03 Consult to Physician [CONS] Routine Comment: Consulting Provider: LING COOK Physician Instructions: Reason For Exam: Ureteral stone, hydronephrosis- Urology Notified 11/22/21 10:50 Consult to Physician [CONS] Routine Comment: spoke face to face with dr. baez/[place] Consulting Provider: UMA CORNEJO Physician Instructions: Reason For Exam: resp distress 11/22/21 13:55 Consult to Physician [CONS] Urgent Comment: Consulting Provider: REUBEN GOLDSMITH Physician Instructions: Reason For Exam: Partial Bowel Obstruction 11/22/21 18:46 Consult to Physician [CONS] Routine Comment: already discussed with dr mahmood Consulting Provider: GUCCI MAHMOOD Physician Instructions: Reason For Exam: poss sigmoid anastamotic stricture, flex sig eval 11/23/21 13:37 Consult to Physician [CONS] Routine Comment: call office/[place] Consulting Provider: JJ BONILLA Physician Instructions: Reason For Exam: sepsis? 11/24/21 12:40 Occupational Therapy Evaluate and Treat [CONS] Routine Comment: Reason For Exam: weakness Physical Therapy Evaluation and Treat [CONS] Routine Comment: Reason For Exam: weakness 11/26/21 08:45 Speech Therapy Evaluation and Treat [CONS] Routine Reason For Exam: difficulty swallowing Hospitalization Reason for admission: shortness of breath Condition: Stable Hospital course: Interval history: This is a 86 year old male with DM, CHF, BLE lymphedema, HTN, hypothyroidism, gout, abdnominal surgery with SBO who presents to the emergency department on 06/22 with complaints of shortness of breath, cough, chest tightness with coughing ongoing for the past few days. In the emergency department he stated he had SBO in the past with surgery however later distended upon admission but the patient stated his last bowel movement was about 24 hours prior to admission. Work-up in the emergency department showed acute kidney injury, abdominal x-ray revealed colonic ileus or constipation, CT abdomen/pelvis showed multiple bilateral nephrolithiasis, 6 mm proximal right ureteral stone with associated hydronephrosis, possible partial occlusion [mildly distended with gas at the point of suture line in the mid sigmoid colon. Patient was given Lasix in the ED and placed on BiPAP for respiratory distress. Patient was admitted to the hospitalist service with consults to urology, nephrology, cardiology. Hospital course to date 11/22: CCM consulted, appreciate recommendations. CT abdomen/pelvis showed possible SBO and surgery was consulted. COVID-19 PCR resulted as negative. S/p BiPAP therapy on Venturi mask. Wean as tolerated. 11/23: Worsening renal function noted, started on antibiotics. Urine electrolytes pending, ordered renal US. On Dextrose fluid awaiting GI input on feeding patient. 11/24: Renal function improving, restarted home gabapentin and allopurinol as patient states that he has gout pains to feet. Patient will be transferred to telemetry. 11/25: Afebrile overnight, BP slightly elevated 156/74. Restart home amlodipine, continue to hold lisnopril and lasix due to renal function. GNR in urine and blood culture. Awaiting final speciation and sensitivites. continue cefepime IV. Awaiting AM lab completion. PT assessment pending (note patient admits walking at home with rolling walker at baseline). Will follow nephrology recommendations. 11/26: BCx: Citrobacter amalonacticus Ucx: Citrobacter Koseri. Sensitive to Levaquin. Will d/c cefepime and start levaquin. OT recommends JOHN after assessment. Will discuss with CM. 11/27: ST evaluated patient, no evidence of aspiraiton, recommend mechanically soft chopped diet. Based on OT/PT eval, Pending JOHN/SNF placement. If unable to place, will recommend home with [facility] pt. Medically clear for discharge. Discharge with levaquin rx. He was advised to follow up with OP [facility]illo surgeon re: chronic sbo Assessment and plan: This is a 86-year-old male with DM, CHF, HTN, hypothyroidism, SBO s/p abdominal surgery admitted with TAMMY, possible SBO, right ureteral calculi with hydronephrosis, obstructive uropathy Neuro: NAD -Reorientation as needed -Maintain sleep-wake cycle -As needed analgesia Cardiac: h/o CHF, HTN -Cardiology consulted, appreciate recommendations -Blood pressure monitoring per protocol -Hold home antihypertenisive medication at this time -Echocardiogram shows LVEF 50 to 55%, mild concentric LVH -Per cardio: -Echo 03/07/2019-1. Left ventricular ejection fraction is 65%. Aortic valve is tricuspid, focally calcified and sclerotic. Mildly dilated left atrium. There is impaired relaxation with normal filling pressure consistent with grade 1 diastolic dysfunction. E/E' indicative of elevated LVEDP. Mild pulmonic valve insufficiency. -No LIBERTY or ARB in setting of TAMMY Respiratory: Acute hypoxic respiratory failure -CCM consulted, appreciate recommendations -s/p bipap -Currently on NC -Pulmonary hygiene -SPO2 monitor per protocol -CTA chest showed no evidence of pulmonary embolism, bilateral dependent regions of low-attenuation was suggestive of atelectasis GI: Possible SBO, h/o SBO with surgery -General surgery consulted, appreciate recommendations -Abdomen pelvis CT showed large bowel is moderate distended with gas to the point of the suture line in the mid sigmoid colon, partial obstruction of the level of the suture line not excluded -PPI -GI soft diet : Acute kidney injury likely on CKD, right ureteral calculus with associated hydronephrosis, obstructive uropathy secondary to ureteral calculus -Nephrology and Urology consulted, appreciate recommendations -CT abd/pelvis showed 6 mm proximal right ureteral stone with associated hydronephrosis, multiple additional bilateral nephroliths -Monitor intake and output -Renally dose medications -Avoid nephrotoxic medications -Renal US pending -Urine lytes pending -s/p Cystoscopy, ureteroscopy w/ stent placement -Trend BMP ID: Sepsis POA, GNR bacteremia, Urinary Tract Infection, Pyelonephritis -Infectious disease consulted, appreciate recommendations -COVID 19 PUI (-) -BCx: Citrobacter amalonacticus Ucx: Citrobacter Koseri. Sensitive to Levaquin. -Antibiotic therapy with levaquin -Does not endorse costovertebral tenderness -Monitor WBC and temperature curve Endo: h/o Hypothyroidism -Avoid hypoglycemia -SSI -Accu-Cheks ACHS Heme: Elevated ddimer -Trend CBC -Transfuse hemoglobin less than 7 -SCDs to BLE while in bed -Bilateral lower extremity Doppler ultrasound negative for DVT -CTA chest with no PE #Advance care planning Disease education conducted, care plan discussed, diagnoses discussed, prognosis discussed, patient is full code, patient acknowledges understanding and agree with care plan, +30 minutes. Disposition: 03 [facility] Final Discharge Diagnosis (Prints w/discharge instructions): urinary tract infection, sepsis, pyelonephritis, acute kidney injury, right ureteral calculus with associated hydronephrosis, obstructive uropathy, chornic small bowel obstruction. Time spent for discharge: 35 Core Measure Documentation - Palliative Care Palliative Care/ Comfort Measures: Not Applicable - Core Measures Any of the following diagnoses?: none Exam - Physical Exam Narrative exam: General appearance: Present: no acute distress - EENT Eyes: Present: PERRL, EOM intact ENT: hearing intact, clear oral mucosa, dentition normal - Neck Neck: Present: normal ROM - Respiratory Respiratory effort: normal Respiratory: bilateral: diminished - Cardiovascular Rhythm: regular Heart Sounds: Present: S1 & S2. Absent: systolic murmur, diastolic murmur - Extremities Extremities: no ischemia, pulses intact, pulses symmetrical, normal temperature, normal color Extremity abnormal: edema Peripheral Pulses: within normal limits - Abdominal General gastrointestinal: soft, non-tender, non-distended, normal bowel sounds - Integumentary Integumentary: Present: warm, dry - Psychiatric Psychiatric: appropriate mood/affect, cooperative - Neurologic Neurologic: CNII-XII intact, no focal deficits, moves all extremities - Allied Health Allied health notes reviewed: nursing, RT, social work - Constitutional Vitals: Temp Pulse Resp BP Pulse Ox 98 F 64 20 164/83 93 11/27/21 03:28 11/27/21 03:28 11/27/21 03:28 11/27/21 03:28 11/27/21 08:41 Plan Follow up with: TYSON GALLOWAY [Other] - 7 Days
[2021-11-27] MEDS: amLODIPine 10 MG TAB PO SCH (10:51)
[2021-11-27] MEDS: levoFLOXacin 750 MG TAB PO SCH (10:51)
[2021-11-27] MEDS: allopurinoL 100 MG TAB PO SCH (10:52)
[2021-11-27] MEDS: DOCUSATE SODIUM 100 MG/10 ML ORAL LIQD PO SCH ×2 (10:52→22:20)
[2021-11-27] MEDS: GABAPENTIN 300 MG CAP PO SCH ×2 (10:52→22:21)
[2021-11-27] MEDS: POLYETHYLENE GLYCOL 3350 17 GM POWDER PO SCH ×2 (10:52→22:20)
[2021-11-28] MEDS: INSULIN LISPRO 100 UNIT/ML SUB-Q SCH ×3 (00:36→13:58)
[2021-11-28 05:20] LABS: Blood Urea Nitrogen 14 mg/dL (9-20); Calcium 10.5 mg/dL (8.4-10.2); Hemolysis Index 1
[2021-11-28] MEDS: LEVOTHYROXINE 150 MCG TAB PO SCH (05:25)
[2021-11-28] MEDS: HEPARIN 5,000 UNIT/1 ML VIAL SUB-Q SCH ×3 (05:25→22:56)
[2021-11-28 05:34] LABS: BUN/Creatinine Ratio 20
--- NOTE | 2021-11-28 08:52 | Progress Note ---
Assessment and Plan Assessment and plan: History Interval history: This is a 86 year old male with DM, CHF, BLE lymphedema, HTN, hypothyroidism, gout, abdnominal surgery with SBO who presents to the emergency department on 06/22 with complaints of shortness of breath, cough, chest tightness with coughing ongoing for the past few days. In the emergency department he stated he had SBO in the past with surgery however later distended upon admission but the patient stated his last bowel movement was about 24 hours prior to admission. Work-up in the emergency department showed acute kidney injury, abdominal x-ray revealed colonic ileus or constipation, CT abdomen/pelvis showed multiple bilateral nephrolithiasis, 6 mm proximal right ureteral stone with associated hydronephrosis, possible partial occlusion [mildly distended with gas at the point of suture line in the mid sigmoid colon. Patient was given Lasix in the ED and placed on BiPAP for respiratory distress. Patient was admitted to the hospitalist service with consults to urology, nephrology, cardiology. Hospital course to date 11/22: CCM consulted, appreciate recommendations. CT abdomen/pelvis showed possible SBO and surgery was consulted. COVID-19 PCR resulted as negative. S/p BiPAP therapy on Venturi mask. Wean as tolerated. 11/23: Worsening renal function noted, started on antibiotics. Urine electrolytes pending, ordered renal US. On Dextrose fluid awaiting GI input on feeding patient. 11/24: Renal function improving, restarted home gabapentin and allopurinol as patient states that he has gout pains to feet. Patient will be transferred to telemetry. 11/25: Afebrile overnight, BP slightly elevated 156/74. Restart home amlodipine, continue to hold lisnopril and lasix due to renal function. GNR in urine and blood culture. Awaiting final speciation and sensitivites. continue cefepime IV. Awaiting AM lab completion. PT assessment pending (note patient admits walking at home with rolling walker at baseline). Will follow nephrology recommendations. 11/26: BCx: Citrobacter amalonacticus Ucx: Citrobacter Koseri. Sensitive to Levaquin. Will d/c cefepime and start levaquin. OT recommends JOHN after assess ment. Will discuss with CM. 11/27: ST evaluated patient, no evidence of aspiraiton, recommend mechanically soft chopped diet. Based on OT/PT eval, Pending JOHN/SNF placement. If unable to place, will recommend home with the [facility] pt. Medically clear for discharge. Discharge with levaquin rx. He was advised to follow up with OP reddick surgeon re: chronic sbo 11/28: Added guafenisen for cough. Awaiting placement. Assessment and plan: This is a 86-year-old male with DM, CHF, HTN, hypothyroidism, SBO s/p abdominal surgery admitted with TAMMY, possible SBO, right ureteral calculi with hydronephrosis, obstructive uropathy Neuro: NAD -Reorientation as needed -Maintain sleep-wake cycle -As needed analgesia Cardiac: h/o CHF, HTN -Cardiology consulted, appreciate recommendations -Blood pressure monitoring per protocol -Hold home antihypertenisive medication at this time -Echocardiogram shows LVEF 50 to 55%, mild concentric LVH -Per cardio: -Echo 03/07/2019-1. Left ventricular ejection fraction is 65%. Aortic valve is tricuspid, focally calcified and sclerotic. Mildly dilated left atrium. There is impaired relaxation with normal filling pressure consistent with grade 1 diastolic dysfunction. E/E' indicative of elevated LVEDP. Mild pulmonic valve insufficiency. -No LIBERTY or ARB in setting of TAMMY Respiratory: Acute hypoxic respiratory failure -CCM consulted, appreciate recommendations -s/p bipap -Currently on NC -Pulmonary hygiene -SPO2 monitor per protocol -CTA chest showed no evidence of pulmonary embolism, bilateral dependent regions of low-attenuation was suggestive of atelectasis GI: Possible SBO, h/o SBO with surgery -General surgery consulted, appreciate recommendations -Abdomen pelvis CT showed large bowel is moderate distended with gas to the point of the suture line in the mid sigmoid colon, partial obstruction of the level of the suture line not excluded -PPI -GI soft diet : Acute kidney injury likely on CKD, right ureteral calculus with associated hydronephrosis, obstructive uropathy secondary to ureteral calculus -Nephrology and Urology consulted, appreciate recommendations -CT abd/pelvis showed 6 mm proximal right ureteral stone with associated hydronephrosis, multiple additional bilateral nephroliths -Monitor intake and output -Renally dose medications -Avoid nephrotoxic medications -Renal US pending -Urine lytes pending -s/p Cystoscopy, ureteroscopy w/ stent placement -Trend BMP ID: Sepsis POA, GNR bacteremia, Urinary Tract Infection, Pyelonephrosis -Infectious disease consulted, appreciate recommendations -COVID 19 PUI (-) -f/u blood culture -UA, UC, BC->2/2 BC with GNR -Antibiotic therapy with cefepime IV -Does not endorse costovertebral tenderness -Monitor WBC and temperature curve Endo: h/o Hypothyroidism -Avoid hypoglycemia -SSI -Accu-Cheks ACHS Heme: Elevated ddimer -Trend CBC -Transfuse hemoglobin less than 7 -SCDs to BLE while in bed -Bilateral lower extremity Doppler ultrasound negative for DVT -CTA chest with no PE #Advance care planning Disease education conducted, care plan discussed, diagnoses discussed, prognosis discussed, patient is full code, patient acknowledges understanding and agree w [facility] care plan, +30 minutes. History Interval history: complaint of cough this AM. no acute symptoms otherwise. Hospitalist Physical - Physical exam Narrative exam: General appearance: Present: no acute distress - EENT Eyes: Present: PERRL, EOM intact ENT: hearing intact, clear oral mucosa, dentition normal - Neck Neck: Present: normal ROM - Respiratory Respiratory effort: normal Respiratory: bilateral: diminished - Cardiovascular Rhythm: regular Heart Sounds: Present: S1 & S2. Absent: systolic murmur, diastolic murmur - Extremities Extremities: no ischemia, pulses intact, pulses symmetrical, normal temperature, normal color Extremity abnormal: edema Peripheral Pulses: within normal limits - Abdominal General gastrointestinal: soft, non-tender, non-distended, normal bowel sounds - Integumentary Integumentary: Present: warm, dry - Psychiatric Psychiatric: appropriate mood/affect, cooperative - Neurologic Neurologic: CNII-XII intact, no focal deficits, moves all extremities - Allied Health Allied health notes reviewed: nursing, RT, social work - Constitutional Vitals: Temp Pulse Resp BP Pulse Ox 97.9 F 80 18 157/84 95 11/27/21 22:25 11/28/21 08:15 11/28/21 08:15 11/28/21 08:15 11/28/21 08:15 General appearance: Present: no acute distress HEART Score - HEART Score Troponin: Troponin T < 0.010 ng/mL (0.00-0.029) 11/21/21 23:20 Results - Labs CBC & Chem 7: 11/26/21 10:27 11/28/21 04:29 Labs: Laboratory Last Values WBC 8.0 K/mm3 (4.5-11.0) 11/26/21 10:27 RBC 4.39 M/mm3 (3.65-5.03) 11/26/21 10:27 Hgb 12.7 gm/dl (11.8-15.2) 11/26/21 10:27 Hct 37.9 % (35.5-45.6) 11/26/21 10:27 MCV 86 fl (84-94) 11/26/21 10:27 MCH 29 pg (28-32) 11/26/21 10:27 MCHC 34 % (32-34) 11/26/21 10:27 RDW 14.3 % (13.2-15.2) 11/26/21 10:27 Plt Count 134 K/mm3 (140-440) L 11/26/21 10:27 Add Manual Diff Complete 11/23/21 04:38 Total Counted 100 11/23/21 04:38 Seg Neutrophils % Development Planner 11/21/21 23:20 Seg Neuts % (Manual) 84.0 % (40.0-70.0) H 11/23/21 04:38 Band Neutrophils % 4.0 % 11/23/21 04:38 Lymphocytes % (Manual) 2.0 % (13.4-35.0) L 11/23/21 04:38 Reactive Lymphs % (Man) 0 % 11/23/21 04:38 Monocytes % (Manual) 5.0 % (0.0-7.3) 11/23/21 04:38 Eosinophils % (Manual) 2.0 % (0.0-4.3) 11/23/21 04:38 Basophils % (Manual) 0 % (0.0-1.8) 11/23/21 04:38 Metamyelocytes % 3.0 % 11/23/21 04:38 Myelocytes % 0 % 11/23/21 04:38 Promyelocytes % 0 % 11/23/21 04:38 Blast Cells % 0 % 11/23/21 04:38 Nucleated RBC % Not Reportable 11/23/21 04:38 Seg Neutrophils # Man 26.5 K/mm3 (1.8-7.7) H 11/23/21 04:38 Band Neutrophils # 1.3 K/mm3 11/23/21 04:38 Lymphocytes # (Manual) 0.6 K/mm3 (1.2-5.4) L 11/23/21 04:38 Abs React Lymphs (Man) 0.0 K/mm3 11/23/21 04:38 Monocytes # (Manual) 1.6 K/mm3 (0.0-0.8) H 11/23/21 04:38 Eosinophils # (Manual) 0.6 K/mm3 (0.0-0.4) H 11/23/21 04:38 Basophils # (Manual) 0.0 K/mm3 (0.0-0.1) 11/23/21 04:38 Metamyelocytes # 0.9 K/mm3 11/23/21 04:38 Myelocytes # 0.0 K/mm3 11/23/21 04:38 Promyelocytes # 0.0 K/mm3 11/23/21 04:38 Blast Cells # 0.0 K/mm3 11/23/21 04:38 WBC Morphology Not Reportable 11/23/21 04:38 Hypersegmented Neuts Not Reportable 11/23/21 04:38 Hyposegmented Neuts Not Reportable 11/23/21 04:38 Hypogranular Neuts Not Reportable 11/23/21 04:38 Smudge Cells Not Reportable 11/23/21 04:38 Toxic Granulation Not Reportable 11/23/21 04:38 Toxic Vacuolation Not Reportable 11/23/21 04:38 Dohle Bodies Not Reportable 11/23/21 04:38 Pelger-Huet Anomaly Not Reportable 11/23/21 04:38 Antonio Rods Not Reportable 11/23/21 04:38 Platelet Estimate Consistent w auto 11/23/21 04:38 Clumped Platelets Not Reportable 11/23/21 04:38 Plt Clumps, EDTA Not Reportable 11/23/21 04:38 Large Platelets Not Reportable 11/23/21 04:38 Giant Platelets Not Reportable 11/23/21 04:38 Platelet Satelliting Not Reportable 11/23/21 04:38 Plt Morphology Comment Not Reportable 11/23/21 04:38 RBC Morphology Not Reportable 11/23/21 04:38 Dimorphic RBCs Not Reportable 11/23/21 04:38 Polychromasia Not Reportable 11/23/21 04:38 Hypochromasia Not Reportable 11/23/21 04:38 Poikilocytosis Not Reportable 11/23/21 04:38 Anisocytosis Not Reportable 11/23/21 04:38 Microcytosis Not Reportable 11/23/21 04:38 Macrocytosis Not Reportable 11/23/21 04:38 Spherocytes Not Reportable 11/23/21 04:38 Pappenheimer Bodies Not Reportable 11/23/21 04:38 Sickle Cells Not Reportable 11/23/21 04:38 Target Cells Not Reportable 11/23/21 04:38 Tear Drop Cells Not Reportable 11/23/21 04:38 Ovalocytes Not Reportable 11/23/21 04:38 Helmet Cells Not Reportable 11/23/21 04:38 [place] Bodies Not Reportable 11/23/21 04:38 [place] Rings Not Reportable 11/23/21 04:38 [place] Cells Not Reportable 11/23/21 04:38 Bite Cells Not Reportable 11/23/21 04:38 Crenated Cell Not Reportable 11/23/21 04:38 Elliptocytes Not Reportable 11/23/21 04:38 Acanthocytes (Spur) Not Reportable 11/23/21 04:38 Rouleaux Not Reportable 11/23/21 04:38 Hemoglobin C Crystals Not Reportable 11/23/21 04:38 Schistocytes Not Reportable 11/23/21 04:38 Malaria parasites Not Reportable 11/23/21 04:38 Eric Bodies Not Reportable 11/23/21 04:38 Hem Pathologist Commnt No 11/23/21 04:38 PT 14.8 Sec. (12.2-14.9) 11/21/21 23:20 INR 1.04 (0.87-1.13) 11/21/21 23:20 APTT 31.8 Sec. (24.2-36.6) 11/21/21 23:20 D-Dimer > 39228 ng/mlDDU (0-234) H 11/22/21 23:45 ABG pH 7.378 pH Units (7.350-7.450) 11/21/21 22:53 ABG pCO2 36.7 mm Hg 11/21/21 22:53 ABG pO2 178.4 mm Hg (80.0-90.0) H 11/21/21 22:53 ABG HCO3 21.1 mmol/L (20.0-26.0) 11/21/21 22:53 ABG O2 Saturation 99.1 % (95.0-99.0) H 11/21/21 22:53 ABG O2 Content 21.4 (0.0-44) 11/21/21 22:53 ABG Base Excess -3.4 mmol/L (-2.0-3.0) L 11/21/21 22:53 ABG Hemoglobin 15.4 gm/dl (14.0-18.0) 11/21/21 22:53 ABG Carboxyhemoglobin 1.4 % (0.0-5.0) 11/21/21 22:53 ABG Methemoglobin 0.6 % (0.0-1.5) 11/21/21 22:53 Oxyhemoglobin 97.2 % (95.0-99.0) 11/21/21 22:53 FiO2 70 % 11/21/21 22:53 Sodium 141 mmol/L (137-145) 11/28/21 04:29 Potassium 3.5 mmol/L (3.6-5.0) L 11/28/21 04:29 Chloride 104.6 mmol/L (98-107) 11/28/21 04:29 Carbon Dioxide 27 mmol/L (22-30) 11/28/21 04:29 Anion Gap 13 mmol/L 11/28/21 04:29 BUN 14 mg/dL (9-20) 11/28/21 04:29 Creatinine 0.7 mg/dL (0.8-1.3) L 11/28/21 04:29 Estimated GFR > 60 ml/min 11/28/21 04:29 BUN/Creatinine Ratio 20 % 11/28/21 04:29 Glucose 120 mg/dL (75-100) H 11/28/21 04:29 POC Glucose 143 mg/dL (70-105) H 11/27/21 23:23 Lactic Acid 5.20 mmol/L (0.7-2.0) H* 11/23/21 11:22 Calcium 10.5 mg/dL (8.4-10.2) H 11/28/21 04:29 Ferritin 389.2 ng/mL (30.0-300.0) H 11/22/21 23:45 Total Bilirubin 0.60 mg/dL (0.1-1.2) 11/21/21 23:20 Direct Bilirubin < 0.2 mg/dL (0-0.2) 11/21/21 23:20 Indirect Bilirubin 0.4 mg/dL 11/21/21 23:20 AST 60 units/L (5-40) H 11/21/21 23:20 ALT 24 units/L (7-56) 11/21/21 23:20 Alkaline Phosphatase 184 units/L (35-129) H 11/21/21 23:20 Lactate Dehydrogenase 287 units/L (91-180) H 11/22/21 23:45 Troponin T < 0.010 ng/mL (0.00-0.029) 11/21/21 23:20 C-Reactive Protein 20.40 mg/dL (0.00-1.30) H 11/22/21 23:45 NT-Pro-B Natriuret Pep 103.7 pg/mL (0-900) 11/21/21 23:20 Total Protein 7.7 g/dL (6.3-8.2) 11/21/21 23:20 Albumin 4.1 g/dL (3.9-5) 11/21/21 23:20 Albumin/Globulin Ratio 1.1 % 11/21/21 23:20 Procalcitonin 97.57 ng/mL (<0.15) 11/22/21 23:45 Urine Color Yellow (Yellow) 11/22/21 11:47 Urine Turbidity Clear (Clear) 11/22/21 11:47 Specific [place] (Man) 1.010 (1.003-1.030) 11/22/21 11:47 Ur Protein (Man) 1+ mg/dL (Negative) 11/22/21 11:47 Ur Ketones (Man) Negative (Negative) 11/22/21 11:47 Urine Bilirubin (Man) Negative (Negative) 11/22/21 11:47 Urine WBC (Auto) 14.0 /HPF (0.0-6.0) H 11/22/21 11:47 Urine RBC (Auto) 5.0 /HPF (0.0-6.0) 11/22/21 11:47 U Epithel Cells (Auto) 1.0 /HPF (0-13.0) 11/22/21 11:47 Urine Bacteria (Auto) 1+ /HPF (Negative) 11/22/21 11:47 Urine RBC (Manual) Trace (Negative) 11/22/21 11:47 Urine Mucus Few /HPF 11/22/21 11:47 Urine Creatinine 223.0 mg/dL (0.1-20.0) H 11/23/21 12:05 Urine Sodium 27 mmol/L 11/23/21 12:05 Urine Urea Nitrogen 368 11/23/21 12:05 Coronavirus (PCR) Negative (Negative) 11/22/21 11:00 Mccloud/IV: Voiding Method Indwelling Catheter Active Medications - Current Medications Current Medications: Generic Name Dose Route Start Last Admin Trade Name Freq PRN Reason Stop Dose Admin Acetaminophen 650 mg 11/22/21 02:08 11/26/21 17:33 Acetaminophen 325 Mg Tab PO 650 mg Q6H PRN Administration Pain MILD(1-3)/Fever >100.5/CARREON Albuterol 2.5 mg 11/22/21 07:02 Albuterol 2.5 Mg/3 Ml Nebu IH Q4HRT PRN Shortness Of Breath Allopurinol 100 mg 11/25/21 10:00 11/27/21 10:52 Allopurinol 100 Mg Tab PO 100 mg QDAY ERIKA Administration Amlodipine Besylate 10 mg 11/25/21 12:00 11/27/21 10:51 Amlodipine 10 Mg Tab PO 10 mg DAILY ERIKA Administration Dextrose 0 ml 11/22/21 02:08 11/24/21 00:05 Dextrose 50% In Water (25gm) 50 Ml Syringe IV 15 ml Q30MIN PRN Administration Hypoglycemia Protocol Docusate Sodium 100 mg 11/23/21 22:00 11/27/21 22:20 Docusate Sodium 100 Mg/10 Ml Oral Liqd PO 100 mg BID ERIKA Administration Gabapentin 300 mg 11/24/21 22:00 11/27/21 22:21 Gabapentin 300 Mg Cap PO 300 mg BID ERIKA Administration Heparin Sodium (Porcine) 5,000 unit 11/22/21 22:00 11/28/21 05:25 Heparin 5,000 Unit/1 Ml Vial SUB-Q 5,000 unit Q8HR ERIKA Administration Insulin Human Lispro 0 unit 11/23/21 12:00 11/28/21 05:30 Insulin Lispro 100 Unit/Ml SUB-Q Not Given Q6HR [facility] Protocol Levofloxacin 750 mg 11/27/21 10:00 11/27/21 10:51 Levofloxacin 750 Mg Tab PO 12/02/21 10:01 750 mg Q24H ERIKA Administration Protocol Levothyroxine Sodium 150 mcg 11/25/21 06:00 11/28/21 05:25 Levothyroxine 150 Mcg Tab PO 150 mcg QAM@0600 ERIKA Administration Magnesium Hydroxide 30 ml 11/22/21 02:08 Magnesium Hydroxide (Mom) Oral Liqd Udc PO Q4H PRN Constipation Morphine Sulfate 2 mg 11/22/21 02:08 11/28/21 02:18 Morphine 2 Mg/1 Ml Inj IV 2 mg Q4H PRN Administration Pain, Moderate (4-6) Morphine Sulfate 4 mg 11/22/21 02:08 Morphine 4 Mg/1 Ml Inj IV Q4H PRN Pain , Severe (7-10) Phenol 1 spray 11/23/21 12:34 11/23/21 14:05 Phenol 1.4% 177 Ml Bottle MM 1 spray PRN PRN Administration Sore Throat Polyethylene Glycol 17 gm 11/25/21 22:00 11/27/21 22:20 Polyethylene Glycol 3350 17 Gm Powder PO 17 gm BID ERIKA Administration Sodium Chloride 10 ml 11/22/21 10:00 11/27/21 22:21 Sodium Chloride 0.9% 10 Ml Flush Syringe IV 10 ml BID ERIKA Administration Sodium Chloride 10 ml 11/22/21 02:08 Sodium Chloride 0.9% 10 Ml Flush Syringe IV PRN PRN LINE FLUSH Nutrition/Malnutrition Assess - Dietary Evaluation Nutrition/Malnutrition Findings: Nutrition Notes Start: 11/22/21 14:36 Freq: Status: Active Protocol: Document 11/22/21 14:36 ALBIN (Rec: 11/22/21 14:47 ALBIN [id number]) Nutrition Notes Need for Assessment generated from: MD Order,Education Initial or Follow up Brief Note Current Diagnosis Diabetes,Hypertension, Respiratory Failure Other Pertinent Diagnosis CHF, Bilateral-LE Lymphedema, Ureteral Stone w/ Hydronephrosos. Current Diet NPO (since 11/22 07:01). Height 5 ft 10 in Weight 136.078 kg George Body Weight (kg) 75.45 BMI 43.0 Weight change and time frame None provided at admission. Weight Status Morbidly Obese Subjective/Other Information RD consult for nutrition education assessment. Pt currently on NPO. Pt is on NIV/Bi-PaP+, O2 saturation @ 98%, according to Vital Signs notes. Pt still in critical condition , not a candidate for Nutrition Education at the time, will assess feasibility on F/U. Percent of energy/protein needs met: Pt currently on NPO. Nutrition Intervention Follow-Up By: 11/29/21 Additional Comments Nutrition education will be provided at F/U, if feasible. Continue monitoring food tolerance, %PO intake of meals , and BM.
[2021-11-28] MEDS: DOCUSATE SODIUM 100 MG/10 ML ORAL LIQD PO SCH ×2 (11:08→22:55)
[2021-11-28] MEDS: POLYETHYLENE GLYCOL 3350 17 GM POWDER PO SCH ×2 (11:08→22:56)
[2021-11-28] MEDS: allopurinoL 100 MG TAB PO SCH (11:08)
[2021-11-28] MEDS: amLODIPine 10 MG TAB PO SCH (11:08)
[2021-11-28] MEDS: GABAPENTIN 300 MG CAP PO SCH ×2 (11:08→22:56)
[2021-11-28] MEDS: levoFLOXacin 750 MG TAB PO SCH (11:10)
--- NOTE | 2021-11-28 11:56 | Progress Note ---
Assessment and Plan 86-year-old -[place] male with known history of diabetes mellitus, CHF, bilateral lower extremity lymphedema, Hypothyroidism, Gout presenting to the emergency room complaining of shortness of breath and cough. He also indicated he has been having some tightness in his chest especially have coughing. He denies any chest pain. He denies any fever or chills, no nausea vomiting and no abdominal pain. Symptoms have been ongoing for the past few days. He denies any sick contacts and no recent travel. Upon arrival in the emergency room, patient was in respiratory distress. He was quite tachypneic upon arrival and was placed on nebulizing treatments and BiPAP. His abdomen also looked quite distended upon arrival and he states his abdomen has always been distended and and denies any pain. He states he has had small bowel obstruction in the past for which he has had surgery. Last bowel movement was about 24 hours ago. Work-up in the emergency room ,significant findings were that of creatinine of 1.4 and AST of 60 on the labs. Abdominal x-ray reveals colonic ileus and/or constipation. Chest x-ray shows no active cardiopulmonary disease. CT of the abdomen and pelvis shows multiple bilateral nephroliths. 6 mm pro ximal right ureteral stone with associated hydronephrosis. The large bowel is moderately distended with gas to the point of suture line in the mid sigmoid colon. Partial obstruction at the level of the suture line not excluded. Patient was given some Lasix in the emergency room with significant improvement. Patient says smoked little when he was young otherwise has no history of smoking, alcohol or drug abuse. 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 Not . Has no children. No known drug allergies. Patient awake, Says breathing better . Denies chest pain or cough. Patient is on room air. O2 saturation running 97%. BIPAP and o2 2 litres stand by in the ro om. ABG on FIO2 70%. ABG pH 7.378 pH Units (7.350-7.450) 11/21/21 22:53 ABG pCO2 36.7 mm Hg 11/21/21 22:53 ABG pO2 178.4 mm Hg (80.0-90.0) H 11/21/21 22:53 ABG O2 Saturation 99.1 % (95.0-99.0) H 11/21/21 22:53 Patient afebrile. Has no leukocytosis. Blood pressure 157/84, Pulse 80 , respirations 18. Chest xray 11/21/21 reported No active cardiopulmonary disease. CTA of chest 11/22/[address] evidence for pulmonary embolism. Bilateral dependent regions of low attenuation most suggestive of atelectasis. Venous doppler study of lower extremities 11/22/21 reported Negative for DVT. Patient is on Levaquin , S/C Heparin and albuterol inhalor. Recommend GI Prophylaxis. - Patient Problems (1) Acute respiratory failure Current Visit: Yes Status: Acute Plan to address problem: O2 room air , O2 saturation 97%. BIPAP and O2 2 litres stand by in the room. Albuterol inhalor q 6 hours. Continue S/C Heparin. Recommend GI prophylaxis. (2) TAMMY (acute kidney injury) Current Visit: Yes Status: Acute Plan to address problem: Management as per nephrology. (3) Colon distention Current Visit: Yes Status: Acute Plan to address problem: Management as per primary care. (4) HTN (hypertension) Current Visit: Yes Status: Acute Plan to address problem: Management as per primary care. (5) Hydronephrosis Current Visit: Yes Status: Acute Plan to address problem: KIDNEYS/URETERS: 6 mm proximal right ureteral stone at the level of L3-4 interspace. [id number] hydronephrosis of the right kidney. Additional multiple moderately large renal stones are noted within the right kidney. The right kidney additionally demonstrates a hyperdense cyst within the upper pole cortex. Left kidney demonstrates multiple small nephroliths Urology consulted. (6) Lymph edema Current Visit: Yes Status: Acute Plan to address problem: DVT Prophylaxis. Patient is on S/C Heparin. Subjective Date of service: 11/28/21 Principal diagnosis: sepsis Interval history: 86-year-old -[place] male with known history of diabetes mellitus, CHF, bilateral lower extremity lymphedema, Hypothyroidism, Gout presenting to the emergency room complaining of shortness of breath and cough. He also indicated he has been having some tightness in his chest especially have coughing. He denies any chest pain. He denies any fever or chills, no nausea vomiting and no abdominal pain. Symptoms have been ongoing for the past few days. He denies any sick contacts and no recent travel. Upon arrival in the emergency room, patient was in respiratory distress. He was quite tachypneic upon arrival and was placed on nebulizing treatments and BiPAP. His abdomen also looked quite distended upon arrival and he states his abdomen has always been distended and and denies any pain. He states he has had small bowel obstruction in the past for which he has had surgery. Last bowel movement was about 24 hours ago. Work-up in the emergency room ,significant findings were that of creatinine of 1.4 and AST of 60 on the labs. Abdominal x-ray reveals colonic ileus and/or constipation. Chest x-ray shows no active cardiopulmonary disease. CT of the abdomen and pelvis shows multiple bilateral nephroliths. 6 mm proximal right ureteral stone with associated hydronephrosis. The large bowel is moderately distended with gas to the point of suture line in the mid sigmoid colon. Partial obstruction at the level of the suture line not excluded. Patient was given some Lasix in the emergency room with significant improvement. Patient says smoked little when he was young otherwise has no history of smoking, alcohol or drug abuse. 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 Not . Has no children. No known drug allergies. Patient awake, Says breathing better . Denies chest pain or cough. Patient is on room air. O2 saturation running 97%. BIPAP and o2 2 litres stand by in the room. ABG on FIO2 70%. ABG pH 7.378 pH Units (7.350-7.450) 11/21/21 22:53 ABG pCO2 36.7 mm Hg 11/21/21 22:53 ABG pO2 178.4 mm Hg (80.0-90.0) H 11/21/21 22:53 ABG O2 Saturation 99.1 % (95.0-99.0) H 11/21/21 22:53 Patient afebrile. Has no leukocytosis. Blood pressure 157/84, Pulse 80 , respirations 18. Chest xray 11/21/21 reported No active cardiopulmonary disease. CTA of chest 11/22/[address] evidence for pulmonary embolism. B ilateral dependent regions of low attenuation most suggestive of atelectasis. Venous doppler study of lower extremities 11/22/21 reported Negative for DVT. Patient is on Levaquin, S/C Heparin and albuterol inhalor. Recommend GI Prophylaxis. Objective Vital Signs - 12hr 11/28/21 08:15 Pulse Rate 80 Respiratory 18 Rate Blood Pressure 157/84 O2 Sat by Pulse 95 Oximetry Constitutional: no acute distress, alert Eyes: non-icteric ENT: oropharynx moist Neck: supple, no lymphadenopathy, no JVD, other (large circumference) Effort: normal Ascultation: Bilateral: diminished breath sounds Percussion: Bilateral: not dull Cardiovascular: regular rate and rhythm, other (occasional extrasystole's) Gastrointestinal: normoactive bowel sounds, soft, non-tender, other (distended but soft) Integumentary: rash (stasis dermatitis type to legs), other (Changes from lymphedema and Stasis dermatitis.) Extremities: no cyanosis, pulses normal, no ischemia or petechiae, edema Neurologic: non-focal exam (grossly), pupils equal and round, unable to assess Psychiatric: mood appropriate, affect normal CBC and BMP: 11/26/21 10:27 11/29/21 05:04 ABG, PT/INR, D-dimer: ABG ABG pH 7.378 pH Units (7.350-7.450) 11/21/21 22:53 ABG pCO2 36.7 mm Hg 11/21/21 22:53 ABG pO2 178.4 mm Hg (80.0-90.0) H 11/21/21 22:53 ABG O2 Saturation 99.1 % (95.0-99.0) H 11/21/21 22:53 PT/INR, D-dimer PT 14.8 Sec. (12.2-14.9) 11/21/21 23:20 INR 1.04 (0.87-1.13) 11/21/21 23:20 D-Dimer > 55259 ng/mlDDU (0-234) H 11/22/21 23:45 Abnormal lab findings: Abnormal Labs 11/21/21 11/21/21 11/21/21 22:53 23:20 23:20 WBC RBC 5.34 H Hct 47.1 H MCHC Plt Count Seg Neuts % (Manual) 91.0 H Lymphocytes % (Manual) 5.0 L Seg Neutrophils # Man 8.5 H Lymphocytes # (Manual) 0.5 L Monocytes # (Manual) Eosinophils # (Manual) D-Dimer ABG pO2 178.4 H ABG O2 Saturation 99.1 H ABG Base Excess -3.4 L Sodium 133 L Potassium Carbon Dioxide BUN Creatinine 1.4 H Glucose POC Glucose Lactic Acid Calcium 10.9 H Ferritin AST 60 H Alkaline Phosphatase 184 H Lactate Dehydrogenase C-Reactive Protein Urine WBC (Auto) Urine Creatinine 11/22/21 11/22/21 11/22/21 11:47 23:45 23:45 WBC RBC Hct MCHC Plt Count Seg Neuts % (Manual) Lymphocytes % (Manual) Seg Neutrophils # Man Lymphocytes # (Manual) Monocytes # (Manual) Eosinophils # (Manual) D-Dimer > 36842 H ABG pO2 ABG O2 Saturation ABG Base Excess Sodium Potassium Carbon Dioxide BUN Creatinine Glucose POC Glucose Lactic Acid Calcium Ferritin AST Alkaline Phosphatase Lactate Dehydrogenase 287 H C-Reactive Protein 20.40 H Urine WBC (Auto) 14.0 H Urine Creatinine 11/22/21 11/22/21 11/22/21 23:45 23:45 23:45 WBC 31.0 H RBC 5.24 H Hct 47.2 H MCHC Plt Count 104 L Seg Neuts % (Manual) Lymphocytes % (Manual) Seg Neutrophils # Man Lymphocytes # (Manual) Monocytes # (Manual) Eosinophils # (Manual) D-Dimer ABG pO2 ABG O2 Saturation ABG Base Excess Sodium Potassium Carbon Dioxide BUN Creatinine Glucose POC Glucose Lactic Acid 4.50 H* Calcium Ferritin 389.2 H AST Alkaline Phosphatase Lactate Dehydrogenase C-Reactive Protein Urine WBC (Auto) Urine Creatinine 11/23/21 11/23/21 11/23/21 04:38 04:38 04:38 WBC 31.6 H RBC 5.20 H Hct 47.1 H MCHC 31 L Plt Count 97 L Seg Neuts % (Manual) 84.0 H Lymphocytes % (Manual) 2.0 L Seg Neutrophils # Man 26.5 H Lymphocytes # (Manual) 0.6 L Monocytes # (Manual) 1.6 H Eosinophils # (Manual) 0.6 H D-Dimer ABG pO2 ABG O2 Saturation ABG Base Excess Sodium 136 L Potassium Carbon Dioxide 18 L BUN 31 H Creatinine 2.7 H D Glucose 65 L POC Glucose Lactic Acid 4.50 H* Calcium 10.5 H Ferritin AST Alkaline Phosphatase Lactate Dehydrogenase C-Reactive Protein Urine WBC (Auto) Urine Creatinine 11/23/21 11/23/21 11/23/21 11:22 11:22 12:05 WBC RBC Hct MCHC Plt Count Seg Neuts % (Manual) Lymphocytes % (Manual) Seg Neutrophils # Man Lymphocytes # (Manual) Monocytes # (Manual) Eosinophils # (Manual) D-Dimer ABG pO2 ABG O2 Saturation ABG Base Excess Sodium Potassium Carbon Dioxide BUN 35 H Creatinine 2.7 H Glucose 72 L POC Glucose Lactic Acid 5.20 H* Calcium Ferritin AST Alkaline Phosphatase Lactate Dehydrogenase C-Reactive Protein Urine WBC (Auto) Urine Creatinine 223.0 H 11/23/21 11/24/21 11/24/21 16:24 00:03 00:22 WBC RBC Hct MCHC Plt Count Seg Neuts % (Manual) Lymphocytes % (Manual) Seg Neutrophils # Man Lymphocytes # (Manual) Monocytes # (Manual) Eosinophils # (Manual) D-Dimer ABG pO2 ABG O2 Saturation ABG Base Excess Sodium Potassium Carbon Dioxide BUN Creatinine Glucose POC Glucose 58 L 65 L 123 H Lactic Acid Calcium Ferritin AST Alkaline Phosphatase Lactate Dehydrogenase C-Reactive Protein Urine WBC (Auto) Urine Creatinine 11/24/21 11/24/21 11/24/21 04:26 04:26 11:44 WBC 17.6 H RBC Hct MCHC 31 L Plt Count 95 L Seg Neuts % (Manual) Lymphocytes % (Manual) Seg Neutrophils # Man Lymphocytes # (Manual) Monocytes # (Manual) Eosinophils # (Manual) D-Dimer ABG pO2 ABG O2 Saturation ABG Base Excess Sodium Potassium 5.2 H Carbon Dioxide BUN 38 H Creatinine 1.9 H Glucose 108 H POC Glucose 122 H Lactic Acid Calcium Ferritin AST Alkaline Phosphatase Lactate Dehydrogenase C-Reactive Protein Urine WBC (Auto) Urine Creatinine 11/24/21 11/24/21 11/25/21 16:32 23:30 04:49 WBC RBC Hct MCHC Plt Count Seg Neuts % (Manual) Lymphocytes % (Manual) Seg Neutrophils # Man Lymphocytes # (Manual) Monocytes # (Manual) Eosinophils # (Manual) D-Dimer ABG pO2 ABG O2 Saturation ABG Base Excess Sodium Potassium Carbon Dioxide BUN Creatinine Glucose POC Glucose 120 H 132 H 109 H Lactic Acid Calcium Ferritin AST Alkaline Phosphatase Lactate Dehydrogenase C-Reactive Protein Urine WBC (Auto) Urine Creatinine 11/25/21 11/25/21 11/26/21 16:15 22:56 10:27 WBC RBC Hct MCHC Plt Count 134 L Seg Neuts % (Manual) Lymphocytes % (Manual) Seg Neutrophils # Man Lymphocytes # (Manual) Monocytes # (Manual) Eosinophils # (Manual) D-Dimer ABG pO2 ABG O2 Saturation ABG Base Excess Sodium Potassium Carbon Dioxide BUN Creatinine Glucose POC Glucose 121 H 107 H Lactic Acid Calcium Ferritin AST Alkaline Phosphatase Lactate Dehydrogenase C-Reactive Protein Urine WBC (Auto) Urine Creatinine 11/26/21 11/26/21 11/27/21 11:43 23:15 05:35 WBC RBC Hct MCHC Plt Count Seg Neuts % (Manual) Lymphocytes % (Manual) Seg Neutrophils # Man Lymphocytes # (Manual) Monocytes # (Manual) Eosinophils # (Manual) D-Dimer ABG pO2 ABG O2 Saturation ABG Base Excess Sodium Potassium 3.5 L Carbon Dioxide BUN Creatinine Glucose 103 H POC Glucose 128 H 145 H Lactic Acid Calcium Ferritin AST Alkaline Phosphatase Lactate Dehydrogenase C-Reactive Protein Urine WBC (Auto) Urine Creatinine 11/27/21 11/27/21 11/27/21 11:51 15:47 20:05 WBC RBC Hct MCHC Plt Count Seg Neuts % (Manual) Lymphocytes % (Manual) Seg Neutrophils # Man Lymphocytes # (Manual) Monocytes # (Manual) Eosinophils # (Manual) D-Dimer ABG pO2 ABG O2 Saturation ABG Base Excess Sodium Potassium Carbon Dioxide BUN Creatinine Glucose POC Glucose 132 H 122 H 136 H Lactic Acid Calcium Ferritin AST Alkaline Phosphatase Lactate Dehydrogenase C-Reactive Protein Urine WBC (Auto) Urine Creatinine 11/27/21 11/28/21 11/28/21 23:23 04:29 05:20 WBC RBC Hct MCHC Plt Count Seg Neuts % (Manual) Lymphocytes % (Manual) Seg Neutrophils # Man Lymphocytes # (Manual) Monocytes # (Manual) Eosinophils # (Manual) D-Dimer ABG pO2 ABG O2 Saturation ABG Base Excess Sodium Potassium 3.5 L Carbon Dioxide BUN Creatinine 0.7 L Glucose 120 H POC Glucose 143 H 130 H Lactic Acid Calcium 10.5 H Ferritin AST Alkaline Phosphatase Lactate Dehydrogenase C-Reactive Protein Urine WBC (Auto) Urine Creatinine Allied health notes reviewed: nursing
[2021-11-29] MEDS: INSULIN LISPRO 100 UNIT/ML SUB-Q SCH ×3 (01:19→22:19)
[2021-11-29] MEDS: guaiFENesin DM 200/20 MG ORAL LIQD 10 ML PO PRN ×2 (02:04→14:37)
[2021-11-29 05:42] LABS: BUN/Creatinine Ratio 16; Blood Urea Nitrogen 13 mg/dL (9-20); Calcium 10.6 mg/dL (8.4-10.2); Hemolysis Index 7
[2021-11-29] MEDS: HEPARIN 5,000 UNIT/1 ML VIAL SUB-Q SCH ×3 (06:59→22:18)
[2021-11-29] MEDS: LEVOTHYROXINE 150 MCG TAB PO SCH (07:00)
--- NOTE | 2021-11-29 08:48 | Progress Note ---
Assessment and Plan Assessment and plan: History Interval history: This is a 86 year old male with DM, CHF, BLE lymphedema, HTN, hypothyroidism, gout, abdnominal surgery with SBO who presents to the emergency department on 06/22 with complaints of shortness of breath, cough, chest tightness with coughing ongoing for the past few days. In the emergency department he stated he had SBO in the past with surgery however later distended upon admission but the patient stated his last bowel movement was about 24 hours prior to admission. Work-up in the emergency department showed acute kidney injury, abdominal x-ray revealed colonic ileus or constipation, CT abdomen/pelvis showed multiple bilateral nephrolithiasis, 6 mm proximal right ureteral stone with associated hydronephrosis, possible partial occlusion [mildly distended with gas at the point of suture line in the mid sigmoid colon. Patient was given Lasix in the ED and placed on BiPAP for respiratory distress. Patient was admitted to the hospitalist service with consults to urology, nephrology, cardiology. Hospital course to date 11/22: CCM consulted, appreciate recommendations. CT abdomen/pelvis showed possible SBO and surgery was consulted. COVID-19 PCR resulted as negative. S/p BiPAP therapy on Venturi mask. Wean as tolerated. 11/23: Worsening renal function noted, started on antibiotics. Urine electrolytes pending, ordered renal US. On Dextrose fluid awaiting GI input on feeding patient. 11/24: Renal function improving, restarted home gabapentin and allopurinol as patient states that he has gout pains to feet. Patient will be transferred to telemetry. 11/25: Afebrile overnight, BP slightly elevated 156/74. Restart home amlodipine, continue to hold lisnopril and lasix due to renal function. GNR in urine and blood culture. Awaiting final speciation and sensitivites. continue cefepime IV. Awaiting AM lab completion. PT assessment pending (note patient admits walking at home with rolling walker at baseline). Will follow nephrology recommendations. 11/26: BCx: Citrobacter amalonacticus Ucx: Citrobacter Koseri. Sensitive to Levaquin. Will d/c cefepime and start levaquin. OT recommends JOHN after assess ment. Will discuss with CM. 11/27: ST evaluated patient, no evidence of aspiraiton, recommend mechanically soft chopped diet. Based on OT/PT eval, Pending JOHN/SNF placement. If unable to place, will recommend home with [facility] pt. Medically clear for discharge. Discharge with levaquin rx. He was advised to follow up with OP staples surgeon re: chronic sbo 11/28: Added guafenisen for cough. Awaiting placement. 11/29: Awaiting JOHN vs SNF placement. Assessment and plan: This is a 86-year-old male with DM, CHF, HTN, hypothyroidism, SBO s/p abdominal surgery admitted with TAMMY, possible SBO, right ureteral calculi with hydronephrosis, obstructive uropathy Neuro: NAD -Reorientation as needed -Maintain sleep-wake cycle -As needed analgesia Cardiac: h/o CHF, HTN -Cardiology consulted, appreciate recommendations -Blood pressure monitoring per protocol -Hold home antihypertenisive medication at this time -Echocardiogram shows LVEF 50 to 55%, mild concentric LVH -Per cardio: -Echo 03/07/2019-1. Left ventricular ejection fraction is 65%. Aortic valve is tricuspid, focally calcified and sclerotic. Mildly dilated left atrium. There is impaired relaxation with normal filling pressure consistent with grade 1 diastolic dysfunction. E/E' indicative of elevated LVEDP. Mild pulmonic valve insufficiency. -No LIBERTY or ARB in setting of TAMMY Respiratory: Acute hypoxic respiratory failure -CCM consulted, appreciate recommendations -s/p bipap -Currently on NC -Pulmonary hygiene -SPO2 monitor per protocol -CTA chest showed no evidence of pulmonary embolism, bilateral dependent regions of low-attenuation was suggestive of atelectasis GI: Possible SBO, h/o SBO with surgery -General surgery consulted, appreciate recommendations -Abdomen pelvis CT showed large bowel is moderate distended with gas to the point of the suture line in the mid sigmoid colon, partial obstruction of the level of the suture line not excluded -PPI -GI soft diet : Acute kidney injury likely on CKD, right ureteral calculus with associated hydronephrosis, obstructive uropathy secondary to ureteral calculus -Nephrology and Urology consulted, appreciate recommendations -CT abd/pelvis showed 6 mm proximal right ureteral stone with associated hydronephrosis, multiple additional bilateral nephroliths -Monitor intake and output -Renally dose medications -Avoid nephrotoxic medications -Renal US pending -Urine lytes pending -s/p Cystoscopy, ureteroscopy w/ stent placement -Trend BMP ID: Sepsis POA, GNR bacteremia, Urinary Tract Infection, Pyelonephrosis -Infectious disease consulted, appreciate recommendations -COVID 19 PUI (-) -f/u blood culture -UA, UC, BC->2/2 BC with GNR -Antibiotic therapy with cefepime IV -Does not endorse costovertebral tenderness -Monitor WBC and temperature curve Endo: h/o Hypothyroidism -Avoid hypoglycemia -SSI -Accu-Cheks ACHS Heme: Elevated ddimer -Trend CBC -Transfuse hemoglobin less than 7 -SCDs to BLE while in bed -Bilateral lower extremity Doppler ultrasound negative for DVT -CTA chest with no PE #Advance care planning Disease education conducted, care plan discussed, diagnoses discussed, prognosis discussed, patient is full code, patient acknowledges understanding and agree with care plan, +30 minutes. History Interval history: No acute complaints this AM. Cough improved...responded to guafenisen. Discussed case with staples doctor as well re:patient needs as OP. Hospitalist Physical - Physical exam Narrative exam: General appearance: Present: no acute distress - EENT Eyes: Present: PERRL, EOM intact ENT: hearing intact, clear oral mucosa, dentition normal - Neck Neck: Present: normal ROM - Respiratory Respiratory effort: normal Respiratory: bilateral: diminished - Cardiovascular Rhythm: regular Heart Sounds: Present: S1 & S2. Absent: systolic murmur, diastolic murmur - Extremities Extremities: no ischemia, pulses intact, pulses symmetrical, normal temperature, normal color Extremity abnormal: edema Peripheral Pulses: within normal limits - Abdominal General gastrointestinal: soft, non-tender, non-distended, normal bowel sounds - Integumentary Integumentary: Present: warm, dry - Psychiatric Psychiatric: appropriate mood/affect, cooperative - Neurologic Neurologic: CNII-XII intact, no focal deficits, moves all extremities - Allied Health Allied health notes reviewed: nursing, RT, social work - Constitutional Vitals: Temp Pulse Resp BP Pulse Ox 98.4 F 116 H 20 146/100 96 11/29/21 08:25 11/29/21 08:25 11/29/21 08:25 11/29/21 08:25 11/29/21 08:25 General appearance: Present: no acute distress HEART Score - HEART Score Troponin: Troponin T < 0.010 ng/mL (0.00-0.029) 11/21/21 23:20 Results - Labs CBC & Chem 7: 11/26/21 10:27 11/29/21 05:04 Labs: Laboratory Last Values WBC 8.0 K/mm3 (4.5-11.0) 11/26/21 10:27 RBC 4.39 M/mm3 (3.65-5.03) 11/26/21 10:27 Hgb 12.7 gm/dl (11.8-15.2) 11/26/21 10:27 Hct 37.9 % (35.5-45.6) 11/26/21 10:27 MCV 86 fl (84-94) 11/26/21 10:27 MCH 29 pg (28-32) 11/26/21 10:27 MCHC 34 % (32-34) 11/26/21 10:27 RDW 14.3 % (13.2-15.2) 11/26/21 10:27 Plt Count 134 K/mm3 (140-440) L 11/26/21 10:27 Add Manual Diff Complete 11/23/21 04:38 Total Counted 100 11/23/21 04:38 Seg Neutrophils % Jack Spinner 11/21/21 23:20 Seg Neuts % (Manual) 84.0 % (40.0-70.0) H 11/23/21 04:38 Band Neutrophils % 4.0 % 11/23/21 04:38 Lymphocytes % (Manual) 2.0 % (13.4-35.0) L 11/23/21 04:38 Reactive Lymphs % (Man) 0 % 11/23/21 04:38 Monocytes % (Manual) 5.0 % (0.0-7.3) 11/23/21 04:38 Eosinophils % (Manual) 2.0 % (0.0-4.3) 11/23/21 04:38 Basophils % (Manual) 0 % (0.0-1.8) 11/23/21 04:38 Metamyelocytes % 3.0 % 11/23/21 04:38 Myelocytes % 0 % 11/23/21 04:38 Promyelocytes % 0 % 11/23/21 04:38 Blast Cells % 0 % 11/23/21 04:38 Nucleated RBC % Not Reportable 11/23/21 04:38 Seg Neutrophils # Man 26.5 K/mm3 (1.8-7.7) H 11/23/21 04:38 Band Neutrophils # 1.3 K/mm3 11/23/21 04:38 Lymphocytes # (Manual) 0.6 K/mm3 (1.2-5.4) L 11/23/21 04:38 Abs React Lymphs (Man) 0.0 K/mm3 11/23/21 04:38 Monocytes # (Manual) 1.6 K/mm3 (0.0-0.8) H 11/23/21 04:38 Eosinophils # (Manual) 0.6 K/mm3 (0.0-0.4) H 11/23/21 04:38 Basophils # (Manual) 0.0 K/mm3 (0.0-0.1) 11/23/21 04:38 Metamyelocytes # 0.9 K/mm3 11/23/21 04:38 Myelocytes # 0.0 K/mm3 11/23/21 04:38 Promyelocytes # 0.0 K/mm3 11/23/21 04:38 Blast Cells # 0.0 K/mm3 11/23/21 04:38 WBC Morphology Not Reportable 11/23/21 04:38 Hypersegmented Neuts Not Reportable 11/23/21 04:38 Hyposegmented Neuts Not Reportable 11/23/21 04:38 Hypogranular Neuts Not Reportable 11/23/21 04:38 Smudge Cells Not Reportable 11/23/21 04:38 Toxic Granulation Not Reportable 11/23/21 04:38 Toxic Vacuolation Not Reportable 11/23/21 04:38 Dohle Bodies Not Reportable 11/23/21 04:38 Pelger-Huet Anomaly Not Reportable 11/23/21 04:38 Antonio Rods Not Reportable 11/23/21 04:38 Platelet Estimate Consistent w auto 11/23/21 04:38 Clumped Platelets Not Reportable 11/23/21 04:38 Plt Clumps, EDTA Not Reportable 11/23/21 04:38 Large Platelets Not Reportable 11/23/21 04:38 Giant Platelets Not Reportable 11/23/21 04:38 Platelet Satelliting Not Reportable 11/23/21 04:38 Plt Morphology Comment Not Reportable 11/23/21 04:38 RBC Morphology Not Reportable 11/23/21 04:38 Dimorphic RBCs Not Reportable 11/23/21 04:38 Polychromasia Not Reportable 11/23/21 04:38 Hypochromasia Not Reportable 11/23/21 04:38 Poikilocytosis Not Reportable 11/23/21 04:38 Anisocytosis Not Reportable 11/23/21 04:38 Microcytosis Not Reportable 11/23/21 04:38 Macrocytosis Not Reportable 11/23/21 04:38 Spherocytes Not Reportable 11/23/21 04:38 Pappenheimer Bodies Not Reportable 11/23/21 04:38 Sickle Cells Not Reportable 11/23/21 04:38 Target Cells Not Reportable 11/23/21 04:38 Tear Drop Cells Not Reportable 11/23/21 04:38 Ovalocytes Not Reportable 11/23/21 04:38 Helmet Cells Not Reportable 11/23/21 04:38 Bill-Elephant Head Bodies Not Reportable 11/23/21 04:38 [place] Rings Not Reportable 11/23/21 04:38 Winter Cells Not Reportable 11/23/21 04:38 Bite Cells Not Reportable 11/23/21 04:38 Crenated Cell Not Reportable 11/23/21 04:38 Elliptocytes Not Reportable 11/23/21 04:38 Acanthocytes (Spur) Not Reportable 11/23/21 04:38 Rouleaux Not Reportable 11/23/21 04:38 Hemoglobin C Crystals Not Reportable 11/23/21 04:38 Schistocytes Not Reportable 11/23/21 04:38 Malaria parasites Not Reportable 11/23/21 04:38 Eric Bodies Not Reportable 11/23/21 04:38 Hem Pathologist Commnt No 11/23/21 04:38 PT 14.8 Sec. (12.2-14.9) 11/21/21 23:20 INR 1.04 (0.87-1.13) 11/21/21 23:20 APTT 31.8 Sec. (24.2-36.6) 11/21/21 23:20 D-Dimer > 96335 ng/mlDDU (0-234) H 11/22/21 23:45 ABG pH 7.378 pH Units (7.350-7.450) 11/21/21 22:53 ABG pCO2 36.7 mm Hg 11/21/21 22:53 ABG pO2 178.4 mm Hg (80.0-90.0) H 11/21/21 22:53 ABG HCO3 21.1 mmol/L (20.0-26.0) 11/21/21 22:53 ABG O2 Saturation 99.1 % (95.0-99.0) H 11/21/21 22:53 ABG O2 Content 21.4 (0.0-44) 11/21/21 22:53 ABG Base Excess -3.4 mmol/L (-2.0-3.0) L 11/21/21 22:53 ABG Hemoglobin 15.4 gm/dl (14.0-18.0) 11/21/21 22:53 ABG Carboxyhemoglobin 1.4 % (0.0-5.0) 11/21/21 22:53 ABG Methemoglobin 0.6 % (0.0-1.5) 11/21/21 22:53 Oxyhemoglobin 97.2 % (95.0-99.0) 11/21/21 22:53 FiO2 70 % 11/21/21 22:53 Sodium 140 mmol/L (137-145) 11/29/21 05:04 Potassium 3.4 mmol/L (3.6-5.0) L 11/29/21 05:04 Chloride 104.5 mmol/L (98-107) 11/29/21 05:04 Carbon Dioxide 26 mmol/L (22-30) 11/29/21 05:04 Anion Gap 13 mmol/L 11/29/21 05:04 BUN 13 mg/dL (9-20) 11/29/21 05:04 Creatinine 0.8 mg/dL (0.8-1.3) 11/29/21 05:04 Estimated GFR > 60 ml/min 11/29/21 05:04 BUN/Creatinine Ratio 16 % 11/29/21 05:04 Glucose 116 mg/dL (75-100) H 11/29/21 05:04 POC Glucose 149 mg/dL (70-105) H 11/28/21 23:25 Lactic Acid 5.20 mmol/L (0.7-2.0) H* 11/23/21 11:22 Calcium 10.6 mg/dL (8.4-10.2) H 11/29/21 05:04 Ferritin 389.2 ng/mL (30.0-300.0) H 11/22/21 23:45 Total Bilirubin 0.60 mg/dL (0.1-1.2) 11/21/21 23:20 Direct Bilirubin < 0.2 mg/dL (0-0.2) 11/21/21 23:20 Indirect Bilirubin 0.4 mg/dL 11/21/21 23:20 AST 60 units/L (5-40) H 11/21/21 23:20 ALT 24 units/L (7-56) 11/21/21 23:20 Alkaline Phosphatase 184 units/L (35-129) H 11/21/21 23:20 Lactate Dehydrogenase 287 units/L (91-180) H 11/22/21 23:45 Troponin T < 0.010 ng/mL (0.00-0.029) 11/21/21 23:20 C-Reactive Protein 20.40 mg/dL (0.00-1.30) H 11/22/21 23:45 NT-Pro-B Natriuret Pep 103.7 pg/mL (0-900) 11/21/21 23:20 Total Protein 7.7 g/dL (6.3-8.2) 11/21/21 23:20 Albumin 4.1 g/dL (3.9-5) 11/21/21 23:20 Albumin/Globulin Ratio 1.1 % 11/21/21 23:20 Procalcitonin 97.57 ng/mL (<0.15) 11/22/21 23:45 Urine Color Yellow (Yellow) 11/22/21 11:47 Urine Turbidity Clear (Clear) 11/22/21 11:47 Specific [place] (Man) 1.010 (1.003-1.030) 11/22/21 11:47 Ur Protein (Man) 1+ mg/dL (Negative) 11/22/21 11:47 Ur Ketones (Man) Negative (Negative) 11/22/21 11:47 Urine Bilirubin (Man) Negative (Negative) 11/22/21 11:47 Urine WBC (Auto) 14.0 /HPF (0.0-6.0) H 11/22/21 11:47 Urine RBC (Auto) 5.0 /HPF (0.0-6.0) 11/22/21 11:47 U Epithel Cells (Auto) 1.0 /HPF (0-13.0) 11/22/21 11:47 Urine Bacteria (Auto) 1+ /HPF (Negative) 11/22/21 11:47 Urine RBC (Manual) Trace (Negative) 11/22/21 11:47 Urine Mucus Few /HPF 11/22/21 11:47 Urine Creatinine 223.0 mg/dL (0.1-20.0) H 11/23/21 12:05 Urine Sodium 27 mmol/L 11/23/21 12:05 Urine Urea Nitrogen 368 11/23/21 12:05 Coronavirus (PCR) Negative (Negative) 11/22/21 11:00 Mccloud/IV: Voiding Method Indwelling Catheter Active Medications - Current Medications Current Medications: Generic Name Dose Route Start Last Admin Trade Name Freq PRN Reason Stop Dose Admin Acetaminophen 650 mg 11/22/21 02:08 11/26/21 17:33 Acetaminophen 325 Mg Tab PO 650 mg Q6H PRN Administration Pain MILD(1-3)/Fever >100.5/CARREON Albuterol 2.5 mg 11/22/21 07:02 Albuterol 2.5 Mg/3 Ml Nebu IH Q4HRT PRN Shortness Of Breath Allopurinol 100 mg 11/25/21 10:00 11/28/21 11:08 Allopurinol 100 Mg Tab PO 100 mg QDAY ERIKA Administration Amlodipine Besylate 10 mg 11/25/21 12:00 11/28/21 11:08 Amlodipine 10 Mg Tab PO 10 mg DAILY ERIKA Administration Dextrose 0 ml 11/22/21 02:08 11/24/21 00:05 Dextrose 50% In Water (25gm) 50 Ml Syringe IV 15 ml Q30MIN PRN Administration Hypoglycemia Protocol Docusate Sodium 100 mg 11/23/21 22:00 11/28/21 22:55 Docusate Sodium 100 Mg/10 Ml Oral Liqd PO 100 mg BID ERIKA Administration Gabapentin 300 mg 11/24/21 22:00 11/28/21 22:56 Gabapentin 300 Mg Cap PO 300 mg BID ERIKA Administration Guaifenesin 20 ml 11/28/21 11:56 11/29/21 02:04 Guaifenesin Dm 200/20 Mg Oral Liqd 10 Ml PO 20 ml Q4H PRN Administration Cough Heparin Sodium (Porcine) 5,000 unit 11/22/21 22:00 11/29/21 06:59 Heparin 5,000 Unit/1 Ml Vial SUB-Q 5,000 unit Q8HR ERIKA Administration Insulin Human Lispro 0 unit 11/23/21 12:00 11/29/21 07:00 Insulin Lispro 100 Unit/Ml SUB-Q Not Given Q6HR [facility] Protocol Levofloxacin 750 mg 11/27/21 10:00 11/28/21 11:10 Levofloxacin 750 Mg Tab PO 12/02/21 10:01 750 mg Q24H ERIKA Administration Protocol Levothyroxine Sodium 150 mcg 11/25/21 06:00 11/29/21 07:00 Levothyroxine 150 Mcg Tab PO 150 mcg QAM@0600 ERIKA Administration Magnesium Hydroxide 30 ml 11/22/21 02:08 Magnesium Hydroxide (Mom) Oral Liqd Udc PO Q4H PRN Constipation Morphine Sulfate 2 mg 11/22/21 02:08 11/28/21 02:18 Morphine 2 Mg/1 Ml Inj IV 2 mg Q4H PRN Administration Pain, Moderate (4-6) Morphine Sulfate 4 mg 11/22/21 02:08 Morphine 4 Mg/1 Ml Inj IV Q4H PRN Pain , Severe (7-10) Phenol 1 spray 11/23/21 12:34 11/23/21 14:05 Phenol 1.4% 177 Ml Bottle MM 1 spray PRN PRN Administration Sore Throat Polyethylene Glycol 17 gm 11/25/21 22:00 11/28/21 22:56 Polyethylene Glycol 3350 17 Gm Powder PO 17 gm BID ERIKA Administration Sodium Chloride 10 ml 11/22/21 10:00 11/28/21 22:56 Sodium Chloride 0.9% 10 Ml Flush Syringe IV 10 ml BID ERIKA Administration Sodium Chloride 10 ml 11/22/21 02:08 Sodium Chloride 0.9% 10 Ml Flush Syringe IV PRN PRN LINE FLUSH Nutrition/Malnutrition Assess - Dietary Evaluation Nutrition/Malnutrition Findings: Nutrition Notes Start: 11/22/21 14:36 Freq: Status: Active Protocol: Document 11/22/21 14:36 ALBIN (Rec: 11/22/21 14:47 ALBIN [email or web address]) Nutrition Notes Need for Assessment generated from: MD Order,Education Initial or Follow up Brief Note Current Diagnosis Diabetes,Hypertension, Respiratory Failure Other Pertinent Diagnosis CHF, Bilateral-LE Lymphedema, Ureteral Stone w/ Hydronephrosos. Current Diet NPO (since 11/22 07:01). Height 5 ft 10 in Weight 136.078 kg [place] Body Weight (kg) 75.45 BMI 43.0 Weight change and time frame None provided at admission. Weight Status Morbidly Obese Subjective/Other Information RD consult for nutrition education assessment. Pt currently on NPO. Pt is on NIV/Bi-PaP+, O2 saturation @ 98%, according to Vital Signs notes. Pt still in critical condition , not a candidate for Nutrition Education at the time, will assess feasibility on F/U. Percent of energy/protein needs met: Pt currently on NPO. Nutrition Intervention Follow-Up By: 11/29/21 Additional Comments Nutrition education will be provided at F/U, if feasible. Continue monitoring food tolerance, %PO intake of meals , and BM.
[2021-11-29] MEDS: allopurinoL 100 MG TAB PO SCH (09:12)
[2021-11-29] MEDS: POLYETHYLENE GLYCOL 3350 17 GM POWDER PO SCH ×2 (09:12→22:18)
[2021-11-29] MEDS: GABAPENTIN 300 MG CAP PO SCH ×2 (09:12→22:18)
[2021-11-29] MEDS: amLODIPine 10 MG TAB PO SCH (09:12)
[2021-11-29] MEDS: DOCUSATE SODIUM 100 MG/10 ML ORAL LIQD PO SCH ×2 (09:12→22:18)
[2021-11-29] MEDS: levoFLOXacin 750 MG TAB PO SCH (09:14)
--- NOTE | 2021-11-29 13:43 | Progress Note ---
Assessment and Plan 86-year-old -[place] male with known history of diabetes mellitus, CHF, bilateral lower extremity lymphedema, Hypothyroidism, Gout presenting to the emergency room complaining of shortness of breath and cough. He also indicated he has been having some tightness in his chest especially have coughing. He denies any chest pain. He denies any fever or chills, no nausea vomiting and no abdominal pain. Symptoms have been ongoing for the past few days. He denies any sick contacts and no recent travel. Upon arrival in the emergency room, patient was in respiratory distress. He was quite tachypneic upon arrival and was placed on nebulizing treatments and BiPAP. His abdomen also looked quite distended upon arrival and he states his abdomen has always been distended and and denies any pain. He states he has had small bowel obstruction in the past for which he has had surgery. Last bowel movement was about 24 hours ago. Work-up in the emergency room ,significant findings were that of creatinine of 1.4 and AST of 60 on the labs. Abdominal x-ray reveals colonic ileus and/or constipation. Chest x-ray shows no active cardiopulmonary disease. CT of the abdomen and pelvis shows multiple bilateral nephroliths. 6 mm pro ximal right ureteral stone with associated hydronephrosis. The large bowel is moderately distended with gas to the point of suture line in the mid sigmoid colon. Partial obstruction at the level of the suture line not excluded. Patient was given some Lasix in the emergency room with significant improvement. Patient says smoked little when he was young otherwise has no history of smoking, alcohol or drug abuse. 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 Not . Has no children. No known drug allergies. Patient awake, Says breathing better . Denies chest pain or cough. Patient is on room air. O2 saturation running 97%. BIPAP and o2 2 litres stand by in the ro om. ABG on FIO2 70%. ABG pH 7.378 pH Units (7.350-7.450) 11/21/21 22:53 ABG pCO2 36.7 mm Hg 11/21/21 22:53 ABG pO2 178.4 mm Hg (80.0-90.0) H 11/21/21 22:53 ABG O2 Saturation 99.1 % (95.0-99.0) H 11/21/21 22:53 Patient afebrile. Has no leukocytosis. Blood pressure 157/84, Pulse 80 , respirations 18. Chest xray 11/21/21 reported No active cardiopulmonary disease. CTA of chest 11/22/[address] evidence for pulmonary embolism. Bilateral dependent regions of low attenuation most suggestive of atelectasis. Venous doppler study of lower extremities 11/22/21 reported Negative for DVT. Patient is on Levaquin , S/C Heparin and albuterol inhalor. Recommend GI Prophylaxis. - Patient Problems (1) Acute respiratory failure Current Visit: Yes Status: Acute Plan to address problem: O2 room air , O2 saturation 97%. BIPAP and O2 2 litres stand by in the room. Albuterol inhalor q 6 hours. Continue S/C Heparin. Recommend GI prophylaxis. (2) TAMMY (acute kidney injury) Current Visit: Yes Status: Acute Plan to address problem: Management as per nephrology. (3) Colon distention Current Visit: Yes Status: Acute Plan to address problem: Management as per primary care. (4) HTN (hypertension) Current Visit: Yes Status: Acute Plan to address problem: Management as per primary care. (5) Hydronephrosis Current Visit: Yes Status: Acute Plan to address problem: KIDNEYS/URETERS: 6 mm proximal right ureteral stone at the level of L3-4 interspace. [id number] hydronephrosis of the right kidney. Additional multiple moderately large renal stones are noted within the right kidney. The right kidney additionally demonstrates a hyperdense cyst within the upper pole cortex. Left kidney demonstrates multiple small nephroliths Urology consulted. (6) Lymph edema Current Visit: Yes Status: Acute Plan to address problem: DVT Prophylaxis. Patient is on S/C Heparin. Subjective Date of service: 11/29/21 Principal diagnosis: sepsis Interval history: 86-year-old -[place] male with known history of diabetes mellitus, CHF, bilateral lower extremity lymphedema, Hypothyroidism, Gout presenting to the emergency room complaining of shortness of breath and cough. He also indicated he has been having some tightness in his chest especially have coughing. He denies any chest pain. He denies any fever or chills, no nausea vomiting and no abdominal pain. Symptoms have been ongoing for the past few days. He denies any sick contacts and no recent travel. Upon arrival in the emergency room, patient was in respiratory distress. He was quite tachypneic upon arrival and was placed on nebulizing treatments and BiPAP. His abdomen also looked quite distended upon arrival and he states his abdomen has always been distended and and denies any pain. He states he has had small bowel obstruction in the past for which he has had surgery. Last bowel movement was about 24 hours ago. Work-up in the emergency room ,significant findings were that of creatinine of 1.4 and AST of 60 on the labs. Abdominal x-ray reveals colonic ileus and/or constipation. Chest x-ray shows no active cardiopulmonary disease. CT of the abdomen and pelvis shows multiple bilateral nephroliths. 6 mm proximal right ureteral stone with associated hydronephrosis. The large bowel is moderately distended with gas to the point of suture line in the mid sigmoid colon. Partial obstruction at the level of the suture line not excluded. Patient was given some Lasix in the emergency room with significant improvement. Patient says smoked little when he was young otherwise has no history of smoking, alcohol or drug abuse. 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 Has no children. No known drug allergies. Patient awake, Says breathing better . Denies chest pain or cough. Patient is on room air. O2 saturation running 97%. BIPAP and o2 2 litres stand by in the room. ABG on FIO2 70%. ABG pH 7.378 pH Units (7.350-7.450) 11/21/21 22:53 ABG pCO2 36.7 mm Hg 11/21/21 22:53 ABG pO2 178.4 mm Hg (80.0-90.0) H 11/21/21 22:53 ABG O2 Saturation 99.1 % (95.0-99.0) H 11/21/21 22:53 Patient afebrile. Has no leukocytosis. Blood pressure 157/84, Pulse 80 , respirations 18. Chest xray 11/21/21 reported No active cardiopulmonary disease. CTA of chest 11/22/[address] evidence for pulmonary embolism. B ilateral dependent regions of low attenuation most suggestive of atelectasis. Venous doppler study of lower extremities 11/22/21 reported Negative for DVT. Patient is on Levaquin, S/C Heparin and albuterol inhalor. Recommend GI Prophylaxis. Objective Vital Signs - 12hr 11/29/21 11/29/21 11/29/21 03:53 08:25 09:06 Temperature 98.8 F 98.4 F Pulse Rate 82 116 H Respiratory 20 20 Rate Blood Pressure 146/101 Blood Pressure 146/100 [Left] O2 Sat by Pulse 89 96 96 Oximetry Constitutional: no acute distress, alert Eyes: non-icteric ENT: oropharynx moist Neck: supple, no lymphadenopathy, no JVD, other (large circumference) Effort: normal Ascultation: Bilateral: diminished breath sounds Percussion: Bilateral: not dull Cardiovascular: regular rate and rhythm, other (occasional extrasystole's) Gastrointestinal: normoactive bowel sounds, soft, non-tender, other (distended but soft) Integumentary: rash (stasis dermatitis type to legs), other (Changes from lymphedema and Stasis dermatitis.) Extremities: no cyanosis, pulses normal, no ischemia or petechiae, edema Neurologic: non-focal exam (grossly), pupils equal and round, unable to assess Psychiatric: mood appropriate, affect normal CBC and BMP: 11/26/21 10:27 11/29/21 05:04 ABG, PT/INR, D-dimer: ABG ABG pH 7.378 pH Units (7.350-7.450) 11/21/21 22:53 ABG pCO2 36.7 mm Hg 11/21/21 22:53 ABG pO2 178.4 mm Hg (80.0-90.0) H 11/21/21 22:53 ABG O2 Saturation 99.1 % (95.0-99.0) H 11/21/21 22:53 PT/INR, D-dimer PT 14.8 Sec. (12.2-14.9) 11/21/21 23:20 INR 1.04 (0.87-1.13) 11/21/21 23:20 D-Dimer > 14769 ng/mlDDU (0-234) H 11/22/21 23:45 Abnormal lab findings: Abnormal Labs 11/21/21 11/21/21 11/21/21 22:53 23:20 23:20 WBC RBC 5.34 H Hct 47.1 H MCHC Plt Count Seg Neuts % (Manual) 91.0 H Lymphocytes % (Manual) 5.0 L Seg Neutrophils # Man 8.5 H Lymphocytes # (Manual) 0.5 L Monocytes # (Manual) Eosinophils # (Manual) D-Dimer ABG pO2 178.4 H ABG O2 Saturation 99.1 H ABG Base Excess -3.4 L Sodium 133 L Potassium Carbon Dioxide BUN Creatinine 1.4 H Glucose POC Glucose Lactic Acid Calcium 10.9 H Ferritin AST 60 H Alkaline Phosphatase 184 H Lactate Dehydrogenase C-Reactive Protein Urine WBC (Auto) Urine Creatinine 11/22/21 11/22/21 11/22/21 11:47 23:45 23:45 WBC RBC Hct MCHC Plt Count Seg Neuts % (Manual) Lymphocytes % (Manual) Seg Neutrophils # Man Lymphocytes # (Manual) Monocytes # (Manual) Eosinophils # (Manual) D-Dimer > 40428 H ABG pO2 ABG O2 Saturation ABG Base Excess Sodium Potassium Carbon Dioxide BUN Creatinine Glucose POC Glucose Lactic Acid Calcium Ferritin AST Alkaline Phosphatase Lactate Dehydrogenase 287 H C-Reactive Protein 20.40 H Urine WBC (Auto) 14.0 H Urine Creatinine 11/22/21 11/22/21 11/22/21 23:45 23:45 23:45 WBC 31.0 H RBC 5.24 H Hct 47.2 H MCHC Plt Count 104 L Seg Neuts % (Manual) Lymphocytes % (Manual) Seg Neutrophils # Man Lymphocytes # (Manual) Monocytes # (Manual) Eosinophils # (Manual) D-Dimer ABG pO2 ABG O2 Saturation ABG Base Excess Sodium Potassium Carbon Dioxide BUN Creatinine Glucose POC Glucose Lactic Acid 4.50 H* Calcium Ferritin 389.2 H AST Alkaline Phosphatase Lactate Dehydrogenase C-Reactive Protein Urine WBC (Auto) Urine Creatinine 11/23/21 11/23/21 11/23/21 04:38 04:38 04:38 WBC 31.6 H RBC 5.20 H Hct 47.1 H MCHC 31 L Plt Count 97 L Seg Neuts % (Manual) 84.0 H Lymphocytes % (Manual) 2.0 L Seg Neutrophils # Man 26.5 H Lymphocytes # (Manual) 0.6 L Monocytes # (Manual) 1.6 H Eosinophils # (Manual) 0.6 H D-Dimer ABG pO2 ABG O2 Saturation ABG Base Excess Sodium 136 L Potassium Carbon Dioxide 18 L BUN 31 H Creatinine 2.7 H D Glucose 65 L POC Glucose Lactic Acid 4.50 H* Calcium 10.5 H Ferritin AST Alkaline Phosphatase Lactate Dehydrogenase C-Reactive Protein Urine WBC (Auto) Urine Creatinine 11/23/21 11/23/21 11/23/21 11:22 11:22 12:05 WBC RBC Hct MCHC Plt Count Seg Neuts % (Manual) Lymphocytes % (Manual) Seg Neutrophils # Man Lymphocytes # (Manual) Monocytes # (Manual) Eosinophils # (Manual) D-Dimer ABG pO2 ABG O2 Saturation ABG Base Excess Sodium Potassium Carbon Dioxide BUN 35 H Creatinine 2.7 H Glucose 72 L POC Glucose Lactic Acid 5.20 H* Calcium Ferritin AST Alkaline Phosphatase Lactate Dehydrogenase C-Reactive Protein Urine WBC (Auto) Urine Creatinine 223.0 H 11/23/21 11/24/21 11/24/21 16:24 00:03 00:22 WBC RBC Hct MCHC Plt Count Seg Neuts % (Manual) Lymphocytes % (Manual) Seg Neutrophils # Man Lymphocytes # (Manual) Monocytes # (Manual) Eosinophils # (Manual) D-Dimer ABG pO2 ABG O2 Saturation ABG Base Excess Sodium Potassium Carbon Dioxide BUN Creatinine Glucose POC Glucose 58 L 65 L 123 H Lactic Acid Calcium Ferritin AST Alkaline Phosphatase Lactate Dehydrogenase C-Reactive Protein Urine WBC (Auto) Urine Creatinine 11/24/21 11/24/21 11/24/21 04:26 04:26 11:44 WBC 17.6 H RBC Hct MCHC 31 L Plt Count 95 L Seg Neuts % (Manual) Lymphocytes % (Manual) Seg Neutrophils # Man Lymphocytes # (Manual) Monocytes # (Manual) Eosinophils # (Manual) D-Dimer ABG pO2 ABG O2 Saturation ABG Base Excess Sodium Potassium 5.2 H Carbon Dioxide BUN 38 H Creatinine 1.9 H Glucose 108 H POC Glucose 122 H Lactic Acid Calcium Ferritin AST Alkaline Phosphatase Lactate Dehydrogenase C-Reactive Protein Urine WBC (Auto) Urine Creatinine 11/24/21 11/24/21 11/25/21 16:32 23:30 04:49 WBC RBC Hct MCHC Plt Count Seg Neuts % (Manual) Lymphocytes % (Manual) Seg Neutrophils # Man Lymphocytes # (Manual) Monocytes # (Manual) Eosinophils # (Manual) D-Dimer ABG pO2 ABG O2 Saturation ABG Base Excess Sodium Potassium Carbon Dioxide BUN Creatinine Glucose POC Glucose 120 H 132 H 109 H Lactic Acid Calcium Ferritin AST Alkaline Phosphatase Lactate Dehydrogenase C-Reactive Protein Urine WBC (Auto) Urine Creatinine 11/25/21 11/25/21 11/26/21 16:15 22:56 10:27 WBC RBC Hct MCHC Plt Count 134 L Seg Neuts % (Manual) Lymphocytes % (Manual) Seg Neutrophils # Man Lymphocytes # (Manual) Monocytes # (Manual) Eosinophils # (Manual) D-Dimer ABG pO2 ABG O2 Saturation ABG Base Excess Sodium Potassium Carbon Dioxide BUN Creatinine Glucose POC Glucose 121 H 107 H Lactic Acid Calcium Ferritin AST Alkaline Phosphatase Lactate Dehydrogenase C-Reactive Protein Urine WBC (Auto) Urine Creatinine 11/26/21 11/26/21 11/27/21 11:43 23:15 05:35 WBC RBC Hct MCHC Plt Count Seg Neuts % (Manual) Lymphocytes % (Manual) Seg Neutrophils # Man Lymphocytes # (Manual) Monocytes # (Manual) Eosinophils # (Manual) D-Dimer ABG pO2 ABG O2 Saturation ABG Base Excess Sodium Potassium 3.5 L Carbon Dioxide BUN Creatinine Glucose 103 H POC Glucose 128 H 145 H Lactic Acid Calcium Ferritin AST Alkaline Phosphatase Lactate Dehydrogenase C-Reactive Protein Urine WBC (Auto) Urine Creatinine 11/27/21 11/27/21 11/27/21 11:51 15:47 20:05 WBC RBC Hct MCHC Plt Count Seg Neuts % (Manual) Lymphocytes % (Manual) Seg Neutrophils # Man Lymphocytes # (Manual) Monocytes # (Manual) Eosinophils # (Manual) D-Dimer ABG pO2 ABG O2 Saturation ABG Base Excess Sodium Potassium Carbon Dioxide BUN Creatinine Glucose POC Glucose 132 H 122 H 136 H Lactic Acid Calcium Ferritin AST Alkaline Phosphatase Lactate Dehydrogenase C-Reactive Protein Urine WBC (Auto) Urine Creatinine 11/27/21 11/28/21 11/28/21 23:23 04:29 05:20 WBC RBC Hct MCHC Plt Count Seg Neuts % (Manual) Lymphocytes % (Manual) Seg Neutrophils # Man Lymphocytes # (Manual) Monocytes # (Manual) Eosinophils # (Manual) D-Dimer ABG pO2 ABG O2 Saturation ABG Base Excess Sodium Potassium 3.5 L Carbon Dioxide BUN Creatinine 0.7 L Glucose 120 H POC Glucose 143 H 130 H Lactic Acid Calcium 10.5 H Ferritin AST Alkaline Phosphatase Lactate Dehydrogenase C-Reactive Protein Urine WBC (Auto) Urine Creatinine 11/28/21 11/28/21 11/28/21 11:59 16:19 23:25 WBC RBC Hct MCHC Plt Count Seg Neuts % (Manual) Lymphocytes % (Manual) Seg Neutrophils # Man Lymphocytes # (Manual) Monocytes # (Manual) Eosinophils # (Manual) D-Dimer ABG pO2 ABG O2 Saturation ABG Base Excess Sodium Potassium Carbon Dioxide BUN Creatinine Glucose POC Glucose 132 H 132 H 149 H Lactic Acid Calcium Ferritin AST Alkaline Phosphatase Lactate Dehydrogenase C-Reactive Protein Urine WBC (Auto) Urine Creatinine 11/29/21 05:04 WBC RBC Hct MCHC Plt Count Seg Neuts % (Manual) Lymphocytes % (Manual) Seg Neutrophils # Man Lymphocytes # (Manual) Monocytes # (Manual) Eosinophils # (Manual) D-Dimer ABG pO2 ABG O2 Saturation ABG Base Excess Sodium Potassium 3.4 L Carbon Dioxide BUN Creatinine Glucose 116 H POC Glucose Lactic Acid Calcium 10.6 H Ferritin AST Alkaline Phosphatase Lactate Dehydrogenase C-Reactive Protein Urine WBC (Auto) Urine Creatinine Allied health notes reviewed: nursing
--- NOTE | 2021-11-29 13:45 | Progress Note ---
Assessment and Plan 86-year-old -Armenian male with known history of diabetes mellitus, CHF, bilateral lower extremity lymphedema, Hypothyroidism, Gout presenting to the emergency room complaining of shortness of breath and cough. He also indicated he has been having some tightness in his chest especially have coughing. He denies any chest pain. He denies any fever or chills, no nausea vomiting and no abdominal pain. Symptoms have been ongoing for the past few days. He denies any sick contacts and no recent travel. Upon arrival in the emergency room, patient was in respiratory distress. He was quite tachypneic upon arrival and was placed on nebulizing treatments and BiPAP. His abdomen also looked quite distended upon arrival and he states his abdomen has always been distended and and denies any pain. He states he has had small bowel obstruction in the past for which he has had surgery. Last bowel movement was about 24 hours ago. Work-up in the emergency room ,significant findings were that of creatinine of 1.4 and AST of 60 on the labs. Abdominal x-ray reveals colonic ileus and/or constipation. Chest x-ray shows no active cardiopulmonary disease. CT of the abdomen and pelvis shows multiple bilateral nephroliths. 6 mm pro ximal right ureteral stone with associated hydronephrosis. The large bowel is moderately distended with gas to the point of suture line in the mid sigmoid colon. Partial obstruction at the level of the suture line not excluded. Patient was given some Lasix in the emergency room with significant improvement. Patient says smoked little when he was young otherwise has no history of smoking, alcohol or drug abuse. 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 Not . Has no children. No known drug allergies. Patient awake, Says breathing better . Denies chest pain or cough. Patient is on room air. O2 saturation running 96%. BIPAP and o2 2 litres stand by in the ro om. ABG on FIO2 70%. ABG pH 7.378 pH Units (7.350-7.450) 11/21/21 22:53 ABG pCO2 36.7 mm Hg 11/21/21 22:53 ABG pO2 178.4 mm Hg (80.0-90.0) H 11/21/21 22:53 ABG O2 Saturation 99.1 % (95.0-99.0) H 11/21/21 22:53 Patient afebrile. Has no leukocytosis. Blood [id number]/100 , Pulse 116, respirations 20. Chest xray 11/21/21 reported No active cardiopulmonary disease. CTA of chest 11/22/[address] evidence for pulmonary embolism. Bilateral dependent regions of low attenuation most suggestive of atelectasis. Venous doppler study of lower extremities 11/22/21 reported Negative for DVT. Patient is on Levaquin , S/C Heparin and albuterol inhalor. Recommend GI Prophylaxis. - Patient Problems (1) Acute respiratory failure Current Visit: Yes Status: Acute Plan to address problem: O2 room air , O2 saturation 96%. BIPAP and O2 2 litres stand by in the room. Albuterol inhalor q 6 hours. Continue S/C Heparin. Recommend GI prophylaxis. (2) TAMMY (acute kidney injury) Current Visit: Yes Status: Acute Plan to address problem: Management as per nephrology. (3) Colon distention Current Visit: Yes Status: Acute Plan to address problem: Management as per primary care. (4) HTN (hypertension) Current Visit: Yes Status: Acute Plan to address problem: Management as per primary care. (5) Hydronephrosis Current Visit: Yes Status: Acute Plan to address problem: KIDNEYS/URETERS: 6 mm proximal right ureteral stone at the level of L3-4 interspace. [id number] hydronephrosis of the right kidney. Additional multiple moderately large renal stones are noted within the right kidney. The right kidney additionally demonstrates a hyperdense cyst within the upper pole cortex. Left kidney demonstrates multiple small nephroliths Urology consulted. (6) Lymph edema Current Visit: Yes Status: Acute Plan to address problem: DVT Prophylaxis. Elevate the legs. Patient is on S/C Heparin. Subjective Date of service: 11/29/21 Principal diagnosis: sepsis Interval history: 86-year-old -Armenian male with known history of diabetes mellitus, CHF, bilateral lower extremity lymphedema, Hypothyroidism, Gout presenting to the emergency room complaining of shortness of breath and cough. He also indicated he has been having some tightness in his chest especially have coughing. He denies any chest pain. He denies any fever or chills, no nausea vomiting and no abdominal pain. Symptoms have been ongoing for the past few days. He denies any sick contacts and no recent travel. Upon arrival in the emergency room, patient was in respiratory distress. He was quite tachypneic upon arrival and was placed on nebulizing treatments and BiPAP. His abdomen also looked quite distended upon arrival and he states his abdomen has always been distended and and denies any pain. He states he has had small bowel obstruction in the past for which he has had surgery. Last bowel movement was about 24 hours ago. Work-up in the emergency room ,significant findings were that of creatinine of 1.4 and AST of 60 on the labs. Abdominal x-ray reveals colonic ileus and/or constipation. Chest x-ray shows no active cardiopulmonary disease. CT of the abdomen and pelvis shows multiple bilateral nephroliths. 6 mm proximal right ureteral stone with associated hydronephrosis. The large bowel is moderately distended with gas to the point of suture line in the mid sigmoid colon. Partial obstruction at the level of the suture line not excluded. Patient was given some Lasix in the emergency room with significant improvement. Patient says smoked little when he was young otherwise has no history of smoking, alcohol or drug abuse. 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 Not . Has no children. No known drug allergies. Patient awake, Says breathing better . Denies chest pain or cough. Patient is on room air. O2 saturation running 96%. BIPAP and o2 2 litres stand by in the room. ABG on FIO2 70%. ABG pH 7.378 pH Units (7.350-7.450) 11/21/21 22:53 ABG pCO2 36.7 mm Hg 11/21/21 22:53 ABG pO2 178.4 mm Hg (80.0-90.0) H 11/21/21 22:53 ABG O2 Saturation 99.1 % (95.0-99.0) H 11/21/21 22:53 Patient afebrile. Has no leukocytosis. Blood /100 , Pulse 116, respirations 20. Chest xray 11/21/21 reported No active cardiopulmonary disease. CTA of chest 11/22/[address] evidence for pulmonary embolism. Bilateral dependent regions of low attenuation most suggestive of atelectasis. Venous doppler study of lower extremities 11/22/21 reported Negative for DVT. Patient is on Levaquin, S/C Heparin and albuterol inhalor. Recommend GI Prophylaxis. Objective Vital Signs - 12hr 11/29/21 11/29/21 11/29/21 03:53 08:25 09:06 Temperature 98.8 F 98.4 F Pulse Rate 82 116 H Respiratory 20 20 Rate Blood Pressure 146/101 Blood Pressure 146/100 [Left] O2 Sat by Pulse 89 96 96 Oximetry Constitutional: no acute distress, alert Eyes: non-icteric ENT: oropharynx moist Neck: supple, no lymphadenopathy, no JVD, other (large circumference) Effort: normal Ascultation: Bilateral: diminished breath sounds Percussion: Bilateral: not dull Cardiovascular: regular rate and rhythm, other (occasional extrasystole's) Gastrointestinal: normoactive bowel sounds, soft, non-tender, other (distended but soft) Integumentary: rash (stasis dermatitis type to legs), other (Changes from lymphedema and Stasis dermatitis.) Extremities: no cyanosis, pulses normal, no ischemia or petechiae, edema Neurologic: non-focal exam (grossly), pupils equal and round, unable to assess Psychiatric: mood appropriate, affect normal CBC and BMP: 11/26/21 10:27 11/29/21 05:04 ABG, PT/INR, D-dimer: ABG ABG pH 7.378 pH Units (7.350-7.450) 11/21/21 22:53 ABG pCO2 36.7 mm Hg 11/21/21 22:53 ABG pO2 178.4 mm Hg (80.0-90.0) H 11/21/21 22:53 ABG O2 Saturation 99.1 % (95.0-99.0) H 11/21/21 22:53 PT/INR, D-dimer PT 14.8 Sec. (12.2-14.9) 11/21/21 23:20 INR 1.04 (0.87-1.13) 11/21/21 23:20 D-Dimer > 60058 ng/mlDDU (0-234) H 11/22/21 23:45 Abnormal lab findings: Abnormal Labs 11/21/21 11/21/21 11/21/21 22:53 23:20 23:20 WBC RBC 5.34 H Hct 47.1 H MCHC Plt Count Seg Neuts % (Manual) 91.0 H Lymphocytes % (Manual) 5.0 L Seg Neutrophils # Man 8.5 H Lymphocytes # (Manual) 0.5 L Monocytes # (Manual) Eosinophils # (Manual) D-Dimer ABG pO2 178.4 H ABG O2 Saturation 99.1 H ABG Base Excess -3.4 L Sodium 133 L Potassium Carbon Dioxide BUN Creatinine 1.4 H Glucose POC Glucose Lactic Acid Calcium 10.9 H Ferritin AST 60 H Alkaline Phosphatase 184 H Lactate Dehydrogenase C-Reactive Protein Urine WBC (Auto) Urine Creatinine 11/22/21 11/22/21 11/22/21 11:47 23:45 23:45 WBC RBC Hct MCHC Plt Count Seg Neuts % (Manual) Lymphocytes % (Manual) Seg Neutrophils # Man Lymphocytes # (Manual) Monocytes # (Manual) Eosinophils # (Manual) D-Dimer > 75640 H ABG pO2 ABG O2 Saturation ABG Base Excess Sodium Potassium Carbon Dioxide BUN Creatinine Glucose POC Glucose Lactic Acid Calcium Ferritin AST Alkaline Phosphatase Lactate Dehydrogenase 287 H C-Reactive Protein 20.40 H Urine WBC (Auto) 14.0 H Urine Creatinine 11/22/21 11/22/21 11/22/21 23:45 23:45 23:45 WBC 31.0 H RBC 5.24 H Hct 47.2 H MCHC Plt Count 104 L Seg Neuts % (Manual) Lymphocytes % (Manual) Seg Neutrophils # Man Lymphocytes # (Manual) Monocytes # (Manual) Eosinophils # (Manual) D-Dimer ABG pO2 ABG O2 Saturation ABG Base Excess Sodium Potassium Carbon Dioxide BUN Creatinine Glucose POC Glucose Lactic Acid 4.50 H* Calcium Ferritin 389.2 H AST Alkaline Phosphatase Lactate Dehydrogenase C-Reactive Protein Urine WBC (Auto) Urine Creatinine 11/23/21 11/23/21 11/23/21 04:38 04:38 04:38 WBC 31.6 H RBC 5.20 H Hct 47.1 H MCHC 31 L Plt Count 97 L Seg Neuts % (Manual) 84.0 H Lymphocytes % (Manual) 2.0 L Seg Neutrophils # Man 26.5 H Lymphocytes # (Manual) 0.6 L Monocytes # (Manual) 1.6 H Eosinophils # (Manual) 0.6 H D-Dimer ABG pO2 ABG O2 Saturation ABG Base Excess Sodium 136 L Potassium Carbon Dioxide 18 L BUN 31 H Creatinine 2.7 H D Glucose 65 L POC Glucose Lactic Acid 4.50 H* Calcium 10.5 H Ferritin AST Alkaline Phosphatase Lactate Dehydrogenase C-Reactive Protein Urine WBC (Auto) Urine Creatinine 11/23/21 11/23/21 11/23/21 11:22 11:22 12:05 WBC RBC Hct MCHC Plt Count Seg Neuts % (Manual) Lymphocytes % (Manual) Seg Neutrophils # Man Lymphocytes # (Manual) Monocytes # (Manual) Eosinophils # (Manual) D-Dimer ABG pO2 ABG O2 Saturation ABG Base Excess Sodium Potassium Carbon Dioxide BUN 35 H Creatinine 2.7 H Glucose 72 L POC Glucose Lactic Acid 5.20 H* Calcium Ferritin AST Alkaline Phosphatase Lactate Dehydrogenase C-Reactive Protein Urine WBC (Auto) Urine Creatinine 223.0 H 11/23/21 11/24/21 11/24/21 16:24 00:03 00:22 WBC RBC Hct MCHC Plt Count Seg Neuts % (Manual) Lymphocytes % (Manual) Seg Neutrophils # Man Lymphocytes # (Manual) Monocytes # (Manual) Eosinophils # (Manual) D-Dimer ABG pO2 ABG O2 Saturation ABG Base Excess Sodium Potassium Carbon Dioxide BUN Creatinine Glucose POC Glucose 58 L 65 L 123 H Lactic Acid Calcium Ferritin AST Alkaline Phosphatase Lactate Dehydrogenase C-Reactive Protein Urine WBC (Auto) Urine Creatinine 11/24/21 11/24/21 11/24/21 04:26 04:26 11:44 WBC 17.6 H RBC Hct MCHC 31 L Plt Count 95 L Seg Neuts % (Manual) Lymphocytes % (Manual) Seg Neutrophils # Man Lymphocytes # (Manual) Monocytes # (Manual) Eosinophils # (Manual) D-Dimer ABG pO2 ABG O2 Saturation ABG Base Excess Sodium Potassium 5.2 H Carbon Dioxide BUN 38 H Creatinine 1.9 H Glucose 108 H POC Glucose 122 H Lactic Acid Calcium Ferritin AST Alkaline Phosphatase Lactate Dehydrogenase C-Reactive Protein Urine WBC (Auto) Urine Creatinine 11/24/21 11/24/21 11/25/21 16:32 23:30 04:49 WBC RBC Hct MCHC Plt Count Seg Neuts % (Manual) Lymphocytes % (Manual) Seg Neutrophils # Man Lymphocytes # (Manual) Monocytes # (Manual) Eosinophils # (Manual) D-Dimer ABG pO2 ABG O2 Saturation ABG Base Excess Sodium Potassium Carbon Dioxide BUN Creatinine Glucose POC Glucose 120 H 132 H 109 H Lactic Acid Calcium Ferritin AST Alkaline Phosphatase Lactate Dehydrogenase C-Reactive Protein Urine WBC (Auto) Urine Creatinine 11/25/21 11/25/21 11/26/21 16:15 22:56 10:27 WBC RBC Hct MCHC Plt Count 134 L Seg Neuts % (Manual) Lymphocytes % (Manual) Seg Neutrophils # Man Lymphocytes # (Manual) Monocytes # (Manual) Eosinophils # (Manual) D-Dimer ABG pO2 ABG O2 Saturation ABG Base Excess Sodium Potassium Carbon Dioxide BUN Creatinine Glucose POC Glucose 121 H 107 H Lactic Acid Calcium Ferritin AST Alkaline Phosphatase Lactate Dehydrogenase C-Reactive Protein Urine WBC (Auto) Urine Creatinine 11/26/21 11/26/21 11/27/21 11:43 23:15 05:35 WBC RBC Hct MCHC Plt Count Seg Neuts % (Manual) Lymphocytes % (Manual) Seg Neutrophils # Man Lymphocytes # (Manual) Monocytes # (Manual) Eosinophils # (Manual) D-Dimer ABG pO2 ABG O2 Saturation ABG Base Excess Sodium Potassium 3.5 L Carbon Dioxide BUN Creatinine Glucose 103 H POC Glucose 128 H 145 H Lactic Acid Calcium Ferritin AST Alkaline Phosphatase Lactate Dehydrogenase C-Reactive Protein Urine WBC (Auto) Urine Creatinine 11/27/21 11/27/21 11/27/21 11:51 15:47 20:05 WBC RBC Hct MCHC Plt Count Seg Neuts % (Manual) Lymphocytes % (Manual) Seg Neutrophils # Man Lymphocytes # (Manual) Monocytes # (Manual) Eosinophils # (Manual) D-Dimer ABG pO2 ABG O2 Saturation ABG Base Excess Sodium Potassium Carbon Dioxide BUN Creatinine Glucose POC Glucose 132 H 122 H 136 H Lactic Acid Calcium Ferritin AST Alkaline Phosphatase Lactate Dehydrogenase C-Reactive Protein Urine WBC (Auto) Urine Creatinine 11/27/21 11/28/21 11/28/21 23:23 04:29 05:20 WBC RBC Hct MCHC Plt Count Seg Neuts % (Manual) Lymphocytes % (Manual) Seg Neutrophils # Man Lymphocytes # (Manual) Monocytes # (Manual) Eosinophils # (Manual) D-Dimer ABG pO2 ABG O2 Saturation ABG Base Excess Sodium Potassium 3.5 L Carbon Dioxide BUN Creatinine 0.7 L Glucose 120 H POC Glucose 143 H 130 H Lactic Acid Calcium 10.5 H Ferritin AST Alkaline Phosphatase Lactate Dehydrogenase C-Reactive Protein Urine WBC (Auto) Urine Creatinine 11/28/21 11/28/21 11/28/21 11:59 16:19 23:25 WBC RBC Hct MCHC Plt Count Seg Neuts % (Manual) Lymphocytes % (Manual) Seg Neutrophils # Man Lymphocytes # (Manual) Monocytes # (Manual) Eosinophils # (Manual) D-Dimer ABG pO2 ABG O2 Saturation ABG Base Excess Sodium Potassium Carbon Dioxide BUN Creatinine Glucose POC Glucose 132 H 132 H 149 H Lactic Acid Calcium Ferritin AST Alkaline Phosphatase Lactate Dehydrogenase C-Reactive Protein Urine WBC (Auto) Urine Creatinine 11/29/21 05:04 WBC RBC Hct MCHC Plt Count Seg Neuts % (Manual) Lymphocytes % (Manual) Seg Neutrophils # Man Lymphocytes # (Manual) Monocytes # (Manual) Eosinophils # (Manual) D-Dimer ABG pO2 ABG O2 Saturation ABG Base Excess Sodium Potassium 3.4 L Carbon Dioxide BUN Creatinine Glucose 116 H POC Glucose Lactic Acid Calcium 10.6 H Ferritin AST Alkaline Phosphatase Lactate Dehydrogenase C-Reactive Protein Urine WBC (Auto) Urine Creatinine Allied health notes reviewed: nursing
--- NOTE | 2021-11-29 19:33 | Progress Note ---
Subjective Principal diagnosis: sepsis Interval history: Assessment and plan Acute kidney injury: Currently in complete remission, Avoid any nephrotoxic medication work on diet lifestyle changes, weight loss etc. #Hypokalemia appears to have resolved Patient is doing well from renal standpoint pending rehab, I told him make an appointment follow-up in the outpatient setting, overall he is stable from renal standpoint for discharge If there are any renal related issues in regards to this patient please feel marti e to reach out without any hesitation at [phone] We'll continue to follow and make recommendation for renal standpoint. Progress note by: Salbador Townsend MD [address] [place] [id number] Tele [phone] [email or web address] Patient was seen today for follow-up of multiple renal related issues No complaints of any chest pain pressure or shortness of breath Interdisciplinary notes that also reviewed Events of 24 hours vitals labs intake output medications were reviewed Past medical history: Reviewed Family history: Reviewed Social history: Reviewed Allergies: Reviewed Physical examination: Vitals: Reviewed HEENT: No pallor or icterus oral mucosa moist Neck: Supple no JVD no thyromegaly Chest: Bilateral clear to auscultation anteriorly Heart: Regular rate and rhythm S1-S2 heard no S3-S4 Abdomen: Soft nontender no voluntary guarding rigidity rebound Extremity: Dry skin less than 1+ peripheral edema Psychiatric: No evidence of agitation and aggression noted Dermatology: No petechial rashes Labs and x-rays: Reviewed from today Objective - Vital Signs Vital signs: Vital Signs - 12hr 11/29/21 11/29/21 11/29/21 08:25 09:06 10:00 Temperature 98.4 F Pulse Rate 116 H 116 H Respiratory 20 Rate Blood Pressure Blood Pressure 146/100 [Left] O2 Sat by Pulse 96 96 96 Oximetry 11/29/21 16:00 Temperature 98.0 F Pulse Rate 98 H Respiratory 18 Rate Blood Pressure 123/78 Blood Pressure [Left] O2 Sat by Pulse 90 Oximetry - Lab 11/26/21 10:27 11/30/21 08:38 Most recent lab results ABG pH 7.378 pH Units (7.350-7.450) 11/21/21 22:53 ABG pCO2 36.7 mm Hg 11/21/21 22:53 ABG pO2 178.4 mm Hg (80.0-90.0) H 11/21/21 22:53 ABG HCO3 21.1 mmol/L (20.0-26.0) 11/21/21 22:53 ABG O2 Saturation 99.1 % (95.0-99.0) H 11/21/21 22:53 Calcium 10.6 mg/dL (8.4-10.2) H 11/29/21 05:04 Urine Creatinine 223.0 mg/dL (0.1-20.0) H 11/23/21 12:05 Urine Sodium 27 mmol/L 11/23/21 12:05 Medications & Allergies - Medications Allergies/Adverse Reactions: Allergies No Known Allergies Allergy (Unverified 11/21/21 23:08) Home Medications: Home Medications Medication Instructions Recorded Confirmed Last Taken Type Furosemide [Lasix] 20 mg PO QDAY 11/22/21 11/22/21 Unknown History Gabapentin [Neurontin] 300 mg PO BID 11/22/21 11/22/21 Unknown History Levothyroxine [Synthroid] 150 mcg PO QAM 11/22/21 11/22/21 Unknown History allopurinoL [Zyloprim] 100 mg PO QDAY 11/22/21 11/22/21 Unknown History amLODIPine [Norvasc] 10 mg PO DAILY 11/22/21 11/22/21 Unknown History lisinopriL [Zestril TAB] 40 mg PO QDAY 11/22/21 11/22/21 Unknown History levoFLOXacin [Levaquin TAB] 750 mg PO Q24H 7 Days #7 tablet 11/29/21 Unknown Rx Active Medications: Generic Name Dose Route Start Last Admin Trade Name Freq PRN Reason Stop Dose Admin Acetaminophen 650 mg 11/22/21 02:08 11/26/21 17:33 Acetaminophen 325 Mg Tab PO 650 mg Q6H PRN Administration Pain MILD(1-3)/Fever >100.5/CARREON Albuterol 2.5 mg 11/22/21 07:02 Albuterol 2.5 Mg/3 Ml Nebu IH Q4HRT PRN Shortness Of Breath Allopurinol 100 mg 11/25/21 10:00 11/29/21 09:12 Allopurinol 100 Mg Tab PO 100 mg QDAY ERIKA Administration Amlodipine Besylate 10 mg 11/25/21 12:00 11/29/21 09:12 Amlodipine 10 Mg Tab PO 10 mg DAILY ERIKA Administration Dextrose 0 ml 11/22/21 02:08 11/24/21 00:05 Dextrose 50% In Water (25gm) 50 Ml Syringe IV 15 ml Q30MIN PRN Administration Hypoglycemia Protocol Docusate Sodium 100 mg 11/23/21 22:00 11/29/21 09:12 Docusate Sodium 100 Mg/10 Ml Oral Liqd PO 100 mg BID ERIKA Administration Gabapentin 300 mg 11/24/21 22:00 11/29/21 09:12 Gabapentin 300 Mg Cap PO 300 mg BID ERIKA Administration Guaifenesin 20 ml 11/28/21 11:56 11/29/21 14:37 Guaifenesin Dm 200/20 Mg Oral Liqd 10 Ml PO 20 ml Q4H PRN Administration Cough Heparin Sodium (Porcine) 5,000 unit 11/22/21 22:00 11/29/21 14:37 Heparin 5,000 Unit/1 Ml Vial SUB-Q 5,000 unit Q8HR ERIKA Administration Insulin Human Lispro 0 unit 11/23/21 12:00 11/29/21 07:00 Insulin Lispro 100 Unit/Ml SUB-Q Not Given Q6HR [facility] Protocol Levofloxacin 750 mg 11/27/21 10:00 11/29/21 09:14 Levofloxacin 750 Mg Tab PO 12/02/21 10:01 750 mg Q24H ERIKA Administration Protocol Levothyroxine Sodium 150 mcg 11/25/21 06:00 11/29/21 07:00 Levothyroxine 150 Mcg Tab PO 150 mcg QAM@0600 ERIKA Administration Magnesium Hydroxide 30 ml 11/22/21 02:08 Magnesium Hydroxide (Mom) Oral Liqd Udc PO Q4H PRN Constipation Morphine Sulfate 2 mg 11/22/21 02:08 11/28/21 02:18 Morphine 2 Mg/1 Ml Inj IV 2 mg Q4H PRN Administration Pain, Moderate (4-6) Morphine Sulfate 4 mg 11/22/21 02:08 Morphine 4 Mg/1 Ml Inj IV Q4H PRN Pain , Severe (7-10) Phenol 1 spray 11/23/21 12:34 11/23/21 14:05 Phenol 1.4% 177 Ml Bottle MM 1 spray PRN PRN Administration Sore Throat Polyethylene Glycol 17 gm 11/25/21 22:00 11/29/21 09:12 Polyethylene Glycol 3350 17 Gm Powder PO 17 gm BID ERIKA Administration Sodium Chloride 10 ml 11/22/21 10:00 11/29/21 09:15 Sodium Chloride 0.9% 10 Ml Flush Syringe IV 10 ml BID ERIKA Administration Sodium Chloride 10 ml 11/22/21 02:08 Sodium Chloride 0.9% 10 Ml Flush Syringe IV PRN PRN LINE FLUSH
[2021-11-30] MEDS: INSULIN LISPRO 100 UNIT/ML SUB-Q SCH ×4 (00:03→18:35)
[2021-11-30] MEDS: LEVOTHYROXINE 150 MCG TAB PO SCH (05:41)
[2021-11-30] MEDS: HEPARIN 5,000 UNIT/1 ML VIAL SUB-Q SCH ×3 (05:41→21:27)
[2021-11-30 09:28] LABS: BUN/Creatinine Ratio 17; Blood Urea Nitrogen 15 mg/dL (9-20); Calcium 10.2 mg/dL (8.4-10.2); Hemolysis Index 4
[2021-11-30] MEDS: allopurinoL 100 MG TAB PO SCH (10:40)
[2021-11-30] MEDS: amLODIPine 10 MG TAB PO SCH (10:40)
[2021-11-30] MEDS: GABAPENTIN 300 MG CAP PO SCH ×2 (10:40→21:27)
[2021-11-30] MEDS: DOCUSATE SODIUM 100 MG/10 ML ORAL LIQD PO SCH ×2 (10:41→21:27)
[2021-11-30] MEDS: POLYETHYLENE GLYCOL 3350 17 GM POWDER PO SCH ×2 (10:41→21:32)
[2021-11-30] MEDS: levoFLOXacin 750 MG TAB PO SCH (10:42)
--- NOTE | 2021-11-30 11:49 | Progress Note ---
Assessment and Plan 86-year-old -Citizen Of [place] male with known history of diabetes mellitus, CHF, bilateral lower extremity lymphedema, Hypothyroidism, Gout presenting to the emergency room complaining of shortness of breath and cough. He also indicated he has been having some tightness in his chest especially have coughing. He denies any chest pain. He denies any fever or chills, no nausea vomiting and no abdominal pain. Symptoms have been ongoing for the past few days. He denies any sick contacts and no recent travel. Upon arrival in the emergency room, patient was in respiratory distress. He was quite tachypneic upon arrival and was placed on nebulizing treatments and BiPAP. His abdomen also looked quite distended upon arrival and he states his abdomen has always been distended and and denies any pain. He states he has had small bowel obstruction in the past for which he has had surgery. Last bowel movement was about 24 hours ago. Work-up in the emergency room ,significant findings were that of creatinine of 1.4 and AST of 60 on the labs. Abdominal x-ray reveals colonic ileus and/or constipation. Chest x-ray shows no active cardiopulmonary disease. CT of the abdomen and pelvis shows multiple bilateral nephroliths. 6 mm pro ximal right ureteral stone with associated hydronephrosis. The large bowel is moderately distended with gas to the point of suture line in the mid sigmoid colon. Partial obstruction at the level of the suture line not excluded. Patient was given some Lasix in the emergency room with significant improvement. Patient says smoked little when he was young otherwise has no history of smoking, alcohol or drug abuse. 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 Not . Has no children. No known drug allergies. Patient awake, Says breathing better . Denies chest pain or cough. Patient is on room air. O2 saturation running 93%. Suppose to be 1 litre O2, but not using it at this time.BIPAP and o2 2 litres stand by in the room. ABG on FIO2 70%. ABG pH 7.378 pH Units (7.350-7.450) 11/21/21 22:53 ABG pCO2 36.7 mm Hg 11/21/21 22:53 ABG pO2 178.4 mm Hg (80.0-90.0) H 11/21/21 22:53 ABG O2 Saturation 99.1 % (95.0-99.0) H 11/21/21 22:53 Patient afebrile. Has no leukocytosis. Blood pressure 142/90 , Pulse 77, respirations 18. Chest xray 11/21/21 reported No active cardiopulmonary disease. CTA of chest 11/22/[address] evidence for pulmonary embolism. Bilateral dependent regions of low attenuation most suggestive of atelectasis. Venous doppler study of lower extremities 11/22/21 reported Negative for DVT. Patient is on Levaquin , S/C Heparin and albuterol inhalor. Recommend GI Prophylaxis. - Patient Problems (1) Acute respiratory failure Current Visit: Yes Status: Acute Plan to address problem: O2 1 litres O2. Not Using O2 at this time.O2 saturation 93%. BIPAP and O2 1 litre stand by in the room. Albuterol inhalor q 6 hours. Continue S/C Heparin. Recommend GI prophylaxis. (2) Colon distention Current Visit: Yes Status: Acute Plan to address problem: Management as per primary care. (3) HTN (hypertension) Current Visit: Yes Status: Acute Plan to address problem: Management as per primary care. (4) Hydronephrosis Current Visit: Yes Status: Acute Plan to address problem: Urology on consultation. Management as per urology. (5) Lymph edema Current Visit: Yes Status: Acute Plan to address problem: Elevate the foot. Continue S/C Heparin. Subjective Date of service: 11/30/21 Principal diagnosis: sepsis Interval history: 86-year-old -Citizen Of [place] male with known history of diabetes mellitus, CHF, bilateral lower extremity lymphedema, Hypothyroidism, Gout presenting to the emergency room complaining of shortness of breath and cough. He also indicated he has been having some tightness in his chest especially have coughing. He denies any chest pain. He denies any fever or chills, no nausea vomiting and no abdominal pain. Symptoms have been ongoing for the past few days. He denies any sick contacts and no recent travel. Upon arrival in the emergency room, patient was in respiratory distress. He was quite tachypneic upon arrival and was placed on nebulizing treatments and BiPAP. His abdomen also looked quite distended upon arrival and he states his abdomen has always been distended and and denies any pain. He states he has had small bowel obstruction in the past for which he has had surgery. Last bowel movement was about 24 hours ago. Work-up in the emergency room ,significant findings were that of creatinine of 1.4 and AST of 60 on the labs. Abdominal x-ray reveals colonic ileus and/or constipation. Chest x-ray shows no active cardiopulmonary disease. CT of the abdomen and pelvis shows multiple bilateral nephroliths. 6 mm proximal right ureteral stone with associated hydronephrosis. The large bowel is moderately distended with gas to the point of suture line in the mid sigmoid colon. Partial obstruction at the level of the suture line not excluded. Patient was given some Lasix in the emergency room with significant improvement. Patient says smoked little when he was young otherwise has no history of smoking, alcohol or drug abuse. 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 Not . Has no children. No known drug allergies. Patient awake, Says breathing better . Denies chest pain or cough. Patient is on room air. O2 saturation running 93%. Suppose to be 1 litre o2, but not using it at this time.BIPAP and o2 2 litres stand by in the room. ABG on FIO2 70%. ABG pH 7.378 pH Units (7.350-7.450) 11/21/21 22:53 ABG pCO2 36.7 mm Hg 11/21/21 22:53 ABG pO2 178.4 mm Hg (80.0-90.0) H 11/21/21 22:53 ABG O2 Saturation 99.1 % (95.0-99.0) H 11/21/21 22:53 Patient afebrile. Has no leukocytosis. Blood pressure 142/90 , Pulse 77, respirations 18. Chest xray 11/21/21 reported No active cardiopulmonary disease. CTA of chest 11/22/[address] evidence for pulmonary embolism. Bilateral dependent regions of low attenuation most suggestive of atelectasis. Venous doppler study of lower extremities 11/22/21 reported Negative for DVT. Patient is on Levaquin , S/C Heparin and albuterol inhalor. Recommend GI Prophylaxis. Objective Vital Signs - 12hr 11/30/21 04:10 Temperature 98.1 F Pulse Rate 89 Respiratory 20 Rate Blood Pressure 154/91 O2 Sat by Pulse 93 Oximetry Constitutional: no acute distress, alert Eyes: non-icteric ENT: oropharynx moist Neck: supple, no lymphadenopathy, no JVD, other (large circumference) Effort: normal Ascultation: Bilateral: diminished breath sounds Percussion: Bilateral: not dull Cardiovascular: regular rate and rhythm, other (occasional extrasystole's) Gastrointestinal: normoactive bowel sounds, soft, non-tender, other (distended but soft) Integumentary: rash (stasis dermatitis type to legs), other (Changes from lymphedema and Stasis dermatitis.) Extremities: no cyanosis, pulses normal, no ischemia or petechiae, edema Neurologic: non-focal exam (grossly), pupils equal and round, unable to assess Psychiatric: mood appropriate, affect normal CBC and BMP: 11/26/21 10:27 12/01/21 04:36 ABG, PT/INR, D-dimer: ABG ABG pH 7.378 pH Units (7.350-7.450) 11/21/21 22:53 ABG pCO2 36.7 mm Hg 11/21/21 22:53 ABG pO2 178.4 mm Hg (80.0-90.0) H 11/21/21 22:53 ABG O2 Saturation 99.1 % (95.0-99.0) H 11/21/21 22:53 PT/INR, D-dimer PT 14.8 Sec. (12.2-14.9) 11/21/21 23:20 INR 1.04 (0.87-1.13) 11/21/21 23:20 D-Dimer > 33967 ng/mlDDU (0-234) H 11/22/21 23:45 Abnormal lab findings: Abnormal Labs 11/21/21 11/21/21 11/21/21 22:53 23:20 23:20 WBC RBC 5.34 H Hct 47.1 H MCHC Plt Count Seg Neuts % (Manual) 91.0 H Lymphocytes % (Manual) 5.0 L Seg Neutrophils # Man 8.5 H Lymphocytes # (Manual) 0.5 L Monocytes # (Manual) Eosinophils # (Manual) D-Dimer ABG pO2 178.4 H ABG O2 Saturation 99.1 H ABG Base Excess -3.4 L Sodium 133 L Potassium Carbon Dioxide BUN Creatinine 1.4 H Glucose POC Glucose Lactic Acid Calcium 10.9 H Ferritin AST 60 H Alkaline Phosphatase 184 H Lactate Dehydrogenase C-Reactive Protein Urine WBC (Auto) Urine Creatinine 11/22/21 11/22/21 11/22/21 11:47 23:45 23:45 WBC RBC Hct MCHC Plt Count Seg Neuts % (Manual) Lymphocytes % (Manual) Seg Neutrophils # Man Lymphocytes # (Manual) Monocytes # (Manual) Eosinophils # (Manual) D-Dimer > 77876 H ABG pO2 ABG O2 Saturation ABG Base Excess Sodium Potassium Carbon Dioxide BUN Creatinine Glucose POC Glucose Lactic Acid Calcium Ferritin AST Alkaline Phosphatase Lactate Dehydrogenase 287 H C-Reactive Protein 20.40 H Urine WBC (Auto) 14.0 H Urine Creatinine 11/22/21 11/22/21 11/22/21 23:45 23:45 23:45 WBC 31.0 H RBC 5.24 H Hct 47.2 H MCHC Plt Count 104 L Seg Neuts % (Manual) Lymphocytes % (Manual) Seg Neutrophils # Man Lymphocytes # (Manual) Monocytes # (Manual) Eosinophils # (Manual) D-Dimer ABG pO2 ABG O2 Saturation ABG Base Excess Sodium Potassium Carbon Dioxide BUN Creatinine Glucose POC Glucose Lactic Acid 4.50 H* Calcium Ferritin 389.2 H AST Alkaline Phosphatase Lactate Dehydrogenase C-Reactive Protein Urine WBC (Auto) Urine Creatinine 11/23/21 11/23/21 11/23/21 04:38 04:38 04:38 WBC 31.6 H RBC 5.20 H Hct 47.1 H MCHC 31 L Plt Count 97 L Seg Neuts % (Manual) 84.0 H Lymphocytes % (Manual) 2.0 L Seg Neutrophils # Man 26.5 H Lymphocytes # (Manual) 0.6 L Monocytes # (Manual) 1.6 H Eosinophils # (Manual) 0.6 H D-Dimer ABG pO2 ABG O2 Saturation ABG Base Excess Sodium 136 L Potassium Carbon Dioxide 18 L BUN 31 H Creatinine 2.7 H D Glucose 65 L POC Glucose Lactic Acid 4.50 H* Calcium 10.5 H Ferritin AST Alkaline Phosphatase Lactate Dehydrogenase C-Reactive Protein Urine WBC (Auto) Urine Creatinine 11/23/21 11/23/21 11/23/21 11:22 11:22 12:05 WBC RBC Hct MCHC Plt Count Seg Neuts % (Manual) Lymphocytes % (Manual) Seg Neutrophils # Man Lymphocytes # (Manual) Monocytes # (Manual) Eosinophils # (Manual) D-Dimer ABG pO2 ABG O2 Saturation ABG Base Excess Sodium Potassium Carbon Dioxide BUN 35 H Creatinine 2.7 H Glucose 72 L POC Glucose Lactic Acid 5.20 H* Calcium Ferritin AST Alkaline Phosphatase Lactate Dehydrogenase C-Reactive Protein Urine WBC (Auto) Urine Creatinine 223.0 H 11/23/21 11/24/21 11/24/21 16:24 00:03 00:22 WBC RBC Hct MCHC Plt Count Seg Neuts % (Manual) Lymphocytes % (Manual) Seg Neutrophils # Man Lymphocytes # (Manual) Monocytes # (Manual) Eosinophils # (Manual) D-Dimer ABG pO2 ABG O2 Saturation ABG Base Excess Sodium Potassium Carbon Dioxide BUN Creatinine Glucose POC Glucose 58 L 65 L 123 H Lactic Acid Calcium Ferritin AST Alkaline Phosphatase Lactate Dehydrogenase C-Reactive Protein Urine WBC (Auto) Urine Creatinine 11/24/21 11/24/21 11/24/21 04:26 04:26 11:44 WBC 17.6 H RBC Hct MCHC 31 L Plt Count 95 L Seg Neuts % (Manual) Lymphocytes % (Manual) Seg Neutrophils # Man Lymphocytes # (Manual) Monocytes # (Manual) Eosinophils # (Manual) D-Dimer ABG pO2 ABG O2 Saturation ABG Base Excess Sodium Potassium 5.2 H Carbon Dioxide BUN 38 H Creatinine 1.9 H Glucose 108 H POC Glucose 122 H Lactic Acid Calcium Ferritin AST Alkaline Phosphatase Lactate Dehydrogenase C-Reactive Protein Urine WBC (Auto) Urine Creatinine 11/24/21 11/24/21 11/25/21 16:32 23:30 04:49 WBC RBC Hct MCHC Plt Count Seg Neuts % (Manual) Lymphocytes % (Manual) Seg Neutrophils # Man Lymphocytes # (Manual) Monocytes # (Manual) Eosinophils # (Manual) D-Dimer ABG pO2 ABG O2 Saturation ABG Base Excess Sodium Potassium Carbon Dioxide BUN Creatinine Glucose POC Glucose 120 H 132 H 109 H Lactic Acid Calcium Ferritin AST Alkaline Phosphatase Lactate Dehydrogenase C-Reactive Protein Urine WBC (Auto) Urine Creatinine 11/25/21 11/25/21 11/26/21 16:15 22:56 10:27 WBC RBC Hct MCHC Plt Count 134 L Seg Neuts % (Manual) Lymphocytes % (Manual) Seg Neutrophils # Man Lymphocytes # (Manual) Monocytes # (Manual) Eosinophils # (Manual) D-Dimer ABG pO2 ABG O2 Saturation ABG Base Excess Sodium Potassium Carbon Dioxide BUN Creatinine Glucose POC Glucose 121 H 107 H Lactic Acid Calcium Ferritin AST Alkaline Phosphatase Lactate Dehydrogenase C-Reactive Protein Urine WBC (Auto) Urine Creatinine 11/26/21 11/26/21 11/27/21 11:43 23:15 05:35 WBC RBC Hct MCHC Plt Count Seg Neuts % (Manual) Lymphocytes % (Manual) Seg Neutrophils # Man Lymphocytes # (Manual) Monocytes # (Manual) Eosinophils # (Manual) D-Dimer ABG pO2 ABG O2 Saturation ABG Base Excess Sodium Potassium 3.5 L Carbon Dioxide BUN Creatinine Glucose 103 H POC Glucose 128 H 145 H Lactic Acid Calcium Ferritin AST Alkaline Phosphatase Lactate Dehydrogenase C-Reactive Protein Urine WBC (Auto) Urine Creatinine 11/27/21 11/27/21 11/27/21 11:51 15:47 20:05 WBC RBC Hct MCHC Plt Count Seg Neuts % (Manual) Lymphocytes % (Manual) Seg Neutrophils # Man Lymphocytes # (Manual) Monocytes # (Manual) Eosinophils # (Manual) D-Dimer ABG pO2 ABG O2 Saturation ABG Base Excess Sodium Potassium Carbon Dioxide BUN Creatinine Glucose POC Glucose 132 H 122 H 136 H Lactic Acid Calcium Ferritin AST Alkaline Phosphatase Lactate Dehydrogenase C-Reactive Protein Urine WBC (Auto) Urine Creatinine 11/27/21 11/28/21 11/28/21 23:23 04:29 05:20 WBC RBC Hct MCHC Plt Count Seg Neuts % (Manual) Lymphocytes % (Manual) Seg Neutrophils # Man Lymphocytes # (Manual) Monocytes # (Manual) Eosinophils # (Manual) D-Dimer ABG pO2 ABG O2 Saturation ABG Base Excess Sodium Potassium 3.5 L Carbon Dioxide BUN Creatinine 0.7 L Glucose 120 H POC Glucose 143 H 130 H Lactic Acid Calcium 10.5 H Ferritin AST Alkaline Phosphatase Lactate Dehydrogenase C-Reactive Protein Urine WBC (Auto) Urine Creatinine 11/28/21 11/28/21 11/28/21 11:59 16:19 23:25 WBC RBC Hct MCHC Plt Count Seg Neuts % (Manual) Lymphocytes % (Manual) Seg Neutrophils # Man Lymphocytes # (Manual) Monocytes # (Manual) Eosinophils # (Manual) D-Dimer ABG pO2 ABG O2 Saturation ABG Base Excess Sodium Potassium Carbon Dioxide BUN Creatinine Glucose POC Glucose 132 H 132 H 149 H Lactic Acid Calcium Ferritin AST Alkaline Phosphatase Lactate Dehydrogenase C-Reactive Protein Urine WBC (Auto) Urine Creatinine 11/29/21 11/29/21 11/29/21 05:04 06:18 23:22 WBC RBC Hct MCHC Plt Count Seg Neuts % (Manual) Lymphocytes % (Manual) Seg Neutrophils # Man Lymphocytes # (Manual) Monocytes # (Manual) Eosinophils # (Manual) D-Dimer ABG pO2 ABG O2 Saturation ABG Base Excess Sodium Potassium 3.4 L Carbon Dioxide BUN Creatinine Glucose 116 H POC Glucose 120 H 109 H Lactic Acid Calcium 10.6 H Ferritin AST Alkaline Phosphatase Lactate Dehydrogenase C-Reactive Protein Urine WBC (Auto) Urine Creatinine 11/30/21 08:38 WBC RBC Hct MCHC Plt Count Seg Neuts % (Manual) Lymphocytes % (Manual) Seg Neutrophils # Man Lymphocytes # (Manual) Monocytes # (Manual) Eosinophils # (Manual) D-Dimer ABG pO2 ABG O2 Saturation ABG Base Excess Sodium Potassium Carbon Dioxide BUN Creatinine Glucose 107 H POC Glucose Lactic Acid Calcium Ferritin AST Alkaline Phosphatase Lactate Dehydrogenase C-Reactive Protein Urine WBC (Auto) Urine Creatinine Allied health notes reviewed: nursing
--- NOTE | 2021-11-30 12:57 | Progress Note ---
Assessment and Plan Assessment and plan: This is a 86 year old male with DM, CHF, BLE lymphedema, HTN, hypothyroidism, gout, abdnominal surgery with SBO who presents to the emergency department on 06/22 with complaints of shortness of breath, cough, chest tightness with coughing ongoing for the past few days. In the emergency department he stated he had SBO in the past with surgery however later distended upon admission but the patient stated his last bowel movement was about 24 hours prior to admission. Work-up in the emergency department showed acute kidney injury, abdominal x-ray revealed colonic ileus or constipation, CT abdomen/pelvis showed multiple bilateral nephrolithiasis, 6 mm proximal right ureteral stone with associated hydronephrosis, possible partial occlusion [mildly distended with gas at the point of suture line in the mid sigmoid colon. Patient was given Lasix in the ED and placed on BiPAP for respiratory distress. Patient was admitted to the hospitalist service with consults to urology, nephrology, cardiology. Hospital course to date 11/22: CCM consulted, appreciate recommendations. CT abdomen/pelvis showed possible SBO and surgery was consulted. COVID-19 PCR resulted as negative. S/p BiPAP therapy on Venturi mask. Wean as tolerated. 11/23: Worsening renal function noted, started on antibiotics. Urine electrolytes pending, ordered renal US. On Dextrose fluid awaiting GI input on feeding patient. 11/24: Renal function improving, restarted home gabapentin and allopurinol as patient states that he has gout pains to feet. Patient will be transferred to telemetry. 11/25: Afebrile overnight, BP slightly elevated 156/74. Restart home amlodipine, continue to hold lisnopril and lasix due to renal function. GNR in urine and blood culture. Awaiting final speciation and sensitivites. continue cefepime IV. Awaiting AM lab completion. PT assessment pending (note patient admits walking at home with rolling walker at baseline). Will follow nephrology recommendations. 11/26: BCx: Citrobacter amalonacticus Ucx: Citrobacter Koseri. Sensitive to Levaquin. Will d/c cefepime and start levaquin. OT recommends JOHN after assessment. Will discuss with CM. 11/27: ST evaluated patient, no evidence of aspiraiton, recommend mechanically soft chopped diet. Based on OT/PT eval, Pending JOHN/SNF placement. If unable to place, will recommend home with [facility] pt. Medically clear for discharge. Discharge with levaquin rx. He was advised to follow up with OP tobias surgeon re: chronic sbo 11/28: Added guafenisen for cough. Awaiting placement. 11/29: Awaiting JOHN vs SNF placement. 11/30: Patient seen and examined no acute distress. Despite his enlarged abdominal pannus he states that he is tolerating diet and moving his bowel. He states that he is under percent better. He is currently awaiting placement as he does not have adequate care at home. He does have chronic lymphedema but states that he ambulates despite the deformity. He is morbidly obese we did have counseling on need to lose weight he verbalized understanding. Risk factors discussed in detail.. Outpatient quiñonez he will need to follow-up with urology for the stent management in the ureter. Discussed with case management hopefully authorization is received today for placement Assessment and plan: This is a 86-year-old male with DM, CHF, HTN, hypothyroidism, SBO s/p abdominal surgery admitted with TAMMY, possible SBO, right ureteral calculi with hydronephrosis, obstructive uropathy Neuro: NAD -Reorientation as needed -Maintain sleep-wake cycle -As needed analgesia Cardiac: h/o CHF, HTN -Cardiology consulted, appreciate recommendations -Blood pressure monitoring per protocol -Hold home antihypertenisive medication at this time -Echocardiogram shows LVEF 50 to 55%, mild concentric LVH -Per cardio: -Echo 03/07/2019-1. Left ventricular ejection fraction is 65%. Aortic valve is tricuspid, focally calcified and sclerotic. Mildly dilated left atrium. There is impaired relaxation with normal filling pressure consistent with grade 1 diastolic dysfunction. E/E' indicative of elevated LVEDP. Mild pulmonic valve insufficiency. -No LIBERTY or ARB in setting of TAMMY Respiratory: Acute hypoxic respiratory failure -CCM consulted, appreciate recommendations -s/p bipap -Currently on AR -Pulmonary hygiene -SPO2 monitor per protocol -CTA chest showed no evidence of pulmonary embolism, bilateral dependent regions of low-attenuation was suggestive of atelectasis GI: Possible SBO, h/o SBO with surgery -General surgery consulted, appreciate recommendations -Abdomen pelvis CT showed large bowel is moderate distended with gas to the point of the suture line in the mid sigmoid colon, partial obstruction of the level of the suture line not excluded -PPI -GI soft diet : Acute kidney injury likely on CKD, right ureteral calculus with associated hydronephrosis, obstructive uropathy secondary to ureteral calculus -Nephrology and Urology consulted, appreciate recommendations -CT abd/pelvis showed 6 mm proximal right ureteral stone with associated hydr onephrosis, multiple additional bilateral nephroliths -Monitor intake and output -Renally dose medications -Avoid nephrotoxic medications -Renal US pending -Urine lytes pending -s/p Cystoscopy, ureteroscopy w/ stent placement -Trend BMP ID: Sepsis POA, GNR bacteremia, Urinary Tract Infection, Pyelonephrosis -Infectious disease consulted, appreciate recommendations -COVID 19 PUI (-) -f/u blood culture -UA, UC, BC->2/2 BC with GNR -Antibiotic therapy with cefepime IV -Does not endorse costovertebral tenderness -Monitor WBC and temperature curve Endo: h/o Hypothyroidism morbidly obese BMI 43.3, -Avoid hypoglycemia -SSI -Accu-Cheks ACHS Heme: Elevated ddimer -Trend CBC -Transfuse hemoglobin less than 7 -SCDs to BLE while in bed -Bilateral lower extremity Doppler ultrasound negative for DVT -CTA chest with no PE #Advance care planning Disease education conducted, care plan discussed, diagnoses discussed, prognosis discussed, patient is full code, patient acknowledges understanding and agree with care plan, +30 minutes. History Interval history: Patient seen and examined resting comfortably. States that he is tolerating diet and moving his bowel. Hospitalist Physical - Physical exam Narrative exam: General appearance: Present: no acute distress - EENT Eyes: Present: PERRL, EOM intact ENT: hearing intact, clear oral mucosa, dentition normal - Neck Neck: Present: normal ROM - Respiratory Respiratory effort: normal Respiratory: bilateral: diminished - Cardiovascular Rhythm: regular Heart Sounds: Present: S1 & S2. Absent: systolic murmur, diastolic murmur - Extremities Extremities: no ischemia, pulses intact, pulses symmetrical, normal temperature, normal color Extremity abnormal: edema Peripheral Pulses: within normal limits - Abdominal General gastrointestinal: soft, non-tender, large pannus, normal bowel sounds - Integumentary Integumentary: Present: warm, dry, chronic lymphedema - Psychiatric Psychiatric: appropriate mood/affect, cooperative - Neurologic Neurologic: CNII-XII intact, no focal deficits, moves all extremities - Allied Health Allied health notes reviewed: nursing, RT, social work - Constitutional Vitals: Temp Pulse Resp BP Pulse Ox 98.6 F 77 18 142/90 93 11/30/21 11:55 11/30/21 11:55 11/30/21 11:55 11/30/21 11:55 11/30/21 11:55 General appearance: Present: no acute distress HEART Score - HEART Score Troponin: Troponin T < 0.010 ng/mL (0.00-0.029) 11/21/21 23:20 Results - Labs CBC & Chem 7: 11/26/21 10:27 11/30/21 08:38 Labs: Laboratory Last Values WBC 8.0 K/mm3 (4.5-11.0) 11/26/21 10:27 RBC 4.39 M/mm3 (3.65-5.03) 11/26/21 10:27 Hgb 12.7 gm/dl (11.8-15.2) 11/26/21 10:27 Hct 37.9 % (35.5-45.6) 11/26/21 10:27 MCV 86 fl (84-94) 11/26/21 10:27 MCH 29 pg (28-32) 11/26/21 10:27 MCHC 34 % (32-34) 11/26/21 10:27 RDW 14.3 % (13.2-15.2) 11/26/21 10:27 Plt Count 134 K/mm3 (140-440) L 11/26/21 10:27 Add Manual Diff Complete 11/23/21 04:38 Total Counted 100 11/23/21 04:38 Seg Neutrophils % Injection Molding Supervisor 11/21/21 23:20 Seg Neuts % (Manual) 84.0 % (40.0-70.0) H 11/23/21 04:38 Band Neutrophils % 4.0 % 11/23/21 04:38 Lymphocytes % (Manual) 2.0 % (13.4-35.0) L 11/23/21 04:38 Reactive Lymphs % (Man) 0 % 11/23/21 04:38 Monocytes % (Manual) 5.0 % (0.0-7.3) 11/23/21 04:38 Eosinophils % (Manual) 2.0 % (0.0-4.3) 11/23/21 04:38 Basophils % (Manual) 0 % (0.0-1.8) 11/23/21 04:38 Metamyelocytes % 3.0 % 11/23/21 04:38 Myelocytes % 0 % 11/23/21 04:38 Promyelocytes % 0 % 11/23/21 04:38 Blast Cells % 0 % 11/23/21 04:38 Nucleated RBC % Not Reportable 11/23/21 04:38 Seg Neutrophils # Man 26.5 K/mm3 (1.8-7.7) H 11/23/21 04:38 Band Neutrophils # 1.3 K/mm3 11/23/21 04:38 Lymphocytes # (Manual) 0.6 K/mm3 (1.2-5.4) L 11/23/21 04:38 Abs React Lymphs (Man) 0.0 K/mm3 11/23/21 04:38 Monocytes # (Manual) 1.6 K/mm3 (0.0-0.8) H 11/23/21 04:38 Eosinophils # (Manual) 0.6 K/mm3 (0.0-0.4) H 11/23/21 04:38 Basophils # (Manual) 0.0 K/mm3 (0.0-0.1) 11/23/21 04:38 Metamyelocytes # 0.9 K/mm3 11/23/21 04:38 Myelocytes # 0.0 K/mm3 11/23/21 04:38 Promyelocytes # 0.0 K/mm3 11/23/21 04:38 Blast Cells # 0.0 K/mm3 11/23/21 04:38 WBC Morphology Not Reportable 11/23/21 04:38 Hypersegmented Neuts Not Reportable 11/23/21 04:38 Hyposegmented Neuts Not Reportable 11/23/21 04:38 Hypogranular Neuts Not Reportable 11/23/21 04:38 Smudge Cells Not Reportable 11/23/21 04:38 Toxic Granulation Not Reportable 11/23/21 04:38 Toxic Vacuolation Not Reportable 11/23/21 04:38 Dohle Bodies Not Reportable 11/23/21 04:38 Pelger-Huet Anomaly Not Reportable 11/23/21 04:38 Antonio Rods Not Reportable 11/23/21 04:38 Platelet Estimate Consistent w auto 11/23/21 04:38 Clumped Platelets Not Reportable 11/23/21 04:38 Plt Clumps, EDTA Not Reportable 11/23/21 04:38 Large Platelets Not Reportable 11/23/21 04:38 Giant Platelets Not Reportable 11/23/21 04:38 Platelet Satelliting Not Reportable 11/23/21 04:38 Plt Morphology Comment Not Reportable 11/23/21 04:38 RBC Morphology Not Reportable 11/23/21 04:38 Dimorphic RBCs Not Reportable 11/23/21 04:38 Polychromasia Not Reportable 11/23/21 04:38 Hypochromasia Not Reportable 11/23/21 04:38 Poikilocytosis Not Reportable 11/23/21 04:38 Anisocytosis Not Reportable 11/23/21 04:38 Microcytosis Not Reportable 11/23/21 04:38 Macrocytosis Not Reportable 11/23/21 04:38 Spherocytes Not Reportable 11/23/21 04:38 Pappenheimer Bodies Not Reportable 11/23/21 04:38 Sickle Cells Not Reportable 11/23/21 04:38 Target Cells Not Reportable 11/23/21 04:38 Tear Drop Cells Not Reportable 11/23/21 04:38 Ovalocytes Not Reportable 11/23/21 04:38 Helmet Cells Not Reportable 11/23/21 04:38 [place] Bodies Not Reportable 11/23/21 04:38 [place] Rings Not Reportable 11/23/21 04:38 Winter Cells Not Reportable 11/23/21 04:38 Bite Cells Not Reportable 11/23/21 04:38 Crenated Cell Not Reportable 11/23/21 04:38 Elliptocytes Not Reportable 11/23/21 04:38 Acanthocytes (Spur) Not Reportable 11/23/21 04:38 Rouleaux Not Reportable 11/23/21 04:38 Hemoglobin C Crystals Not Reportable 11/23/21 04:38 Schistocytes Not Reportable 11/23/21 04:38 Malaria parasites Not Reportable 11/23/21 04:38 Eric Bodies Not Reportable 11/23/21 04:38 Hem Pathologist Commnt No 11/23/21 04:38 PT 14.8 Sec. (12.2-14.9) 11/21/21 23:20 INR 1.04 (0.87-1.13) 11/21/21 23:20 APTT 31.8 Sec. (24.2-36.6) 11/21/21 23:20 D-Dimer > 05863 ng/mlDDU (0-234) H 11/22/21 23:45 ABG pH 7.378 pH Units (7.350-7.450) 11/21/21 22:53 ABG pCO2 36.7 mm Hg 11/21/21 22:53 ABG pO2 178.4 mm Hg (80.0-90.0) H 11/21/21 22:53 ABG HCO3 21.1 mmol/L (20.0-26.0) 11/21/21 22:53 ABG O2 Saturation 99.1 % (95.0-99.0) H 11/21/21 22:53 ABG O2 Content 21.4 (0.0-44) 11/21/21 22:53 ABG Base Excess -3.4 mmol/L (-2.0-3.0) L 11/21/21 22:53 ABG Hemoglobin 15.4 gm/dl (14.0-18.0) 11/21/21 22:53 ABG Carboxyhemoglobin 1.4 % (0.0-5.0) 11/21/21 22:53 ABG Methemoglobin 0.6 % (0.0-1.5) 11/21/21 22:53 Oxyhemoglobin 97.2 % (95.0-99.0) 11/21/21 22:53 FiO2 70 % 11/21/21 22:53 Sodium 140 mmol/L (137-145) 11/30/21 08:38 Potassium 3.7 mmol/L (3.6-5.0) 11/30/21 08:38 Chloride 103.1 mmol/L (98-107) 11/30/21 08:38 Carbon Dioxide 29 mmol/L (22-30) 11/30/21 08:38 Anion Gap 12 mmol/L 11/30/21 08:38 BUN 15 mg/dL (9-20) 11/30/21 08:38 Creatinine 0.9 mg/dL (0.8-1.3) 11/30/21 08:38 Estimated GFR > 60 ml/min 11/30/21 08:38 BUN/Creatinine Ratio 17 % 11/30/21 08:38 Glucose 107 mg/dL (75-100) H 11/30/21 08:38 POC Glucose 109 mg/dL (70-105) H 11/29/21 23:22 Lactic Acid 5.20 mmol/L (0.7-2.0) H* 11/23/21 11:22 Calcium 10.2 mg/dL (8.4-10.2) 11/30/21 08:38 Ferritin 389.2 ng/mL (30.0-300.0) H 11/22/21 23:45 Total Bilirubin 0.60 mg/dL (0.1-1.2) 11/21/21 23:20 Direct Bilirubin < 0.2 mg/dL (0-0.2) 11/21/21 23:20 Indirect Bilirubin 0.4 mg/dL 11/21/21 23:20 AST 60 units/L (5-40) H 11/21/21 23:20 ALT 24 units/L (7-56) 11/21/21 23:20 Alkaline Phosphatase 184 units/L (35-129) H 11/21/21 23:20 Lactate Dehydrogenase 287 units/L (91-180) H 11/22/21 23:45 Troponin T < 0.010 ng/mL (0.00-0.029) 11/21/21 23:20 C-Reactive Protein 20.40 mg/dL (0.00-1.30) H 11/22/21 23:45 NT-Pro-B Natriuret Pep 103.7 pg/mL (0-900) 11/21/21 23:20 Total Protein 7.7 g/dL (6.3-8.2) 11/21/21 23:20 Albumin 4.1 g/dL (3.9-5) 11/21/21 23:20 Albumin/Globulin Ratio 1.1 % 11/21/21 23:20 Procalcitonin 97.57 ng/mL (<0.15) 11/22/21 23:45 Urine Color Yellow (Yellow) 11/22/21 11:47 Urine Turbidity Clear (Clear) 11/22/21 11:47 Specific [place] (Man) 1.010 (1.003-1.030) 11/22/21 11:47 Ur Protein (Man) 1+ mg/dL (Negative) 11/22/21 11:47 Ur Ketones (Man) Negative (Negative) 11/22/21 11:47 Urine Bilirubin (Man) Negative (Negative) 11/22/21 11:47 Urine WBC (Auto) 14.0 /HPF (0.0-6.0) H 11/22/21 11:47 Urine RBC (Auto) 5.0 /HPF (0.0-6.0) 11/22/21 11:47 U Epithel Cells (Auto) 1.0 /HPF (0-13.0) 11/22/21 11:47 Urine Bacteria (Auto) 1+ /HPF (Negative) 11/22/21 11:47 Urine RBC (Manual) Trace (Negative) 11/22/21 11:47 Urine Mucus Few /HPF 11/22/21 11:47 Urine Creatinine 223.0 mg/dL (0.1-20.0) H 11/23/21 12:05 Urine Sodium 27 mmol/L 11/23/21 12:05 Urine Urea Nitrogen 368 11/23/21 12:05 Coronavirus (PCR) Negative (Negative) 11/22/21 11:00 Mccloud/IV: Voiding Method Indwelling Catheter Active Medications - Current Medications Current Medications: Generic Name Dose Route Start Last Admin Trade Name Freq PRN Reason Stop Dose Admin Acetaminophen 650 mg 11/22/21 02:08 11/26/21 17:33 Acetaminophen 325 Mg Tab PO 650 mg Q6H PRN Administration Pain MILD(1-3)/Fever >100.5/CARREON Albuterol 2.5 mg 11/22/21 07:02 Albuterol 2.5 Mg/3 Ml Nebu IH Q4HRT PRN Shortness Of Breath Allopurinol 100 mg 11/25/21 10:00 11/30/21 10:40 Allopurinol 100 Mg Tab PO 100 mg QDAY ERIKA Administration Amlodipine Besylate 10 mg 11/25/21 12:00 11/30/21 10:40 Amlodipine 10 Mg Tab PO 10 mg DAILY ERIKA Administration Dextrose 0 ml 11/22/21 02:08 11/24/21 00:05 Dextrose 50% In Water (25gm) 50 Ml Syringe IV 15 ml Q30MIN PRN Administration Hypoglycemia Protocol Docusate Sodium 100 mg 11/23/21 22:00 11/30/21 10:41 Docusate Sodium 100 Mg/10 Ml Oral Liqd PO 100 mg BID ERIKA Administration Gabapentin 300 mg 11/24/21 22:00 11/30/21 10:40 Gabapentin 300 Mg Cap PO 300 mg BID ERIKA Administration Guaifenesin 20 ml 11/28/21 11:56 11/29/21 14:37 Guaifenesin Dm 200/20 Mg Oral Liqd 10 Ml PO 20 ml Q4H PRN Administration Cough Heparin Sodium (Porcine) 5,000 unit 11/22/21 22:00 11/30/21 05:41 Heparin 5,000 Unit/1 Ml Vial SUB-Q 5,000 unit Q8HR ERIKA Administration Insulin Human Lispro 0 unit 11/23/21 12:00 11/30/21 06:23 Insulin Lispro 100 Unit/Ml SUB-Q Not Given Q6HR [facility] Protocol Levofloxacin 750 mg 11/27/21 10:00 11/30/21 10:42 Levofloxacin 750 Mg Tab PO 12/02/21 10:01 750 mg Q24H ERIKA Administration Protocol Levothyroxine Sodium 150 mcg 11/25/21 06:00 11/30/21 05:41 Levothyroxine 150 Mcg Tab PO 150 mcg QAM@0600 ERIKA Administration Magnesium Hydroxide 30 ml 11/22/21 02:08 Magnesium Hydroxide (Mom) Oral Liqd Udc PO Q4H PRN Constipation Morphine Sulfate 2 mg 11/22/21 02:08 11/28/21 02:18 Morphine 2 Mg/1 Ml Inj IV 2 mg Q4H PRN Administration Pain, Moderate (4-6) Morphine Sulfate 4 mg 11/22/21 02:08 Morphine 4 Mg/1 Ml Inj IV Q4H PRN Pain , Severe (7-10) Phenol 1 spray 11/23/21 12:34 11/23/21 14:05 Phenol 1.4% 177 Ml Bottle MM 1 spray PRN PRN Administration Sore Throat Polyethylene Glycol 17 gm 11/25/21 22:00 11/30/21 10:41 Polyethylene Glycol 3350 17 Gm Powder PO 17 gm BID ERIKA Administration Sodium Chloride 10 ml 11/22/21 10:00 11/29/21 22:18 Sodium Chloride 0.9% 10 Ml Flush Syringe IV 10 ml BID ERIKA Administration Sodium Chloride 10 ml 11/22/21 02:08 Sodium Chloride 0.9% 10 Ml Flush Syringe IV PRN PRN LINE FLUSH Nutrition/Malnutrition Assess - Dietary Evaluation Nutrition/Malnutrition Findings: Nutrition Notes Start: 11/22/21 14:36 Freq: Status: Active Protocol: Document 11/29/21 14:11 ALBIN (Rec: 11/29/21 14:52 ALBIN [id number]) Nutrition Notes Initial or Follow up Assessment Current Diagnosis Diabetes,Hypertension, Respiratory Failure Other Pertinent Diagnosis CHF, Bilateral-LE Lymphedema, Hydronephrosis, Chronic Ileus, Gout, ... Current Diet GI Soft -Consistent Carbohydrates+Renal+Chopped Meats- Diet (from D 11/29). Labs/Tests 11/29: K 3.4, Glu 116, Ca 10.6 . Pertinent Medications 11/29: Levothyroxine, others nutritionally unremarkable. 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 0.822 Kg body weight gain reported in 1 week. Weight Status Morbidly Obese Subjective/Other Information RD consult for routine F/U on nutrition education assessment and dietary advancement. Diet advanced to PO (on B ), No reports available on Pt's PO intake of meals at the time, will assess at F/U. I will add Chopped Meats modification to current diet to comply with FITNESS ATTENDANT recommendations and facilitate Pt's PO intake of meals during LOS. FITNESS ATTENDANT note on 11/26/21 11:01: Swallowing function was assessed. Patient demonstrates safe swallowing skills and is able to manage a mechanical soft diet with chopped meats and regular liquids. No further recommendations. - END OF NOTE. Pt is on Room Air, O2 saturation @ 98%, according to Physical Assessment History notes. Pt has missing teeth, according to Physical Assessment History notes. Pt presernts bilateral-LE Lymphedema 3+, according to Physical Assessment History notes. Pt shows dry and scaly bilateral-LE as signs of concern for skin risk at the time, according to Physical Assessment History notes. Pt is medically cleared for discharge, awaiting SNF or JOHN placement, according to Progress notes. Pt needs total assistance with ADL activities, not a candidate for Nutrition Education. Percent of energy/protein needs met: Prescribed GI Soft -Consistent Carbohydrates+Renal+Chopped Meats- Diet provides for energy/protein needs (2,000 Kcal/82 g) during LOS. Burn Absent Trauma Absent GI Symptoms None Food Allergy No Skin Integrity/Comment Dry and scaly bilateral-LE. Minimum of two criteria No Fluid Accumulation Moderate to Severe (severe) Reduced Account Executive Key Accounts Strength N/A (non-severe) Protein-Calorie Malnutrition N\A #2 Nutrition Diagnosis Biting/Chewing (masticatory) difficulty Comments: FITNESS ATTENDANT note on 11/26/21 11:01: Swallowing function was assessed. Patient demonstrates safe swallowing skills and is able to manage a mechanical soft diet with chopped meats and regular liquids. No further recommendations. - END OF NOTE. Etiology Uncertain As Evidenced by Signs and Symptoms Pt has missing teeth, according to Physical Assessment History notes. #1 Nutrition Diagnosis Overweight/obesity Etiology Possibly secondary to Lifestyle. As Evidenced by Signs and Symptoms BMI: 43.2 Kg/m2. Is patient on ventilator? No Is Patient Ambulatory and/or Out of Bed No REE-([facility]-confined to bed) 2478.816 Kcal/Kg value to use for calculation 15 Approximate Energy Requirements Using 4 kcal/Kg Calculation Used for Recommendations Kcal/kg Additional Notes Protein: 1-1.2 g/Kg AdjBW; 106 -127 g/day. Fluids: 1 ml/Kcal, or as per MD. Nutrition Intervention Change Diet Order: Modify current diet to GI Soft -Consistent Carbohydrates+ Renal+Chopped Meats- Diet, continue as tolerated. Goal #1 Facilitate PO intake of meals with elemental, textural, or mechanical modification during LOS. Goal #2 Adjust the dietary intervention to better serve Pt's needs and clinical conditions during LOS. Follow-Up By: 12/06/21 Additional Comments Continue monitoring food tolerance, %PO intake of meals , and BM.
[2021-12-01] MEDS: INSULIN LISPRO 100 UNIT/ML SUB-Q SCH ×3 (03:16→11:55)
[2021-12-01] MEDS: LEVOTHYROXINE 150 MCG TAB PO SCH (05:36)
[2021-12-01] MEDS: HEPARIN 5,000 UNIT/1 ML VIAL SUB-Q SCH ×2 (05:36→13:16)
[2021-12-01 05:47] LABS: BUN/Creatinine Ratio 18; Blood Urea Nitrogen 14 mg/dL (9-20); Calcium 9.9 mg/dL (8.4-10.2); Hemolysis Index 3
--- NOTE | 2021-12-01 09:18 | Progress Note ---
Subjective Principal diagnosis: sepsis Interval history: Assessment and plan #Acute kidney injury currently in remission As of today blood pressure between 1 50-1 70, creatinine is 3.7, #Hypokalemia appears to have improved Consider adding spironolactone for blood pressure control patient is currently on 40 mg of lisinopril most likely has a competent of secondary hypertension #Hypertension, with hypokalemia most likely secondary hypertension may have a small component to that and hence we will consider adding spironolactone, with caution #Pending rehab, placement, with deconditioning patient is 86-year-old Overall stable from renal standpoint Patient has been told to make an appointment follow-up in the office upon discharge in a week or 2 If there are any renal related issues in regards to this patient please feel free to reach out without any hesitation at [phone] We'll continue to follow and make recommendation for renal standpoint. Progress note by: Salbador Townsend MD [address] [place] [address] Tele [phone] [email or web address] Patient was seen today for follow-up of multiple renal related issues No acute complaints, events of 24 hours vitals current available labs intake output medications were reviewed Past medical history: Reviewed Family history: Reviewed Social history: Reviewed Allergies: Reviewed Physical examination: Vitals: Reviewed HEENT: No pallor or icterus oral mucosa moist Neck: Supple no JVD no thyromegaly Chest: Bilateral clear to auscultation anteriorly Heart: Regular rate and rhythm S1-S2 heard no S3-S4 Abdomen: Soft nontender no voluntary guarding rigidity rebound Extremity: Dry skin less than 1+ peripheral edema Psychiatric: No evidence of agitation and aggression noted Dermatology: No petechial rashes Labs and x-rays: Reviewed from today Objective - Vital Signs Vital signs: Vital Signs - 12hr 11/30/21 11/30/21 11/30/21 21:41 22:00 23:17 Temperature 98.6 F Pulse Rate 84 83 Respiratory 18 Rate Blood Pressure 153/77 Blood Pressure 150/78 [Left] O2 Sat by Pulse 95 91 Oximetry 12/01/21 12/01/21 04:51 08:27 Temperature 97.7 F 98.2 F Pulse Rate 85 83 Respiratory 20 Rate Blood Pressure 171/99 155/89 Blood Pressure [Left] O2 Sat by Pulse 91 94 Oximetry - Lab 11/26/21 10:27 12/01/21 04:36 Most recent lab results ABG pH 7.378 pH Units (7.350-7.450) 11/21/21 22:53 ABG pCO2 36.7 mm Hg 11/21/21 22:53 ABG pO2 178.4 mm Hg (80.0-90.0) H 11/21/21 22:53 ABG HCO3 21.1 mmol/L (20.0-26.0) 11/21/21 22:53 ABG O2 Saturation 99.1 % (95.0-99.0) H 11/21/21 22:53 Calcium 9.9 mg/dL (8.4-10.2) 12/01/21 04:36 Urine Creatinine 223.0 mg/dL (0.1-20.0) H 11/23/21 12:05 Urine Sodium 27 mmol/L 11/23/21 12:05 Medications & Allergies - Medications Allergies/Adverse Reactions: Allergies No Known Allergies Allergy (Unverified 11/21/21 23:08) Home Medications: Home Medications Medication Instructions Recorded Confirmed Last Taken Type Furosemide [Lasix TAB] 20 mg PO QDAY 11/22/21 11/22/21 Unknown History Gabapentin 300 mg PO BID 11/22/21 11/22/21 Unknown History Levothyroxine [Synthroid] 150 mcg PO QAM 11/22/21 11/22/21 Unknown History allopurinoL [Zyloprim] 100 mg PO QDAY 11/22/21 11/22/21 Unknown History amLODIPine 10 mg PO DAILY 11/22/21 11/22/21 Unknown History lisinopriL [Zestril TAB] 40 mg PO QDAY 11/22/21 11/22/21 Unknown History levoFLOXacin [Levaquin TAB] 750 mg PO Q24H 7 Days #7 tablet 11/29/21 Unknown Rx Active Medications: Generic Name Dose Route Start Last Admin Trade Name Freq PRN Reason Stop Dose Admin Acetaminophen 650 mg 11/22/21 02:08 11/26/21 17:33 Acetaminophen 325 Mg Tab PO 650 mg Q6H PRN Administration Pain MILD(1-3)/Fever >100.5/CARREON Albuterol 2.5 mg 11/22/21 07:02 Albuterol 2.5 Mg/3 Ml Nebu IH Q4HRT PRN Shortness Of Breath Allopurinol 100 mg 11/25/21 10:00 11/30/21 10:40 Allopurinol 100 Mg Tab PO 100 mg QDAY ERIKA Administration Amlodipine Besylate 10 mg 11/25/21 12:00 11/30/21 10:40 Amlodipine 10 Mg Tab PO 10 mg DAILY ERIKA Administration Dextrose 0 ml 11/22/21 02:08 11/24/21 00:05 Dextrose 50% In Water (25gm) 50 Ml Syringe IV 15 ml Q30MIN PRN Administration Hypoglycemia Protocol Docusate Sodium 100 mg 11/23/21 22:00 11/30/21 21:27 Docusate Sodium 100 Mg/10 Ml Oral Liqd PO 100 mg BID ERIKA Administration Gabapentin 300 mg 11/24/21 22:00 11/30/21 21:27 Gabapentin 300 Mg Cap PO 300 mg BID ERIKA Administration Guaifenesin 20 ml 11/28/21 11:56 11/29/21 14:37 Guaifenesin Dm 200/20 Mg Oral Liqd 10 Ml PO 20 ml Q4H PRN Administration Cough Heparin Sodium (Porcine) 5,000 unit 11/22/21 22:00 12/01/21 05:36 Heparin 5,000 Unit/1 Ml Vial SUB-Q 5,000 unit Q8HR ERIKA Administration Insulin Human Lispro 0 unit 11/23/21 12:00 12/01/21 03:16 Insulin Lispro 100 Unit/Ml SUB-Q Not Given Q6HR ERIKA Protocol Levofloxacin 750 mg 11/27/21 10:00 11/30/21 10:42 Levofloxacin 750 Mg Tab PO 12/02/21 10:01 750 mg Q24H ERIKA Administration Protocol Levothyroxine Sodium 150 mcg 11/25/21 06:00 12/01/21 05:36 Levothyroxine 150 Mcg Tab PO 150 mcg QAM@0600 ERIKA Administration Lisinopril 40 mg 12/01/21 10:00 Lisinopril 40 Mg Tab PO QDAY ERIKA Magnesium Hydroxide 30 ml 11/22/21 02:08 Magnesium Hydroxide (Mom) Oral Liqd Udc PO Q4H PRN Constipation Morphine Sulfate 2 mg 11/22/21 02:08 11/28/21 02:18 Morphine 2 Mg/1 Ml Inj IV 2 mg Q4H PRN Administration Pain, Moderate (4-6) Morphine Sulfate 4 mg 11/22/21 02:08 Morphine 4 Mg/1 Ml Inj IV Q4H PRN Pain , Severe (7-10) Phenol 1 spray 11/23/21 12:34 11/23/21 14:05 Phenol 1.4% 177 Ml Bottle MM 1 spray PRN PRN Administration Sore Throat Polyethylene Glycol 17 gm 11/25/21 22:00 11/30/21 21:32 Polyethylene Glycol 3350 17 Gm Powder PO 17 gm BID ERIKA Administration Sodium Chloride 10 ml 11/22/21 10:00 12/01/21 08:04 Sodium Chloride 0.9% 10 Ml Flush Syringe IV Not Given BID ERIKA Sodium Chloride 10 ml 11/22/21 02:08 Sodium Chloride 0.9% 10 Ml Flush Syringe IV PRN PRN LINE FLUSH
[2021-12-01] MEDS: levoFLOXacin 750 MG TAB PO SCH (09:37)
[2021-12-01] MEDS: allopurinoL 100 MG TAB PO SCH (09:37)
[2021-12-01] MEDS: GABAPENTIN 300 MG CAP PO SCH (09:37)
[2021-12-01] MEDS: POLYETHYLENE GLYCOL 3350 17 GM POWDER PO SCH (09:38)
[2021-12-01] MEDS: DOCUSATE SODIUM 100 MG/10 ML ORAL LIQD PO SCH (09:38)
[2021-12-01] MEDS: amLODIPine 10 MG TAB PO SCH (09:41)
[2021-12-01] MEDS ORDERED: LISINOPRIL 40 MG TAB PO SCH (10:00)
[2021-12-01] MEDS ORDERED: SPIRONOLACTONE 25 MG TAB PO SCH (10:00)
--- NOTE | 2021-12-01 12:53 | Progress Note ---
Assessment and Plan 86-year-old -[place] male with known history of diabetes mellitus, CHF, bilateral lower extremity lymphedema, Hypothyroidism, Gout presenting to the emergency room complaining of shortness of breath and cough. He also indicated he has been having some tightness in his chest especially have coughing. He denies any chest pain. He denies any fever or chills, no nausea vomiting and no abdominal pain. Symptoms have been ongoing for the past few days. He denies any sick contacts and no recent travel. Upon arrival in the emergency room, patient was in respiratory distress. He was quite tachypneic upon arrival and was placed on nebulizing treatments and BiPAP. His abdomen also looked quite distended upon arrival and he states his abdomen has always been distended and and denies any pain. He states he has had small bowel obstruction in the past for which he has had surgery. Last bowel movement was about 24 hours ago. Work-up in the emergency room ,significant findings were that of creatinine of 1.4 and AST of 60 on the labs. Abdominal x-ray reveals colonic ileus and/or constipation. Chest x-ray shows no active cardiopulmonary disease. CT of the abdomen and pelvis shows multiple bilateral nephroliths. 6 mm pro ximal right ureteral stone with associated hydronephrosis. The large bowel is moderately distended with gas to the point of suture line in the mid sigmoid colon. Partial obstruction at the level of the suture line not excluded. Patient was given some Lasix in the emergency room with significant improvement. Patient says smoked little when he was young otherwise has no history of smoking, alcohol or drug abuse. 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 Not . Has no children. No known drug allergies. Patient awake, Says breathing better . Denies chest pain or cough. Patient is on room air. O2 saturation running 95%. Suppose to be 1 litre o2, but not using it at this time. O2 1 litres stand by in the room. ABG on FIO2 70%. ABG pH 7.378 pH Units (7.350-7.450) 11/21/21 22:53 ABG pCO2 36.7 mm Hg 11/21/21 22:53 ABG pO2 178.4 mm Hg (80.0-90.0) H 11/21/21 22:53 ABG O2 Saturation 99.1 % (95.0-99.0) H 11/21/21 22:53 Patient afebrile. Has no leukocytosis. Blood pressure 155/89 , Pulse 83, respirations 18. Chest xray 11/21/21 reported No active cardiopulmonary disease. CTA of chest 11/22/[address] evidence for pulmonary embolism. Bilateral dependent regions of low attenuation most suggestive of atelectasis. Venous doppler study of lower extremities 11/22/21 reported Negative for DVT. Patient is on Levaquin , S/C Heparin and albuterol inhalor. Recommend GI Prophylaxis. - Patient Problems (1) Acute respiratory failure Status: Acute Plan to address problem: O2 1 litres O2. Not Using O2 at this time.O2 saturation 95%. O2 1 litre stand by in the room. Albuterol inhalor q 6 hours. Continue S/C Heparin. Recommend GI prophylaxis. (2) Colon distention Status: Acute Plan to address problem: Management as per primary care. (3) HTN (hypertension) Status: Acute Plan to address problem: Management as per primary care. (4) Hydronephrosis Status: Acute Plan to address problem: Urology on consultation. Management as per urology. (5) Lymph edema Status: Acute Plan to address problem: Elevate the foot. Continue S/C Heparin. Subjective Date of service: 12/01/21 Principal diagnosis: sepsis Interval history: 86-year-old -[place] male with known history of diabetes mellitus, CHF, bilateral lower extremity lymphedema, Hypothyroidism, Gout presenting to the emergency room complaining of shortness of breath and cough. He also indicated he has been having some tightness in his chest especially have coughing. He denies any chest pain. He denies any fever or chills, no nausea vomiting and no abdominal pain. Symptoms have been ongoing for the past few days. He denies any sick contacts and no recent travel. Upon arrival in the emergency room, patient was in respiratory distress. He was quite tachypneic upon arrival and was placed on nebulizing treatments and BiPAP. His abdomen also looked quite distended upon arrival and he states his abdomen has always been distended and and denies any pain. He states he has had small bowel obstruction in the past for which he has had surgery. Last bowel movement was about 24 hours ago. Work-up in the emergency room ,significant findings were that of creatinine of 1.4 and AST of 60 on the labs. Abdominal x-ray reveals colonic ileus and/or constipation. Chest x-ray shows no active cardiopulmonary disease. CT of the abdomen and pelvis shows multiple bilateral nephroliths. 6 mm prox imal right ureteral stone with associated hydronephrosis. The large bowel is moderately distended with gas to the point of suture line in the mid sigmoid colon. Partial obstruction at the level of the suture line not excluded. Patient was given some Lasix in the emergency room with significant improvement. Patient says smoked little when he was young otherwise has no history of smoking, alcohol or drug abuse. 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 Not . Has no children. No known drug allergies. Patient awake, Says breathing better . Denies chest pain or cough. Patient is on room air. O2 saturation running 95%. Suppose to be 1 litre o2, but not using it at this time. O2 1 litres stand by in the room. ABG on FIO2 70%. ABG pH 7.378 pH Units (7.350-7.450) 11/21/21 22:53 ABG pCO2 36.7 mm Hg 11/21/21 22:53 ABG pO2 178.4 mm Hg (80.0-90.0) H 11/21/21 22:53 ABG O2 Saturation 99.1 % (95.0-99.0) H 11/21/21 22:53 Patient afebrile. Has no leukocytosis. Blood pressure 155/89 , Pulse 83, respirations 18. Chest xray 11/21/21 reported No active cardiopulmonary disease. CTA of chest 11/22/[address] evidence for pulmonary embolism. Bilateral dependent regions of low attenuation most suggestive of atelectasis. Venous doppler study of lower extremities 11/22/21 reported Negative for DVT. Patient is on Levaquin , S/C Heparin and albuterol inhalor. Recommend GI Prophylaxis. Objective Vital Signs - 12hr 12/01/21 12/01/21 12/01/21 04:51 08:27 10:00 Temperature 97.7 F 98.2 F Pulse Rate 85 83 Pulse Rate [ 83 From Monitor] Respiratory 20 18 Rate Blood Pressure 171/99 155/89 O2 Sat by Pulse 91 94 95 Oximetry Constitutional: no acute distress, alert Eyes: non-icteric ENT: oropharynx moist Neck: supple, no lymphadenopathy, no JVD, other (large circumference) Effort: normal Ascultation: Bilateral: diminished breath sounds Percussion: Bilateral: not dull Cardiovascular: regular rate and rhythm, other (occasional extrasystole's) Gastrointestinal: normoactive bowel sounds, soft, non-tender, other (distended but soft) Integumentary: rash (stasis dermatitis type to legs), other (Changes from lymphedema and Stasis dermatitis.) Extremities: no cyanosis, pulses normal, no ischemia or petechiae, edema Neurologic: non-focal exam (grossly), pupils equal and round, unable to assess Psychiatric: mood appropriate, affect normal CBC and BMP: 11/26/21 10:27 12/01/21 04:36 ABG, PT/INR, D-dimer: ABG ABG pH 7.378 pH Units (7.350-7.450) 11/21/21 22:53 ABG pCO2 36.7 mm Hg 11/21/21 22:53 ABG pO2 178.4 mm Hg (80.0-90.0) H 11/21/21 22:53 ABG O2 Saturation 99.1 % (95.0-99.0) H 11/21/21 22:53 PT/INR, D-dimer PT 14.8 Sec. (12.2-14.9) 11/21/21 23:20 INR 1.04 (0.87-1.13) 11/21/21 23:20 D-Dimer > 77500 ng/mlDDU (0-234) H 11/22/21 23:45 Abnormal lab findings: Abnormal Labs 11/21/21 11/21/21 11/21/21 22:53 23:20 23:20 WBC RBC 5.34 H Hct 47.1 H MCHC Plt Count Seg Neuts % (Manual) 91.0 H Lymphocytes % (Manual) 5.0 L Seg Neutrophils # Man 8.5 H Lymphocytes # (Manual) 0.5 L Monocytes # (Manual) Eosinophils # (Manual) D-Dimer ABG pO2 178.4 H ABG O2 Saturation 99.1 H ABG Base Excess -3.4 L Sodium 133 L Potassium Carbon Dioxide BUN Creatinine 1.4 H Glucose POC Glucose Lactic Acid Calcium 10.9 H Ferritin AST 60 H Alkaline Phosphatase 184 H Lactate Dehydrogenase C-Reactive Protein Urine WBC (Auto) Urine Creatinine 11/22/21 11/22/21 11/22/21 11:47 23:45 23:45 WBC RBC Hct MCHC Plt Count Seg Neuts % (Manual) Lymphocytes % (Manual) Seg Neutrophils # Man Lymphocytes # (Manual) Monocytes # (Manual) Eosinophils # (Manual) D-Dimer > 54001 H ABG pO2 ABG O2 Saturation ABG Base Excess Sodium Potassium Carbon Dioxide BUN Creatinine Glucose POC Glucose Lactic Acid Calcium Ferritin AST Alkaline Phosphatase Lactate Dehydrogenase 287 H C-Reactive Protein 20.40 H Urine WBC (Auto) 14.0 H Urine Creatinine 11/22/21 11/22/21 11/22/21 23:45 23:45 23:45 WBC 31.0 H RBC 5.24 H Hct 47.2 H MCHC Plt Count 104 L Seg Neuts % (Manual) Lymphocytes % (Manual) Seg Neutrophils # Man Lymphocytes # (Manual) Monocytes # (Manual) Eosinophils # (Manual) D-Dimer ABG pO2 ABG O2 Saturation ABG Base Excess Sodium Potassium Carbon Dioxide BUN Creatinine Glucose POC Glucose Lactic Acid 4.50 H* Calcium Ferritin 389.2 H AST Alkaline Phosphatase Lactate Dehydrogenase C-Reactive Protein Urine WBC (Auto) Urine Creatinine 11/23/21 11/23/21 11/23/21 04:38 04:38 04:38 WBC 31.6 H RBC 5.20 H Hct 47.1 H MCHC 31 L Plt Count 97 L Seg Neuts % (Manual) 84.0 H Lymphocytes % (Manual) 2.0 L Seg Neutrophils # Man 26.5 H Lymphocytes # (Manual) 0.6 L Monocytes # (Manual) 1.6 H Eosinophils # (Manual) 0.6 H D-Dimer ABG pO2 ABG O2 Saturation ABG Base Excess Sodium 136 L Potassium Carbon Dioxide 18 L BUN 31 H Creatinine 2.7 H D Glucose 65 L POC Glucose Lactic Acid 4.50 H* Calcium 10.5 H Ferritin AST Alkaline Phosphatase Lactate Dehydrogenase C-Reactive Protein Urine WBC (Auto) Urine Creatinine 11/23/21 11/23/21 11/23/21 11:22 11:22 12:05 WBC RBC Hct MCHC Plt Count Seg Neuts % (Manual) Lymphocytes % (Manual) Seg Neutrophils # Man Lymphocytes # (Manual) Monocytes # (Manual) Eosinophils # (Manual) D-Dimer ABG pO2 ABG O2 Saturation ABG Base Excess Sodium Potassium Carbon Dioxide BUN 35 H Creatinine 2.7 H Glucose 72 L POC Glucose Lactic Acid 5.20 H* Calcium Ferritin AST Alkaline Phosphatase Lactate Dehydrogenase C-Reactive Protein Urine WBC (Auto) Urine Creatinine 223.0 H 11/23/21 11/24/21 11/24/21 16:24 00:03 00:22 WBC RBC Hct MCHC Plt Count Seg Neuts % (Manual) Lymphocytes % (Manual) Seg Neutrophils # Man Lymphocytes # (Manual) Monocytes # (Manual) Eosinophils # (Manual) D-Dimer ABG pO2 ABG O2 Saturation ABG Base Excess Sodium Potassium Carbon Dioxide BUN Creatinine Glucose POC Glucose 58 L 65 L 123 H Lactic Acid Calcium Ferritin AST Alkaline Phosphatase Lactate Dehydrogenase C-Reactive Protein Urine WBC (Auto) Urine Creatinine 11/24/21 11/24/21 11/24/21 04:26 04:26 11:44 WBC 17.6 H RBC Hct MCHC 31 L Plt Count 95 L Seg Neuts % (Manual) Lymphocytes % (Manual) Seg Neutrophils # Man Lymphocytes # (Manual) Monocytes # (Manual) Eosinophils # (Manual) D-Dimer ABG pO2 ABG O2 Saturation ABG Base Excess Sodium Potassium 5.2 H Carbon Dioxide BUN 38 H Creatinine 1.9 H Glucose 108 H POC Glucose 122 H Lactic Acid Calcium Ferritin AST Alkaline Phosphatase Lactate Dehydrogenase C-Reactive Protein Urine WBC (Auto) Urine Creatinine 11/24/21 11/24/21 11/25/21 16:32 23:30 04:49 WBC RBC Hct MCHC Plt Count Seg Neuts % (Manual) Lymphocytes % (Manual) Seg Neutrophils # Man Lymphocytes # (Manual) Monocytes # (Manual) Eosinophils # (Manual) D-Dimer ABG pO2 ABG O2 Saturation ABG Base Excess Sodium Potassium Carbon Dioxide BUN Creatinine Glucose POC Glucose 120 H 132 H 109 H Lactic Acid Calcium Ferritin AST Alkaline Phosphatase Lactate Dehydrogenase C-Reactive Protein Urine WBC (Auto) Urine Creatinine 11/25/21 11/25/21 11/26/21 16:15 22:56 10:27 WBC RBC Hct MCHC Plt Count 134 L Seg Neuts % (Manual) Lymphocytes % (Manual) Seg Neutrophils # Man Lymphocytes # (Manual) Monocytes # (Manual) Eosinophils # (Manual) D-Dimer ABG pO2 ABG O2 Saturation ABG Base Excess Sodium Potassium Carbon Dioxide BUN Creatinine Glucose POC Glucose 121 H 107 H Lactic Acid Calcium Ferritin AST Alkaline Phosphatase Lactate Dehydrogenase C-Reactive Protein Urine WBC (Auto) Urine Creatinine 11/26/21 11/26/21 11/27/21 11:43 23:15 05:35 WBC RBC Hct MCHC Plt Count Seg Neuts % (Manual) Lymphocytes % (Manual) Seg Neutrophils # Man Lymphocytes # (Manual) Monocytes # (Manual) Eosinophils # (Manual) D-Dimer ABG pO2 ABG O2 Saturation ABG Base Excess Sodium Potassium 3.5 L Carbon Dioxide BUN Creatinine Glucose 103 H POC Glucose 128 H 145 H Lactic Acid Calcium Ferritin AST Alkaline Phosphatase Lactate Dehydrogenase C-Reactive Protein Urine WBC (Auto) Urine Creatinine 11/27/21 11/27/21 11/27/21 11:51 15:47 20:05 WBC RBC Hct MCHC Plt Count Seg Neuts % (Manual) Lymphocytes % (Manual) Seg Neutrophils # Man Lymphocytes # (Manual) Monocytes # (Manual) Eosinophils # (Manual) D-Dimer ABG pO2 ABG O2 Saturation ABG Base Excess Sodium Potassium Carbon Dioxide BUN Creatinine Glucose POC Glucose 132 H 122 H 136 H Lactic Acid Calcium Ferritin AST Alkaline Phosphatase Lactate Dehydrogenase C-Reactive Protein Urine WBC (Auto) Urine Creatinine 11/27/21 11/28/21 11/28/21 23:23 04:29 05:20 WBC RBC Hct MCHC Plt Count Seg Neuts % (Manual) Lymphocytes % (Manual) Seg Neutrophils # Man Lymphocytes # (Manual) Monocytes # (Manual) Eosinophils # (Manual) D-Dimer ABG pO2 ABG O2 Saturation ABG Base Excess Sodium Potassium 3.5 L Carbon Dioxide BUN Creatinine 0.7 L Glucose 120 H POC Glucose 143 H 130 H Lactic Acid Calcium 10.5 H Ferritin AST Alkaline Phosphatase Lactate Dehydrogenase C-Reactive Protein Urine WBC (Auto) Urine Creatinine 11/28/21 11/28/21 11/28/21 11:59 16:19 23:25 WBC RBC Hct MCHC Plt Count Seg Neuts % (Manual) Lymphocytes % (Manual) Seg Neutrophils # Man Lymphocytes # (Manual) Monocytes # (Manual) Eosinophils # (Manual) D-Dimer ABG pO2 ABG O2 Saturation ABG Base Excess Sodium Potassium Carbon Dioxide BUN Creatinine Glucose POC Glucose 132 H 132 H 149 H Lactic Acid Calcium Ferritin AST Alkaline Phosphatase Lactate Dehydrogenase C-Reactive Protein Urine WBC (Auto) Urine Creatinine 11/29/21 11/29/21 11/29/21 05:04 06:18 23:22 WBC RBC Hct MCHC Plt Count Seg Neuts % (Manual) Lymphocytes % (Manual) Seg Neutrophils # Man Lymphocytes # (Manual) Monocytes # (Manual) Eosinophils # (Manual) D-Dimer ABG pO2 ABG O2 Saturation ABG Base Excess Sodium Potassium 3.4 L Carbon Dioxide BUN Creatinine Glucose 116 H POC Glucose 120 H 109 H Lactic Acid Calcium 10.6 H Ferritin AST Alkaline Phosphatase Lactate Dehydrogenase C-Reactive Protein Urine WBC (Auto) Urine Creatinine 11/30/21 11/30/21 11/30/21 08:38 11:52 15:42 WBC RBC Hct MCHC Plt Count Seg Neuts % (Manual) Lymphocytes % (Manual) Seg Neutrophils # Man Lymphocytes # (Manual) Monocytes # (Manual) Eosinophils # (Manual) D-Dimer ABG pO2 ABG O2 Saturation ABG Base Excess Sodium Potassium Carbon Dioxide BUN Creatinine Glucose 107 H POC Glucose 127 H 115 H Lactic Acid Calcium Ferritin AST Alkaline Phosphatase Lactate Dehydrogenase C-Reactive Protein Urine WBC (Auto) Urine Creatinine 12/01/21 00:11 WBC RBC Hct MCHC Plt Count Seg Neuts % (Manual) Lymphocytes % (Manual) Seg Neutrophils # Man Lymphocytes # (Manual) Monocytes # (Manual) Eosinophils # (Manual) D-Dimer ABG pO2 ABG O2 Saturation ABG Base Excess Sodium Potassium Carbon Dioxide BUN Creatinine Glucose POC Glucose 107 H Lactic Acid Calcium Ferritin AST Alkaline Phosphatase Lactate Dehydrogenase C-Reactive Protein Urine WBC (Auto) Urine Creatinine Allied health notes reviewed: nursing
--- NOTE | 2021-12-01 13:47 | Discharge Summary ---
Providers - Providers Date of Admission: 11/22/21 02:09 Attending physician: MARC NIETO MD 11/22/21 02:09 Consult to Dietitian/Nutrition [CONS] Routine Physician Instructions: Reason For Exam: Reason for Consult: Diet education Consult to Dietitian/Nutrition [CONS] Routine Physician Instructions: Reason For Exam: Reason for Consult: Diet education Consult to Physician [CONS] Routine Comment: Consulting Provider: VIANEY MCKOY Physician Instructions: Reason For Exam: chf exac 11/22/21 06:49 Consult to Physician [CONS] Routine Comment: Consulting Provider: IRA SMITH Physician Instructions: Reason For Exam: TAMMY 11/22/21 07:03 Consult to Physician [CONS] Routine Comment: Consulting Provider: LING COOK Physician Instructions: Reason For Exam: Ureteral stone, hydronephrosis- Urology Notified 11/22/21 10:50 Consult to Physician [CONS] Routine Comment: spoke face to face with dr. baez/[place] Consulting Provider: UMA CORNEJO Physician Instructions: Reason For Exam: resp distress 11/22/21 13:55 Consult to Physician [CONS] Urgent Comment: Consulting Provider: REUBEN GOLDSMITH Physician Instructions: Reason For Exam: Partial Bowel Obstruction 11/22/21 18:46 Consult to Physician [CONS] Routine Comment: already discussed with dr mahmood Consulting Provider: GUCCI MAHMOOD Physician Instructions: Reason For Exam: poss sigmoid anastamotic stricture, flex sig eval 11/23/21 13:37 Consult to Physician [CONS] Routine Comment: call office/shoshana Consulting Provider: JJ BONILLA Physician Instructions: Reason For Exam: sepsis? 11/24/21 12:40 Occupational Therapy Evaluate and Treat [CONS] Routine Comment: Reason For Exam: weakness Physical Therapy Evaluation and Treat [CONS] Routine Comment: Reason For Exam: weakness 11/26/21 08:45 Speech Therapy Evaluation and Treat [CONS] Routine Reason For Exam: difficulty swallowing Hospitalization Reason for admission: shortness of breath Condition: Stable Hospital course: This is a 86 year old male with DM, CHF, BLE lymphedema, HTN, hypothyroidism, gout, abdnominal surgery with SBO who presents to the emergency department on 06/22 with complaints of shortness of breath, cough, chest tightness with coughing ongoing for the past few days. In the emergency department he stated he had SBO in the past with surgery however later distended upon admission but the patient stated his last bowel movement was about 24 hours prior to admission. Work-up in the emergency department showed acute kidney injury, abdominal x-ray revealed colonic ileus or constipation, CT abdomen/pelvis showed multiple bilateral nephrolithiasis, 6 mm proximal right ureteral stone with associated hydronephrosis, possible partial occlusion [mildly distended with gas at the point of suture line in the mid sigmoid colon. Patient was given Lasix in the ED and placed on BiPAP for respiratory distress. Patient was admitted to the hospitalist service with consults to urology, nephrology, cardiology. Hospital course to date 11/22: CCM consulted, appreciate recommendations. CT abdomen/pelvis showed possible SBO and surgery was consulted. COVID-19 PCR resulted as negative. S/p BiPAP therapy on Venturi mask. Wean as tolerated. 11/23: Worsening renal function noted, started on antibiotics. Urine electrolytes pending, ordered renal US. On Dextrose fluid awaiting GI input on feeding patient. 11/24: Renal function improving, restarted home gabapentin and allopurinol as patient states that he has gout pains to feet. Patient will be transferred to telemetry. 11/25: Afebrile overnight, BP slightly elevated 156/74. Restart home amlodipine, continue to hold lisnopril and lasix due to renal function. GNR in urine and blood culture. Awaiting final speciation and sensitivites. continue cefepime IV. Awaiting AM lab completion. PT assessment pending (note patient admits walking at home with rolling walker at baseline). Will follow nephrology recommendations. 11/26: BCx: Citrobacter amalonacticus Ucx: Citrobacter Koseri. Sensitive to Levaquin. Will d/c cefepime and start levaquin. OT recommends [facility] after assessment. Will discuss with CM. 11/27: ST evaluated patient, no evidence of aspiraiton, recommend mechanically soft chopped diet. Based on OT/PT eval, Pending JOHN/SNF placement. If unable to place, will recommend home with [facility] pt. Medically clear for discharge. Discharge with levaquin rx. He was advised to follow up with [facility] re: chronic sbo 11/28: Added guafenisen for cough. Awaiting placement. 11/29: Awaiting [facility] vs SNF placement. 11/30: Patient seen and examined no acute distress. Despite his enlarged abdominal pannus he states that he is tolerating diet and moving his bowel. He states that he is under percent better. He is currently awaiting placement as he does not have adequate care at home. He does have chronic lymphedema but states that he ambulates despite the deformity. He is morbidly obese we did have counseling on need to lose weight he verbalized understanding. Risk factors discussed in detail.. Outpatient quiñonez he will need to follow-up with urology for the stent management in the ureter. Discussed with case management hopefully authorization is received today for placement 12/01: Patient continues to show improvement, stable for discharge, counselling provided to the patient about outpatient follow up with nephrology, weight loss counselling. Assessment and plan: This is a 86-year-old male with DM, CHF, HTN, hypothyroidism, SBO s/p abdominal surgery admitted with TAMMY, possible SBO, right ureteral calculi with hydronephrosis, obstructive uropathy Neuro: NAD -Reorientation as needed -Maintain sleep-wake cycle -As needed analgesia Cardiac: h/o CHF, HTN -Cardiology consulted, appreciate recommendations -Blood pressure monitoring per protocol -Hold home antihypertenisive medication at this time -Echocardiogram shows LVEF 50 to 55%, mild concentric LVH -Per cardio: -Echo 03/07/2019-1. Left ventricular ejection fraction is 65%. Aortic valve is tricuspid, focally calcified and sclerotic. Mildly dilated left atrium. There is impaired relaxation with normal filling pressure consistent with grade 1 diastolic dysfunction. E/E' indicative of elevated LVEDP. Mild pulmonic valve insufficiency. -No LIBERTY or ARB in setting of TAMMY Respiratory: Acute hypoxic respiratory failure -[facility] consulted, appreciate recommendations -s/p bipap -Currently on NC -Pulmonary hygiene -SPO2 monitor per protocol -CTA chest showed no evidence of pulmonary embolism, bilateral dependent regions of low-attenuation was suggestive of atelectasis GI: Possible SBO, h/o SBO with surgery -General surgery consulted, appreciate recommendations -Abdomen pelvis CT showed large bowel is moderate distended with gas to the point of the suture line in the mid sigmoid colon, partial obstruction of the level of the suture line not excluded -PPI -GI soft diet : Acute kidney injury likely on CKD, right ureteral calculus with associated hydronephrosis, obstructive uropathy secondary to ureteral calculus -Nephrology and Urology consulted, appreciate recommendations -CT abd/pelvis showed 6 mm proximal right ureteral stone with associated hydronephrosis, multiple additional bilateral nephroliths -Monitor intake and output -Renally dose medications -Avoid nephrotoxic medications -Renal US pending -Urine lytes pending -s/p Cystoscopy, ureteroscopy w/ stent placement -Trend BMP ID: Sepsis POA, GNR bacteremia, Urinary Tract Infection, Pyelonephrosis -Infectious disease consulted, appreciate recommendations -COVID 19 PUI (-) -f/u blood culture -UA, UC, BC->2/2 BC with GNR -Antibiotic therapy with cefepime IV -Does not endorse costovertebral tenderness -Monitor WBC and temperature curve Endo: h/o Hypothyroidism morbidly obese BMI 43.3, -Avoid hypoglycemia -SSI -Accu-Cheks ACHS Heme: Elevated ddimer -Trend CBC -Transfuse hemoglobin less than 7 -SCDs to BLE while in bed -Bilateral lower extremity Doppler ultrasound negative for DVT -CTA chest with no PE #Advance care planning Disease education conducted, care plan discussed, diagnoses discussed, prognosis discussed, patient is full code, patient acknowledges understanding and agree with care plan, +30 minutes. Disposition: [facility] Final Discharge Diagnosis (Prints w/discharge instructions): Sepsis POA, GNR bacteremia, Urinary Tract Infection, Pyelonephrosis. h/o CHF, HTN. Acute hypox ic respiratory failure. SBO, h/o SBO with surgery. Acute kidney injury likely on CKD, right ureteral calculus with associated hydronephrosis, obstructive uropathy secondary to ureteral calculus. Time spent for discharge: 35 mins Core Measure Documentation - Palliative Care Palliative Care/ Comfort Measures: Not Applicable - Core Measures Any of the following diagnoses?: none Exam - Physical Exam Narrative exam: General appearance: Present: no acute distress - EENT Eyes: Present: PERRL, EOM intact ENT: hearing intact, clear oral mucosa, dentition normal - Neck Neck: Present: normal ROM - Respiratory Respiratory effort: normal Respiratory: bilateral: diminished - Cardiovascular Rhythm: regular Heart Sounds: Present: S1 & S2. Absent: systolic murmur, diastolic murmur - Extremities Extremities: no ischemia, pulses intact, pulses symmetrical, normal temperature, normal color Extremity abnormal: edema Peripheral Pulses: within normal limits - Abdominal General gastrointestinal: soft, non-tender, large pannus, normal bowel sounds - Integumentary Integumentary: Present: warm, dry, chronic lymphedema - Psychiatric Psychiatric: appropriate mood/affect, cooperative - Neurologic Neurologic: CNII-XII intact, no focal deficits, moves all extremities - Allied Health Allied health notes reviewed: nursing, RT, social work - Constitutional Vitals: Temp Pulse Resp BP Pulse Ox 98.2 F 83 18 155/89 95 12/01/21 08:27 12/01/21 10:00 12/01/21 10:00 12/01/21 08:27 12/01/21 10:00 Plan Activity: advance as tolerated, fall precautions Care Plan Goals: check renal function test in 1 week with your PCP Follow up with: TYSON GALLOWAY [Other] - 7 Days LING COOK MD [Staff Physician] - 7 Days Prescriptions: levoFLOXacin [Levaquin TAB] 750 mg PO Q24H 7 Days #7 tablet
[2021-12-01 15:49] VITALS: BP 152/87
== END 2021-12-01 16:50 | DRG 853 ==
LOC: ED 22:14 → CC1 11-22 02:09 → 4A 11-24 19:08
PROVIDERS: ADMIT Internal Medicine Geriatric Medicine; ATTEND Internal Medicine
PROC: 5A09557 Assistance with Respiratory Ventilation, Greater than 96 Consecutive Hours, Continuous Positive Airway Pressure (ICD-10-PCS; 2021-11-21)
PROC: 4A033R1 Measurement of Arterial Saturation, Peripheral, Percutaneous Approach (ICD-10-PCS; principal; 2021-11-22)
PROC: 0T768DZ Dilation of Right Ureter with Intraluminal Device, Via Natural or Artificial Opening Endoscopic (ICD-10-PCS; 2021-11-22)
PROC: 0TBB8ZZ Excision of Bladder, Via Natural or Artificial Opening Endoscopic (ICD-10-PCS; 2021-11-22)
PROC: BT1D1ZZ Fluoroscopy of Right Kidney, Ureter and Bladder using Low Osmolar Contrast (ICD-10-PCS; 2021-11-22)
DX: A41.50 Gram-negative sepsis, unspecified (principal); J96.01 Acute respiratory failure with hypoxia; Z68.41 Body mass index [BMI] 40.0-44.9, adult; N17.9 Acute kidney failure, unspecified; I13.2 Hypertensive heart and chronic kidney disease with heart failure and with stage 5 chronic kidney disease, or end stage renal disease; K56.600 Partial intestinal obstruction, unspecified as to cause; K59.39 Other megacolon; N13.6 Pyonephrosis; E66.01 Morbid (severe) obesity due to excess calories; N18.9 Chronic kidney disease, unspecified; Z20.822 Contact with and (suspected) exposure to COVID-19; M10.9 Gout, unspecified; E11.9 Type 2 diabetes mellitus without complications; I50.9 Heart failure, unspecified; K63.89 Other specified diseases of intestine; E03.9 Hypothyroidism, unspecified; E83.52 Hypercalcemia
CPT/HCPCS: 36415; 71045; 71275; 74018; 74176; 74420; 76770; 80048; 80076; 81001; 82140; 82570; 82728; 82803; 82947; 82962; 83615; 83880; 84145; 84300; 84484; 84520; 85007; 85025; 85027; 85379; 85610; 85730; 86140; 87040; 87076; 87086; 87186; 88305; 93005; 93306; 93970; 94640; 94660; 94760; 99285; G0378; J3490; J7070; C1758; C1769; C2617; C8929; J0690; J0692; J1644; J1940; J2250; J2270; J2405; J2704; J2930; J3010; J7030; Q9967; U0003